=== PATIENT | female | born 1935 | race Caucasian/White ===

== ENCOUNTER → 2016-11-22 | Outpatient (CLI) | payer MEDICARE, BC ==
--- NOTE | 2016-11-22 12:52 | XR ---
EXAMINATION TYPE: XR KUB DATE OF EXAM: 11/22/2016 12:48 PM COMPARISON: Ultrasound 10/04/2016 HISTORY: Left flank pain FINDINGS: The osseous structures are intact. The bowel gas pattern is nonspecific. Severe degenerative disc di sease and hypertrophic changes noted. Surgical clips in the right upper quadrant seen. Severe arthrit ic changes involving the hip joints with complete loss of joint space and possible post arthritic ost eonecrosis. Calcifications overlying the pelvis are noted. IMPRESSION: 1. Nonspecific abdomen. Renal stone noted by ultrasound is not well seen by standard x-ray. No defin ite suspicious calcifications. 2. 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
== END | disposition home or self-care (01) ==
LOC: RADXRMAIN 12:31
PROVIDERS: ATTEND Physician Assistant
DX: N20.0 Calculus of kidney (principal)
CPT/HCPCS: 74000

== ENCOUNTER 2018-02-10 02:34 | Inpatient (IN) | payer MEDICARE, BC ==
--- NOTE | 2018-02-10 02:49 | ED ---
General Adult HPI - General Stated complaint: Low Hemoglobin Time Seen by Provider: 02/10/18 02:35 Source: RN notes reviewed - History of Present Illness Initial comments: This is an 82-year-old female presents emergency department stating she has been having maroon stool since Monday. Patient states she got call from her doctor that her hemoglobin was 6.6 and needed to come to the hospital. Patient states she's noticed lately she's been considerable short of breath especially with any Walking. Patient states she's had no chest pain patient denies any abdominal pain patient denies ever having been anemic in the past. Patient states she's never had a colonoscopy. Patient denies lightheadedness dizziness when she is walking. Patient denies any headache patient denies numbness weakness. Patient denies any recent fever chills. - Related Data Home Medications Medication Instructions Recorded Confirmed Aspirin 81 mg PO DAILY 04/10/15 02/10/18 Cyanocobalamin [Vitamin B-12] 1,000 mcg PO QAM 04/10/15 02/10/18 Docusate Sodium [Dulcolax Stool 200 mg PO HS 04/10/15 02/10/18 Softener] Furosemide [Lasix] 20 mg PO DAILY 04/10/15 02/10/18 Levothyroxine Sodium [Synthroid] 150 mcg PO QAM 04/10/15 02/10/18 Metoprolol Succinate [Toprol XL] 50 mg PO QAM 04/10/15 02/10/18 Multivit with Calcium,Iron,Min 1 each PO DAILY 04/10/15 02/10/18 [Women's Daily Multivitamin] Nateglinide [Starlix] 120 mg PO QAM 04/10/15 02/10/18 Oxybutynin Chloride 5 mg PO TID 04/10/15 06/04/15 Phentermine HCl [Adipex-P] 1.5 tab PO QAM 04/10/15 06/04/15 Potassium Chloride [K-Tab ER] 10 meq PO 1200 04/10/15 02/10/18 Sennosides [Senokot] 2 tab PO HS 04/10/15 02/10/18 Simvastatin [Zocor] 20 mg PO HS 04/10/15 06/04/15 Vits A,C,E/Lutein/Minerals 1 each PO Q6H 04/10/15 02/10/18 [Ocuvite with Lutein Tablet] metFORMIN HCL 1,000 mg PO QAM 04/10/15 02/10/18 sitaGLIPtin PHOS/metFORMIN HCL 1 each PO QAM 04/10/15 02/10/18 [Janumet Xr 100-1,000 mg Tablet] Ciprofloxacin HCl [Cipro] 500 mg PO Q12HR 02/10/18 02/10/18 Allergies Allergy/AdvReac Type Severity Reaction Status Date / Time Sulfa (Sulfonamide Allergy Anaphylaxis Verified 06/02/15 10:21 Antibiotics) Review of Systems ROS Statement: Those systems with pertinent positive or pertinent negative responses have been documented in the HPI. ROS Other: All systems not noted in ROS Statement are negative. General Exam - General Exam Comments Initial Comments: GENERAL: Patient is well-developed and well-nourished. Patient is nontoxic and well- hydrated and is in mild distress. ENT: Neck is soft and supple. No significant lymphadenopathy is noted. Oropharynx is clear. Moist mucous membranes. Neck has full range of motion without eliciting any pain. EYES: The sclera were anicteric and conjunctiva were pink and moist. Extraocular movements were intact and pupils were equal round and reactive to light. Eyelids were unremarkable. PULMONARY: Diminished breath sounds on the right CARDIOVASCULAR: Patient has extrasystole occasionally with a 2/6 murmur ABDOMEN: Soft and nontender with normal bowel sounds. SKIN: Patient's skin is very pale. NEUROLOGIC: Patient is alert and oriented x3. Cranial nerves II through XII are grossly intact. Motor and sensory are also intact. Normal speech, volume and content. Symmetrical smile. MUSCULOSKELETAL: Normal extremities with adequate strength and full range of motion. LYMPHATICS: No significant lymphadenopathy is noted PSYCHIATRIC: Normal psychiatric evaluation. Normal interpersonal interactions appears functionally intact in deals appropriately with others. No signs of depression. No signs of anxiety. Course Vital Signs 02/10/18 02/10/18 02/10/18 02:42 03:46 04:27 Temperature 97.8 F 98.0 F 98.6 F Pulse Rate 90 81 89 Respiratory 16 16 16 Rate Blood Pressure 133/62 115/71 139/65 O2 Sat by Pulse 93 L 99 100 Oximetry 02/10/18 02/10/18 04:38 04:45 Temperature 98.6 F 98.4 F Pulse Rate 97 85 Respiratory 16 17 Rate Blood Pressure 139/65 120/58 O2 Sat by Pulse Oximetry Medical Decision Making - Medical Decision Making X-ray shows possible new right-sided infiltrate with a small pleural effusion CAT scan verifies pneumonia in the right also notices some infiltrate on the left. Patient continues to deny any significant cough. I spoke with Dr. Park I did the patient I wrote admitting orders. I started the patient on antibiotics. I gave the patient blood. - Lab Data Result diagrams: 02/10/18 02:53 02/10/18 02:53 Lab Results 02/10/18 02/10/18 02/10/18 Range/Units 02:53 02:53 02:53 WBC 5.4 (3.8-10.6) k/uL RBC 2.43 L (3.80-5.40) m/uL Hgb 6.3 L* (11.4-16.0) gm/dL Hct 20.6 L (34.0-46.0) % MCV 84.9 (80.0-100.0) fL MCH 25.9 (25.0-35.0) pg MCHC 30.5 L (31.0-37.0) g/dL RDW 15.5 (11.5-15.5) % Plt Count 198 (150-450) k/uL Neutrophils % 65 % Lymphocytes % 17 % Monocytes % 11 % Eosinophils % 2 % Basophils % 0 % Neutrophils # 3.5 (1.3-7.7) k/uL Lymphocytes # 0.9 L (1.0-4.8) k/uL Monocytes # 0.6 (0-1.0) k/uL Eosinophils # 0.1 (0-0.7) k/uL Basophils # 0.0 (0-0.2) k/uL Hypochromasia Marked Poikilocytosis Moderate PT (9.0-12.0) sec INR (<1.2) APTT (22.0-30.0) sec Sodium (137-145) mmol/L Potassium (3.5-5.1) mmol/L Chloride (98-107) mmol/L Carbon Dioxide (22-30) mmol/L Anion Gap mmol/L BUN (7-17) mg/dL Creatinine (0.52-1.04) mg/dL Est GFR (CKD-EPI)AfAm (>60 ml/min/1.73 sqM) Est GFR (CKD-EPI)NonAf (>60 ml/min/1.73 sqM) Glucose (74-99) mg/dL Calcium (8.4-10.2) mg/dL Total Bilirubin (0.2-1.3) mg/dL AST (14-36) U/L ALT (9-52) U/L Alkaline Phosphatase (38-126) U/L Total Creatine Kinase 68 (30-135) U/L CK-MB (CK-2) 0.9 (0.0-2.4) ng/mL CK-MB (CK-2) Rel Index 1.3 Troponin I 0.040 H* (0.000-0.034) ng/mL Total Protein (6.3-8.2) g/dL Albumin (3.5-5.0) g/dL Blood Type O Positive Blood Type Recheck No Antibody Screen NEGATIVE Crossmatch See Detail Spec Expiration Date 02/13/2018235202/10/18 02/10/18 Range/Units 02:53 02:53 WBC (3.8-10.6) k/uL RBC (3.80-5.40) m/uL Hgb (11.4-16.0) gm/dL Hct (34.0-46.0) % MCV (80.0-100.0) fL MCH (25.0-35.0) pg MCHC (31.0-37.0) g/dL RDW (11.5-15.5) % Plt Count (150-450) k/uL Neutrophils % % Lymphocytes % % Monocytes % % Eosinophils % % Basophils % % Neutrophils # (1.3-7.7) k/uL Lymphocytes # (1.0-4.8) k/uL Monocytes # (0-1.0) k/uL Eosinophils # (0-0.7) k/uL Basophils # (0-0.2) k/uL Hypochromasia Poikilocytosis PT 10.6 (9.0-12.0) sec INR 1.1 (<1.2) APTT 21.5 L (22.0-30.0) sec Sodium 142 (137-145) mmol/L Potassium 3.4 L (3.5-5.1) mmol/L Chloride 102 (98-107) mmol/L Carbon Dioxide 23 (22-30) mmol/L Anion Gap 17 mmol/L BUN 18 H (7-17) mg/dL Creatinine 0.80 (0.52-1.04) mg/dL Est GFR (CKD-EPI)AfAm 79 (>60 ml/min/1.73 sqM) Est GFR (CKD-EPI)NonAf 69 (>60 ml/min/1.73 sqM) Glucose 149 H (74-99) mg/dL Calcium 9.3 (8.4-10.2) mg/dL Total Bilirubin 0.5 (0.2-1.3) mg/dL AST 20 (14-36) U/L ALT 16 (9-52) U/L Alkaline Phosphatase 57 (38-126) U/L Total Creatine Kinase (30-135) U/L CK-MB (CK-2) (0.0-2.4) ng/mL CK-MB (CK-2) Rel Index Troponin I (0.000-0.034) ng/mL Total Protein 7.0 (6.3-8.2) g/dL Albumin 3.9 (3.5-5.0) g/dL Blood Type Blood Type Recheck Antibody Screen Crossmatch Spec Expiration Date Disposition Clinical Impression: Bilateral pneumonia, Anemia, GI bleed Disposition: ADMITTED IP TO THIS HOSP Referrals: Handy Mccoy MD [Primary Care Provider] - 1-2 days Time of Disposition: 04:48
[2018-02-10 03:20] LABS: Basophils % (A) 0 %; Eosinophils # (A) 0.1 k/uL (0-0.7); Eosinophils % (A) 2 %; HCT 20.6 % (34.0-46.0); Hypochromasia Marked; Lymphocytes # (A) 0.9 k/uL (1.0-4.8); Lymphocytes % (A) 17 %; MCH 25.9 pg (25.0-35.0); MCHC 30.5 g/dL (31.0-37.0); MCV 84.9 fL (80.0-100.0); Mean Platelet Volume 8.5; Monocytes # (A) 0.6 k/uL (0-1.0); Monocytes % (A) 11 %; Neutrophils # (A) 3.5 k/uL (1.3-7.7); Neutrophils % (A) 65 %; Platelet Count 198 k/uL (150-450); Poikilocytosis Moderate; RBC 2.43 m/uL (3.80-5.40); RDW 15.5 % (11.5-15.5); WBC 5.4 k/uL (3.8-10.6)
--- NOTE | 2018-02-10 03:27 | XR ---
EXAMINATION TYPE: XR chest 2V DATE OF EXAM: 02/10/2018 COMPARISON: 11/27/2012 HISTORY: Chest pain TECHNIQUE: Frontal and lateral views of the chest are obtained. FINDINGS: There is increased interstitial density in the right lung compared to the left. There is s light blunting of right costophrenic angle. Mediastinum is normal. There are chest leads. IMPRESSION: New mild infiltrate in the right lung with pleural effusion compared to old exam. No manisha ss heart failure. This is consistent with pneumonia.
[2018-02-10 03:30] LABS: HGB 6.3 gm/dL (11.4-16.0)
[2018-02-10 03:33] LABS: Albumin 3.9 g/dL (3.5-5.0); Calcium 9.3 mg/dL (8.4-10.2); Potassium 3.4 mmol/L (3.5-5.1); Total Bilirubin 0.5 mg/dL (0.2-1.3)
[2018-02-10 03:34] LABS: INR 1.1 (<1.2); Prothrombin Time 10.6 sec (9.0-12.0)
[2018-02-10 03:37] LABS: Partial Thromboplastin Time 21.5 sec (22.0-30.0)
[2018-02-10] MEDS ORDERED: RX INFO: IV CONTRAST WAS GIVEN 1 EACH MISC MISCELLANE PRN (03:47)
[2018-02-10 04:17] LABS: Creatine Kinase MB 0.9 ng/mL (0.0-2.4)
[2018-02-10 04:18] LABS: Troponin I 0.04 ng/mL (0.000-0.034)
--- NOTE | 2018-02-10 04:36 | CT ---
EXAM: CT Chest With Intravenous Contrast CLINICAL HISTORY: ITS.REASON CT Reason: Pain TECHNIQUE: Axial computed tomography images of the chest with intravenous contrast. CTDI is 19.70 mGy and DLP is 738.00 mGy-cm. This CT exam was performed using one or more of the following dose reduction techniques: automated exposure control, adjustment of the mA and/or kV according to patient size, and/or use of iterative reconstruction technique. COMPARISON: No relevant prior studies available. FINDINGS: Lungs: Multifocal patchy perihilar infiltrates seen bilaterally. Pleural space: Unremarkable. No pneumothorax. No significant effusion. Heart: Unremarkable. No cardiomegaly. No significant pericardial effusion. Bones/joints: Unremarkable. No acute fracture. No dislocation. Soft tissues: Unremarkable. Vasculature: Extensive atherosclerotic calcifications of the left coronary artery and its major branches. No thoracic aortic aneurysm. Lymph nodes: Unremarkable. No enlarged lymph nodes. Kidneys and ureters: Multiloculated cyst in the upper pole of the left kidney with rim calcifications. IMPRESSION: 1. No evidence of PE. 2. Multifocal patchy pneumonia seen bilaterally. 3. Complex cyst in the upper pole of the left kidney which can be further evaluated by nonemergent ultrasound.
[2018-02-10] MEDS ORDERED: PNEUMONIA PROTOCOL UTILIZED 1 EACH MISC PO PRN (04:48)
[2018-02-10 04:53] LABS: Band Neutrophils % 1 %; Eosinophils # (M) 0.22 k/uL (0-0.7); Lymphocytes # (M) 1.13 k/uL (1.0-4.8); Monocytes # (M) 0.59 k/uL (0-1.0); Neutrophils % (M) 63 %; Nucleated Red Blood Cells 0 /100 WBC (0-0); Total Cells Counted 100
[2018-02-10 04:54] LABS: Large Platelets Present
[2018-02-10] MEDS ORDERED: cefTRIAXone IN SWFI 1,000 MG/10 ML SYRINGE IVP STA (04:56)
[2018-02-10] MEDS ORDERED: AZITHROMYCIN 500 MG in SODIUM CHLORIDE 0.9% 250 ML IVPB STA (04:56)
[2018-02-10 05:46] VITALS: BMI 42.7
[2018-02-10 07:12] LABS: Glucose,Whole Blood 129 mg/dL (75-99)
[2018-02-10 08:25] LABS: HCT 22.5 % (34.0-46.0); Hypochromasia Marked; MCH 26.5 pg (25.0-35.0); MCHC 30.4 g/dL (31.0-37.0); MCV 87.1 fL (80.0-100.0); Mean Platelet Volume 9.5; Platelet Count 154 k/uL (150-450); Poikilocytosis Moderate; RBC 2.59 m/uL (3.80-5.40); RDW 15.7 % (11.5-15.5)
[2018-02-10 08:27] LABS: HGB 6.8 gm/dL (11.4-16.0)
[2018-02-10 08:52] LABS: Band Neutrophils % 1 %; Basophils # (M) 0.06 k/uL (0-0.2); Eosinophils # (M) 0.06 k/uL (0-0.7); Lymphocytes # (M) 1.49 k/uL (1.0-4.8); Metamyelocytes # (M) 0.06 k/uL (0); Metamyelocytes % 1 %; Monocytes # (M) 0.55 k/uL (0-1.0); Myelocytes # (M) 0.06 k/uL (0); Myelocytes % 1 %; Neutrophils % (M) 61 %; Nucleated Red Blood Cells 1 /100 WBC (0-0); Total Cells Counted 200; WBC 5.5 k/uL (3.8-10.6)
[2018-02-10 11:25] LABS: Glucose,Whole Blood 116 mg/dL (75-99)
--- NOTE | 2018-02-10 14:32 | P.HPIM ---
History of Present Illness 79-year-old pleasant female was sent in because of low hemoglobin by the primary care physician patient was having maroon stools as well as bright blood per rectum from Monday to about 2-3 stools a day patient is found to have hemoglobin of 6.6 received 1 L of transfusion after after which it went up to 6.9 we'll transfuse him one more year her U1 more unit patient denied any abdominal pain denied nausea vomiting so far there is no GI bleed here in the hospital. Patient is coming of lightheadedness dizziness and generalized fatigue Review of Systems REVIEW OF SYSTEMS: CONSTITUTIONAL: No fever, no malaise, no fatigue. HEENT: No recent visual problems or hearing problems. Denied any sore throat. CARDIOVASCULAR: No chest pain, orthopnea, PND, no palpitations, no syncope. PULMONARY: No shortness of breath, no cough, no hemoptysis. GASTROINTESTINAL: As mentioned in HPI NEUROLOGICAL: No headaches, no weakness, no numbness. HEMATOLOGICAL: Denies any bleeding or petechiae. GENITOURINARY: Denies any burning micturition, frequency, or urgency. MUSCULOSKELETAL/RHEUMATOLOGICAL: Denies any joint pain, swelling, or any muscle pain. ENDOCRINE: Denies any polyuria or polydipsia. The rest of the 14-point review of systems is negative. Past Medical History Past Medical History: Blood Disorder, Diabetes Mellitus, Hypertension, Osteoarthritis (OA), Pneumonia, Thyroid Disorder Additional Past Medical History / Comment(s): anemia History of Any Multi-Drug Resistant Organisms: None Reported Past Surgical History: Cholecystectomy, Hysterectomy, Orthopedic Surgery, Tonsillectomy Additional Past Surgical History / Comment(s): knee replacement Past Anesthesia/Blood Transfusion Reactions: No Reported Reaction Past Psychological History: No Psychological Hx Reported Smoking Status: Never smoker Past Alcohol Use History: None Reported Past Drug Use History: None Reported Medications and Allergies Home Medications Medication Instructions Recorded Confirmed Type Aspirin 81 mg PO QAM 04/10/15 02/10/18 History Cyanocobalamin [Vitamin B-12] 1,000 mcg PO QAM 04/10/15 02/10/18 History Docusate Sodium [Dulcolax Stool 200 mg PO HS 04/10/15 02/10/18 History Softener] Furosemide [Lasix] 20 mg PO BID 04/10/15 02/10/18 History Metoprolol Succinate [Toprol XL] 50 mg PO QAM 04/10/15 02/10/18 History Multivit with Calcium,Iron,Min 1 tab PO DAILY@1200 04/10/15 02/10/18 History [Women's Daily Multivitamin] Nateglinide [Starlix] 120 mg PO QAM 04/10/15 02/10/18 History Potassium Chloride [K-Tab ER] 10 meq PO DAILY@1200 04/10/15 02/10/18 History Sennosides [Senokot] 17.2 tab PO HS 04/10/15 02/10/18 History Vits A,C,E/Lutein/Minerals 1 tab PO DAILY@1800 04/10/15 02/10/18 History [Ocuvite with Lutein Tablet] sitaGLIPtin PHOS/metFORMIN HCL 1 tab PO QAM 04/10/15 02/10/18 History [Janumet Xr 100-1,000 mg Tablet] Atorvastatin [Lipitor] 20 mg PO HS 02/10/18 02/10/18 History Levothyroxine Sodium [Synthroid] 150 mcg PO QAM 02/10/18 02/10/18 History Allergies Allergy/AdvReac Type Severity Reaction Status Date / Time Sulfa (Sulfonamide Allergy Anaphylaxis Verified 02/10/18 10:44 Antibiotics) Physical Exam Vitals: Vital Signs Temp Pulse Pulse Resp BP BP Pulse Ox 02/10/18 11:21 98 F 86 20 120/61 99 02/10/18 08:00 96.7 F L 84 20 109/60 100 02/10/18 05:56 97.5 F L 81 16 91/41 100 02/10/18 05:25 97.5 F L 81 16 91/41 100 02/10/18 05:07 99.3 F 84 16 02/10/18 04:55 98.6 F 82 17 118/64 02/10/18 04:45 98.4 F 85 17 120/58 02/10/18 04:38 98.6 F 97 16 139/65 02/10/18 04:27 98.6 F 89 16 139/65 100 02/10/18 03:46 98.0 F 81 16 115/71 99 02/10/18 02:42 97.8 F 90 16 133/62 93 L Intake and Output 02/09/18 02/10/18 02/10/18 22:59 06:59 14:59 Intake Total 620 240 Balance 620 240 Intake: Oral 240 Blood Product 620 Rc As-1 Unit 310 [id number] Other: Voiding Method Diaper Diaper Incontinent Incontinent # Voids 1 Weight 112.94 kg PHYSICAL EXAMINATION: GENERAL: The patient is alert and oriented x3, not in any acute distress. Well developed, well nourished. HEENT: Pupils are round and equally reacting to light. EOMI. no scleral icterus. Patient does have conjunctival pallor. Normocephalic, atraumatic. No pharyngeal erythema. No thyromegaly. CARDIOVASCULAR: S1 and S2 present. No murmurs, rubs, or gallops. PULMONARY: Chest is clear to auscultation, no wheezing or crackles. ABDOMEN: Soft, nontender, nondistended, normoactive bowel sounds. No palpable organomegaly. MUSCULOSKELETAL: No joint swelling or deformity. EXTREMITIES: No cyanosis, clubbing, or pedal edema. NEUROLOGICAL: Gross neurological examination did not reveal any focal deficits. SKIN: No rashes. Results CBC & Chem 7: 02/10/18 08:01 02/10/18 02:53 Labs: Abnormal Lab Results - Last 24 Hours (Table) 02/10/18 02/10/18 02/10/18 Range/Units 02:53 02:53 02:53 RBC 2.43 L (3.80-5.40) m/uL Hgb 6.3 L* (11.4-16.0) gm/dL Hct 20.6 L (34.0-46.0) % MCHC 30.5 L (31.0-37.0) g/dL RDW (11.5-15.5) % Lymphocytes # 0.9 L (1.0-4.8) k/uL Metamyelocytes # (Man) (0) k/uL Myelocytes # (Manual) (0) k/uL Nucleated RBCs (0-0) /100 WBC APTT (22.0-30.0) sec Potassium (3.5-5.1) mmol/L BUN (7-17) mg/dL Glucose (74-99) mg/dL POC Glucose (mg/dL) (75-99) mg/dL Troponin I 0.040 H* (0.000-0.034) ng/mL Crossmatch See Detail 02/10/18 02/10/18 02/10/18 Range/Units 02:53 02:53 07:09 RBC (3.80-5.40) m/uL Hgb (11.4-16.0) gm/dL Hct (34.0-46.0) % MCHC (31.0-37.0) g/dL RDW (11.5-15.5) % Lymphocytes # (1.0-4.8) k/uL Metamyelocytes # (Man) (0) k/uL Myelocytes # (Manual) (0) k/uL Nucleated RBCs (0-0) /100 WBC APTT 21.5 L (22.0-30.0) sec Potassium 3.4 L (3.5-5.1) mmol/L BUN 18 H (7-17) mg/dL Glucose 149 H (74-99) mg/dL POC Glucose (mg/dL) 129 H (75-99) mg/dL Troponin I (0.000-0.034) ng/mL Crossmatch 02/10/18 02/10/18 02/10/18 Range/Units 08:01 11:23 13:00 RBC 2.59 L (3.80-5.40) m/uL Hgb 6.8 L* (11.4-16.0) gm/dL Hct 22.5 L (34.0-46.0) % MCHC 30.4 L (31.0-37.0) g/dL RDW 15.7 H (11.5-15.5) % Lymphocytes # (1.0-4.8) k/uL Metamyelocytes # (Man) 0.06 H (0) k/uL Myelocytes # (Manual) 0.06 H (0) k/uL Nucleated RBCs 1 H (0-0) /100 WBC APTT (22.0-30.0) sec Potassium (3.5-5.1) mmol/L BUN (7-17) mg/dL Glucose (74-99) mg/dL POC Glucose (mg/dL) 116 H (75-99) mg/dL Troponin I 0.041 H* (0.000-0.034) ng/mL Crossmatch Thrombosis Risk Factor Assmnt - Choose All That Apply Any of the Below Risk Factors Present?: Yes Each Factor Represents 1 point: Obesity (BMI >25), Swollen legs (current) Other Risk Factors: Yes Each Risk Factor Represents 3 Points: Age 75 years or older Thrombosis Risk Factor Assessment Total Risk Factor Score: 5 Thrombosis Risk Factor Assessment Level: High Risk Assessment and Plan Plan: -Acute blood loss anemia unsure of this upper GI bleed or lower GI bleed patient should get both upper and lower GI endoscopy will discuss with Dr. Jackson. Will transfuse 1 more unit monitored overnight. -Hyperlipidemia -Type 2 diabetes mellitus: Hold off on oral hyperglycemic agents patient will be on sliding scale insulin and sent-hypertension patient is hypotensive probably because of the GI bleed metoprolol will be continued Lasix will be held -Hypothyroidism
--- NOTE | 2018-02-10 14:45 | P.PN ---
Subjective Progress Note Date: 02/10/18 Principal diagnosis: This is a very pleasant 82-year-old female patient who follows with Dr. Mccoy as her primary care physician. She has a history of diabetes mellitus , obesity, hypertension, hypothyroidism. She presented here to the emergency room early this morning with complaints of maroon stools since Monday. She did follow up with her PCP and her hemoglobin was found to be 6.6 and was directed here for the same. She has been noticing increasing shortness of breath with minimal exertion. No cough or congestion. No fever chills or night sweats. She denied any significant abdominal discomfort. No previous history of GI bleed. She's never had a colonoscopy in the past. The chest x-ray revealed some new infiltrate in the right lung with a small pleural effusion. A computed tomography scan of the chest revealed no evidence of pulmonary embolism. There was some multifocal patchy pneumonia seen bilaterally. There is some concern regarding pneumonia and we are consulted for the same. She is seen today in consultation on the selective care unit. She is awake and alert in no acute distress. She denies any worsening shortness of breath, cough or congestion. She is maintaining good O2 saturations up to 100% on 3 L/m per nasal cannula. She's been afebrile. Hemodynamically stable. She denies any significant abdominal discomfort. She did receive 1 unit of packed red blood cells thus far. Her current hemoglobin is 6.8. No leukocytosis. She has been initiated on ceftriaxone and azithromycin. Objective - Vital Signs Vital signs: Vital Signs Temp 98 F 02/10/18 11:21 Pulse 86 02/10/18 11:21 Resp 20 02/10/18 11:21 BP 120/61 02/10/18 11:21 Pulse Ox 99 02/10/18 11:21 Intake & Output 02/09/18 02/10/18 02/10/18 18:59 06:59 18:59 Intake Total 620 240 Balance 620 240 Weight 112.94 kg Intake: Oral 240 Blood Product 620 Rc As-1 Unit 310 [id number] Other: Voiding Method Diaper Diaper Incontinent Incontinent # Voids 1 - Exam GENERAL EXAM: Morbidly obese. Alert, active, comfortable in no apparent distress. HEAD: Normocephalic. EYES: Normal reaction of pupils, equal size. NOSE: Clear with pink turbinates. THROAT: No erythema or exudates. NECK: No masses, no JVD. CHEST: No chest wall deformity. LUNGS: Equal air entry with few scattered crackles in the right posterior base. CVS: S1 and S2 normal with no audible murmur, regular rhythm. ABDOMEN: No hepatosplenomegaly, normal bowel sounds, no guarding or rigidity. SPINE: No scoliosis or deformity SKIN: No rashes CENTRAL NERVOUS SYSTEM: No focal deficits, tone is normal in all 4 extremities. EXTREMITIES: There is no peripheral edema. No clubbing, no cyanosis. Peripheral pulses are intact. - Labs CBC & Chem 7: 02/10/18 08:01 02/10/18 02:53 Labs: Abnormal Lab Results - Last 24 Hours (Table) 02/10/18 02/10/18 02/10/18 Range/Units 02:53 02:53 02:53 RBC 2.43 L (3.80-5.40) m/uL Hgb 6.3 L* (11.4-16.0) gm/dL Hct 20.6 L (34.0-46.0) % MCHC 30.5 L (31.0-37.0) g/dL RDW (11.5-15.5) % Lymphocytes # 0.9 L (1.0-4.8) k/uL Metamyelocytes # (Man) (0) k/uL Myelocytes # (Manual) (0) k/uL Nucleated RBCs (0-0) /100 WBC APTT (22.0-30.0) sec Potassium (3.5-5.1) mmol/L BUN (7-17) mg/dL Glucose (74-99) mg/dL POC Glucose (mg/dL) (75-99) mg/dL Troponin I 0.040 H* (0.000-0.034) ng/mL Crossmatch See Detail 02/10/18 02/10/18 02/10/18 Range/Units 02:53 02:53 07:09 RBC (3.80-5.40) m/uL Hgb (11.4-16.0) gm/dL Hct (34.0-46.0) % MCHC (31.0-37.0) g/dL RDW (11.5-15.5) % Lymphocytes # (1.0-4.8) k/uL Metamyelocytes # (Man) (0) k/uL Myelocytes # (Manual) (0) k/uL Nucleated RBCs (0-0) /100 WBC APTT 21.5 L (22.0-30.0) sec Potassium 3.4 L (3.5-5.1) mmol/L BUN 18 H (7-17) mg/dL Glucose 149 H (74-99) mg/dL POC Glucose (mg/dL) 129 H (75-99) mg/dL Troponin I (0.000-0.034) ng/mL Crossmatch 02/10/18 02/10/18 02/10/18 Range/Units 08:01 11:23 13:00 RBC 2.59 L (3.80-5.40) m/uL Hgb 6.8 L* (11.4-16.0) gm/dL Hct 22.5 L (34.0-46.0) % MCHC 30.4 L (31.0-37.0) g/dL RDW 15.7 H (11.5-15.5) % Lymphocytes # (1.0-4.8) k/uL Metamyelocytes # (Man) 0.06 H (0) k/uL Myelocytes # (Manual) 0.06 H (0) k/uL Nucleated RBCs 1 H (0-0) /100 WBC APTT (22.0-30.0) sec Potassium (3.5-5.1) mmol/L BUN (7-17) mg/dL Glucose (74-99) mg/dL POC Glucose (mg/dL) 116 H (75-99) mg/dL Troponin I 0.041 H* (0.000-0.034) ng/mL Crossmatch Assessment and Plan Assessment: Impression: #1 Acute gastrointestinal bleeding of unclear etiology. Initial hemoglobin 6.3. Status post 1 unit packed red blood cells thus far. Current hemoglobin 6.8, second unit pending. #2 Acute hypoxic respiratory failure secondary to bilateral multifocal pneumonia , community-acquired. #3 Morbid obesity. #4 Hypothyroidism. #5 Diabetes mellitus. #6 Urinary incontinence. Plan: The patient was seen and evaluated by Dr. Lazo. Her chest x-ray and CAT scan were reviewed. We'll go ahead and continue with her current antibiotics in the form of ceftriaxone and azithromycin. We'll add bronchodilators. Patient on the FiO2 maintaining O2 saturations greater than 92%. Continue to monitor her hemoglobin and for evidence of acute GI bleeding. We will continue to follow and make further recommendations based on her clinical status. I, the cosigning physician, performed a history & physical examination of the patient. Lungs sounds with few scattered rhonchi. Maintaining good O2 saturations in the 90s on 3 L/m per nasal cannula. I discussed the assessment and plan of care with my nurse practitioner, Dia Rocha. I attest to the above note as dictated by her. Time with Patient: Greater than 30
[2018-02-10] MEDS: IPRATROPIUM-ALBUTEROL 3 ML NEB INHALATION SCH ×2 (15:40→19:27)
[2018-02-10 16:50] LABS: Glucose,Whole Blood 157 mg/dL (75-99)
[2018-02-10] MEDS: INSULIN ASPART 100 UNIT/ML 1 ML 10 ML VIAL SQ SCH ×2 (17:17→21:08)
[2018-02-10] MEDS: ATORVASTATIN 20 MG TAB PO SCH (19:59)
[2018-02-10 21:07] LABS: Glucose,Whole Blood 118 mg/dL (75-99)
[2018-02-11 06:02] LABS: Glucose,Whole Blood 136 mg/dL (75-99)
[2018-02-11] MEDS: NATEGLINIDE 120 MG PO SCH (06:25)
[2018-02-11] MEDS: INSULIN ASPART 100 UNIT/ML 1 ML 10 ML VIAL SQ SCH ×4 (06:27→21:20)
[2018-02-11] MEDS: LEVOTHYROXINE 75 MCG TAB PO SCH (06:27)
[2018-02-11 06:42] LABS: HCT 24.3 % (34.0-46.0); HGB 7.6 gm/dL (11.4-16.0); Hypochromasia Marked; MCH 26.7 pg (25.0-35.0); MCHC 31.2 g/dL (31.0-37.0); MCV 85.6 fL (80.0-100.0); Mean Platelet Volume 9.6; Platelet Count 160 k/uL (150-450); Poikilocytosis Marked; RBC 2.84 m/uL (3.80-5.40); RDW 15.8 % (11.5-15.5); WBC 5.1 k/uL (3.8-10.6)
[2018-02-11 06:46] LABS: Anion Gap 11 mmol/L; Blood Urea Nitrogen 7 mg/dL (7-17); Calcium 8.5 mg/dL (8.4-10.2); Carbon Dioxide 25 mmol/L (22-30); Chloride 107 mmol/L (98-107); Glucose 126 mg/dL (74-99); Potassium 3.2 mmol/L (3.5-5.1); Sodium 143 mmol/L (137-145)
[2018-02-11] MEDS: AZITHROMYCIN 500 MG TAB PO SCH (08:07)
[2018-02-11] MEDS: METOPROLOL SUCCINATE (ER) 50 MG TAB.ER.24H PO SCH (08:07)
[2018-02-11] MEDS: IPRATROPIUM-ALBUTEROL 3 ML NEB INHALATION SCH ×4 (08:12→19:22)
--- NOTE | 2018-02-11 11:45 | P.CONS ---
History of Present Illness - Reason for Consult Consult date: 02/10/18 GI bleeding - History of Present Illness The patient is an 82-year-old female who was experiencing rectal bleeding that started at the beginning of the week and continued for several days. She was evaluated as outpatient and her PCP office. Her hemoglobin was found low below 7 and was called and was advised to come to the hospital for transfusions. The patient denied any abdominal pains, nausea, vomiting or hematemesis. She has been having shortness of breath and some degree of weakness. She had no prior upper endoscopy or colonoscopy. Review of Systems Constitutional: Denies fever, chills, sweats, weight gain, or loss. HEENT: Negative for migraines, blurred vision or loss, earaches, drainage, tinnitus, oral mucosal lesions, dysphagia, or odynophagia. CARDIAC: Negative for chest pain, arrhythmias, or palpitation. RESPIRATORY: Negative for shortness of breath, hemoptysis, cough, or sputum production. GI: See HPI for pertinent findings. : Negative for hematuria, urgency, frequency, polyuria, or dysuria. GYNc: Denies possibility of . MUSCULOSKELETAL: Negative for muscle aches, swelling, arthritis, and arthralgias. NEUROLOGIC: Negative for stroke or TIA. ENDOCRINE: Negative for thyroid problems. SKIN: Negative for rash or itching. PSYCHIATRIC: Negative history for depression and anxiety Past Medical History Past Medical History: Blood Disorder, Diabetes Mellitus, Hypertension, Osteoarthritis (OA), Pneumonia, Thyroid Disorder Additional Past Medical History / Comment(s): anemia History of Any Multi-Drug Resistant Organisms: None Reported Past Surgical History: Cholecystectomy, Hysterectomy, Orthopedic Surgery, Tonsillectomy Additional Past Surgical History / Comment(s): knee replacement Past Anesthesia/Blood Transfusion Reactions: No Reported Reaction Past Psychological History: No Psychological Hx Reported Smoking Status: Never smoker Past Alcohol Use History: None Reported Past Drug Use History: None Reported Medications and Allergies Home Medications Medication Instructions Recorded Confirmed Type Aspirin 81 mg PO QAM 04/10/15 02/10/18 History Cyanocobalamin [Vitamin B-12] 1,000 mcg PO QAM 04/10/15 02/10/18 History Docusate Sodium [Dulcolax Stool 200 mg PO HS 04/10/15 02/10/18 History Softener] Furosemide [Lasix] 20 mg PO BID 04/10/15 02/10/18 History Metoprolol Succinate [Toprol XL] 50 mg PO QAM 04/10/15 02/10/18 History Multivit with Calcium,Iron,Min 1 tab PO DAILY@1200 04/10/15 02/10/18 History [Women's Daily Multivitamin] Nateglinide [Starlix] 120 mg PO QAM 04/10/15 02/10/18 History Potassium Chloride [K-Tab ER] 10 meq PO DAILY@1200 04/10/15 02/10/18 History Sennosides [Senokot] 17.2 tab PO 04/10/15 02/10/18 History Vits A,C,E/Lutein/Minerals 1 tab PO DAILY@1800 04/10/15 02/10/18 History [Ocuvite with Lutein Tablet] sitaGLIPtin PHOS/metFORMIN HCL 1 tab PO QA 04/10/15 02/10/18 History [Janumet Xr 100-1,000 mg Tablet] Atorvastatin [Lipitor] 20 mg PO 02/10/18 02/10/18 History Levothyroxine Sodium [Synthroid] 150 mcg PO QA 02/10/18 02/10/18 History Allergies Allergy/AdvReac Type Severity Reaction Status Date / Time Sulfa (Sulfonamide Allergy Anaphylaxis Verified 02/10/18 10:44 Antibiotics) Physical Exam Vitals: Vital Signs Temp Pulse Pulse Resp BP BP Pulse Ox 02/10/18 08:00 96.7 F L 84 20 109/60 100 02/10/18 05:56 97.5 F L 81 16 91/41 100 02/10/18 05:25 97.5 F L 81 16 91/41 100 02/10/18 05:07 99.3 F 84 16 02/10/18 04:55 98.6 F 82 17 118/64 02/10/18 04:45 98.4 F 85 17 120/58 02/10/18 04:38 98.6 F 97 16 139/65 02/10/18 04:27 98.6 F 89 16 139/65 100 02/10/18 03:46 98.0 F 81 16 115/71 99 02/10/18 02:42 97.8 F 90 16 133/62 93 L Intake and Output 02/09/18 02/10/18 02/10/18 22:59 06:59 14:59 Intake Total 620 Balance 620 Intake: Blood Product 620 Rc As-1 Unit 310 [id number] Other: Voiding Method Diaper Diaper Incontinent Incontinent # Voids 1 Weight 112.94 kg General appearance: The patient is alert, oriented, in no acute distress. HET: Head is normocephalic and atraumatic. Conjunctivae pink, sclerae not icteric. Pupils are equal and reactive. Oropharynx is clear without lesions. Neck: Supple without lymphadenopathy. Trachea midline. Heart: S1 S2. Regular rate and rhythm. Lungs: No crackles or wheezes are heard. Abdomen: Soft, nondistended bowel sounds present. No peritoneal signs. No palpable organomegaly or masses. Extremities: Normal skin color and turgor. No cyanosis, rash, ulceration, clubbing, or edema. Radial and pedal pulses are 2/4 bilaterally. Neurological: No focal deficits. Strength and sensation are grossly intact. Results CBC & Chem 7: 02/11/18 06:05 02/11/18 06:05 Labs: Abnormal Lab Results - Last 24 Hours (Table) 02/10/18 02/10/18 02/10/18 Range/Units 02:53 02:53 02:53 RBC 2.43 L (3.80-5.40) m/uL Hgb 6.3 L* (11.4-16.0) gm/dL Hct 20.6 L (34.0-46.0) % MCHC 30.5 L (31.0-37.0) g/dL RDW (11.5-15.5) % Lymphocytes # 0.9 L (1.0-4.8) k/uL Metamyelocytes # (Man) (0) k/uL Myelocytes # (Manual) (0) k/uL Nucleated RBCs (0-0) /100 WBC APTT (22.0-30.0) sec Potassium (3.5-5.1) mmol/L BUN (7-17) mg/dL Glucose (74-99) mg/dL POC Glucose (mg/dL) (75-99) mg/dL Troponin I 0.040 H* (0.000-0.034) ng/mL Crossmatch See Detail 02/10/18 02/10/18 02/10/18 Range/Units 02:53 02:53 07:09 RBC (3.80-5.40) m/uL Hgb (11.4-16.0) gm/dL Hct (34.0-46.0) % MCHC (31.0-37.0) g/dL RDW (11.5-15.5) % Lymphocytes # (1.0-4.8) k/uL Metamyelocytes # (Man) (0) k/uL Myelocytes # (Manual) (0) k/uL Nucleated RBCs (0-0) /100 WBC APTT 21.5 L (22.0-30.0) sec Potassium 3.4 L (3.5-5.1) mmol/L BUN 18 H (7-17) mg/dL Glucose 149 H (74-99) mg/dL POC Glucose (mg/dL) 129 H (75-99) mg/dL Troponin I (0.000-0.034) ng/mL Crossmatch 02/10/18 Range/Units 08:01 RBC 2.59 L (3.80-5.40) m/uL Hgb 6.8 L* (11.4-16.0) gm/dL Hct 22.5 L (34.0-46.0) % MCHC 30.4 L (31.0-37.0) g/dL RDW 15.7 H (11.5-15.5) % Lymphocytes # (1.0-4.8) k/uL Metamyelocytes # (Man) 0.06 H (0) k/uL Myelocytes # (Manual) 0.06 H (0) k/uL Nucleated RBCs 1 H (0-0) /100 WBC APTT (22.0-30.0) sec Potassium (3.5-5.1) mmol/L BUN (7-17) mg/dL Glucose (74-99) mg/dL POC Glucose (mg/dL) (75-99) mg/dL Troponin I (0.000-0.034) ng/mL Crossmatch Assessment and Plan Assessment: GI bleeding and anemia. Possible etiology includes colonic diverticulosis. Ischemic, infectious or self limited colitis as a possible etiology as well. Less likely: Neoplasia presenting as rectal bleeding or an upper GI source. The patient is being treated for pneumonia as well. Plan: Agree with current management. The patient is not interested in any endoscopic GI workup at this time. This can be reevaluated depending on her course. Will continue to follow with you with interest.
[2018-02-11 11:47] LABS: Glucose,Whole Blood 135 mg/dL (75-99)
--- NOTE | 2018-02-11 11:47 | XR ---
EXAMINATION TYPE: XR chest 2V DATE OF EXAM: 02/11/2018 HISTORY: pneumonia. REFERENCE: Previous study dated 02/10/2018. FINDINGS: Lung volumes are prominent. There continues to be increased opacity of the right hemithorax . There is increased opacity also present in the left midlung. The heart is mildly prominent. I canno t exclude small, bilateral effusions. IMPRESSION: WORSENING BILATERAL PNEUMONIA.
[2018-02-11] MEDS: cefTRIAXone IN SWFI 1,000 MG/10 ML SYRINGE IVP SCH (11:54)
--- NOTE | 2018-02-11 12:28 | P.PN ---
Subjective Progress Note Date: 02/11/18 Principal diagnosis: GI bleed Progress note dated 02/11/2018 This is an 82-year-old female who was seen yesterday in consultation for a GI bleed. Her hemoglobin initially was 6.3. She did receive 1 unit of PRBCs. In addition, she had acute hypoxemic respiratory failure secondary to bilateral multifocal community-acquired pneumonia. Actually today's chest x-rays a bit worse. Clinically, the patient's about the same or slightly better. In addition, she has a history of morbid obesity hypothyroidism diabetes and urinary incontinence. The patient was seen by myself and our nurse practitioner. Again she is feeling a bit better. Less shortness of breath. No additional GI bleeding. Chest x-ray from today is reviewed. Objective - Vital Signs Vital signs: Vital Signs Temp 98.1 F 02/11/18 11:35 Pulse 80 02/11/18 11:52 Resp 20 02/11/18 11:35 BP 112/61 02/11/18 11:35 Pulse Ox 100 02/11/18 11:35 Intake & Output 02/10/18 02/11/18 02/11/18 18:59 06:59 18:59 Intake Total 1270 250 480 Balance 1270 250 480 Weight 118 kg Intake: Intake, IV Titration 250 Amount Azithromycin 500 mg In 250 Sodium Chloride 0.9% 250 ml @ 125 mls/hr IVPB ONCE STA Rx#:[id number] Oral 960 480 Blood Product 310 Rc As-1 Unit 310 [id number] Other: Voiding Method Diaper Diaper Diaper Incontinent Incontinent Incontinent # Voids 1 1 - Exam No acute distress, oriented 3. HEENT examination is grossly unremarkable. Mucous membranes are moist. No oral lesions. Neck supple. Full range of motion. No adenopathy thyromegaly or neck vein distention. Cardiovascular examination reveals regular rhythm rate. S1-S2 normal. No S3 or S4. No discernible murmur noted. Lungs reveal a few scattered rhonchi. Breath sounds are equal bilaterally. This a few scattered bibasilar crackles. No wheezes. Breath sounds are about the same as they were yesterday. Abdomen soft bowel sounds are heard. No masses or tenderness. Extremities are intact. No cyanosis clubbing or edema. Skin is without rash or lesion. Neurologic examination is brief but nonfocal. - Labs CBC & Chem 7: 02/11/18 06:05 02/11/18 06:05 Labs: Abnormal Lab Results - Last 24 Hours (Table) 02/10/18 02/10/18 02/10/18 Range/Units 02:53 13:00 16:49 RBC (3.80-5.40) m/uL Hgb (11.4-16.0) gm/dL Hct (34.0-46.0) % RDW (11.5-15.5) % Potassium (3.5-5.1) mmol/L Glucose (74-99) mg/dL POC Glucose (mg/dL) 157 H (75-99) mg/dL Troponin I 0.041 H* (0.000-0.034) ng/mL Crossmatch See Detail 02/10/18 02/11/18 02/11/18 Range/Units 21:06 06:01 06:05 RBC 2.84 L (3.80-5.40) m/uL Hgb 7.6 L (11.4-16.0) gm/dL Hct 24.3 L (34.0-46.0) % RDW 15.8 H (11.5-15.5) % Potassium (3.5-5.1) mmol/L Glucose (74-99) mg/dL POC Glucose (mg/dL) 118 H 136 H (75-99) mg/dL Troponin I (0.000-0.034) ng/mL Crossmatch 02/11/18 02/11/18 Range/Units 06:05 11:45 RBC (3.80-5.40) m/uL Hgb (11.4-16.0) gm/dL Hct (34.0-46.0) % RDW (11.5-15.5) % Potassium 3.2 L (3.5-5.1) mmol/L Glucose 126 H (74-99) mg/dL POC Glucose (mg/dL) 135 H (75-99) mg/dL Troponin I (0.000-0.034) ng/mL Crossmatch Microbiology - Last 24 Hours (Table) 02/10/18 05:10 Blood Culture - Preliminary Blood No Growth after 24 hours Assessment and Plan Assessment: Assessment Acute GI bleed, currently under evaluation, status post 1 unit of PRBCs Acute hypoxemic respiratory failure, secondary to bilateral multifocal community -acquired pneumonia Morbid obesity Hypothyroidism Diabetes mellitus Urine incontinence Plan: Plan dated 02/11/2018 The patient's chest x-ray labs and medications are all reviewed. We'll continue on antibiotics the form of ceftriaxone and azithromycin. We'll add some bronchodilators. Saturations are reasonable. We'll continue to follow closely. We'll continue to monitor hemoglobin. We'll do another transfusion should her hemoglobin drop to less than 7 and/or should she have active leading. Additional recommendations suggestions are forthcoming. Time with Patient: Less than 30
--- NOTE | 2018-02-11 14:21 | P.PN ---
Subjective 79-year-old admitted for GI bleed unsure whether it's lower upper as of the history is not really clear although there are no dark stools today, no blood in the stools today. Patient is feeling well. Hemoglobin 7.9 today stable. We will discuss with gastroenterology regarding further interventions Constitutional: Denied any fatigue denied any fever. Cardio vascular: denied any chest pain, palpitations Gastrointestinal denied any nausea vomiting Pulmonary: Denied any shortness of breath cough Neurologic denied any new focal deficits Objective - Vital Signs Vital signs: Vital Signs Temp 98.1 F 02/11/18 11:35 Pulse 80 02/11/18 11:52 Resp 20 02/11/18 11:35 BP 112/61 02/11/18 11:35 Pulse Ox 100 02/11/18 11:35 Intake & Output 02/10/18 02/11/18 02/11/18 18:59 06:59 18:59 Intake Total 1270 250 730 Balance 1270 250 730 Weight 118 kg Intake: Intake, IV Titration 250 Amount Azithromycin 500 mg In 250 Sodium Chloride 0.9% 250 ml @ 125 mls/hr IVPB ONCE STA Rx#:[id number] Oral 960 730 Blood Product 310 Rc As-1 Unit 310 [id number] Other: Voiding Method Diaper Diaper Diaper Incontinent Incontinent Incontinent # Voids 1 1 - Exam PHYSICAL EXAMINATION: GENERAL: The patient is alert and oriented x3, not in any acute distress. Well developed, well nourished. HEENT: Pupils are round and equally reacting to light. EOMI. no scleral icterus. Patient does have conjunctival pallor. Normocephalic, atraumatic. No pharyngeal erythema. No thyromegaly. CARDIOVASCULAR: S1 and S2 present. No murmurs, rubs, or gallops. PULMONARY: Chest is clear to auscultation, no wheezing or crackles. ABDOMEN: Soft, nontender, nondistended, normoactive bowel sounds. No palpable organomegaly. MUSCULOSKELETAL: No joint swelling or deformity. EXTREMITIES: No cyanosis, clubbing, or pedal edema. NEUROLOGICAL: Gross neurological examination did not reveal any focal deficits. SKIN: No rashes. - Labs CBC & Chem 7: 02/11/18 06:05 02/11/18 06:05 Labs: Abnormal Lab Results - Last 24 Hours (Table) 02/10/18 02/10/18 02/10/18 Range/Units 02:53 16:49 21:06 RBC (3.80-5.40) m/uL Hgb (11.4-16.0) gm/dL Hct (34.0-46.0) % RDW (11.5-15.5) % Potassium (3.5-5.1) mmol/L Glucose (74-99) mg/dL POC Glucose (mg/dL) 157 H 118 H (75-99) mg/dL Crossmatch See Detail 02/11/18 02/11/18 02/11/18 Range/Units 06:01 06:05 06:05 RBC 2.84 L (3.80-5.40) m/uL Hgb 7.6 L (11.4-16.0) gm/dL Hct 24.3 L (34.0-46.0) % RDW 15.8 H (11.5-15.5) % Potassium 3.2 L (3.5-5.1) mmol/L Glucose 126 H (74-99) mg/dL POC Glucose (mg/dL) 136 H (75-99) mg/dL Crossmatch 02/11/18 Range/Units 11:45 RBC (3.80-5.40) m/uL Hgb (11.4-16.0) gm/dL Hct (34.0-46.0) % RDW (11.5-15.5) % Potassium (3.5-5.1) mmol/L Glucose (74-99) mg/dL POC Glucose (mg/dL) 135 H (75-99) mg/dL Crossmatch Microbiology - Last 24 Hours (Table) 02/10/18 05:10 Blood Culture - Preliminary Blood No Growth after 24 hours Assessment and Plan Plan: -Acute blood loss anemia unsure of this upper GI bleed or lower GI bleed patient should get both upper and lower GI endoscopy will discuss with Dr. Jackson. Hemoglobin stable no more GI bleed -Hyperlipidemia -Type 2 diabetes mellitus: Hold off on oral hyperglycemic agents patient will be on sliding scale insulin and sent-hypertension patient is hypotensive probably because of the GI bleed metoprolol will be continued Lasix will be held -Hypothyroidism
[2018-02-11 17:31] LABS: Glucose,Whole Blood 118 mg/dL (75-99)
[2018-02-11] MEDS: ATORVASTATIN 20 MG TAB PO SCH (21:20)
[2018-02-11 21:40] LABS: Glucose,Whole Blood 138 mg/dL (75-99)
[2018-02-12] MEDS ORDERED: FUROSEMIDE 10 MG/ML 2 ML VIAL IV ONE (02:17)
[2018-02-12] MEDS ORDERED: MELATONIN 5 MG TABLET PO PRN (02:18)
[2018-02-12] MEDS ORDERED: IPRATROPIUM-ALBUTEROL 3 ML NEB INHALATION PRN (02:18)
[2018-02-12] MEDS: LEVOTHYROXINE 75 MCG TAB PO SCH (06:34)
--- NOTE | 2018-02-12 07:29 | XR ---
EXAMINATION TYPE: XR chest 2V DATE OF EXAM: 02/12/2018 COMPARISON: 02/11/2018 HISTORY: 82 year-old female possible fluid overload. TECHNIQUE: Frontal and lateral views FINDINGS: Heart borderline enlarged. Diffuse interstitial and perihilar densities with peribronchial cuffing an d small pleural effusions. Interstitial densities slightly worsened from prior. Degenerative changes of both shoulders. IMPRESSION: Borderline cardiomegaly with interstitial infiltrates and small pleural effusions. Correlate for CHF with pulmonary vascular congestion/mild interstitial edema. Overall appearance is stable to minimally worsened.
[2018-02-12] MEDS: IPRATROPIUM-ALBUTEROL 3 ML NEB INHALATION SCH ×4 (07:35→19:19)
[2018-02-12 07:37] LABS: Glucose,Whole Blood 151 mg/dL (75-99)
[2018-02-12] MEDS: AZITHROMYCIN 500 MG TAB PO SCH (07:59)
[2018-02-12] MEDS: METOPROLOL SUCCINATE (ER) 50 MG TAB.ER.24H PO SCH (07:59)
[2018-02-12] MEDS: INSULIN ASPART 100 UNIT/ML 1 ML 10 ML VIAL SQ SCH ×4 (07:59→20:44)
[2018-02-12] MEDS: cefTRIAXone IN SWFI 1,000 MG/10 ML SYRINGE IVP SCH (07:59)
[2018-02-12] MEDS: NATEGLINIDE 120 MG PO SCH (07:59)
[2018-02-12 09:17] LABS: HCT 25.5 % (34.0-46.0); HGB 8.2 gm/dL (11.4-16.0); Hypochromasia Marked; MCH 27.1 pg (25.0-35.0); MCHC 32.3 g/dL (31.0-37.0); MCV 83.9 fL (80.0-100.0); Mean Platelet Volume 8.9; Platelet Count 183 k/uL (150-450); Poikilocytosis Marked; RBC 3.04 m/uL (3.80-5.40); RDW 15.6 % (11.5-15.5); WBC 7.2 k/uL (3.8-10.6)
[2018-02-12 10:08] LABS: Anion Gap 13 mmol/L; Blood Urea Nitrogen 6 mg/dL (7-17); Calcium 8.5 mg/dL (8.4-10.2); Carbon Dioxide 23 mmol/L (22-30); Chloride 106 mmol/L (98-107); Glucose 132 mg/dL (74-99); Potassium 3.6 mmol/L (3.5-5.1); Sodium 142 mmol/L (137-145)
--- NOTE | 2018-02-12 10:49 | P.PN ---
Subjective Progress Note Date: 02/12/18 Principal diagnosis: Rectal bleeding anemia 82-year-old female admitted with 1 week history of rectal bleeding anemia. Presently denies hematochezia or hematemesis or melena. Hemoglobin 8.2. Received 2 units of blood since admission. Declines inpatient EGD colonoscopy. Objective - Vital Signs Vital signs: Vital Signs Temp 99.1 F 02/12/18 07:00 Pulse 80 02/12/18 07:48 Resp 20 02/12/18 08:00 BP 139/63 02/12/18 07:00 Pulse Ox 98 02/12/18 07:38 Intake & Output 02/11/18 02/12/18 02/12/18 18:59 06:59 18:59 Intake Total 730 600 Balance 730 600 Intake: Oral 730 600 Other: Voiding Method Diaper Diaper Diaper Incontinent Incontinent Incontinent # Voids 2 2 - Exam General appearance: The patient is alert, oriented, in no acute distress. HET: Head is normocephalic and atraumatic. Pupils are equal and reactive. Oropharynx is clear without lesions. Neck: Supple without lymphadenopathy. Trachea midline. Heart: S1 S2. Regular rate and rhythm. Lungs: No crackles or wheezes are heard. Abdomen: Soft, nontender, nondistended with bowel sounds. No peritoneal signs. No palpable organomegaly or masses. Extremities: Normal skin color and turgor. No cyanosis, rash, ulceration, clubbing, or edema. Radial and pedal pulses are 2/4 bilaterally. Neurological: No focal deficits. Strength and sensation are grossly intact. - Labs CBC & Chem 7: 02/12/18 07:53 02/12/18 07:53 Labs: Abnormal Lab Results - Last 24 Hours (Table) 02/11/18 02/11/18 02/11/18 Range/Units 11:45 17:28 20:56 RBC (3.80-5.40) m/uL Hgb (11.4-16.0) gm/dL Hct (34.0-46.0) % RDW (11.5-15.5) % BUN (7-17) mg/dL Glucose (74-99) mg/dL POC Glucose (mg/dL) 135 H 118 H 138 H (75-99) mg/dL 02/12/18 02/12/18 02/12/18 Range/Units 07:27 07:53 07:53 RBC 3.04 L (3.80-5.40) m/uL Hgb 8.2 L (11.4-16.0) gm/dL Hct 25.5 L (34.0-46.0) % RDW 15.6 H (11.5-15.5) % BUN 6 L (7-17) mg/dL Glucose 132 H (74-99) mg/dL POC Glucose (mg/dL) 151 H (75-99) mg/dL Microbiology - Last 24 Hours (Table) 02/11/18 16:05 Gram Stain - Preliminary Sputum 02/10/18 05:10 Blood Culture - Preliminary Blood No Growth after 48 hours Assessment and Plan (1) Rectal bleeding Narrative/Plan: 82-year-old female presents with rectal bleeding acute blood loss anemia etiology unclear with no history of EGD colonoscopy. Possible diverticular bleed possible hemorrhoidal possible neoplasm. Current Visit: Yes Status: Acute Code(s): K62.5 - HEMORRHAGE OF ANUS AND RECTUM SNOMED Code(s): 88864212 (2) Acute blood loss anemia Current Visit: Yes Status: Acute Code(s): D62 - ACUTE POSTHEMORRHAGIC ANEMIA SNOMED Code(s): 877164624 (3) Morbid obesity with BMI of 40.0-44.9, adult Current Visit: Yes Status: Acute Code(s): E66.01 - MORBID (SEVERE) OBESITY DUE TO EXCESS CALORIES; Z68.41 - BODY MASS INDEX (BMI) 40.0-44.9, ADULT SNOMED Code(s): 406907924 Plan: 1. EGD colonoscopy was recommended however patient declines. Recommend follow up in GI office in 7-10 days appointment scheduled for 2017 to discuss outpatient endoscopy. Continue supportive measures. Will advance diet. CBC in 3-5 days. Discharge per medicine. Assessment and plan a care discussed with Dr. Gunter
[2018-02-12 12:14] LABS: T4, Free (Free Thyroxine) 1.31 ng/dL (0.78-2.19)
[2018-02-12 12:36] LABS: Glucose,Whole Blood 141 mg/dL (75-99)
[2018-02-12] MEDS ORDERED: FUROSEMIDE 10 MG/ML 2 ML VIAL IV SCH (14:00)
--- NOTE | 2018-02-12 15:30 | P.PN ---
Subjective Progress Note Date: 02/12/18 Principal diagnosis: Acute GI bleeding, Hypoxic respiratory failure secondary to bilateral multifocal community-acquired pneumonia Progress note dated 02/11/2018 This is an 82-year-old female who was seen yesterday in consultation for a GI bleed. Her hemoglobin initially was 6.3. She did receive 1 unit of PRBCs. In addition, she had acute hypoxemic respiratory failure secondary to bilateral multifocal community-acquired pneumonia. Actually today's chest x-rays a bit worse. Clinically, the patient's about the same or slightly better. In addition, she has a history of morbid obesity hypothyroidism diabetes and urinary incontinence. The patient was seen by myself and our nurse practitioner. Again she is feeling a bit better. Less shortness of breath. No additional GI bleeding. Chest x-ray from today is reviewed. On 02/12/2018 patient seen in follow-up on medical surgical floor. She is resting in bed, denies any acute complaints. She didn't sleep last night she had an episode of acute shortness of breath where she felt like she was dying. She was given on IV Lasix 1, she diuresed, subsequent improvement in her dyspnea. Remains on 2 L per nasal cannula, 2 sat 98%. Did have a low-grade fever this morning at 99.1, otherwise has been afebrile. Sputum cultures are pending. Patient has been treated with a combination of Zithromax and Rocephin. Today's chest x-ray shows partial and cardiomegaly with interstitial infiltrates and small pleural effusions. Lung sounds are positive for crackles diminished lung sounds at the bases. Patient denies hematochezia, hematemesis or melena. Today's hemoglobin is 8.2, patient did receive 2 units of packed red blood cells since admission. Consultation by GI service, and she declined inpatient EGD and colonoscopy. Continue with current plan of treatment, empiric antibiotics, and diuretics, in addition to bronchodilators. Objective - Vital Signs Vital signs: Vital Signs Temp 99.1 F 02/12/18 07:00 Pulse 76 02/12/18 11:26 Resp 18 02/12/18 15:02 BP 139/63 02/12/18 07:00 Pulse Ox 98 02/12/18 07:38 Intake & Output 02/11/18 02/12/18 02/12/18 18:59 06:59 18:59 Intake Total 730 600 480 Balance 730 600 480 Intake: Oral 730 600 480 Other: Voiding Method Diaper Diaper Diaper Incontinent Incontinent Incontinent # Voids 2 2 - Exam No acute distress, oriented 3. HEENT examination is grossly unremarkable. Mucous membranes are moist. No oral lesions. Neck supple. Full range of motion. No adenopathy thyromegaly or neck vein distention. Cardiovascular examination reveals regular rhythm rate. S1-S2 normal. No S3 or S4. No discernible murmur noted. Lungs reveal a few scattered rhonchi. Breath sounds are equal bilaterally. This a few scattered bibasilar crackles. No wheezes. Breath sounds are about the same as they were yesterday. Abdomen soft bowel sounds are heard. No masses or tenderness. Extremities are intact. No cyanosis clubbing or edema. Skin is without rash or lesion. Neurologic examination is brief but nonfocal. - Labs CBC & Chem 7: 02/12/18 07:53 02/12/18 07:53 Labs: Abnormal Lab Results - Last 24 Hours (Table) 02/11/18 02/11/18 02/12/18 Range/Units 17:28 20:56 07:27 RBC (3.80-5.40) m/uL Hgb (11.4-16.0) gm/dL Hct (34.0-46.0) % RDW (11.5-15.5) % BUN (7-17) mg/dL Glucose (74-99) mg/dL POC Glucose (mg/dL) 118 H 138 H 151 H (75-99) mg/dL TSH (0.465-4.680) mIU/L 02/12/18 02/12/18 02/12/18 Range/Units 07:53 07:53 07:53 RBC 3.04 L (3.80-5.40) m/uL Hgb 8.2 L (11.4-16.0) gm/dL Hct 25.5 L (34.0-46.0) % RDW 15.6 H (11.5-15.5) % BUN 6 L (7-17) mg/dL Glucose 132 H (74-99) mg/dL POC Glucose (mg/dL) (75-99) mg/dL TSH 0.091 L (0.465-4.680) mIU/L 02/12/18 Range/Units 12:29 RBC (3.80-5.40) m/uL Hgb (11.4-16.0) gm/dL Hct (34.0-46.0) % RDW (11.5-15.5) % BUN (7-17) mg/dL Glucose (74-99) mg/dL POC Glucose (mg/dL) 141 H (75-99) mg/dL TSH (0.465-4.680) mIU/L Microbiology - Last 24 Hours (Table) 02/11/18 16:05 Gram Stain - Preliminary Sputum 02/10/18 05:10 Blood Culture - Preliminary Blood No Growth after 48 hours Assessment and Plan Plan: Assessment: Acute GI bleed, currently under evaluation, status post 2 unit of PRBCs Acute hypoxemic respiratory failure, secondary to bilateral multifocal community -acquired pneumonia and fluid overload Morbid obesity Hypothyroidism Diabetes mellitus Urine incontinence Plan: We'll continue with current plan of treatment, empiric antibiotics with Zithromax and Rocephin, await the final results of the blood and sputum cultures. We'll continue the IV diuresis, with Lasix 20 mg IV every 12 hours for another 24 hours, continue bronchodilators. Continue monitoring for recurrence of GI bleeding, continue monitoring hemoglobin. It was discussed with the patient that she may need the EGD and colonoscopy down the road once more stable from pulmonary standpoint. I performed a history & physical examination of the patient and discussed their management with my nurse practitioner, Daily Dee. I reviewed the nurse practitioner's note and agree with the documented findings and plan of care. Lung sounds are positive for crackles, diminished lung sounds at the bases. The findings and the impression was discussed with the patient. I attest to the documentation by the nurse practitioner. Time with Patient: Less than 30
[2018-02-12 17:34] LABS: Glucose,Whole Blood 151 mg/dL (75-99)
--- NOTE | 2018-02-12 18:40 | PN ---
PROGRESS NOTE DATE OF SERVICE: 02/12/18. PRESENTING COMPLAINT: GI bleed. INTERVAL HISTORY: This patient presented with lower GI bleed. Seen by GI. Patient did not want any endoscopy. The patient had no further bowel movement. Just started to eat today. Does feel a bit tired. at the bedside. No abdominal pain. No nausea, vomiting. REVIEW OF SYSTEMS: Done for constitutional, cardiovascular, GI, pulmonary; relevant findings as above. CURRENT MEDICATIONS: Reviewed. PHYSICAL EXAMINATION: On examination; temperature 99.1, pulse 83, respiratory 20, blood pressure 139/63, pulse ox 96% on room air. GENERAL APPEARANCE: Sitting on bed, tired appearing. EYES: Pupils equal. Conjunctivae normal. HEENT: External nose and ears normal. Oral cavity normal. NECK: JVD unable to assess. Mass not palpable. RESPIRATORY: Effort normal. Lungs, mild left basilar crackles. CARDIOVASCULAR: 1st and 2nd sounds, no edema. ABDOMEN: Soft, nontender. Liver and spleen not palpable. PSYCHIATRY: Alert and oriented x3. Mood and affect normal. INVESTIGATIONS: White count 7.2, hemoglobin 8.2, BUN 6, creatinine 0.57. Chest x-ray shows pulmonary edema with fluid in the fissure, small pleural effusion. ASSESSMENT: 1. Acute GI bleed leading to blood-loss anemia. The patient declined EGD/colonoscopy. 2. Acute blood loss anemia from above. Patient did get 2 units of blood. 3. Diabetes mellitus type 2 on oral hypoglycemic. 4. Hypothyroid. 5. Essential hypertension. 6. Primary osteoarthritis multiple joints bilaterally. 7. Morbid obesity, BMI 44.7. 8. Bilateral pneumonia suspect gram-negative organism, on antibiotics. 9. Acute congestive heart failure, ejection fraction not known, slow to respond. Patient did get an IV dose of Lasix earlier. PLAN: Will increase the dose of IV Lasix to 40 q.8. We will add a BNP to labs from earlier today and order a 2-D echocardiogram. The patient had no further bowel movement. Did talk to the patient and at the bedside. Follow. MMODL / IJN: [id number] /
[2018-02-12] MEDS: FUROSEMIDE 10 MG/ML 4 ML VIAL IV SCH (20:09)
[2018-02-12] MEDS: ATORVASTATIN 20 MG TAB PO SCH (20:09)
[2018-02-12 20:39] LABS: Glucose,Whole Blood 194 mg/dL (75-99)
[2018-02-13] MEDS: FUROSEMIDE 10 MG/ML 4 ML VIAL IV SCH ×4 (00:05→23:14)
[2018-02-13] MEDS: LEVOTHYROXINE 75 MCG TAB PO SCH (06:42)
[2018-02-13 07:28] LABS: Glucose,Whole Blood 151 mg/dL (75-99)
[2018-02-13] MEDS: IPRATROPIUM-ALBUTEROL 3 ML NEB INHALATION SCH ×4 (08:12→20:21)
[2018-02-13] MEDS ORDERED: NAPROXEN 250 MG TAB PO STA (08:15)
[2018-02-13] MEDS: INSULIN ASPART 100 UNIT/ML 1 ML 10 ML VIAL SQ SCH ×4 (08:17→21:27)
[2018-02-13] MEDS: AZITHROMYCIN 500 MG TAB PO SCH (08:18)
[2018-02-13] MEDS: METOPROLOL SUCCINATE (ER) 50 MG TAB.ER.24H PO SCH (08:18)
[2018-02-13] MEDS: cefTRIAXone IN SWFI 1,000 MG/10 ML SYRINGE IVP SCH (08:18)
[2018-02-13] MEDS: NATEGLINIDE 120 MG PO SCH (08:18)
[2018-02-13 08:28] LABS: Anion Gap 10 mmol/L; Blood Urea Nitrogen 12 mg/dL (7-17); Calcium 7.8 mg/dL (8.4-10.2); Carbon Dioxide 28 mmol/L (22-30); Chloride 100 mmol/L (98-107); Glucose 142 mg/dL (74-99); Potassium 3.1 mmol/L (3.5-5.1); Sodium 138 mmol/L (137-145)
--- NOTE | 2018-02-13 10:54 | ECHOF ---
Referral Reason:chf MEASUREMENTS -------- HEIGHT: 162.6 cm WEIGHT: 108.9 kg BP: 125/63 IVSd: 1.2 cm (0.6 - 1.1) LVIDd: 4.7 cm (3.9 - 5.3) LVPWd: 1.4 cm (0.6 - 1.1) IVSs: 2.1 cm LVIDs: 1.5 cm LVPWs: 2.3 cm Ao Diam: 2.8 cm (2.0 - 3.7) AV Cusp: 1.1 cm (1.5 - 2.6) LA Diam: 3.7 cm (2.7 - 3.8) MV EXCURSION: 12.148 mm (> 18.000) MV EF SLOPE: 55 mm/s (70 - 150) EPSS: 0.5 cm MV E Nolberto: 1.40 m/s MV DecT: 391 ms MV A Nolberto: 1.06 m/s MV E/A Ratio: 1.32 AV maxP.14 mmHg AV meanP.80 mmHg RAP: 5.00 mmHg RVSP: 18.38 mmHg FINDINGS -------- Sinus rhythm. This was a technically adequate study. The left ventricular size is normal. There is mild concentric left ventricular hypertrophy. Overa ll left ventricular systolic function is normal with, an EF between 55 - 60 %. The right ventricle is normal in size and function. The left atrial size is normal. The right atrium is normal in size. Aortic valve is trileaflet and is severely thickened. There is severe aortic stenosis present. Pe ak/mean gradient across the Aortic Valve is 79.14mmHg / 65.80mmHg. The mitral valve leaflets are severely thickened. Mild mitral annular calcification present. Mild mitral regurgitation is present. The peak and mean MV gradients are 11.00mmHg 4.98mmHg as measure d by doppler. Moderate mitral stenosis. Mild tricuspid regurgitation present. The right ventricular systolic pressure, as measured by Doppl er, is 18.38mmHg. Pulmonic valve appears structurally normal. The aortic root size is normal. Normal inferior vena cava with normal inspiratory collapse consistent with estimated right atrial pre ssure of 5 mmHg. The pericardium is normal. CONCLUSIONS -------- 1. Sinus rhythm. 2. This was a technically adequate study. 3. The left ventricular size is normal. 4. There is mild concentric left ventricular hypertrophy. 5. Overall left ventricular systolic function is normal with, an EF between 55 - 60 %. 6. The right ventricle is normal in size and function. 7. The left atrial size is normal. 8. The right atrium is normal in size. 9. Aortic valve is trileaflet and is severely thickened. 10. There is severe aortic stenosis present. 11. Peak/mean gradient across the Aortic Valve is 79.14mmHg / 65.80mmHg. 12. The mitral valve leaflets are severely thickened. 13. Mild mitral annular calcification present. 14. Mild mitral regurgitation is present. 15. The peak and mean MV gradients are 11.00mmHg 4.98mmHg as measured by doppler. 16. Moderate mitral stenosis. 17. Mild tricuspid regurgitation present. 18. The right ventricular systolic pressure, as measured by Doppler, is 18.38mmHg. 19. Pulmonic valve appears structurally normal. 20. The aortic root size is normal. 21. Normal inferior vena cava with normal inspiratory collapse consistent with estimated right atrial pressure of 5 mmHg. 22. The pericardium is normal. JOB TRAINING SPECIALIST: Sunitha Villarreal RDCS
[2018-02-13] MEDS ORDERED: Potassium Replacement Protocol 1 EACH MISC MISCELLANE PRN (11:49)
[2018-02-13 12:21] LABS: Glucose,Whole Blood 146 mg/dL (75-99)
[2018-02-13] MEDS: POTASSIUM CHLORIDE ER 20 MEQ TAB.ER PO SCH ×3 (12:54→16:30)
--- NOTE | 2018-02-13 14:02 | P.PN ---
Subjective Progress Note Date: 02/13/18 Principal diagnosis: Acute GI bleeding, Hypoxic respiratory failure secondary to bilateral multifocal community-acquired pneumonia Progress note dated 02/11/2018 This is an 82-year-old female who was seen yesterday in consultation for a GI bleed. Her hemoglobin initially was 6.3. She did receive 1 unit of PRBCs. In addition, she had acute hypoxemic respiratory failure secondary to bilateral multifocal community-acquired pneumonia. Actually today's chest x-rays a bit worse. Clinically, the patient's about the same or slightly better. In addition, she has a history of morbid obesity hypothyroidism diabetes and urinary incontinence. The patient was seen by myself and our nurse practitioner. Again she is feeling a bit better. Less shortness of breath. No additional GI bleeding. Chest x-ray from today is reviewed. On 02/12/2018 patient seen in follow-up on medical surgical floor. She is resting in bed, denies any acute complaints. She didn't sleep last night she had an episode of acute shortness of breath where she felt like she was dying. She was given on IV Lasix 1, she diuresed, subsequent improvement in her dyspnea. Remains on 2 L per nasal cannula, 2 sat 98%. Did have a low-grade fever this morning at 99.1, otherwise has been afebrile. Sputum cultures are pending. Patient has been treated with a combination of Zithromax and Rocephin. Today's chest x-ray shows partial and cardiomegaly with interstitial infiltrates and small pleural effusions. Lung sounds are positive for crackles diminished lung sounds at the bases. Patient denies hematochezia, hematemesis or melena. Today's hemoglobin is 8.2, patient did receive 2 units of packed red blood cells since admission. Consultation by GI service, and she declined inpatient EGD and colonoscopy. Continue with current plan of treatment, empiric antibiotics, and diuretics, in addition to bronchodilators. On 02/13/2018 patient seen in follow-up on medical surgical floor. Resting in bed, denies any acute complaints. She states her breathing is easier, still has a occasional productive cough with production of brownish sputum. FiO2 is currently at 3 L per nasal cannula with O2 sat at 94%. Afebrile, hemodynamically stable. She continues on IV Lasix, which is currently at 40 mg every 8 hours, intake and output are difficult to estimate, patient is incontinent of urine. Weight is down to 109 kg from 118 kg on 02/11/2018. 2-D echocardiogram showed preserved left ventricular systolic function with an EF between 55-60%. There is severe aortic stenosis, with peak/mean gradient across the aortic valve of 79.14 mmHg/65.8 mmHg. Patient has pansystolic murmur at the precordium. There was mild mitral and mild tricuspid regurgitation present. Cultures positive for Bhargavi albicans, he species, and presumptive staph aureus, patient has been treated with azithromycin and Rocephin. She is afebrile, denies any chills, denies and chest wall discomfort. Will await the results of the final sputum culture, continue with current antibiotic coverage for now. Patient has not had any recurrence of GI bleeding, she did decline endoscopic studies, yesterday's hemoglobin is 8.2, patient has not had any hematemesis, or melena. Objective - Vital Signs Vital signs: Vital Signs Temp 98.4 F 02/13/18 06:47 Pulse 74 02/13/18 06:47 Resp 22 02/13/18 06:47 BP 125/63 02/13/18 06:47 Pulse Ox 94 L 02/13/18 06:47 Intake & Output 02/12/18 02/13/18 02/13/18 18:59 06:59 18:59 Intake Total 1200 100 Balance 1200 100 Weight 109 kg Intake: Oral 1200 100 Other: Voiding Method Diaper Diaper Incontinent Incontinent Incontinent # Voids 2 2 # Bowel Movements 0 - Exam No acute distress, oriented 3. HEENT examination is grossly unremarkable. Mucous membranes are moist. No oral lesions. Neck supple. Full range of motion. No adenopathy thyromegaly or neck vein distention. Cardiovascular examination reveals regular rhythm rate. S1-S2 normal. No S3 or S4. There is a pansystolic murmur noted throughout the precordium Lungs reveal bibasilar rales, no wheezes, no rhonchi noted Abdomen soft bowel sounds are heard. No masses or tenderness. Extremities are intact. No cyanosis clubbing or edema. Skin is without rash or lesion. Neurologic examination is brief but nonfocal. - Labs CBC & Chem 7: 02/12/18 07:53 02/13/18 07:53 Labs: Abnormal Lab Results - Last 24 Hours (Table) 02/12/18 02/12/18 02/13/18 Range/Units 17:30 20:31 07:17 Potassium (3.5-5.1) mmol/L Glucose (74-99) mg/dL POC Glucose (mg/dL) 151 H 194 H 151 H (75-99) mg/dL Calcium (8.4-10.2) mg/dL 02/13/18 02/13/18 Range/Units 07:53 12:00 Potassium 3.1 L (3.5-5.1) mmol/L Glucose 142 H (74-99) mg/dL POC Glucose (mg/dL) 146 H (75-99) mg/dL Calcium 7.8 L (8.4-10.2) mg/dL Microbiology - Last 24 Hours (Table) 02/11/18 16:05 Gram Stain - Preliminary Sputum Sputum Culture - Preliminary Bhargavi albicans Yeast species Presumptive Staph aureus 02/10/18 05:10 Blood Culture - Preliminary Blood No Growth after 72 hours Assessment and Plan Plan: Assessment: Acute GI bleed, currently under evaluation, status post 2 unit of PRBCs. Patient did not have any recurrence of GI bleeding, declined endoscopic studies at this time Acute hypoxemic respiratory failure, secondary to bilateral multifocal community -acquired pneumonia and fluid overload, 2-D echo showed preserved LV function of 55-60%, there is severe aortic stenosis present Morbid obesity Hypothyroidism Diabetes mellitus Urine incontinence Plan: Patient continues on IV diuretics, her dyspnea is improving, weight is down to 109 kg from 118 kg 48 hours ago. No evidence of recurrence of GI bleeding, patient declined any endoscopic studies at this time. 2-D echo was done which showed severe aortic stenosis, but preserved LV function with EF of 55-60%. Patient's sputum analysis showed presumptive staph aureus, patient is currently on Zithromax and Rocephin, will continue with current antibiotic coverage until the final culture result is available. patient is afebrile, denies any chills, we'll continue to monitor. Continue with bronchodilators I performed a history & physical examination of the patient and discussed their management with my nurse practitioner, Daily Dee. I reviewed the nurse practitioner's note and agree with the documented findings and plan of care. Lung sounds are positive for crackles, diminished lung sounds at the bases. The findings and the impression was discussed with the patient. I attest to the documentation by the nurse practitioner. Time with Patient: Less than 30
--- NOTE | 2018-02-13 15:11 | PN ---
PROGRESS NOTE DATE OF SERVICE: 02/13/2018 PRESENTING COMPLAINT: Short of breath. INTERVAL HISTORY: Patient admitted with lower GI bleed. No further episodes. Patient did not want an endoscopy. Patient also found of congestive heart failure and pneumonia for which she is on antibiotics and IV Lasix and diuresing. Breathing is getting slightly better. Still cough with some sputum. Tired, did tolerate some meals. REVIEW OF SYSTEMS: Done for constitutional, cardiovascular, GI, pulmonary; relevant findings as above. CURRENT MEDICATIONS: Reviewed that include ceftriaxone, Zithromax, DuoNeb, and IV Lasix 40 mg q.8. PHYSICAL EXAMINATION: Temperature 98.4, pulse 74, respiration 22, blood pressure 125/63, pulse ox 94% on 3 L. GENERAL APPEARANCE: Lying in bed, tired-appearing. EYES: Pupils equal, conjunctivae normal. HEENT: External nausea of nose and ears normal, oral cavity normal. NECK: JVD possibly raised. Mass not palpable. Respiratory effort increased. LUNGS: Bilateral basal crackles. CARDIOVASCULAR: First and second sounds normal. No edema. ABDOMEN: Soft, nontender. Liver and spleen not palpable. PSYCHIATRY: Alert and oriented x3. Mood and affect normal. INVESTIGATIONS: Potassium 3.1, BUN 12, creatinine 0.63. Accu-Cheks are noted. ProBNP yesterday was 2400. A 2D echocardiogram shows an EF of 55%-60%, severe aortic stenosis, moderate mitral stenosis. ASSESSMENT: 1. Acute gastrointestinal bleed leading to blood-loss anemia. Patient declined EGD, colonoscopy with no further evidence of bleed. 2. Acute blood loss anemia from above. Patient did get 2 units of blood. 3. Acute congestive heart failure exacerbation secondary to diastolic dysfunction, ejection fraction 55% to 60% and severe aortic stenosis. 4. Severe aortic stenosis, nonrheumatic. 5. Moderate mitral stenosis, nonrheumatic. 6. Diabetes mellitus type 2, on oral hypoglycemic. 7. Hypothyroid. 8. Essential hypertension. 9. Primary osteoarthritis in multiple joints. 10.Morbid obesity, body mass index of 44.7. 11.Bilateral pneumonia, suspect gram-negative organism on antibiotics. 12.Acute congestive heart failure, uncontrolled clinically. PLAN: Will continue the patient on IV Lasix. Will repeat a chest x-ray in the morning. Replace potassium. Patient is having flare up for pain in the hands and feet from osteoarthritis. Will use diclofenac gel. Keep a close eye on the electrolytes. MMALEAL / IJN: [id number] /
[2018-02-13] MEDS: DICLOFENAC SODIUM GEL 100 GM TUBE TOPICAL SCH ×4 (17:12→21:26)
[2018-02-13 17:43] LABS: Glucose,Whole Blood 150 mg/dL (75-99)
[2018-02-13 20:43] LABS: Glucose,Whole Blood 191 mg/dL (75-99)
[2018-02-13] MEDS: ATORVASTATIN 20 MG TAB PO SCH (21:25)
[2018-02-14] MEDS ORDERED: ACETAMINOPHEN TAB 325 MG TAB ONE (00:37)
[2018-02-14] MEDS: LEVOTHYROXINE 75 MCG TAB PO SCH (06:50)
[2018-02-14 07:07] LABS: Glucose,Whole Blood 150 mg/dL (75-99)
[2018-02-14] MEDS: cefTRIAXone IN SWFI 1,000 MG/10 ML SYRINGE IVP SCH (08:28)
[2018-02-14] MEDS: FUROSEMIDE 10 MG/ML 4 ML VIAL IV SCH ×3 (08:28→23:07)
[2018-02-14] MEDS: AZITHROMYCIN 500 MG TAB PO SCH (08:28)
[2018-02-14] MEDS: INSULIN ASPART 100 UNIT/ML 1 ML 10 ML VIAL SQ SCH ×4 (08:28→20:36)
[2018-02-14] MEDS: NATEGLINIDE 120 MG PO SCH (08:28)
[2018-02-14] MEDS: DICLOFENAC SODIUM GEL 100 GM TUBE TOPICAL SCH ×8 (08:29→20:38)
[2018-02-14] MEDS: METOPROLOL SUCCINATE (ER) 50 MG TAB.ER.24H PO SCH (08:30)
[2018-02-14] MEDS: IPRATROPIUM-ALBUTEROL 3 ML NEB INHALATION SCH ×4 (08:43→20:47)
[2018-02-14 09:08] LABS: HCT 25.9 % (34.0-46.0); HGB 8.1 gm/dL (11.4-16.0); Hypochromasia Marked; MCH 26.8 pg (25.0-35.0); MCHC 31.5 g/dL (31.0-37.0); MCV 85.3 fL (80.0-100.0); Mean Platelet Volume 8.7; Platelet Count 185 k/uL (150-450); Poikilocytosis Marked; RBC 3.04 m/uL (3.80-5.40); RDW 15.4 % (11.5-15.5); WBC 6.3 k/uL (3.8-10.6)
[2018-02-14 09:19] LABS: Anion Gap 14 mmol/L; Blood Urea Nitrogen 16 mg/dL (7-17); Calcium 8.5 mg/dL (8.4-10.2); Carbon Dioxide 26 mmol/L (22-30); Chloride 99 mmol/L (98-107); Glucose 130 mg/dL (74-99); Potassium 3.6 mmol/L (3.5-5.1); Sodium 139 mmol/L (137-145)
[2018-02-14 11:39] LABS: Glucose,Whole Blood 196 mg/dL (75-99)
--- NOTE | 2018-02-14 12:19 | P.PN ---
Subjective Progress Note Date: 02/14/18 Principal diagnosis: Acute GI bleeding, Hypoxic respiratory failure secondary to bilateral multifocal community-acquired pneumonia Progress note dated 02/11/2018 This is an 82-year-old female who was seen yesterday in consultation for a GI bleed. Her hemoglobin initially was 6.3. She did receive 1 unit of PRBCs. In addition, she had acute hypoxemic respiratory failure secondary to bilateral multifocal community-acquired pneumonia. Actually today's chest x-rays a bit worse. Clinically, the patient's about the same or slightly better. In addition, she has a history of morbid obesity hypothyroidism diabetes and urinary incontinence. The patient was seen by myself and our nurse practitioner. Again she is feeling a bit better. Less shortness of breath. No additional GI bleeding. Chest x-ray from today is reviewed. On 02/12/2018 patient seen in follow-up on medical surgical floor. She is resting in bed, denies any acute complaints. She didn't sleep last night she had an episode of acute shortness of breath where she felt like she was dying. She was given on IV Lasix 1, she diuresed, subsequent improvement in her dyspnea. Remains on 2 L per nasal cannula, 2 sat 98%. Did have a low-grade fever this morning at 99.1, otherwise has been afebrile. Sputum cultures are pending. Patient has been treated with a combination of Zithromax and Rocephin. Today's chest x-ray shows partial and cardiomegaly with interstitial infiltrates and small pleural effusions. Lung sounds are positive for crackles diminished lung sounds at the bases. Patient denies hematochezia, hematemesis or melena. Today's hemoglobin is 8.2, patient did receive 2 units of packed red blood cells since admission. Consultation by GI service, and she declined inpatient EGD and colonoscopy. Continue with current plan of treatment, empiric antibiotics, and diuretics, in addition to bronchodilators. On 02/13/2018 patient seen in follow-up on medical surgical floor. Resting in bed, denies any acute complaints. She states her breathing is easier, still has a occasional productive cough with production of brownish sputum. FiO2 is currently at 3 L per nasal cannula with O2 sat at 94%. Afebrile, hemodynamically stable. She continues on IV Lasix, which is currently at 40 mg every 8 hours, intake and output are difficult to estimate, patient is incontinent of urine. Weight is down to 109 kg from 118 kg on 02/11/2018. 2-D echocardiogram showed preserved left ventricular systolic function with an EF between 55-60%. There is severe aortic stenosis, with peak/mean gradient across the aortic valve of 79.14 mmHg/65.8 mmHg. Patient has pansystolic murmur at the precordium. There was mild mitral and mild tricuspid regurgitation present. Cultures positive for Bhargavi albicans, he species, and presumptive staph aureus, patient has been treated with azithromycin and Rocephin. She is afebrile, denies any chills, denies and chest wall discomfort. Will await the results of the final sputum culture, continue with current antibiotic coverage for now. Patient has not had any recurrence of GI bleeding, she did decline endoscopic studies, yesterday's hemoglobin is 8.2, patient has not had any hematemesis, or melena. On 02/14/2018 patient seen in follow-up. She continues on IV diuretics at 40 mg every 8 hours of Lasix, her total net fluid balance is difficult to estimate as the patient is incontinent of urine. But her weight is down 0.5 kg in the last 24 hours. She is breathing easier. One isolated low-grade fever was recorded last night at 2210 with a temp of 100.2F. Otherwise afebrile. Denies any fever or chills, denies any cough or chest congestion. Lung sounds are positive for bibasilar crackles, improved from yesterday's exam. Patient is currently down to 2 L per nasal cannula O2 sat at 99%. We will further wean this today, and anticipate patient, and anticipate the patient coming off the supplemental oxygen completely. Denies any chest pain. Sputum culture from showed Bhargavi albicans, Bhargavi glabrata, and presumptive staph aureus. Continue with current antibiotic coverage, we will await the final culture of the sputum to final decision on the antibiotics. Otherwise no acute events overnight. 2-D echocardiogram was reviewed, and the patient is found to have severe aortic and moderate mitral stenosis. Patient has not had any recurrence of GI bleeding. His hemoglobin is 8.1, WBC of 6.3, electrolytes and renal profile are all within normal limits. Objective - Vital Signs Vital signs: Vital Signs Temp 98.8 F 04/18/18 05:45 Pulse 72 02/14/18 08:52 Resp 22 02/14/18 05:45 BP 119/64 02/14/18 05:45 Pulse Ox 99 02/14/18 05:45 Intake & Output 02/13/18 02/14/18 02/14/18 18:59 06:59 18:59 Intake Total 610 Balance 610 Weight 108.5 kg Intake: Oral 610 Other: Voiding Method Incontinent # Voids 4 4 # Bowel Movements 0 - Exam No acute distress, oriented 3. HEENT examination is grossly unremarkable. Mucous membranes are moist. No oral lesions. Neck supple. Full range of motion. No adenopathy thyromegaly or neck vein distention. Cardiovascular examination reveals regular rhythm rate. S1-S2 normal. No S3 or S4. There is a pansystolic murmur noted throughout the precordium Lungs reveal bibasilar rales, no wheezes, no rhonchi noted Abdomen soft bowel sounds are heard. No masses or tenderness. Extremities are intact. No cyanosis clubbing or edema. Skin is without rash or lesion. Neurologic examination is brief but nonfocal. - Labs CBC & Chem 7: 02/14/18 07:44 02/14/18 07:44 Labs: Abnormal Lab Results - Last 24 Hours (Table) 02/13/18 02/13/18 02/13/18 Range/Units 12:00 16:59 20:42 RBC (3.80-5.40) m/uL Hgb (11.4-16.0) gm/dL Hct (34.0-46.0) % Glucose (74-99) mg/dL POC Glucose (mg/dL) 146 H 150 H 191 H (75-99) mg/dL 02/14/18 02/14/18 02/14/18 Range/Units 07:04 07:44 07:44 RBC 3.04 L (3.80-5.40) m/uL Hgb 8.1 L (11.4-16.0) gm/dL Hct 25.9 L (34.0-46.0) % Glucose 130 H (74-99) mg/dL POC Glucose (mg/dL) 150 H (75-99) mg/dL 02/14/18 Range/Units 11:37 RBC (3.80-5.40) m/uL Hgb (11.4-16.0) gm/dL Hct (34.0-46.0) % Glucose (74-99) mg/dL POC Glucose (mg/dL) 196 H (75-99) mg/dL Microbiology - Last 24 Hours (Table) 02/11/18 16:05 Gram Stain - Preliminary Sputum Sputum Culture - Preliminary Bhargavi albicans Bhargavi glabrata Presumptive Staph aureus 02/10/18 05:10 Blood Culture - Preliminary Blood No Growth after 96 hours Assessment and Plan Plan: Assessment: Acute GI bleed, currently under evaluation, status post 2 unit of PRBCs. Patient did not have any recurrence of GI bleeding, declined endoscopic studies at this time. Hemoglobin is 8.1 on today's lab work on 02/14/2018 Acute hypoxemic respiratory failure, secondary to bilateral multifocal community -acquired pneumonia and fluid overload, 2-D echo showed preserved LV function of 55-60%, there is severe aortic stenosis and moderate mitral stenosis present. Patient has been diuresing, oxygenation is improving, and the patient is currently on room air. Morbid obesity Hypothyroidism Diabetes mellitus Urine incontinence Plan: Patient continues on IV diuretics, her weight is down by 0.5 kg in the last 24 hours, her breathing is easier. Anticipate patient weaning off the oxygen completely, currently on 2 L per nasal cannula with O2 sat at 99%. Echo results were noted, and the patient has severe aortic and moderate mitral stenosis. Patient's sputum analysis showed presumptive staph aureus, patient is currently on Zithromax and Rocephin, will continue with current antibiotic coverage until the final culture result is available. Continue with bronchodilators I performed a history & physical examination of the patient and discussed their management with my nurse practitioner, Daily Dee. I reviewed the nurse practitioner's note and agree with the documented findings and plan of care. Lung sounds are positive for crackles, diminished lung sounds at the bases. The findings and the impression was discussed with the patient. I attest to the documentation by the nurse practitioner. Time with Patient: Less than 30
[2018-02-14] MEDS: LACTULOSE 20 GM/30 ML CUP PO SCH ×3 (12:59→20:29)
--- NOTE | 2018-02-14 14:23 | P.CRDCN ---
History of Present Illness Consult date: 02/14/18 History of present illness: Mrs. Bonilla is a pleasant 82-year-old female past medical history significant for diabetes mellitus, hypertension, hypothyroid and obesity. She denies history coronary artery disease or valvular heart disease and has never followed with a firmware architect for any reason. We have been asked to see her in consultation for aortic stenosis on echo with symptoms suggestive of heart failure. She presented to the hospital over the weekend on advice of her PCP Dr. Mccoy after having blood work done in his office that revealed she was significantly anemic. Hgb on admission 6.3. She has been transfused. GI was consulted and the patient has declined EGD/colonoscopy. Incidentally she has been complaining of exertional shortness of breath for the last few weeks as well. Chest xray on admission revealed right lung infiltrate with small pleural effusion. Repeat chest x-ray on the reveals worsening bilateral pneumonia. CT of the chest performed on the is negative for pulmonary embolism with multifocal patchy pneumonia seen bilaterally. She is currently being treated for pneumonia and pulmonology is following. Echocardiogram was ordered and revealed severe aortic stenosis with peak/mean gradient across valve 79.14/65.80 mmHg, mild mitral regurgitation with moderate mitral stenosis as well with a peak/mean gradient 11/4.98 mmHg and preserved left ventricular systolic function with ejection fraction 55-60%. She has been receiving IV Lasix and has diuresed well with initial weight on admission 112 kg down to 108.5 kg this morning. She has been febrile throughout this admission with most recent temperature reading 100.2F last night. Blood pressure 119/64 with a heart rate of 69. She continues to complain of productive cough with exertional shortness of breath. She denies symptoms of chest pain, palpitations , dizziness, nausea, vomiting or diaphoresis. EKG on arrival reveals sinus mechanism with first-degree AV block. Laboratory data reviewed, hemoglobin 8.1, platelets 185, potassium 3.6, creatinine 0.66, proBNP drawn the 2400, TSH 0.091, free T4 1.31, troponin admission 0.040, 0.041, 0.028. Current home cardiac medications include aspirin 81 mg daily, Lasix 20 mg twice a day, Toprol 50 mg daily, potassium supplementation daily 10 and atorvastatin 20 mg daily. Aspirin is on hold since admission secondary to acute GI bleeding. Review of Systems At the time of my exam: CONSTITUTIONAL: Complains of fever. Denies chills. EYES: Denies blurred vision. Denies vision changes. Denies eye pain. EARS, NOSE, MOUTH & THROAT: Denies headache. Denies sore throat. Denies ear pain. CARDIOVASCULAR: Denies chest pain. Complains of shortness of breath. Denies orthopnea. Denies PND. Denies palpitations. RESPIRATORY: Complains of cough. GASTROINTESTINAL: Denies abdominal pain. Denies diarrhea. Denies constipation. Denies nausea. Denies vomiting. MUSCULOSKELETAL: Denies myalgias. INTEGUMENTARY: Denies pruitis. Denies rash. NEUROLOGIC: Denies numbness. Denies tingling. Denies weakness. PSYCHIATRIC: Denies anxiety. Denies depression. ENDOCRINE: Denies fatigue. Denies weight change. Denies polydipsia. Denies polyurina. GENITOURINARY: Denies burning, hematuria or urgency with micturation. HEMATOLOGIC: Denies history of anemia. Recent GI bleeding. Past Medical History Past Medical History: Blood Disorder, Diabetes Mellitus, Hypertension, Osteoarthritis (OA), Pneumonia, Thyroid Disorder Additional Past Medical History / Comment(s): anemia History of Any Multi-Drug Resistant Organisms: None Reported Past Surgical History: Cholecystectomy, Hysterectomy, Orthopedic Surgery, Tonsillectomy Additional Past Surgical History / Comment(s): knee replacement Past Anesthesia/Blood Transfusion Reactions: No Reported Reaction Past Psychological History: No Psychological Hx Reported Smoking Status: Never smoker Past Alcohol Use History: None Reported Past Drug Use History: None Reported Medications and Allergies Home Medications Medication Instructions Recorded Confirmed Type Aspirin 81 mg PO QA 04/10/15 02/10/18 History Cyanocobalamin [Vitamin B-12] 1,000 mcg PO QAM 04/10/15 02/10/18 History Docusate Sodium [Dulcolax Stool 200 mg PO HS 04/10/15 02/10/18 History Softener] Furosemide [Lasix] 20 mg PO BID 04/10/15 02/10/18 History Metoprolol Succinate [Toprol XL] 50 mg PO QAM 04/10/15 02/10/18 History Multivit with Calcium,Iron,Min 1 tab PO DAILY@1200 04/10/15 02/10/18 History [Women's Daily Multivitamin] Nateglinide [Starlix] 120 mg PO QAM 04/10/15 02/10/18 History Potassium Chloride [K-Tab ER] 10 meq PO DAILY@1200 04/10/15 02/10/18 History Sennosides [Senokot] 17.2 tab PO HS 04/10/15 02/10/18 History Vits A,C,E/Lutein/Minerals 1 tab PO DAILY@1800 04/10/15 02/10/18 History [Ocuvite with Lutein Tablet] sitaGLIPtin PHOS/metFORMIN HCL 1 tab PO QAM 04/10/15 02/10/18 History [Janumet Xr 100-1,000 mg Tablet] Atorvastatin [Lipitor] 20 mg PO HS 02/10/18 02/10/18 History Levothyroxine Sodium [Synthroid] 150 mcg PO QAM 02/10/18 02/10/18 History Allergies Allergy/AdvReac Type Severity Reaction Status Date / Time Sulfa (Sulfonamide Allergy Anaphylaxis Verified 02/10/18 10:44 Antibiotics) Physical Exam Vitals: Vital Signs Temp Pulse Pulse Resp BP Pulse Ox 02/14/18 08:52 72 02/14/18 08:43 72 02/14/18 05:45 98.8 F 69 22 119/64 99 02/13/18 22:10 100.2 F H 79 26 H 120/65 97 02/13/18 16:19 24 02/13/18 14:37 98.2 F 76 20 122/72 97 Intake and Output 02/13/18 02/14/18 02/14/18 22:59 06:59 14:59 Intake Total 250 Balance 250 Intake: Oral 250 Other: Voiding Method Incontinent # Voids 1 4 Weight 108.5 kg Blood pressure 119/64 heart rate 69 afebrile maintaining oxygen saturation on 3 L nasal cannula GENERAL: This is a 82-year-old female in no apparent distress at the time of my examination. Obese. HEENT: Head is atraumatic, normocephalic. Pupils are equal, round. Sclerae anicteric. Conjunctivae are clear. Mucous membranes of the mouth are moist. Neck is supple. There is no jugular venous distention. No carotid bruit is heard. LUNGS: Bibasilar rales, no wheeze or rhonchi No chest wall tenderness is noted on palpation or with deep breathing. HEART: Regular rate and rhythm with systolic ejection murmur at the base and apex, no rubs or gallops. S1 and S2 heard. ABDOMEN: Soft, nontender. Bowel sounds are heard. No organomegaly noted. EXTREMITIES: No evidence of peripheral edema and no calf tenderness noted. VASCULAR: Radial and dorsalis pedis pulses palpated, no evidence of clubbing. NEUROLOGIC: Patient is awake, alert and oriented x3. Results 02/14/18 07:44 02/14/18 07:44 CBC 02/14/18 Range/Units 07:44 WBC 6.3 (3.8-10.6) k/uL RBC 3.04 L (3.80-5.40) m/uL Hgb 8.1 L (11.4-16.0) gm/dL Hct 25.9 L (34.0-46.0) % Plt Count 185 (150-450) k/uL Comprehensive Metabolic Panel 02/14/18 Range/Units 07:44 Sodium 139 (137-145) mmol/L Potassium 3.6 (3.5-5.1) mmol/L Chloride 99 (98-107) mmol/L Carbon Dioxide 26 (22-30) mmol/L BUN 16 (7-17) mg/dL Creatinine 0.66 (0.52-1.04) mg/dL Glucose 130 H (74-99) mg/dL Calcium 8.5 (8.4-10.2) mg/dL Current Medications Generic Name Dose Route Start Last Admin Trade Name Freq PRN Reason Stop Dose Admin Acetaminophen 650 mg 02/14/18 05:39 Tylenol Tab PO Q6HR PRN ELEVATED TEMP Albuterol/Ipratropium 3 ml 02/10/18 16:00 02/14/18 12:40 Duoneb 0.5 Mg-3 Mg/3 Ml Soln INHALATION Not Given RT-QID BERNARDA Albuterol/Ipratropium 3 ml 02/12/18 02:18 Duoneb 0.5 Mg-3 Mg/3 Ml Soln INHALATION RT-Q2H PRN Shortness Of Breath Or Wheezing Atorvastatin Calcium 20 mg 02/10/18 21:00 02/13/18 21:25 Lipitor PO 20 mg HS BERNARDA Administration Azithromycin 500 mg 02/11/18 09:00 02/14/18 08:28 Zithromax PO 500 mg DAILY BERNARDA Administration Ceftriaxone Sodium 1,000 mg 02/15/18 09:00 Rocephin IVP Q24HR [facility] Diclofenac Sodium 2 gm 02/13/18 18:00 02/14/18 12:59 Voltaren Gel TOPICAL 2 gm QID BERNARDA Administration Diclofenac Sodium 4 gm 02/13/18 18:00 02/14/18 12:58 Voltaren Gel TOPICAL 4 gm QID BERNARDA Administration Furosemide 40 mg 02/12/18 18:15 02/14/18 08:28 Lasix IV 40 mg Q8HR BERNARDA Administration Insulin Aspart 0 unit 02/10/18 17:30 02/14/18 12:58 Novolog SQ 2 unit ACHS BERNARDA Administration Protocol Lactulose 30 gm 02/14/18 13:00 02/14/18 12:59 Cephulac PO 30 gm QID BERNARDA Administration Levothyroxine Sodium 150 mcg 02/11/18 06:30 02/14/18 06:50 Synthroid PO 150 mcg QAM@0630 BERNARDA Administration Melatonin 5 mg 02/12/18 02:18 Melatonin PO HS PRN Insomnia Metoprolol Succinate 50 mg 02/11/18 09:00 02/14/18 08:30 Toprol Xl PO 50 mg QAM BERNARDA Administration Miscellaneous Information 1 each 02/10/18 04:48 Pneumonia Protocol Utilized PO ONCE PRN Per Protocol Miscellaneous Information 1 each 02/13/18 11:49 Potassium Per Protocol MISCELLANE DAILY PRN Per Protocol Protocol Nateglinide 120 Mg 120 mg 02/11/18 07:30 02/14/18 08:28 PO Not Given AC-BRKFST [facility] Intake and Output 02/13/18 02/14/18 02/14/18 22:59 06:59 14:59 Intake Total 250 Balance 250 Intake: Oral 250 Other: Voiding Method Incontinent # Voids 1 4 Weight 108.5 kg 02/14/18 07:44 02/14/18 07:44 Assessment and Plan Assessment: ASSESSMENT 1. Acute diastolic heart failure secondary to diastolic dysfunction with severe aortic stenosis and mitral stenosis 2. Acute blood loss anemia, declined EGD colonoscopy 3. Bilateral pneumonia 4. Febrile illness 5. Severe aortic stenosis, nonrheumatic 6. Moderate mitral stenosis, nonrheumatic 7. Diabetes mellitus 8. Hypothyroidism with suppressed TSH 9. Hypertension 8. Morbid obesity, BMI 41.1 PLAN Agree with gentle diuresis with IV Lasix. Repeat chest x-ray in the morning. Follow kidney function and electrolytes daily. Daily weights. Strict intake and output. Thank you kindly for this consultation. The above impression and plan of care have been discussed and directed by the signing physician. Carmelita Myers, nurse practitioner, acting as scribe for signing physician.
[2018-02-14 17:11] LABS: Glucose,Whole Blood 164 mg/dL (75-99)
--- NOTE | 2018-02-14 18:57 | XR ---
EXAMINATION TYPE: XR chest 2V DATE OF EXAM: 02/14/2018 COMPARISON: Chest x-ray from 2 days ago and older studies. CT chest from 4 days ago. HISTORY: Cough. TECHNIQUE: Frontal and lateral views of the chest are obtained. FINDINGS: There upper persistent small bilateral pleural effusions with blunting of posterior costop hrenic angles. Patchy areas of groundglass opacity with faint consolidation throughout both lungs on CT are less well seen on plain films. No new consolidation or pneumothorax is present bilaterally. T he cardiac remains enlarged . The osseous structures are intact. IMPRESSION: Persisting cardiomegaly with small bilateral pleural effusions. No new consolidation evid ent. No significant change from most recent chest x-ray.
[2018-02-14 20:16] LABS: Glucose,Whole Blood 166 mg/dL (75-99)
[2018-02-14] MEDS: ATORVASTATIN 20 MG TAB PO SCH (20:36)
--- NOTE | 2018-02-14 20:36 | PN ---
PROGRESS NOTE DATE OF SERVICE: 02/14/18. PRESENTING COMPLAINT: Short of breath. INTERVAL HISTORY: Patient admitted with lower GI bleed. Patient did not want any intervention. Also found to be in congestive heart failure and pneumonia. The patient spiked a fever last night. Breathing is somewhat better. At her baseline patient only takes 2-3 steps according to the . The patient is on IV Lasix. REVIEW OF SYSTEMS: Done for constitutional, cardiovascular, GI, pulmonary; relevant findings as above. Sputum production has come down. CURRENT MEDICATIONS: Reviewed that include Zithromax, IV ceftriaxone, IV Lasix 40 mg q.8. EXAMINATION: On examination: Temperature 98.8, pulse 69, respiratory 22, blood pressure 119/64, pulse ox 99% on 3 L. GENERAL APPEARANCE: Lying in bed, less tired appearing. EYES: Pupils equal. Conjunctivae normal. HEENT: External appearance of nose and ears normal. Oral cavity normal. NECK: JVD possibly raised. Mass not palpable. RESPIRATORY: Effort increased, lungs decreased basal crackles. CARDIOVASCULAR: First and second sounds, no edema. ABDOMEN: Soft, nontender. Liver and spleen not palpable. PSYCHIATRY: Alert and oriented x3. Mood and affect normal. INVESTIGATIONS: White count 6.3, hemoglobin 8.1, potassium 3.6. ASSESSMENT: 1. Acute GI bleed leading to blood-loss anemia. The patient declined endoscopy. 2. Acute blood loss anemia from above, patient did get 2 units of blood. 3. Acute congestive heart failure exacerbation secondary to severe aortic stenosis/diastolic dysfunction. Ejection fraction 55-60%. 4. Severe aortic stenosis, nonrheumatic. 5. Moderate mitral stenosis, nonrheumatic. 6. Diabetes mellitus type 2 on oral hypoglycemic. 7. Hypothyroid. 8. Essential hypertension. 9. Primary osteoarthritis of multiple joints. 10.Morbid obesity, BMI 44.7. 11.Bilateral pneumonia suspect gram-negative organism on antibiotics. 12.Congestive heart failure, still uncontrolled. PLAN: Continue with IV Lasix. Repeat electrolytes in the morning. Check a chest x-ray in the morning. X-ray from today was reviewed. Care was discussed with the patient and . Patient will possibly need inpatient rehab when she goes home. MMODL / IJN: [id number] /
[2018-02-14] MEDS: ACETAMINOPHEN TAB 325 MG TAB PO PRN (22:20)
[2018-02-15] MEDS: LEVOTHYROXINE 75 MCG TAB PO SCH (05:44)
[2018-02-15 07:33] LABS: Glucose,Whole Blood 164 mg/dL (75-99)
[2018-02-15] MEDS: IPRATROPIUM-ALBUTEROL 3 ML NEB INHALATION SCH ×4 (08:15→20:46)
[2018-02-15] MEDS: INSULIN ASPART 100 UNIT/ML 1 ML 10 ML VIAL SQ SCH ×4 (08:33→21:43)
[2018-02-15] MEDS: FUROSEMIDE 10 MG/ML 4 ML VIAL IV SCH ×2 (08:33→15:05)
[2018-02-15] MEDS: NATEGLINIDE 120 MG PO SCH (08:33)
[2018-02-15] MEDS: DICLOFENAC SODIUM GEL 100 GM TUBE TOPICAL SCH ×8 (08:34→21:44)
[2018-02-15] MEDS: AZITHROMYCIN 500 MG TAB PO SCH (08:34)
[2018-02-15] MEDS: LACTULOSE 20 GM/30 ML CUP PO SCH ×4 (08:35→21:48)
[2018-02-15] MEDS: METOPROLOL SUCCINATE (ER) 50 MG TAB.ER.24H PO SCH (08:35)
[2018-02-15 08:44] LABS: Anion Gap 13 mmol/L; Blood Urea Nitrogen 18 mg/dL (7-17); Calcium 8.6 mg/dL (8.4-10.2); Carbon Dioxide 29 mmol/L (22-30); Chloride 96 mmol/L (98-107); Glucose 154 mg/dL (74-99); Potassium 3.6 mmol/L (3.5-5.1); Sodium 138 mmol/L (137-145)
[2018-02-15 08:49] LABS: HCT 25.8 % (34.0-46.0); Hypochromasia Marked; MCH 26.4 pg (25.0-35.0); MCHC 31.1 g/dL (31.0-37.0); MCV 84.7 fL (80.0-100.0); Mean Platelet Volume 8.8; Platelet Count 190 k/uL (150-450); Poikilocytosis Marked; RBC 3.05 m/uL (3.80-5.40); RDW 15.2 % (11.5-15.5)
[2018-02-15] MEDS ORDERED: cefTRIAXone IN SWFI 1,000 MG/10 ML SYRINGE IVP SCH (09:00)
[2018-02-15 11:28] LABS: Metamyelocytes % 1 %; Neutrophils % (M) 62 %; Nucleated Red Blood Cells 1 /100 WBC (0-0); Total Cells Counted 200
[2018-02-15 11:29] LABS: Eosinophils # (M) 0.16 k/uL (0-0.7); Lymphocytes # (M) 1.57 k/uL (1.0-4.8); Metamyelocytes # (M) 0.05 k/uL (0); Monocytes # (M) 0.32 k/uL (0-1.0); Neutrophils # (M) 3.35 k/uL (1.3-7.7); WBC 5.4 k/uL (3.8-10.6)
[2018-02-15 11:31] LABS: Target Cells Present
--- NOTE | 2018-02-15 12:13 | P.PN ---
Subjective Progress Note Date: 02/15/18 Mrs. Bonilla is a pleasant 82-year-old female past medical history significant for diabetes mellitus, hypertension, hypothyroid and obesity. 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 We have been asked to see her in consultation for aortic stenosis on echo with symptoms suggestive of heart failure. She presented to the hospital over the weekend on advice of her PCP Dr. Mccoy after having blood work done in his office that revealed she was significantly anemic. Hgb on admission 6.3. She has been transfused. GI was consulted and the patient has declined EGD/colonoscopy. Incidentally she has been complaining of exertional shortness of breath for the last few weeks as well. Chest xray on admission revealed right lung infiltrate with small pleural effusion. Repeat chest x-ray on the reveals worsening bilateral pneumonia. CT of the chest performed on the is negative for pulmonary embolism with multifocal patchy pneumonia seen bilaterally. She is currently being treated for pneumonia and pulmonology is following. Echocardiogram was ordered and revealed severe aortic stenosis with peak/mean gradient across valve 79.14/65.80 mmHg, mild mitral regurgitation with moderate mitral stenosis as well with a peak/mean gradient 11/4.98 mmHg and preserved left ventricular systolic function with ejection fraction 55-60%. She has been receiving IV Lasix and has diuresed well with initial weight on admission 112 kg down to 108.5 kg this morning. She has been febrile throughout this admission with most recent temperature reading 100.2F last night. Blood pressure 119/64 with a heart rate of 69. She continues to complain of productive cough with exertional shortness of breath. She denies symptoms of chest pain, palpitations , dizziness, nausea, vomiting or diaphoresis. EKG on arrival reveals sinus mechanism with first-degree AV block. Laboratory data reviewed, hemoglobin 8.1, platelets 185, potassium 3.6, creatinine 0.66, proBNP drawn the 2400, TSH 0.091, free T4 1.31, troponin admission 0.040, 0.041, 0.028. Current home cardiac medications include aspirin 81 mg daily, Lasix 20 mg twice a day, Toprol 50 mg daily, potassium supplementation daily 10 and atorvastatin 20 mg daily. Aspirin is on hold since admission secondary to acute GI bleeding. 02/15/2018 Mrs. Bonilla is seen and examined this morning resting comfortably in bed. She states she is feeling better but still coughing. Weight is down 3.5kg since yesterday. No accurate output secondary to incontinence. Hbg is remaining stable at 8 with no further active bleeding, creatinine 0.61, potassium 3.6, proBNP 1100. Blood pressure 115/53 heart rate 68 again running fevers last night 100.5 maintaining oxygen saturations on room air. Sputum cultures have come back positive for MRSA, bhargavi albicans and glabrata. Objective - Vital Signs Vital signs: Vital Signs Temp 98.3 F 02/15/18 05:30 Pulse 68 02/15/18 08:30 Resp 20 02/15/18 05:30 BP 115/53 02/15/18 08:30 Pulse Ox 95 02/15/18 08:30 Intake & Output 02/14/18 02/15/18 02/15/18 18:59 06:59 18:59 Weight 105 kg Other: Voiding Method Incontinent Diaper Incontinent Incontinent # Voids 1 3 # Bowel Movements 3 - Exam GENERAL: Well-appearing, well-nourished and in no acute distress. NECK: Supple without JVD or thyromegaly. LUNGS: Bibasilar rales. No wheezes or rhonchi. Respiration equal and unlabored. HEART: Regular rate and rhythm with systolic murmur at the base and the apex, no rubs or gallops. S1 and S2 heard. EXTREMITIES: Normal range of motion, no edema. No clubbing or cyanosis. Peripheral pulses intact. - Labs CBC & Chem 7: 02/15/18 07:42 02/15/18 07:42 Labs: Abnormal Lab Results - Last 24 Hours (Table) 02/14/18 02/14/18 02/15/18 Range/Units 17:06 20:14 07:20 RBC (3.80-5.40) m/uL Hgb (11.4-16.0) gm/dL Hct (34.0-46.0) % Metamyelocytes # (Man) (0) k/uL Nucleated RBCs (0-0) /100 WBC Chloride (98-107) mmol/L BUN (7-17) mg/dL Glucose (74-99) mg/dL POC Glucose (mg/dL) 164 H 166 H 164 H (75-99) mg/dL 02/15/18 02/15/18 Range/Units 07:42 07:42 RBC 3.05 L (3.80-5.40) m/uL Hgb 8.0 L (11.4-16.0) gm/dL Hct 25.8 L (34.0-46.0) % Metamyelocytes # (Man) 0.05 H (0) k/uL Nucleated RBCs 1 H (0-0) /100 WBC Chloride 96 L (98-107) mmol/L BUN 18 H (7-17) mg/dL Glucose 154 H (74-99) mg/dL POC Glucose (mg/dL) (75-99) mg/dL Microbiology - Last 24 Hours (Table) 02/11/18 16:05 Gram Stain - Final Sputum Sputum Culture - Final Bhargavi albicans Bhargavi glabrata Methicillin resist S. aureus 02/10/18 05:10 Blood Culture - Preliminary Blood No Growth after 120 hours 02/14/18 00:43 Blood Culture - Preliminary Blood No Growth after 24 hours 02/14/18 00:30 Blood Culture - Preliminary Blood No Growth after 24 hours Assessment and Plan Assessment: ASSESSMENT 1. Acute diastolic heart failure secondary to diastolic dysfunction with severe aortic stenosis and mitral stenosis 2. Acute blood loss anemia, declined EGD colonoscopy 3. Bilateral pneumonia 4. Febrile illness 5. Severe aortic stenosis, nonrheumatic 6. Moderate mitral stenosis, nonrheumatic 7. Diabetes mellitus 8. Hypothyroidism with suppressed TSH 9. Hypertension 8. Morbid obesity, BMI 41.1 PLAN Continue with gentle diuresis, possibly transition to oral in the next 24 hours. Follow-up with Dr. Frazier in 3-4 weeks for possible SANTOSH to further evaluate the aortic valve. The above impression and plan of care have been discussed and directed by the signing physician. Carmelita Myers, nurse practitioner, acting as scribe for signing physician.
[2018-02-15 12:17] LABS: Glucose,Whole Blood 164 mg/dL (75-99)
--- NOTE | 2018-02-15 14:26 | P.PN ---
Subjective Progress Note Date: 02/15/18 Principal diagnosis: Acute GI bleeding, Hypoxic respiratory failure secondary to bilateral multifocal community-acquired pneumonia Progress note dated 02/11/2018 This is an 82-year-old female who was seen yesterday in consultation for a GI bleed. Her hemoglobin initially was 6.3. She did receive 1 unit of PRBCs. In addition, she had acute hypoxemic respiratory failure secondary to bilateral multifocal community-acquired pneumonia. Actually today's chest x-rays a bit worse. Clinically, the patient's about the same or slightly better. In addition, she has a history of morbid obesity hypothyroidism diabetes and urinary incontinence. The patient was seen by myself and our nurse practitioner. Again she is feeling a bit better. Less shortness of breath. No additional GI bleeding. Chest x-ray from today is reviewed. On 02/12/2018 patient seen in follow-up on medical surgical floor. She is resting in bed, denies any acute complaints. She didn't sleep last night she had an episode of acute shortness of breath where she felt like she was dying. She was given on IV Lasix 1, she diuresed, subsequent improvement in her dyspnea. Remains on 2 L per nasal cannula, 2 sat 98%. Did have a low-grade fever this morning at 99.1, otherwise has been afebrile. Sputum cultures are pending. Patient has been treated with a combination of Zithromax and Rocephin. Today's chest x-ray shows partial and cardiomegaly with interstitial infiltrates and small pleural effusions. Lung sounds are positive for crackles diminished lung sounds at the bases. Patient denies hematochezia, hematemesis or melena. Today's hemoglobin is 8.2, patient did receive 2 units of packed red blood cells since admission. Consultation by GI service, and she declined inpatient EGD and colonoscopy. Continue with current plan of treatment, empiric antibiotics, and diuretics, in addition to bronchodilators. On 02/13/2018 patient seen in follow-up on medical surgical floor. Resting in bed, denies any acute complaints. She states her breathing is easier, still has a occasional productive cough with production of brownish sputum. FiO2 is currently at 3 L per nasal cannula with O2 sat at 94%. Afebrile, hemodynamically stable. She continues on IV Lasix, which is currently at 40 mg every 8 hours, intake and output are difficult to estimate, patient is incontinent of urine. Weight is down to 109 kg from 118 kg on 02/11/2018. 2-D echocardiogram showed preserved left ventricular systolic function with an EF between 55-60%. There is severe aortic stenosis, with peak/mean gradient across the aortic valve of 79.14 mmHg/65.8 mmHg. Patient has pansystolic murmur at the precordium. There was mild mitral and mild tricuspid regurgitation present. Cultures positive for Bhargavi albicans, he species, and presumptive staph aureus, patient has been treated with azithromycin and Rocephin. She is afebrile, denies any chills, denies and chest wall discomfort. Will await the results of the final sputum culture, continue with current antibiotic coverage for now. Patient has not had any recurrence of GI bleeding, she did decline endoscopic studies, yesterday's hemoglobin is 8.2, patient has not had any hematemesis, or melena. On 02/14/2018 patient seen in follow-up. She continues on IV diuretics at 40 mg every 8 hours of Lasix, her total net fluid balance is difficult to estimate as the patient is incontinent of urine. But her weight is down 0.5 kg in the last 24 hours. She is breathing easier. One isolated low-grade fever was recorded last night at 2210 with a temp of 100.2F. Otherwise afebrile. Denies any fever or chills, denies any cough or chest congestion. Lung sounds are positive for bibasilar crackles, improved from yesterday's exam. Patient is currently down to 2 L per nasal cannula O2 sat at 99%. We will further wean this today, and anticipate patient, and anticipate the patient coming off the supplemental oxygen completely. Denies any chest pain. Sputum culture from showed Bhargavi albicans, Bhargavi glabrata, and presumptive staph aureus. Continue with current antibiotic coverage, we will await the final culture of the sputum to final decision on the antibiotics. Otherwise no acute events overnight. 2-D echocardiogram was reviewed, and the patient is found to have severe aortic and moderate mitral stenosis. Patient has not had any recurrence of GI bleeding. His hemoglobin is 8.1, WBC of 6.3, electrolytes and renal profile are all within normal limits. On 02/15/2018 patient seen in follow-up. She remains on IV diuretics, and her weight is down to 105 kg from 108.5 kg in the last 24 hours. Her breathing is improving, she is currently on room air. Respirations are even and nonlabored, in her lung sounds are positive for a few bibasilar crackles. Denies any fever or chills, denies any cough, denies any chest congestion or sputum production. Denies any hemoptysis. Sputum culture showed MRSA, which is likely a colonizer. Patient has been treated with a combination of azithromycin and Rocephin, and has clinically improved. Objective - Vital Signs Vital signs: Vital Signs Temp 98.3 F 02/15/18 05:30 Pulse 72 02/15/18 12:23 Resp 20 02/15/18 05:30 BP 115/53 02/15/18 08:30 Pulse Ox 95 02/15/18 08:30 Intake & Output 02/14/18 02/15/18 02/15/18 18:59 06:59 18:59 Weight 105 kg Other: Voiding Method Incontinent Diaper Incontinent Incontinent # Voids 1 3 # Bowel Movements 3 - Exam No acute distress, oriented 3. HEENT examination is grossly unremarkable. Mucous membranes are moist. No oral lesions. Neck supple. Full range of motion. No adenopathy thyromegaly or neck vein distention. Cardiovascular examination reveals regular rhythm rate. S1-S2 normal. No S3 or S4. There is a pansystolic murmur noted throughout the precordium Lungs reveal bibasilar rales, no wheezes, no rhonchi noted Abdomen soft bowel sounds are heard. No masses or tenderness. Extremities are intact. No cyanosis clubbing or edema. Skin is without rash or lesion. Neurologic examination is brief but nonfocal. - Labs CBC & Chem 7: 02/15/18 07:42 02/15/18 07:42 Labs: Abnormal Lab Results - Last 24 Hours (Table) 02/14/18 02/14/18 02/15/18 Range/Units 17:06 20:14 07:20 RBC (3.80-5.40) m/uL Hgb (11.4-16.0) gm/dL Hct (34.0-46.0) % Metamyelocytes # (Man) (0) k/uL Nucleated RBCs (0-0) /100 WBC Chloride (98-107) mmol/L BUN (7-17) mg/dL Glucose (74-99) mg/dL POC Glucose (mg/dL) 164 H 166 H 164 H (75-99) mg/dL 02/15/18 02/15/18 02/15/18 Range/Units 07:42 07:42 12:12 RBC 3.05 L (3.80-5.40) m/uL Hgb 8.0 L (11.4-16.0) gm/dL Hct 25.8 L (34.0-46.0) % Metamyelocytes # (Man) 0.05 H (0) k/uL Nucleated RBCs 1 H (0-0) /100 WBC Chloride 96 L (98-107) mmol/L BUN 18 H (7-17) mg/dL Glucose 154 H (74-99) mg/dL POC Glucose (mg/dL) 164 H (75-99) mg/dL Microbiology - Last 24 Hours (Table) 02/11/18 16:05 Gram Stain - Final Sputum Sputum Culture - Final Bhargavi albicans Bhargavi glabrata Methicillin resist S. aureus 02/10/18 05:10 Blood Culture - Preliminary Blood No Growth after 120 hours 02/14/18 00:43 Blood Culture - Preliminary Blood No Growth after 24 hours 02/14/18 00:30 Blood Culture - Preliminary Blood No Growth after 24 hours Assessment and Plan Plan: Assessment: Acute GI bleed, currently under evaluation, status post 2 unit of PRBCs. Patient did not have any recurrence of GI bleeding, declined endoscopic studies at this time. Hemoglobin is 8.0 on today's lab work on 02/15/2018 Acute hypoxemic respiratory failure, secondary to bilateral multifocal community -acquired pneumonia and fluid overload, 2-D echo showed preserved LV function of 55-60%, there is severe aortic stenosis and moderate mitral stenosis present. Patient has been diuresing, oxygenation is improving, and the patient is currently on room air. Sputum culture was positive for MRSA, which is likely a colonizer, the patient had significant improvement in her dyspnea, and hypoxemia with Zithromax and Rocephin Morbid obesity Hypothyroidism Diabetes mellitus Urine incontinence Plan: Patient is maintaining negative fluid balance, her weight is trending down. Sputum culture positive for MRSA, and thought to be colonized specimen, and clinically patient continues to improve. Denies any fever or chills. Patient' s Rocephin can be switched to oral Ceftin, continue with azithromycin. He nebulized treatments, increase activity as tolerated. I performed a history & physical examination of the patient and discussed their management with my nurse practitioner, Daily Dee. I reviewed the nurse practitioner's note and agree with the documented findings and plan of care. Lung sounds are positive for crackles, diminished lung sounds at the bases. The findings and the impression was discussed with the patient. I attest to the documentation by the nurse practitioner. Time with Patient: Less than 30
[2018-02-15] MEDS ORDERED: POTASSIUM CHLORIDE ER 20 MEQ TAB.ER PO STA (14:32)
[2018-02-15 17:36] LABS: Glucose,Whole Blood 161 mg/dL (75-99)
[2018-02-15] MEDS ORDERED: POTASSIUM CHLORIDE ER 20 MEQ TAB.ER PO ONE (18:00)
[2018-02-15] MEDS: ATORVASTATIN 20 MG TAB PO SCH (20:57)
[2018-02-15 20:58] LABS: Glucose,Whole Blood 221 mg/dL (75-99)
[2018-02-15] MEDS ORDERED: CEFUROXIME 250 MG TAB PO SCH (21:00)
[2018-02-15] MEDS: ACETAMINOPHEN TAB 325 MG TAB PO PRN (22:03)
--- NOTE | 2018-02-15 23:46 | PN ---
PROGRESS NOTE DATE OF SERVICE: 02/15/2018 PRESENTING COMPLAINT: Short of breath. INTERVAL HISTORY: The patient admitted with GI bleed, did not want any intervention and then found to be in congestive heart failure from aortic stenosis. Responding well to IV Lasix. Also had pneumonia. Sputum culture did grow some MRSA. Did discuss with Dr. Peace today. We feel this was possibly a colonization as patient has clinically done really well otherwise and diuresing much better, tolerating a diet. REVIEW OF SYSTEMS: Done for constitutional, cardiovascular, GI, pulmonary; relevant findings as above. CURRENT MEDICATIONS: Include IV Lasix and antibiotics. EXAMINATION: Temperature 98.7, pulse 67, respiratory 18, blood pressure 124/58, pulse ox 97% on room air. GENERAL APPEARANCE: Lying in bed, more comfortable. EYES: Pupils equal. Conjunctivae normal. HEENT: External appearance of nose and ears normal. Oral cavity normal. NECK: JVD not raised. Mass not palpable. RESPIRATORY: Effort increased, lungs decreased decreased breath sounds. Improved air entry. CARDIOVASCULAR: First and second sounds normal, no edema. ABDOMEN: Soft, nontender. Liver and spleen not palpable. PSYCHIATRY: Alert and oriented x3. Mood and affect normal. INVESTIGATIONS: White count 5.4, hemoglobin 8. ASSESSMENT: 1. Acute gastrointestinal bleed leading to blood-loss anemia. The patient declined endoscopy. 2. Acute blood loss anemia from above, patient did get 2 units of blood. 3. Acute congestive heart failure exacerbation secondary to severe aortic stenosis/diastolic dysfunction. Ejection fraction 55% to 60% improved. 4. Severe aortic stenosis, nonrheumatic. 5. Moderate mitral stenosis, nonrheumatic. 6. Diabetes mellitus type 2 on oral hypoglycemic. 7. Hypothyroid. 8. Essential hypertension. 9. Primary osteoarthritis of multiple joints. 10.Morbid obesity, BMI 44.7. 11.Pneumonia, clinically much improved, methicillin resistant staphylococcus aureus felt to be colonization. PLAN: We will switch over the patient's Lasix to p.o. Lasix in the morning. We will switch the p.o. antibiotic to doxycycline. Talked to the . Looking at probably discharge tomorrow. MMODL / IJN: [id number] /
[2018-02-16 06:21] VITALS: BP 113/54; RESP 16; TEMP 98.1
[2018-02-16] MEDS: LEVOTHYROXINE 75 MCG TAB PO SCH (06:28)
[2018-02-16] MEDS: LACTULOSE 20 GM/30 ML CUP PO SCH ×2 (07:32→13:58)
[2018-02-16 07:36] LABS: Glucose,Whole Blood 172 mg/dL (75-99)
[2018-02-16] MEDS: METOPROLOL SUCCINATE (ER) 50 MG TAB.ER.24H PO SCH (07:45)
[2018-02-16] MEDS: DICLOFENAC SODIUM GEL 100 GM TUBE TOPICAL SCH ×4 (07:46→13:58)
[2018-02-16] MEDS: NATEGLINIDE 120 MG PO SCH (07:47)
[2018-02-16] MEDS: INSULIN ASPART 100 UNIT/ML 1 ML 10 ML VIAL SQ SCH ×2 (07:47→13:57)
[2018-02-16] MEDS: IPRATROPIUM-ALBUTEROL 3 ML NEB INHALATION SCH ×3 (08:36→15:46)
[2018-02-16 08:39] LABS: Anion Gap 10 mmol/L; Blood Urea Nitrogen 18 mg/dL (7-17); Calcium 9.1 mg/dL (8.4-10.2); Carbon Dioxide 31 mmol/L (22-30); Chloride 97 mmol/L (98-107); Glucose 162 mg/dL (74-99); Potassium 4.4 mmol/L (3.5-5.1); Sodium 138 mmol/L (137-145)
[2018-02-16] MEDS ORDERED: DOXYCYCLINE 50 MG CAP PO SCH (09:00)
[2018-02-16] MEDS ORDERED: FUROSEMIDE 40 MG TAB PO SCH (09:00)
[2018-02-16 11:41] LABS: Glucose,Whole Blood 201 mg/dL (75-99)
[2018-02-16 12:06] VITALS: PULSE 77
--- NOTE | 2018-02-16 12:54 | P.PN ---
Subjective Progress Note Date: 02/16/18 Principal diagnosis: Acute GI bleeding, Hypoxic respiratory failure secondary to bilateral multifocal community-acquired pneumonia Progress note dated 02/11/2018 This is an 82-year-old female who was seen yesterday in consultation for a GI bleed. Her hemoglobin initially was 6.3. She did receive 1 unit of PRBCs. In addition, she had acute hypoxemic respiratory failure secondary to bilateral multifocal community-acquired pneumonia. Actually today's chest x-rays a bit worse. Clinically, the patient's about the same or slightly better. In addition, she has a history of morbid obesity hypothyroidism diabetes and urinary incontinence. The patient was seen by myself and our nurse practitioner. Again she is feeling a bit better. Less shortness of breath. No additional GI bleeding. Chest x-ray from today is reviewed. On 02/12/2018 patient seen in follow-up on medical surgical floor. She is resting in bed, denies any acute complaints. She didn't sleep last night she had an episode of acute shortness of breath where she felt like she was dying. She was given on IV Lasix 1, she diuresed, subsequent improvement in her dyspnea. Remains on 2 L per nasal cannula, 2 sat 98%. Did have a low-grade fever this morning at 99.1, otherwise has been afebrile. Sputum cultures are pending. Patient has been treated with a combination of Zithromax and Rocephin. Today's chest x-ray shows partial and cardiomegaly with interstitial infiltrates and small pleural effusions. Lung sounds are positive for crackles diminished lung sounds at the bases. Patient denies hematochezia, hematemesis or melena. Today's hemoglobin is 8.2, patient did receive 2 units of packed red blood cells since admission. Consultation by GI service, and she declined inpatient EGD and colonoscopy. Continue with current plan of treatment, empiric antibiotics, and diuretics, in addition to bronchodilators. On 02/13/2018 patient seen in follow-up on medical surgical floor. Resting in bed, denies any acute complaints. She states her breathing is easier, still has a occasional productive cough with production of brownish sputum. FiO2 is currently at 3 L per nasal cannula with O2 sat at 94%. Afebrile, hemodynamically stable. She continues on IV Lasix, which is currently at 40 mg every 8 hours, intake and output are difficult to estimate, patient is incontinent of urine. Weight is down to 109 kg from 118 kg on 02/11/2018. 2-D echocardiogram showed preserved left ventricular systolic function with an EF between 55-60%. There is severe aortic stenosis, with peak/mean gradient across the aortic valve of 79.14 mmHg/65.8 mmHg. Patient has pansystolic murmur at the precordium. There was mild mitral and mild tricuspid regurgitation present. Cultures positive for Bhargavi albicans, he species, and presumptive staph aureus, patient has been treated with azithromycin and Rocephin. She is afebrile, denies any chills, denies and chest wall discomfort. Will await the results of the final sputum culture, continue with current antibiotic coverage for now. Patient has not had any recurrence of GI bleeding, she did decline endoscopic studies, yesterday's hemoglobin is 8.2, patient has not had any hematemesis, or melena. On 02/14/2018 patient seen in follow-up. She continues on IV diuretics at 40 mg every 8 hours of Lasix, her total net fluid balance is difficult to estimate as the patient is incontinent of urine. But her weight is down 0.5 kg in the last 24 hours. She is breathing easier. One isolated low-grade fever was recorded last night at 2210 with a temp of 100.2F. Otherwise afebrile. Denies any fever or chills, denies any cough or chest congestion. Lung sounds are positive for bibasilar crackles, improved from yesterday's exam. Patient is currently down to 2 L per nasal cannula O2 sat at 99%. We will further wean this today, and anticipate patient, and anticipate the patient coming off the supplemental oxygen completely. Denies any chest pain. Sputum culture from showed Bhargavi albicans, Bhargavi glabrata, and presumptive staph aureus. Continue with current antibiotic coverage, we will await the final culture of the sputum to final decision on the antibiotics. Otherwise no acute events overnight. 2-D echocardiogram was reviewed, and the patient is found to have severe aortic and moderate mitral stenosis. Patient has not had any recurrence of GI bleeding. His hemoglobin is 8.1, WBC of 6.3, electrolytes and renal profile are all within normal limits. On 02/15/2018 patient seen in follow-up. She remains on IV diuretics, and her weight is down to 105 kg from 108.5 kg in the last 24 hours. Her breathing is improving, she is currently on room air. Respirations are even and nonlabored, in her lung sounds are positive for a few bibasilar crackles. Denies any fever or chills, denies any cough, denies any chest congestion or sputum production. Denies any hemoptysis. Sputum culture showed MRSA, which is likely a colonizer. Patient has been treated with a combination of azithromycin and Rocephin, and has clinically improved. On 02/17/2000 patient seen in follow-up on medical surgical floor. Continue on room air, denies any distress, denies any worsening dyspnea. She looks comfortable at rest, lung sounds positive for a few bibasilar crackles, IV diuretics were transitioned to oral. One episode of low-grade fever last night and 20/200 with a temp of 100.1F, afebrile this morning. She continues on Zithromax, and oral Ceftin. Discharge planning is in progress for possible discharge to subacute rehab today. Upon her standpoint patient is stable for discharge today. Objective - Vital Signs Vital signs: Vital Signs Temp 98.1 F 02/16/18 06:20 Pulse 77 02/16/18 12:05 Resp 16 02/16/18 12:05 BP 113/54 02/16/18 06:20 Pulse Ox 97 02/16/18 08:36 Intake & Output 02/15/18 02/16/18 02/16/18 18:59 06:59 18:59 Weight 108 kg Other: Voiding Method Incontinent Incontinent Incontinent # Voids 1 1 - Exam No acute distress, oriented 3. HEENT examination is grossly unremarkable. Mucous membranes are moist. No oral lesions. Neck supple. Full range of motion. No adenopathy thyromegaly or neck vein distention. Cardiovascular examination reveals regular rhythm rate. S1-S2 normal. No S3 or S4. There is a pansystolic murmur noted throughout the precordium Lungs reveal bibasilar rales, no wheezes, no rhonchi noted Abdomen soft bowel sounds are heard. No masses or tenderness. Extremities are intact. No cyanosis clubbing or edema. Skin is without rash or lesion. Neurologic examination is brief but nonfocal. - Labs CBC & Chem 7: 02/15/18 07:42 02/16/18 08:02 Labs: Abnormal Lab Results - Last 24 Hours (Table) 02/15/18 02/15/18 02/16/18 Range/Units 17:16 20:56 07:30 Chloride (98-107) mmol/L Carbon Dioxide (22-30) mmol/L BUN (7-17) mg/dL Glucose (74-99) mg/dL POC Glucose (mg/dL) 161 H 221 H 172 H (75-99) mg/dL 02/16/18 02/16/18 Range/Units 08:02 11:28 Chloride 97 L (98-107) mmol/L Carbon Dioxide 31 H (22-30) mmol/L BUN 18 H (7-17) mg/dL Glucose 162 H (74-99) mg/dL POC Glucose (mg/dL) 201 H (75-99) mg/dL Microbiology - Last 24 Hours (Table) 02/10/18 05:10 Blood Culture - Final Blood No Growth after 144 hours 02/14/18 00:43 Blood Culture - Preliminary Blood No Growth after 48 hours 02/14/18 00:30 Blood Culture - Preliminary Blood No Growth after 48 hours 02/11/18 16:05 Gram Stain - Final Sputum Sputum Culture - Final Bhargavi albicans Bhargavi glabrata Methicillin resist S. aureus Assessment and Plan Plan: Assessment: Acute GI bleed, currently under evaluation, status post 2 unit of PRBCs. Patient did not have any recurrence of GI bleeding, declined endoscopic studies at this time. Hemoglobin is 8.0 on today's lab work on 02/15/2018 Acute hypoxemic respiratory failure, secondary to bilateral multifocal community -acquired pneumonia and fluid overload, 2-D echo showed preserved LV function of 55-60%, there is severe aortic stenosis and moderate mitral stenosis present. Patient has been diuresing, oxygenation is improving, and the patient is currently on room air. Sputum culture was positive for MRSA, which is likely a colonizer, the patient had significant improvement in her dyspnea, and hypoxemia with Zithromax and Rocephin. Patient was diuresed, and treated with antibiotics, and is currently on room air not requiring supplemental oxygen. Morbid obesity Hypothyroidism Diabetes mellitus Urine incontinence Plan: Patient remains stable from pulmonary standpoint, denies any worsening dyspnea. He brought today, did have one episode of low-grade fever last night, but denies any chest discomfort denies any hemoptysis, denies any significant sputum production. Zithromax and Ceftin, the MRSA in sputum was thought to be colonized. Continues to improve. And is stable for discharge to subacute rehab today. We will sign off at this time, thank you for this consultation. I performed a history & physical examination of the patient and discussed their management with my nurse practitioner, Daily Dee. I reviewed the nurse practitioner's note and agree with the documented findings and plan of care. Lung sounds are positive for crackles, diminished lung sounds at the bases. The findings and the impression was discussed with the patient. I attest to the documentation by the nurse practitioner. Time with Patient: Less than 30
--- NOTE | 2018-02-16 15:24 | DS ---
DISCHARGE SUMMARY DATE OF ADMISSION: 02/10/2018. DATE OF DISCHARGE: 02/16/2018 FINAL DIAGNOSES: 1. Acute gastrointestinal bleed leading to blood loss anemia. Patient has declined endoscopy. 2. Acute blood loss anemia from above. Patient did get 2 units of blood. 3. Acute congestive heart failure exacerbation secondary to severe aortic stenosis/diastolic dysfunction, ejection fraction 55% to 60%. 4. Severe aortic stenosis, non-rheumatic. 5. Moderate mitral stenosis, non-rheumatic. 6. Diabetes mellitus, type 2, on oral hypoglycemic. 7. Hypothyroid. 8. Essential hypertension. 9. Primary osteoarthritis in multiple joints. 10.Morbid obesity with body mass index of 44.7. 11.Pneumonia. Suspect Gram-negative organism. MRSA is felt to be colonization. HOSPITAL COURSE: This patient presented with maroon stools. Did drop her hemoglobin. She was given 2 units of blood. Current hemoglobin is 8, hemodynamically stable. Patient was found also with congestive heart failure. Two-D echo showed severe aortic stenosis. She was given IV Lasix, to which she responded well. By the time of discharge, doing much better. Also treated for pneumonia. Sputum did show MRSA, felt to be colonization as per Dr. Peace. Doing well. On examination, systolic murmur in the aortic area. Lungs are clear. PSYCH: Alert and oriented x3. CONSULTATIONS: 1. Dr. Peace from Pulmonary. 2. Dr. Negro Frazier from Cardiology. DISCHARGE MEDICATIONS: 1. Aspirin 81 mg a day. 2. Vitamin B12 1000 mcg p.o. daily. 3. Toprol XL 50 mg p.o. daily. 4. Women's Daily Multivitamin 1 tablet p.o. daily. 5. Starlix 120 mg p.o. daily. 6. Senokot 17.2 at bedtime. 7. Ocuvite with lutein 1 tablet p.o. daily. 8. Janumet 100/1000 one tablet p.o. daily. 9. Lipitor 20 mg p.o. at bedtime. 10.Synthroid 150 mcg p.o. daily. 11.Voltaren gel 2 grams topical q.i.d. in the hands and 4 grams in the knees. 12.Doxycycline 100 mg p.o. b.i.d.; 10 tablets. 13.Lasix 40 mg b.i.d. 14.DuoNeb q.i.d. 15.Klor-Con 20 mEq a day. DISPOSITION: [facility]. Follow up with Dr. Lee at the [facility]. Follow up with Dr. Mccoy after discharge from there. Follow up with Dr. Neptali Frazier in 4 weeks. Follow up with Dr. Gunter on February 26, 2018. CBC and BMP in 3 days. Discussion and discharge planning more than 35 minutes. MMODL / IJN: [id number] /
--- NOTE | 2018-02-19 15:39 | CDI ---
Last Revision, September 2017 Documentation Clarification Form Date: 02/19/18 From: Hanna Topete Phone: Admit Date: 02/10/2018 4:51:00 AM Patient Name: Emili Bonilla Visit Number: [id number] Discharge Date: 02/16/18 ATTENTION: The Clinical Documentation Specialists (CDI) and [facility] Coding Staff appreciate your assistance in clarifying documentation. Please respond to the clarification below the line at the bottom and electronically sign. The CDI & [facility] Coding staff will review the response and follow-up if needed. Please note: Queries are made part of the Legal Health Record. If you have any questions, please contact the author of this message via ITS. Dr. Satish Peace asked that send the query to you. Potassium started on 02/10 decreasing 3.4, 3.2, 3.1. Potassium was given on . Potassium chloride ER 20 meq po Q2 HR. HX: GI bleed, Ac on Chr diastolic CHF, pneumonia, DM Clinical significance of diagnostic testing and treatment CANNOT be assumed or coded without physician documentation of significance if any. Please clarify what abnormal laboratory signifies: Disease process, please specify Abnormal Lab Value Unable to determine Other, please specify Please continue to document in your progress notes and discharge summary in order to capture severity of illness and risk of mortality. Include clinical findings that support your diagnosis. ____hypokalemia, NOS MTDD
== END 2018-02-16 16:07 | DRG 811 ==
LOC: EC 02:34 → 6SEL 04:51 → 4MS4W 02-11 14:54
PROVIDERS: ADMIT Hospitalist; ATTEND Hospitalist
PROC: 30233N1 Transfusion of Nonautologous Red Blood Cells into Peripheral Vein, Percutaneous Approach (ICD-10-PCS; principal; 2018-02-10)
DX: D62 Acute posthemorrhagic anemia (principal); I50.33 Acute on chronic diastolic (congestive) heart failure; J96.01 Acute respiratory failure with hypoxia; J18.9 Pneumonia, unspecified organism; I95.9 Hypotension, unspecified; E66.01 Morbid (severe) obesity due to excess calories; K92.2 Gastrointestinal hemorrhage, unspecified; E11.9 Type 2 diabetes mellitus without complications; Z68.41 Body mass index [BMI] 40.0-44.9, adult; I11.0 Hypertensive heart disease with heart failure; I07.1 Rheumatic tricuspid insufficiency; I34.2 Nonrheumatic mitral (valve) stenosis; I35.0 Nonrheumatic aortic (valve) stenosis; E87.6 Hypokalemia; I44.0 Atrioventricular block, first degree; R32 Unspecified urinary incontinence; G47.00 Insomnia, unspecified; E03.9 Hypothyroidism, unspecified; E78.5 Hyperlipidemia, unspecified; M19.91 Primary osteoarthritis, unspecified site; Z79.82 Long term (current) use of aspirin; Z79.84 Long term (current) use of oral hypoglycemic drugs; Z79.890 Hormone replacement therapy; Z22.322 Carrier or suspected carrier of Methicillin resistant Staphylococcus aureus; Z79.899 Other long term (current) drug therapy; Z90.49 Acquired absence of other specified parts of digestive tract; Z90.710 Acquired absence of both cervix and uterus; Z96.659 Presence of unspecified artificial knee joint; Z88.2 Allergy status to sulfonamides
CPT/HCPCS: 36415; 71046; 71260; 80048; 80053; 82550; 82553; 83036; 83880; 84439; 84443; 84484; 85025; 85027; 85610; 85730; 86850; 86900; 86901; 86920; 87040; 87070; 87077; 87186; 87205; 93005; 93306; 94640; 94760; 99285

== ENCOUNTER 2018-02-27 14:57 | Inpatient (IN) | payer MEDICARE, BC ==
--- NOTE | 2018-02-27 15:19 | ED ---
Recheck HPI - General Chief Complaint: Recheck/Abnormal Lab/Rx Stated Complaint: Low hemoglobin Time Seen by Provider: 02/27/18 15:00 Source: patient, EMS, RN notes reviewed Mode of arrival: EMS Limitations: no limitations - History of Present Illness Initial Comments: This 82-year-old female presents emergency department for low hemoglobin. Patient states that she was recently in the hospital for pneumonia, GI bleed. Patient received 2 units of blood. She states that she was improving has been a [place] states the last day or so she's felt fatigued for a recheck laboratory which showed hemoglobin 6.5. Patient has not noticed any melena or rash she is a. Patient denies any abdominal pain including nausea, vomiting diarrhea constipation. Denies chest pain, shortness breath or any dizziness. Patient states she does take a low-dose aspirin - Related Data Home Medications Medication Instructions Recorded Confirmed Aspirin 81 mg PO QAM 04/10/15 02/27/18 Cyanocobalamin [Vitamin B-12] 1,000 mcg PO QAM 04/10/15 02/27/18 Metoprolol Succinate [Toprol XL] 50 mg PO QAM 04/10/15 02/27/18 Multivit with Calcium,Iron,Min 1 tab PO DAILY@1200 04/10/15 02/27/18 [Women's Daily Multivitamin] Nateglinide [Starlix] 120 mg PO QAM 04/10/15 02/27/18 Sennosides [Senokot] 17.2 tab PO HS 04/10/15 02/27/18 Vits A,C,E/Lutein/Minerals 1 tab PO HS@1800 04/10/15 02/27/18 [Ocuvite with Lutein Tablet] sitaGLIPtin PHOS/metFORMIN HCL 1 tab PO QAM 04/10/15 02/27/18 [Janumet Xr 100-1,000 mg Tablet] Atorvastatin [Lipitor] 20 mg PO HS 02/10/18 02/27/18 Levothyroxine Sodium [Synthroid] 150 mcg PO QAM 02/10/18 02/27/18 Ferrous Sulfate [Feosol] 325 mg PO DAILY 02/27/18 02/27/18 Previous Rx's Medication Instructions Recorded Acetaminophen Tab [Tylenol] 650 mg PO Q6HR PRN tab 02/16/18 Diclofenac Sodium Gel [Voltaren 2 gm TOPICAL QID tube 02/16/18 Gel] Diclofenac Sodium Gel [Voltaren 4 gm TOPICAL QID tube 02/16/18 Gel] Furosemide [Lasix] 40 mg PO BID@0900,1600 tab 02/16/18 Ipratropium-Albuterol Nebulize 3 ml INHALATION RT-QID ampul.neb 02/16/18 [Duoneb 0.5 mg-3 mg/3 ml Soln] Potassium Chloride [Klor-Con 20 meq PO DAILY #1 packet 02/16/18 Packets] Allergies Allergy/AdvReac Type Severity Reaction Status Date / Time Sulfa (Sulfonamide Allergy Anaphylaxis Verified 02/27/18 15:17 Antibiotics) Review of Systems ROS Statement: Those systems with pertinent positive or pertinent negative responses have been documented in the HPI. ROS Other: All systems not noted in ROS Statement are negative. Past Medical History Past Medical History: Blood Disorder, Diabetes Mellitus, Hypertension, Osteoarthritis (OA), Pneumonia, Thyroid Disorder Additional Past Medical History / Comment(s): anemia History of Any Multi-Drug Resistant Organisms: MRSA Date of last positivie culture/infection: 02-11-18 MDRO Source:: SPUTUM Past Surgical History: Cholecystectomy, Hysterectomy, Orthopedic Surgery, Tonsillectomy Additional Past Surgical History / Comment(s): knee replacement Past Anesthesia/Blood Transfusion Reactions: No Reported Reaction Past Psychological History: No Psychological Hx Reported Smoking Status: Never smoker Past Alcohol Use History: None Reported Past Drug Use History: None Reported General Exam Limitations: no limitations General appearance: alert, in no apparent distress Head exam: Present: atraumatic, normocephalic, normal inspection Neck exam: Present: normal inspection, full ROM. Absent: tenderness, meningismus, lymphadenopathy Respiratory exam: Present: normal lung sounds bilaterally. Absent: respiratory distress, wheezes, rales, rhonchi, stridor Cardiovascular Exam: Present: regular rate, normal rhythm, normal heart sounds. Absent: systolic murmur, diastolic murmur, rubs, gallop, clicks GI/Abdominal exam: Present: soft, normal bowel sounds. Absent: distended, tenderness, guarding, rebound, rigid Rectal exam: Present: heme (+) stool, bloody stool, other (Exam performed with Cherie MAN) Neurological exam: Present: alert, oriented X3, CN II-XII intact Skin exam: Present: warm, dry, intact, normal color. Absent: rash Course Vital Signs 02/27/18 02/27/18 15:06 15:57 Temperature 98.8 F Pulse Rate 73 69 Respiratory 18 19 Rate Blood Pressure 123/51 118/59 O2 Sat by Pulse 89 L 99 Oximetry Medical Decision Making - Lab Data Result diagrams: 02/27/18 15:50 02/27/18 15:50 Lab Results 02/27/18 02/27/18 Range/Units 15:50 15:50 WBC 6.5 (3.8-10.6) k/uL RBC 2.46 L (3.80-5.40) m/uL Hgb 6.2 L* (11.4-16.0) gm/dL Hct 20.0 L* (34.0-46.0) % MCV 81.5 (80.0-100.0) fL MCH 25.2 (25.0-35.0) pg MCHC 30.9 L (31.0-37.0) g/dL RDW 16.4 H (11.5-15.5) % Plt Count 208 (150-450) k/uL Sodium 137 (137-145) mmol/L Potassium 3.6 (3.5-5.1) mmol/L Chloride 95 L (98-107) mmol/L Carbon Dioxide 27 (22-30) mmol/L Anion Gap 15 mmol/L BUN 16 (7-17) mg/dL Creatinine 0.70 (0.52-1.04) mg/dL Est GFR (CKD-EPI)AfAm >90 (>60 ml/min/1.73 sqM) Est GFR (CKD-EPI)NonAf 80 (>60 ml/min/1.73 sqM) Glucose 97 (74-99) mg/dL Calcium 9.2 (8.4-10.2) mg/dL Total Bilirubin 0.3 (0.2-1.3) mg/dL AST 20 (14-36) U/L ALT 20 (9-52) U/L Alkaline Phosphatase 78 (38-126) U/L Total Protein 6.5 (6.3-8.2) g/dL Albumin 3.7 (3.5-5.0) g/dL Disposition Clinical Impression: Anemia, GI bleed, Rectal bleeding Disposition: ADMITTED IP TO THIS HOSP Condition: Fair Referrals: Burton Saab DO [STAFF PHYSICIAN] - 1-2 days
[2018-02-27 16:13] LABS: Anisocytosis Slight; Hypochromasia Marked; MCH 25.2 pg (25.0-35.0); MCHC 30.9 g/dL (31.0-37.0); MCV 81.5 fL (80.0-100.0); Mean Platelet Volume 9.4; Platelet Count 208 k/uL (150-450); Poikilocytosis Marked; RBC 2.46 m/uL (3.80-5.40); RDW 16.4 % (11.5-15.5); WBC 6.5 k/uL (3.8-10.6)
[2018-02-27 16:15] LABS: HGB 6.2 gm/dL (11.4-16.0)
[2018-02-27 16:17] LABS: ALT 20 U/L (9-52); AST 20 U/L (14-36); Albumin 3.7 g/dL (3.5-5.0); Alkaline Phosphatase 78 U/L (38-126); Anion Gap 15 mmol/L; Blood Urea Nitrogen 16 mg/dL (7-17); Calcium 9.2 mg/dL (8.4-10.2); Carbon Dioxide 27 mmol/L (22-30); Chloride 95 mmol/L (98-107); Glucose 97 mg/dL (74-99); Potassium 3.6 mmol/L (3.5-5.1); Sodium 137 mmol/L (137-145); Total Bilirubin 0.3 mg/dL (0.2-1.3); Total Protein 6.5 g/dL (6.3-8.2)
--- NOTE | 2018-02-27 16:29 | XR ---
EXAMINATION TYPE: XR chest 2V DATE OF EXAM: 02/27/2018 COMPARISON: 02/14/2018 HISTORY: 82-year-old female with pain TECHNIQUE: AP and lateral views FINDINGS: Heart upper limits of normal in size. Atherosclerotic arch calcifications. Mild diffuse interstitial prominence. Some stranding or atelectasis in the lower lungs. Interval clearance of the patient's pre vious small effusions. IMPRESSION: Mild interstitial prominence. Correlate for possible mild pulmonary vascular congestion. However, we note interval clearance of the patient's previous small effusions.
[2018-02-27] MEDS ORDERED: ONDANSETRON 4 MG/2 ML VIAL IVP PRN (16:43)
[2018-02-27] MEDS ORDERED: ACETAMINOPHEN TAB 325 MG TAB PO PRN (16:43)
[2018-02-27] MEDS ORDERED: NALOXONE 0.4 MG/ML 1 ML VIAL IV PRN (16:43)
[2018-02-27 17:06] LABS: Eosinophils # (M) 0.07 k/uL (0-0.7); Lymphocytes # (M) 1.95 k/uL (1.0-4.8); Monocytes # (M) 0.91 k/uL (0-1.0); Neutrophils # (M) 3.58 k/uL (1.3-7.7); Neutrophils % (M) 55 %; Nucleated Red Blood Cells 0 /100 WBC (0-0); Total Cells Counted 100
[2018-02-27 17:07] LABS: Anisocytosis (M) Present; Hypochromasia (M) Present; Polychromasia Present
[2018-02-27] MEDS: SODIUM CHLORIDE 0.9% 1,000 ML IV SCH (20:06)
[2018-02-27] MEDS ORDERED: FUROSEMIDE 40 MG TAB PO ONE (20:15)
[2018-02-27 20:26] LABS: Glucose,Whole Blood 138 mg/dL (75-99)
[2018-02-27] MEDS: INSULIN ASPART 100 UNIT/ML 1 ML 10 ML VIAL SQ SCH (22:04)
[2018-02-28 00:22] LABS: Anisocytosis Slight; Basophils % (A) 0 %; Eosinophils # (A) 0.2 k/uL (0-0.7); Eosinophils % (A) 3 %; HGB 7.6 gm/dL (11.4-16.0); Hypochromasia Marked; Lymphocytes # (A) 1.9 k/uL (1.0-4.8); Lymphocytes % (A) 34 %; MCH 25.8 pg (25.0-35.0); MCHC 31.5 g/dL (31.0-37.0); MCV 81.9 fL (80.0-100.0); Mean Platelet Volume 9.5; Monocytes # (A) 0.6 k/uL (0-1.0); Monocytes % (A) 10 %; Neutrophils # (A) 2.8 k/uL (1.3-7.7); Neutrophils % (A) 50 %; Platelet Count 185 k/uL (150-450); Poikilocytosis Marked; RBC 2.94 m/uL (3.80-5.40); RDW 16.3 % (11.5-15.5); WBC 5.7 k/uL (3.8-10.6)
[2018-02-28 07:21] LABS: Glucose,Whole Blood 112 mg/dL (75-99)
[2018-02-28] MEDS: PANTOPRAZOLE 40 MG/10 ML VIAL IV SCH (08:05)
[2018-02-28] MEDS: FUROSEMIDE 40 MG TAB PO SCH ×2 (08:05→17:41)
[2018-02-28] MEDS: SODIUM CHLORIDE 0.9% 1,000 ML IV SCH ×3 (08:18→21:15)
[2018-02-28] MEDS: INSULIN ASPART 100 UNIT/ML 1 ML 10 ML VIAL SQ SCH ×4 (08:18→21:14)
[2018-02-28 09:04] LABS: Anisocytosis Slight; HCT 25.8 % (34.0-46.0); HGB 8.1 gm/dL (11.4-16.0); Hypochromasia Marked; MCH 26.1 pg (25.0-35.0); MCHC 31.4 g/dL (31.0-37.0); Mean Platelet Volume 7.1; Platelet Count 181 k/uL (150-450); Poikilocytosis Marked; RBC 3.11 m/uL (3.80-5.40); WBC 5.2 k/uL (3.8-10.6)
--- NOTE | 2018-02-28 09:19 | P.CONS ---
History of Present Illness - Reason for Consult Consult date: 02/28/18 Anemia Requesting physician: Rhonda Stevens - History of Present Illness 82-year-old female with a history of diabetes, hypertension, obesity recently hospitalized 3 weeks ago with bright red blood maroon-colored bowel movements and hemoglobin of 6.6 and received 2 units of blood. She had no further episodes of bleeding during the hospitalization and was discharge. EGD colonoscopy was recommended but she declined. She has no history of EGD colonoscopy. Discharge hemoglobin was 8.0. She presented to the emergency room yesterday with reports of a low hemoglobin 6.5 as low as 6.2. MCV 81 platelet 208. BUN 16. Creatinine 0.7. Stool occult positive. She denies chest pain, shortness of breath, overt bleeding such as hematemesis hematochezia or melena. Denies abdominal pain. She is received 2 more units of blood for a total of 4 units of blood over the last month. Repeat hemoglobin from this morning is pending. Review of Systems Constitutional: Denies fever, chills, sweats, weight gain, or loss. HEENT: Negative for migraines, blurred vision or loss, earaches, drainage, tinnitus, oral mucosal lesions, dysphagia, or odynophagia. CARDIAC: Negative for chest pain, arrhythmias, or palpitation. RESPIRATORY: Negative for shortness of breath, hemoptysis, cough, or sputum production. GI: See HPI for pertinent findings. : Negative for hematuria, urgency, frequency, polyuria, or dysuria. GYNc: Negative vaginal discharge. MUSCULOSKELETAL: Negative for muscle aches, swelling, arthritis, and arthralgias. NEUROLOGIC: Negative for stroke or TIA. ENDOCRINE: Negative for thyroid problems. SKIN: Negative for rash or itching. PSYCHIATRIC: Negative history for depression and anxiety Past Medical History Past Medical History: Diabetes Mellitus, GI Bleed, Hyperlipidemia, Hypertension , Osteoarthritis (OA), Pneumonia, Thyroid Disorder Additional Past Medical History / Comment(s): anemia, murmur, past kidney stone , 8 years ago fell hit head/laceration, past cataracts(sx) History of Any Multi-Drug Resistant Organisms: MRSA Year Discovered:: 02-11-18 MDRO Source:: SPUTUM Past Surgical History: Cholecystectomy, Hysterectomy, Orthopedic Surgery, Tonsillectomy Additional Past Surgical History / Comment(s): knee replacement, cataracts. Past Anesthesia/Blood Transfusion Reactions: No Reported Reaction Additional Past Anesthesia/Blood Transfusion Reaction / Comm: blood transfusion - no reaction Smoking Status: Never smoker - Past Family History Mother Family Medical History: Cancer Additional Family Medical History / Comment(s): breast cancer Father Additional Family Medical History / Comment(s): djd, hip replacment, heart problems Medications and Allergies Home Medications Medication Instructions Recorded Confirmed Type Aspirin 81 mg PO QAM 04/10/15 02/27/18 History Cyanocobalamin [Vitamin B-12] 1,000 mcg PO QAM 04/10/15 02/27/18 History Metoprolol Succinate [Toprol XL] 50 mg PO QAM 04/10/15 02/27/18 History Multivit with Calcium,Iron,Min 1 tab PO DAILY@1200 04/10/15 02/27/18 History [Women's Daily Multivitamin] Nateglinide [Starlix] 120 mg PO QAM 04/10/15 02/27/18 History Sennosides [Senokot] 17.2 tab PO HS 04/10/15 02/27/18 History Vits A,C,E/Lutein/Minerals 1 tab PO HS@1800 04/10/15 02/27/18 History [Ocuvite with Lutein Tablet] sitaGLIPtin PHOS/metFORMIN HCL 1 tab PO QAM 04/10/15 02/27/18 History [Janumet Xr 100-1,000 mg Tablet] Atorvastatin [Lipitor] 20 mg PO HS 02/10/18 02/27/18 History Levothyroxine Sodium [Synthroid] 150 mcg PO QAM 02/10/18 02/27/18 History Acetaminophen Tab [Tylenol] 650 mg PO Q6HR PRN tab 02/16/18 02/27/18 Rx Diclofenac Sodium Gel [Voltaren 2 gm TOPICAL QID tube 02/16/18 02/27/18 Rx Gel] Diclofenac Sodium Gel [Voltaren 4 gm TOPICAL QID tube 02/16/18 02/27/18 Rx Gel] Furosemide [Lasix] 40 mg PO BID@0900,1600 tab 02/16/18 02/27/18 Rx Ipratropium-Albuterol Nebulize 3 ml INHALATION RT-QID ampul.neb 02/16/18 Rx [Duoneb 0.5 mg-3 mg/3 ml Soln] Potassium Chloride [Klor-Con 20 meq PO DAILY #1 packet 02/16/18 02/27/18 Rx Packets] Ferrous Sulfate [Feosol] 325 mg PO DAILY 02/27/18 02/27/18 History Allergies Allergy/AdvReac Type Severity Reaction Status Date / Time Sulfa (Sulfonamide Allergy Anaphylaxis Verified 02/27/18 15:17 Antibiotics) Physical Exam Vitals: Vital Signs Temp Pulse Pulse Resp BP BP Pulse Ox 02/28/18 07:18 98.0 F 70 18 117/56 99 02/27/18 23:29 98.1 F 70 17 112/55 99 02/27/18 23:19 98.4 F 70 15 117/49 02/27/18 20:40 98.5 F 59 L 15 117/54 100 02/27/18 20:30 17 02/27/18 20:11 98.4 F 82 15 132/59 97 02/27/18 20:01 98.3 F 81 15 125/55 98 02/27/18 19:49 98.7 F 79 15 127/52 02/27/18 19:48 98.7 F 77 15 129/58 02/27/18 18:51 97.9 F 75 18 127/75 02/27/18 18:11 98.9 F 65 18 120/56 02/27/18 17:41 99.4 F 65 18 116/56 02/27/18 17:29 99.3 F 65 18 120/58 02/27/18 17:00 67 18 121/58 100 02/27/18 15:57 69 19 118/59 99 02/27/18 15:06 98.8 F 73 18 123/51 89 L Intake and Output 02/27/18 02/28/18 02/28/18 22:59 06:59 14:59 Intake Total 310 985 Balance 310 985 Intake: Intake, IV Titration 425 Amount Sodium Chloride 0.9% 1, 425 000 ml @ 75 mls/hr IV . [id number] [facility] Rx#:[id number] Oral 250 Blood Product 310 310 Rc As-1 Unit 310 [id number] Rc Pheresis As-3 Unit 0 310 [id number] Other: Voiding Method Diaper Diaper Incontinent Incontinent # Voids 3 Weight 99.79 kg General appearance: The patient is alert, oriented, in no acute distress. HET: Head is normocephalic and atraumatic. Pupils are equal and reactive. Oropharynx is clear without lesions. Neck: Supple without lymphadenopathy. Trachea midline. Heart: S1 S2. Regular rate and rhythm. Lungs: No crackles or wheezes are heard. Abdomen: Soft, nontender, nondistended with bowel sounds. No peritoneal signs. No palpable organomegaly or masses. Extremities: Normal skin color and turgor. No cyanosis, rash, ulceration, clubbing, or edema. Radial and pedal pulses are 2/4 bilaterally. Neurological: No focal deficits. Strength and sensation are grossly intact. Results CBC & Chem 7: 02/28/18 07:47 02/27/18 15:50 Labs: Abnormal Lab Results - Last 24 Hours (Table) 02/27/18 02/27/18 02/27/18 Range/Units 15:50 15:50 15:50 RBC 2.46 L (3.80-5.40) m/uL Hgb 6.2 L* (11.4-16.0) gm/dL Hct 20.0 L* (34.0-46.0) % MCHC 30.9 L (31.0-37.0) g/dL RDW 16.4 H (11.5-15.5) % Chloride 95 L (98-107) mmol/L POC Glucose (mg/dL) (75-99) mg/dL Stool Occult Blood (Negative) Crossmatch See Detail 02/27/18 02/27/18 02/27/18 Range/Units 16:37 20:24 23:56 RBC 2.94 L (3.80-5.40) m/uL Hgb 7.6 L (11.4-16.0) gm/dL Hct 24.0 L (34.0-46.0) % MCHC (31.0-37.0) g/dL RDW 16.3 H (11.5-15.5) % Chloride (98-107) mmol/L POC Glucose (mg/dL) 138 H (75-99) mg/dL Stool Occult Blood Positive H (Negative) Crossmatch 02/28/18 02/28/18 Range/Units 07:19 07:47 RBC 3.11 L (3.80-5.40) m/uL Hgb 8.1 L (11.4-16.0) gm/dL Hct 25.8 L (34.0-46.0) % MCHC (31.0-37.0) g/dL RDW 16.0 H (11.5-15.5) % Chloride (98-107) mmol/L POC Glucose (mg/dL) 112 H (75-99) mg/dL Stool Occult Blood (Negative) Crossmatch Assessment and Plan (1) Anemia Narrative/Plan: Suspect acute GI bleed etiology unclear possible diverticular possible peptic ulcer disease other colonic sources cannot be entirely excluded with recent hospitalization for symptomatic anemia with reported maroon-colored bowel movements no history of endoscopic exams. Current Visit: Yes Status: Acute Code(s): D64.9 - ANEMIA, UNSPECIFIED SNOMED Code(s): 268568683 (2) GI bleed Current Visit: Yes Status: Acute Code(s): K92.2 - GASTROINTESTINAL HEMORRHAGE, UNSPECIFIED SNOMED Code(s): 99984244 (3) Acute blood loss anemia Current Visit: No Status: Acute Code(s): D62 - ACUTE POSTHEMORRHAGIC ANEMIA SNOMED Code(s): 860308259 (4) Morbid obesity with BMI of 40.0-44.9, adult Current Visit: No Status: Acute Code(s): E66.01 - MORBID (SEVERE) OBESITY DUE TO EXCESS CALORIES; Z68.41 - BODY MASS INDEX (BMI) 40.0-44.9, ADULT SNOMED Code(s): 851418119 Plan: 1. Protonix 40 mg IV daily. CBC monitoring. Patient is agreeable for EGD colonoscopy this time we'll schedule for tomorrow. The speeder tender has discussed the risks, benefits and alternative therapies for the above-mentioned procedure and for both sedation/analgesia as well as necessary blood product administration, if indicated, as they pertain to this patient. The patient has indicated understanding and acceptance of the risks and procedures discussed. Thank you for this kind referral and the opportunity to participate in the care of your patient. This consultation was discussed with Dr. Gunter. The impression and plan of care have been directed as dictated.
[2018-02-28] MEDS ORDERED: BISACODYL 5 MG TABLET.DR PO STA (09:24)
[2018-02-28 09:45] LABS: Band Neutrophils % 2 %; Eosinophils # (M) 0.21 k/uL (0-0.7); Lymphocytes # (M) 1.61 k/uL (1.0-4.8); Monocytes # (M) 0.88 k/uL (0-1.0); Myelocytes % 2 %; Neutrophils % (M) 46 %; Nucleated Red Blood Cells 0 /100 WBC (0-0); Total Cells Counted 200
[2018-02-28 11:04] LABS: Glucose,Whole Blood 198 mg/dL (75-99)
[2018-02-28 12:15] LABS: Appearance,Urine Clear (Clear); Bilirubin,Urine Negative (Negative); Blood,Urine Negative (Negative); Color,Urine Yellow; Glucose,Urine (UA) Negative (Negative); Ketones,Urine Negative (Negative); Leukocyte Esterase,Urine Negative (Negative); Nitrite,Urine Negative (Negative); Protein,Urine Negative (Negative); Urobilinogen,Urine <2.0 mg/dL (<2.0)
--- NOTE | 2018-02-28 14:00 | P.HPIM ---
History of Present Illness H&P Date: 02/27/18 Chief Complaint: Low hemoglobin Patient is a 82-year-old female with a history of diabetes, hypertension, osteoarthritis, severe aortic stenosis morbid obesity and multiple other medical problems recently hospitalized 3 weeks ago with pneumonia and bright red blood maroon-colored bowel movements and hemoglobin of 6.6 and received 2 units of blood. EGD colonoscopy was recommended but she declined. She has no history of EGD colonoscopy. Discharge hemoglobin was 8.0. She presented to the emergency room yesterday with reports of a low hemoglobin 6.4 . Patient was sent from [facility] where she had CBC done 2 days ago showed low hemoglobin of 6.5. He denied any hematemesis or melena. Patient just finished antibiotic course for pneumonia. Patient received 2 unit of PRBC. She denies chest pain, shortness of breath, overt bleeding such as hematemesis hematochezia or melena. Denies abdominal pain. Patient a total of 4 units of blood over the last month. Patient does take low-dose aspirin and used to take a leave in the past. Echocardiogram during last admission revealed severe aortic stenosis with peak/ mean gradient across valve 79.14/65.80 mmHg, mild mitral regurgitation with moderate mitral stenosis as well with a peak/mean gradient 11/4.98 mmHg and preserved left ventricular systolic function with ejection fraction 55-60%. Review of Systems Constitutional: Patient denies any fever or chills . No generalized weakness or weight loss. Abdomen: Patient denied nausea vomiting and diarrhea and abdominal pain. Cardiovascular: Patient denies any chest pain or short of breath no palpitations. Respiratory: patient denied any cough is from production. No shortness of breath Neurologic: Patient denied any numbness or tingling headache. Musculoskeletal: Patient denies any complaints of joint swelling or deformity. Skin: Negative Psychiatric: Negative Endocrine: No heat or cold intolerance. No recent weight gain. Genitourinary: No dysuria or hematuria. All other 14 point ROS negative except the above Past Medical History Past Medical History: Blood Disorder, Diabetes Mellitus, Hypertension, Osteoarthritis (OA), Pneumonia, Thyroid Disorder Additional Past Medical History / Comment(s): anemia History of Any Multi-Drug Resistant Organisms: MRSA Date of last positivie culture/infection: 02-11-18 MDRO Source:: SPUTUM Past Surgical History: Cholecystectomy, Hysterectomy, Orthopedic Surgery, Tonsillectomy Additional Past Surgical History / Comment(s): knee replacement Past Anesthesia/Blood Transfusion Reactions: No Reported Reaction Past Psychological History: No Psychological Hx Reported Smoking Status: Never smoker Past Alcohol Use History: None Reported Past Drug Use History: None Reported - Past Family History Mother Family Medical History: Cancer Additional Family Medical History / Comment(s): breast cancer Father Additional Family Medical History / Comment(s): djd, hip replacment, heart problems Medications and Allergies Home Medications Medication Instructions Recorded Confirmed Type Aspirin 81 mg PO QAM 04/10/15 02/27/18 History Cyanocobalamin [Vitamin B-12] 1,000 mcg PO QAM 04/10/15 02/27/18 History Metoprolol Succinate [Toprol XL] 50 mg PO QAM 04/10/15 02/27/18 History Multivit with Calcium,Iron,Min 1 tab PO DAILY@1200 04/10/15 02/27/18 History [Women's Daily Multivitamin] Nateglinide [Starlix] 120 mg PO QAM 04/10/15 02/27/18 History Sennosides [Senokot] 17.2 tab PO HS 04/10/15 02/27/18 History Vits A,C,E/Lutein/Minerals 1 tab PO HS@1800 04/10/15 02/27/18 History [Ocuvite with Lutein Tablet] sitaGLIPtin PHOS/metFORMIN HCL 1 tab PO QAM 04/10/15 02/27/18 History [Janumet Xr 100-1,000 mg Tablet] Atorvastatin [Lipitor] 20 mg PO HS 02/10/18 02/27/18 History Levothyroxine Sodium [Synthroid] 150 mcg PO QAM 02/10/18 02/27/18 History Acetaminophen Tab [Tylenol] 650 mg PO Q6HR PRN tab 02/16/18 02/27/18 Rx Diclofenac Sodium Gel [Voltaren 2 gm TOPICAL QID tube 02/16/18 02/27/18 Rx Gel] Diclofenac Sodium Gel [Voltaren 4 gm TOPICAL QID tube 02/16/18 02/27/18 Rx Gel] Furosemide [Lasix] 40 mg PO BID@0900,1600 tab 02/16/18 02/27/18 Rx Ipratropium-Albuterol Nebulize 3 ml INHALATION RT-QID ampul.neb 02/16/18 Rx [Duoneb 0.5 mg-3 mg/3 ml Soln] Potassium Chloride [Klor-Con 20 meq PO DAILY #1 packet 02/16/18 02/27/18 Rx Packets] Ferrous Sulfate [Feosol] 325 mg PO DAILY 02/27/18 02/27/18 History Allergies Allergy/AdvReac Type Severity Reaction Status Date / Time Sulfa (Sulfonamide Allergy Anaphylaxis Verified 02/27/18 15:17 Antibiotics) Physical Exam Vitals: Vital Signs Temp Pulse Pulse Resp BP BP Pulse Ox 02/27/18 18:51 97.9 F 75 18 127/75 02/27/18 18:11 98.9 F 65 18 120/56 02/27/18 17:41 99.4 F 65 18 116/56 02/27/18 17:29 99.3 F 65 18 120/58 02/27/18 17:00 67 18 121/58 100 02/27/18 15:57 69 19 118/59 99 02/27/18 15:06 98.8 F 73 18 123/51 89 L Intake and Output 02/27/18 02/27/18 02/27/18 06:59 14:59 22:59 Intake Total 0 Balance 0 Intake: Blood Product 0 Rc As-1 Unit 0 [id number] Other: Weight 99.79 kg PHYSICAL EXAMINATION: Patient is lying in the bed comfortably, no acute distress, awake alert and oriented.. HEENT: Normocephalic. Neck is supple. Pupils reactive. Nostrils clear. Oral cavity is moist. Ears reveal no drainage. Neck reveals no JVD, carotid bruits, or thyromegaly. CHEST EXAMINATION: Trachea is central. Symmetrical expansion. Bilateral basilar diminished air entry. No wheezing no rhonchi CARDIAC: Normal S1, S2 with no gallops. No murmurs ABDOMEN: Soft. Bowel sounds normal. No organomegaly. No abdominal bruits. Extremities: reveal no edema. No clubbing or cyanosis Neurologically awake, alert, oriented x3 with well-coordinated movements. No focal deficits noted Skin: No rash or skin lesions. Psychiatric: Cooperative. Nonsuicidal Musculoskeletal: No joint swelling or deformity. Normal range of motion. Results CBC & Chem 7: 02/28/18 07:47 02/27/18 15:50 Labs: Abnormal Lab Results - Last 24 Hours (Table) 02/27/18 02/27/18 02/27/18 Range/Units 15:50 15:50 15:50 RBC 2.46 L (3.80-5.40) m/uL Hgb 6.2 L* (11.4-16.0) gm/dL Hct 20.0 L* (34.0-46.0) % MCHC 30.9 L (31.0-37.0) g/dL RDW 16.4 H (11.5-15.5) % Chloride 95 L (98-107) mmol/L Stool Occult Blood (Negative) Crossmatch See Detail 02/27/18 Range/Units 16:37 RBC (3.80-5.40) m/uL Hgb (11.4-16.0) gm/dL Hct (34.0-46.0) % MCHC (31.0-37.0) g/dL RDW (11.5-15.5) % Chloride (98-107) mmol/L Stool Occult Blood Positive H (Negative) Crossmatch Thrombosis Risk Factor Assmnt - DVT/VTE Prophylaxis DVT/VTE Prophylaxis: Mechanical Prophylaxis ordered Assessment and Plan Assessment: Acute blood loss anemia secondary to GI bleed hemoglobin 6.4 on admission status post 2 units PRBC transfusion Chronic CHF with diastolic dysfunction with severe aortic stenosis and mitral stenosis Recent pneumonia with sputum cultures showed MRSA thought to be colonization Diabetes type 2 Hypothyroidism Hypertension Osteoarthritis morbid obesity BMI 41 DVT prophylaxis with SCDs Plan: IV Protonix and clear liquids. GI consult. Gentle hydration due to CHF. Patient will need EGD and colonoscopy. Patient refused during previous admission. Continue the home medications and further recommendations based on the clinical course. Prognosis is guarded. Time with Patient: Greater than 30
[2018-02-28] MEDS ORDERED: PEG 3350-NA SULF,BICARB,CL/KCL 4,000 ML BOTTLE PO ONE (15:00)
[2018-02-28 16:53] LABS: Glucose,Whole Blood 103 mg/dL (75-99)
[2018-02-28 19:51] LABS: Hemoglobin A1C 5.2 % (4.0-6.0)
[2018-02-28 20:19] LABS: Glucose,Whole Blood 156 mg/dL (75-99)
[2018-02-28 22:18] VITALS: RESP 18
[2018-03-01] MEDS ORDERED: BISACODYL 5 MG TABLET.DR PO STA (07:28)
[2018-03-01 07:39] LABS: Glucose,Whole Blood 121 mg/dL (75-99)
[2018-03-01] MEDS: INSULIN ASPART 100 UNIT/ML 1 ML 10 ML VIAL SQ SCH ×4 (07:44→22:36)
[2018-03-01] MEDS ORDERED: MAGNESIUM CITRATE 296 ML BOTTLE PO STA ×2 (07:57→08:00)
[2018-03-01] MEDS: FUROSEMIDE 40 MG TAB PO SCH ×2 (07:58→16:57)
[2018-03-01] MEDS: PANTOPRAZOLE 40 MG/10 ML VIAL IV SCH (07:58)
[2018-03-01 09:06] LABS: Anisocytosis Slight; Basophils % (A) 1 %; Eosinophils # (A) 0.1 k/uL (0-0.7); Eosinophils % (A) 2 %; HCT 24.8 % (34.0-46.0); HGB 7.9 gm/dL (11.4-16.0); Hypochromasia Marked; Lymphocytes # (A) 1.3 k/uL (1.0-4.8); Lymphocytes % (A) 29 %; MCH 26.3 pg (25.0-35.0); MCHC 31.8 g/dL (31.0-37.0); MCV 82.7 fL (80.0-100.0); Mean Platelet Volume 8.7; Monocytes # (A) 0.5 k/uL (0-1.0); Monocytes % (A) 12 %; Neutrophils # (A) 2.3 k/uL (1.3-7.7); Neutrophils % (A) 52 %; Platelet Count 204 k/uL (150-450); Poikilocytosis Marked; RBC 2.99 m/uL (3.80-5.40); RDW 16.5 % (11.5-15.5); WBC 4.5 k/uL (3.8-10.6)
[2018-03-01] MEDS ORDERED: POLYETHYLENE GLYCOL 3350 17 GM POWD.PACK PO STA (11:30)
[2018-03-01 11:32] LABS: Glucose,Whole Blood 121 mg/dL (75-99)
--- NOTE | 2018-03-01 11:51 | P.PN ---
Subjective Progress Note Date: 02/28/18 Principal diagnosis: Acute Blood loos anemia Patient is a 82-year-old female with a history of diabetes, hypertension, osteoarthritis, severe aortic stenosis morbid obesity and multiple other medical problems recently hospitalized 3 weeks ago with pneumonia and bright red blood maroon-colored bowel movements and hemoglobin of 6.6 and received 2 units of blood. EGD colonoscopy was recommended but she declined. She has no history of EGD colonoscopy. Discharge hemoglobin was 8.0. She presented to the emergency room yesterday with reports of a low hemoglobin 6.4 . Patient was sent from [facility] where she had CBC done 2 days ago showed low hemoglobin of 6.5. He denied any hematemesis or melena. Patient just finished antibiotic course for pneumonia. Patient received 2 unit of PRBC. She denies chest pain, shortness of breath, overt bleeding such as hematemesis hematochezia or melena. Denies abdominal pain. Patient a total of 4 units of blood over the last month. Patient does take low-dose aspirin and used to take a leave in the past. Echocardiogram during last admission revealed severe aortic stenosis with peak/ mean gradient across valve 79.14/65.80 mmHg, mild mitral regurgitation with moderate mitral stenosis as well with a peak/mean gradient 11/4.98 mmHg and preserved left ventricular systolic function with ejection fraction 55-60%. On 02/28/18 - patient denied any dark stools again. Hemoglobin improved to 8.0. Patient is scheduled for endoscopy tomorrow. Gastroenterology is following this patient.. No other acute overnight issues. Review of Systems Constitutional: Patient denies any fever or chills . No generalized weakness or weight loss. Abdomen: Patient denied nausea vomiting and diarrhea and abdominal pain. Cardiovascular: Patient denies any chest pain or short of breath no palpitations. Respiratory: patient denied any cough is from production. No shortness of breath Neurologic: Patient denied any numbness or tingling headache. Objective - Vital Signs Vital signs: Vital Signs Temp 98.0 F 02/28/18 07:18 Pulse 70 02/28/18 09:15 Resp 18 02/28/18 09:15 BP 117/56 02/28/18 07:18 Pulse Ox 99 02/28/18 07:18 Intake & Output 02/27/18 02/28/18 02/28/18 18:59 06:59 18:59 Intake Total 0 1295 Balance 0 1295 Weight 99.79 kg Intake: Intake, IV Titration 425 Amount Sodium Chloride 0.9% 1, 425 000 ml @ 75 mls/hr IV . [id number] [facility] Rx#:[id number] Oral 250 Blood Product 0 620 Rc As-1 Unit 0 310 [id number] Rc Pheresis As-3 Unit 310 [id number] Other: Voiding Method Diaper Diaper Incontinent # Voids 3 - Exam PHYSICAL EXAMINATION: Patient is lying in the bed comfortably, no acute distress, awake alert and oriented.. HEENT: Normocephalic. Neck is supple. Pupils reactive. Nostrils clear. Oral cavity is moist. Ears reveal no drainage. Neck reveals no JVD, carotid bruits, or thyromegaly. CHEST EXAMINATION: Trachea is central. Symmetrical expansion. Bilateral basilar diminished air entry. No wheezing no rhonchi CARDIAC: Normal S1, S2 with no gallops. No murmurs ABDOMEN: Soft. Bowel sounds normal. No organomegaly. No abdominal bruits. Extremities: reveal no edema. No clubbing or cyanosis Neurologically awake, alert, oriented x3 with well-coordinated movements. No focal deficits noted Skin: No rash or skin lesions. Psychiatric: Cooperative. Nonsuicidal Musculoskeletal: No joint swelling or deformity. Normal range of motion. - Labs CBC & Chem 7: 03/01/18 08:06 02/27/18 15:50 Labs: Abnormal Lab Results - Last 24 Hours (Table) 02/27/18 02/27/18 02/27/18 Range/Units 15:50 15:50 15:50 RBC 2.46 L (3.80-5.40) m/uL Hgb 6.2 L* (11.4-16.0) gm/dL Hct 20.0 L* (34.0-46.0) % MCHC 30.9 L (31.0-37.0) g/dL RDW 16.4 H (11.5-15.5) % Myelocytes # (Manual) (0) k/uL Chloride 95 L (98-107) mmol/L POC Glucose (mg/dL) (75-99) mg/dL Stool Occult Blood (Negative) Crossmatch See Detail 02/27/18 02/27/18 02/27/18 Range/Units 16:37 20:24 23:56 RBC 2.94 L (3.80-5.40) m/uL Hgb 7.6 L (11.4-16.0) gm/dL Hct 24.0 L (34.0-46.0) % MCHC (31.0-37.0) g/dL RDW 16.3 H (11.5-15.5) % Myelocytes # (Manual) (0) k/uL Chloride (98-107) mmol/L POC Glucose (mg/dL) 138 H (75-99) mg/dL Stool Occult Blood Positive H (Negative) Crossmatch 02/28/18 02/28/18 02/28/18 Range/Units 07:19 07:47 11:02 RBC 3.11 L (3.80-5.40) m/uL Hgb 8.1 L (11.4-16.0) gm/dL Hct 25.8 L (34.0-46.0) % MCHC (31.0-37.0) g/dL RDW 16.0 H (11.5-15.5) % Myelocytes # (Manual) 0.10 H (0) k/uL Chloride (98-107) mmol/L POC Glucose (mg/dL) 112 H 198 H (75-99) mg/dL Stool Occult Blood (Negative) Crossmatch Assessment and Plan Assessment: Acute blood loss anemia secondary to GI bleed hemoglobin 6.4 on admission status post 2 units PRBC transfusion hemoglobin 8.0 Chronic CHF with diastolic dysfunction with severe aortic stenosis and mitral stenosis Recent pneumonia with sputum cultures showed MRSA thought to be colonization Diabetes type 2 Hypothyroidism Hypertension Osteoarthritis morbid obesity BMI 41 DVT prophylaxis with SCDs Plan: IV Protonix and clear liquids. GI consult. Gentle hydration due to CHF. Patient is scheduled for EGD and colonoscopy tomorrow. Patient refused during previous admission. moniotr H&H Continue the home medications and further recommendations based on the clinical course. Prognosis is guarded. Time with Patient: Greater than 30
[2018-03-01] MEDS ORDERED: KETAMINE 10 MG/ML 20 ML VIAL ONE (16:28)
[2018-03-01] MEDS ORDERED: LIDOCAINE 1% INJ 10MG/ML (20 ML MDV) ONE (16:28)
[2018-03-01] MEDS ORDERED: PROPOFOL 10 MG/ML 20 ML VIAL IV ONE (16:28)
[2018-03-01] MEDS ORDERED: IV FLUID CONTINUATION 200 ML IV ONE (16:31)
--- NOTE | 2018-03-01 17:22 | P.PCN ---
Date of Procedure: 03/01/18 Procedure(s) Performed: Procedures: 1. Esophagogastroduodenoscopy and biopsy. 2. Colonoscopy and biopsy and injection of Spot to localize a hepatic flexure lesion. Preoperative diagnosis: GI bleeding and anemia. Postoperative diagnosis: 1. Hiatal hernia with no obvious esophagitis or complaints reflux disease. 2. Mild gastritis and duodenitis. 3. Hepatic flexure lesion consistent with cancer, biopsies obtained and Spot was injected to localize it. Preparation: GoLYTELY prep. Sedation: Was provided by anesthesia. Brief clinical history: The patient is an 82-year-old female with history of diabetes, hypertension, obesity hospitalized 3 weeks ago with bright red blood maroon-colored bowel movements and hemoglobin of 6.6 and received 2 units of blood. She had no further episodes of bleeding during that hospitalization and was discharge. EGD and colonoscopy was recommended but she declined. She has no prior EGD or colonoscopy. Discharge hemoglobin was 8.0. She presented to the emergency room yesterday with reports of a low hemoglobin 6.5 as low as 6.2. MCV 81 platelet 208. BUN 16. Creatinine 0.7. Stool occult positive. She denies chest pain, shortness of breath, overt bleeding such as hematemesis, hematochezia or melena. Denies abdominal pain. She is received 2 more units of blood for a total of 4 units of blood over the last month. Other details as summarized in the history and physical and dictated consultations and progress notes. This evaluation is to assess for a source of bleeding and anemia. Procedure: With the patient on her left lateral decubitus position and after informed consent and adequate sedation, I passed the Olympus-GIF 160 video upper endoscope through the cricopharyngeus down the esophagus. GE junction was around 41 cm from the incisors and there was a sliding hiatal hernia. The esophagus did not show any obvious esophagitis or complicated reflux disease. The endoscope was then passed into the stomach which was insufflated with air and inspected in detail including the retroflex view in the cardia. There was some mottling and erythema in the antrum but no ulcers or erosions. Pyloric channel did not show any ulcers. Duodenal bulb showed mottling and erythema consistent with duodenitis but there were no ulcers, erosions or bleeding. Post bulbar area and descending duodenum appeared normal. I obtained biopsies from the antrum then the endoscope was withdrawn and I proceeded with the colonoscopy. Perianal area did not show any fissures or fistulas. There were no masses felt on digital rectal examination. The Olympus CFQ 160L video colonoscope was then inserted in the rectum in the usual fashion and advanced. The preparation was less than ideal. Around the hepatic flexure there was a partially obstructing lesion that did not allow the advancement of the endoscope to more proximal areas of the colon. It had the appearance of cancer. I obtained a picture and multiple biopsies then I injected 2 mL of spot to localize it. There was no other significant pathology noted or bleeding. Then the endoscope was withdrawn. The patient tolerated the procedure well. Plan: We will await pathology results and make further plans. Because of the location and extent of this lesion and the associated ongoing blood loss and anemia, surgical options might be considered. I will discuss with you and follow with you with interest.
[2018-03-01 17:36] LABS: Glucose,Whole Blood 116 mg/dL (75-99)
[2018-03-01] MEDS: LACTATED RINGERS 1,000 ML IV SCH (17:46)
[2018-03-01 20:25] LABS: Glucose,Whole Blood 116 mg/dL (75-99)
[2018-03-01] MEDS: SODIUM CHLORIDE 0.9% 1,000 ML IV SCH (22:48)
[2018-03-02 08:01] LABS: Glucose,Whole Blood 151 mg/dL (75-99)
[2018-03-02 08:23] VITALS: BP 120/89; PULSE 80; TEMP 99.4
[2018-03-02] MEDS: PANTOPRAZOLE 40 MG/10 ML VIAL IV SCH (08:38)
[2018-03-02] MEDS: FUROSEMIDE 40 MG TAB PO SCH ×2 (08:38→17:14)
[2018-03-02] MEDS: INSULIN ASPART 100 UNIT/ML 1 ML 10 ML VIAL SQ SCH ×3 (08:38→17:20)
[2018-03-02] MEDS: LACTATED RINGERS 1,000 ML IV SCH (08:39)
--- NOTE | 2018-03-02 10:00 | P.PN ---
Subjective Progress Note Date: 03/02/18 Principal diagnosis: Anemia GI bleed/rectal bleeding Status post EGD colonoscopy yesterday for evaluation of anemia and recent admission for burgundy-colored bowel movements. No evidence of peptic ulcer disease. Hepatic flexure lesion consistent with cancer status post biopsies. CEA requested. Feels well. Denies abdominal pain. No further bleeding. Tolerating diet. Hemoglobin 7.9 yesterday. Objective - Vital Signs Vital signs: Vital Signs Temp 99.4 F 03/02/18 07:44 Pulse 80 03/02/18 07:44 Resp 18 03/02/18 07:44 BP 120/89 03/02/18 07:44 Pulse Ox 94 L 03/02/18 07:44 Intake & Output 03/01/18 03/02/18 03/02/18 18:59 06:59 18:59 Intake Total 340 Balance 340 Intake: IV 100 Intake, IV Titration 240 Amount Sodium Chloride 0.9% 1, 240 000 ml @ 40 mls/hr IV . Q24H [facility] Rx#:[id number] Other: Voiding Method Bedpan Bedpan Diaper Diaper Incontinent Incontinent # Voids 1 # Bowel Movements 6 1 - Exam General appearance: The patient is alert, oriented, in no acute distress. HET: Head is normocephalic and atraumatic. Pupils are equal and reactive. Oropharynx is clear without lesions. Neck: Supple without lymphadenopathy. Trachea midline. Heart: S1 S2. Regular rate and rhythm. Lungs: No crackles or wheezes are heard. Abdomen: Soft, nontender, nondistended with bowel sounds. No peritoneal signs. No palpable organomegaly or masses. Extremities: Normal skin color and turgor. No cyanosis, rash, ulceration, clubbing, or edema. Radial and pedal pulses are 2/4 bilaterally. Neurological: No focal deficits. Strength and sensation are grossly intact. - Labs CBC & Chem 7: 03/01/18 08:06 02/27/18 15:50 Labs: Abnormal Lab Results - Last 24 Hours (Table) 03/01/18 03/01/18 03/01/18 Range/Units 11:13 17:31 20:23 POC Glucose (mg/dL) 121 H 116 H 116 H (75-99) mg/dL 03/02/18 Range/Units 07:40 POC Glucose (mg/dL) 151 H (75-99) mg/dL Assessment and Plan (1) Anemia Narrative/Plan: Status post EGD colonoscopy no evidence of peptic ulcer disease. Anemia most likely secondary to hepatic flexure lesion suspicious for carcinoma. Current Visit: Yes Status: Acute Code(s): D64.9 - ANEMIA, UNSPECIFIED SNOMED Code(s): 362248450 (2) GI bleed Current Visit: Yes Status: Acute Code(s): K92.2 - GASTROINTESTINAL HEMORRHAGE, UNSPECIFIED SNOMED Code(s): 43492789 (3) Acute blood loss anemia Current Visit: No Status: Acute Code(s): D62 - ACUTE POSTHEMORRHAGIC ANEMIA SNOMED Code(s): 810241329 (4) Morbid obesity with BMI of 40.0-44.9, adult Current Visit: No Status: Acute Code(s): E66.01 - MORBID (SEVERE) OBESITY DUE TO EXCESS CALORIES; Z68.41 - BODY MASS INDEX (BMI) 40.0-44.9, ADULT SNOMED Code(s): 848418555 Plan: 1. Soft diet. Recommend surgical consultation. Return to office in 2-3 weeks for reevaluation. CBC monitoring. Discharge per medicine. Assessment and plan of care discussed with Dr. Frazier
--- NOTE | 2018-03-02 11:42 | P.GSCN ---
History of Present Illness Consult date: 03/02/18 Reason for Consult: Anemia, questionable colon cancer at hepatic flexure History of present illness: This 82-year-old female who underwent workup for anemia. Patient's found have evidence of a colonic mass at the hepatic flexure suspicious for colon cancer. Patient underwent EGD and colonoscopy by Dr. Jackson yesterday. His report describes a hepatic flexure tumor. The tumor has been tattooed with ink spot. Patient is currently resting comfortably but tolerating liquids. Past Medical History Past Medical History: Blood Disorder, Diabetes Mellitus, Hypertension, Osteoarthritis (OA), Pneumonia, Thyroid Disorder Additional Past Medical History / Comment(s): anemia History of Any Multi-Drug Resistant Organisms: MRSA Year Discovered:: 02-11-18 MDRO Source:: SPUTUM Past Surgical History: Cholecystectomy, Hysterectomy, Orthopedic Surgery, Tonsillectomy Additional Past Surgical History / Comment(s): knee replacement Past Anesthesia/Blood Transfusion Reactions: No Reported Reaction Additional Past Anesthesia/Blood Transfusion Reaction / Comm: blood transfusion - no reaction Past Psychological History: No Psychological Hx Reported Smoking Status: Never smoker Past Alcohol Use History: None Reported Past Drug Use History: None Reported - Past Family History Mother Family Medical History: Cancer Additional Family Medical History / Comment(s): breast cancer Father Additional Family Medical History / Comment(s): djd, hip replacment, heart problems Medications and Allergies Home Medications Medication Instructions Recorded Confirmed Type Aspirin 81 mg PO QAM 04/10/15 02/27/18 History Cyanocobalamin [Vitamin B-12] 1,000 mcg PO QAM 04/10/15 02/27/18 History Metoprolol Succinate [Toprol XL] 50 mg PO QAM 04/10/15 02/27/18 History Multivit with Calcium,Iron,Min 1 tab PO DAILY@1200 04/10/15 02/27/18 History [Women's Daily Multivitamin] Nateglinide [Starlix] 120 mg PO QAM 04/10/15 02/27/18 History Sennosides [Senokot] 17.2 tab PO HS 04/10/15 02/27/18 History Vits A,C,E/Lutein/Minerals 1 tab PO HS@1800 04/10/15 02/27/18 History [Ocuvite with Lutein Tablet] sitaGLIPtin PHOS/metFORMIN HCL 1 tab PO QAM 04/10/15 02/27/18 History [Janumet Xr 100-1,000 mg Tablet] Atorvastatin [Lipitor] 20 mg PO HS 02/10/18 02/27/18 History Levothyroxine Sodium [Synthroid] 150 mcg PO QAM 02/10/18 02/27/18 History Acetaminophen Tab [Tylenol] 650 mg PO Q6HR PRN tab 02/16/18 02/27/18 Rx Diclofenac Sodium Gel [Voltaren 2 gm TOPICAL QID tube 02/16/18 02/27/18 Rx Gel] Diclofenac Sodium Gel [Voltaren 4 gm TOPICAL QID tube 02/16/18 02/27/18 Rx Gel] Furosemide [Lasix] 40 mg PO BID@0900,1600 tab 02/16/18 02/27/18 Rx Ipratropium-Albuterol Nebulize 3 ml INHALATION RT-QID ampul.neb 02/16/18 Rx [Duoneb 0.5 mg-3 mg/3 ml Soln] Potassium Chloride [Klor-Con 20 meq PO DAILY #1 packet 02/16/18 02/27/18 Rx Packets] Ferrous Sulfate [Feosol] 325 mg PO DAILY 02/27/18 02/27/18 History Allergies Allergy/AdvReac Type Severity Reaction Status Date / Time Sulfa (Sulfonamide Allergy Anaphylaxis Verified 02/27/18 15:17 Antibiotics) Surgical - Exam Vital Signs Temp Pulse Resp BP Pulse Ox 98.8 F 73 18 123/51 89 L 02/27/18 15:06 02/27/18 15:06 02/27/18 15:06 02/27/18 15:06 02/27/18 15:06 - General well developed, no distress - Eyes PERRL - ENT normal pinna - Neck no masses - Respiratory normal expansion - Cardiovascular Rhythm: regular - Abdomen Abdomen: soft, non tender Results - Labs 03/01/18 08:06 02/27/18 15:50 Abnormal Lab Results - Last 24 Hours (Table) 03/01/18 03/01/18 03/02/18 Range/Units 17:31 20:23 07:40 POC Glucose (mg/dL) 116 H 116 H 151 H (75-99) mg/dL Assessment and Plan Assessment: Hepatic flexure tumor colon cancer. Patient will be scheduled for right colectomy.
[2018-03-02 11:57] LABS: Glucose,Whole Blood 142 mg/dL (75-99)
--- NOTE | 2018-03-02 14:39 | P.CRDCN ---
History of Present Illness Consult date: 03/02/18 History of present illness: Mrs. Bonilla is a pleasant 82-year-old female past medical history significant for severe aortic stenosis, moderate mitral stenosis, diabetes mellitus, hypertension, hypothyroid and obesity. We have been asked to see her in consultation for cardiac evaluation prior to surgery. We first met this patient in January when she was in the hospital for GI bleeding and found to have a heart murmur. An echocardiogram was performed that revealed severe aortic stenosis with mean gradient of 65.8 mmHg and moderated mitral stenosis with mean gradient of 4.98 mmHg with preserved LV systolic function. At that time shew as being treated for pneumonia, diastolic heart failure and GI bleeding. She declined EGD/colonoscopy at that time and was treated medically with blood transfusion. Initial hgb on that admission was 6.3 and went up to 7.7 by discharge. She was discharged home to rehab facility for physical therapy and is scheduled to see Dr. Frazier in the office for further work-up and evaluation of valvular heart disease. However, on 02/27 she presented to ED from [facility] with complaints of ongoing rectal bleeding. Hgb on admission was 6.5 and she has again received 2 units of PRBC. She agreed for EGD and colonoscopy this admission and this was performed and revealed hiatal hernia, mild gastritis and duodenitis, hepatic flezure lesion consistent with cancer, biopsies pending. Surgical consultation was obtained and they have recommended bozena-colectomy next week Monday. Review of Systems At the time of my exam: CONSTITUTIONAL: Denies fever. Denies chills. EYES: Denies blurred vision. Denies vision changes. Denies eye pain. EARS, NOSE, MOUTH & THROAT: Denies headache. Denies sore throat. Denies ear pain. CARDIOVASCULAR: Denies chest pain. Denies shortness of breath. Denies orthopnea. Denies PND. Denies palpitations. RESPIRATORY: Denies cough. GASTROINTESTINAL: Denies abdominal pain. Denies diarrhea. Denies constipation. Denies nausea. Denies vomiting. MUSCULOSKELETAL: Denies myalgias. INTEGUMENTARY: Denies pruitis. Denies rash. NEUROLOGIC: Denies numbness. Denies tingling. Denies weakness. PSYCHIATRIC: Denies anxiety. Denies depression. ENDOCRINE: Denies fatigue. Denies weight change. Denies polydipsia. Denies polyurina. GENITOURINARY: Denies burning, hematuria or urgency with micturation. HEMATOLOGIC: Denies history of anemia. Denies bleeding. Past Medical History Past Medical History: Blood Disorder, Diabetes Mellitus, Hypertension, Osteoarthritis (OA), Pneumonia, Thyroid Disorder Additional Past Medical History / Comment(s): anemia History of Any Multi-Drug Resistant Organisms: MRSA Date of last positivie culture/infection: 02-11-18 MDRO Source:: SPUTUM Past Surgical History: Cholecystectomy, Hysterectomy, Orthopedic Surgery, Tonsillectomy Additional Past Surgical History / Comment(s): knee replacement Past Anesthesia/Blood Transfusion Reactions: No Reported Reaction Additional Past Anesthesia/Blood Transfusion Reaction / Comment(s): blood transfusion- no reaction Past Psychological History: No Psychological Hx Reported Smoking Status: Never smoker Past Alcohol Use History: None Reported Past Drug Use History: None Reported - Past Family History Mother Family Medical History: Cancer Additional Family Medical History / Comment(s): breast cancer Father Additional Family Medical History / Comment(s): djd, hip replacment, heart problems Medications and Allergies Home Medications Medication Instructions Recorded Confirmed Type Aspirin 81 mg PO QAM 04/10/15 02/27/18 History Cyanocobalamin [Vitamin B-12] 1,000 mcg PO QAM 04/10/15 02/27/18 History Metoprolol Succinate [Toprol XL] 50 mg PO QAM 04/10/15 02/27/18 History Multivit with Calcium,Iron,Min 1 tab PO DAILY@1200 04/10/15 02/27/18 History [Women's Daily Multivitamin] Nateglinide [Starlix] 120 mg PO QAM 04/10/15 02/27/18 History Sennosides [Senokot] 17.2 tab PO HS 04/10/15 02/27/18 History Vits A,C,E/Lutein/Minerals 1 tab PO HS@1800 04/10/15 02/27/18 History [Ocuvite with Lutein Tablet] sitaGLIPtin PHOS/metFORMIN HCL 1 tab PO QAM 04/10/15 02/27/18 History [Janumet Xr 100-1,000 mg Tablet] Atorvastatin [Lipitor] 20 mg PO HS 02/10/18 02/27/18 History Levothyroxine Sodium [Synthroid] 150 mcg PO QAM 02/10/18 02/27/18 History Acetaminophen Tab [Tylenol] 650 mg PO Q6HR PRN tab 02/16/18 02/27/18 Rx Diclofenac Sodium Gel [Voltaren 2 gm TOPICAL QID tube 02/16/18 02/27/18 Rx Gel] Diclofenac Sodium Gel [Voltaren 4 gm TOPICAL QID tube 02/16/18 02/27/18 Rx Gel] Furosemide [Lasix] 40 mg PO BID@0900,1600 tab 02/16/18 02/27/18 Rx Ipratropium-Albuterol Nebulize 3 ml INHALATION RT-QID ampul.neb 02/16/18 Rx [Duoneb 0.5 mg-3 mg/3 ml Soln] Potassium Chloride [Klor-Con 20 meq PO DAILY #1 packet 02/16/18 02/27/18 Rx Packets] Ferrous Sulfate [Feosol] 325 mg PO DAILY 02/27/18 02/27/18 History Peg 3350-Na Sulf,Bicarb,Cl/KCl 4,000 ml PO DIRECTED #1 bottle 03/02/18 Rx [Golytely Lavage] Allergies Allergy/AdvReac Type Severity Reaction Status Date / Time Sulfa (Sulfonamide Allergy Anaphylaxis Verified 02/27/18 15:17 Antibiotics) Physical Exam Vitals: Vital Signs Temp Pulse Pulse Resp BP Pulse Ox 03/02/18 07:44 99.4 F 80 18 120/89 94 L 03/01/18 22:44 97.9 F 72 18 120/58 95 03/01/18 16:19 99.5 F 77 18 123/66 96 Intake and Output 03/01/18 03/02/18 03/02/18 22:59 06:59 14:59 Intake Total 100 Balance 100 Intake: IV 100 Other: Voiding Method Bedpan Bedpan Bedpan Diaper Diaper Diaper Incontinent Incontinent Incontinent # Voids 1 1 # Bowel Movements 1 Blood pressure 120/89 heart rate 88 afebrile maintaining oxygen saturation GENERAL: This is a 82-year-old female in no apparent distress at the time of my examination. HEENT: Head is atraumatic, normocephalic. Pupils are equal, round. Sclerae anicteric. Conjunctivae are clear. Mucous membranes of the mouth are moist. Neck is supple. There is no jugular venous distention. No carotid bruit is heard. LUNGS: Clear to auscultation no wheezes, rales or rhonchi. No chest wall tenderness is noted on palpation or with deep breathing. HEART: Regular rate and rhythm with systolic ejection murmur at the base and apex, no rubs or gallops. S1 and S2 not heard due to loud murmur. ABDOMEN: Soft, nontender. Bowel sounds are heard. No organomegaly noted. EXTREMITIES: Trace b/l lower extremity non-pitting edema. No calf tenderness noted. VASCULAR: Radial and dorsalis pedis pulses palpated, no evidence of clubbing. NEUROLOGIC: Patient is awake, alert and oriented x3. Results 03/01/18 08:06 02/27/18 15:50 Current Medications Generic Name Dose Route Start Last Admin Trade Name Freq PRN Reason Stop Dose Admin Acetaminophen 650 mg 02/27/18 16:43 Tylenol Tab PO Q6HR PRN Mild Pain or Fever > 100.5 Furosemide 40 mg 02/28/18 09:00 03/02/18 08:38 Lasix PO 40 mg BID@0900,1600 BERNARDA Administration Sodium Chloride 1,000 mls @ 40 mls/hr 02/27/18 16:45 03/01/18 22:48 Saline 0.9% IV 40 mls/hr .Q24H BERNARDA Administration Lactated Ringer's 1,000 mls @ 20 mls/hr 03/01/18 08:00 03/02/18 08:39 Lactated Ringers IV Not Given .Q24H BERNARDA Insulin Aspart 0 unit 02/27/18 21:00 03/02/18 08:38 Novolog SQ 2 unit ACHS BERNARDA Administration Protocol Naloxone HCl 0.2 mg 02/27/18 16:43 Narcan IV Q2M PRN Opioid Reversal Ondansetron HCl 4 mg 02/27/18 16:43 Zofran IVP Q8HR PRN Nausea And Vomiting Pantoprazole Sodium 40 mg 02/28/18 09:00 03/02/18 08:38 Protonix IV 40 mg DAILY BERNARDA Administration Intake and Output 03/01/18 03/02/18 03/02/18 22:59 06:59 14:59 Intake Total 100 Balance 100 Intake: IV 100 Other: Voiding Method Bedpan Bedpan Bedpan Diaper Diaper Diaper Incontinent Incontinent Incontinent # Voids 1 1 # Bowel Movements 1 03/01/18 08:06 02/27/18 15:50 Assessment and Plan Assessment: ASSESSMENT 1. Severe aortic stenosis 2. Mitral stenosis 3. Hypertension 4. Diabetes mellitus 5. GI bleeding 6. Colonic mass a hepatic flexure 7. Anemai secondary to GI bleedings PLAN We have been asked to give a cardiac evaluation and recommendation prior to surgery to remove a colonic mass. From cardiology perspective Mrs. Bonilla is an extremely high risk candidate for surgical intervention at this time. She has symptomatic severe aortic stenosis which is newly diagnosed 2 weeks ago. She has yet to undergo further evaluation for this. This has been communicated to Meka Verma, Nurse Practitioner with Dr. Aguirre as well as to the patient. Thank you kindly for this consultation. Nurse Practitioner note has been reviewed, I agree with a documented findings and plan of care. Patient was seen and examined.
[2018-03-02 14:51] LABS: Anisocytosis Slight; Basophils % (A) 0 %; Eosinophils # (A) 0.1 k/uL (0-0.7); Eosinophils % (A) 2 %; HGB 8.6 gm/dL (11.4-16.0); Hypochromasia Marked; Lymphocytes # (A) 1.5 k/uL (1.0-4.8); Lymphocytes % (A) 25 %; MCH 25.8 pg (25.0-35.0); MCHC 30.6 g/dL (31.0-37.0); MCV 84.4 fL (80.0-100.0); Mean Platelet Volume 9.1; Monocytes # (A) 0.8 k/uL (0-1.0); Monocytes % (A) 12 %; Neutrophils # (A) 3.5 k/uL (1.3-7.7); Neutrophils % (A) 58 %; Platelet Count 199 k/uL (150-450); Poikilocytosis Moderate; RBC 3.32 m/uL (3.80-5.40); RDW 17.3 % (11.5-15.5)
--- NOTE | 2018-03-07 07:58 | CDI ---
Documentation Clarification Form Date: 03/07/2018 12:00:00 AM From: BENJAMÍN Mo; Sabina Stoll Baby Counselor Phone: If you have a question about this query, please contact Sabina Stoll Baby Counselor at [phone] between 8am and 5pm. Admit Date: 02/27/2018 4:50:00 PM Patient Name: Emili Bonilla Visit Number: [id number] Discharge Date: 03/02/2018 ATTENTION: The Clinical Documentation Specialists (CDI) and [facility] Coding Staff appreciate your assistance in clarifying documentation. Please respond to the clarification below the line at the bottom and electronically sign. The CDI & [facility] Coding staff will review the response and follow-up if needed. Please note: Queries are made part of the Legal Health Record. If you have any questions, please contact the author of this message via ITS. Dr. Rhonda Stevens GI bleed is documented in the H&P and progress notes. She presented to the ED with hemoglobin of 6.4 and received 2 units PRBC. EGD and colonoscopy were performed w/biopsy of stomach and colon. Biopsies revealed gastritis and adenocarcinoma of the hepatic flexure. Per consultation on 03/02, patient will be scheduled for right colectomy. In your professional opinion, can you please clarify the underlying cause of GI bleed if known? Adenocarcinoma of hepatic flexure Gastritis Other, please specify Unable to determine Adenocarcinoma of hepatic flexure MTDD
== END 2018-03-02 17:30 | DRG 375 ==
LOC: EC 14:57 → 5MS5E 16:50
PROVIDERS: ADMIT Internal Medicine; ATTEND Internal Medicine
PROC: 30233N1 Transfusion of Nonautologous Red Blood Cells into Peripheral Vein, Percutaneous Approach (ICD-10-PCS; 2018-02-27)
PROC: 0DBL8ZX Excision of Transverse Colon, Via Natural or Artificial Opening Endoscopic, Diagnostic (ICD-10-PCS; principal; 2018-03-01 14:45)
PROC: 0DB78ZX Excision of Stomach, Pylorus, Via Natural or Artificial Opening Endoscopic, Diagnostic (ICD-10-PCS; principal; 2018-03-01 14:45)
DX: C18.3 Malignant neoplasm of hepatic flexure (principal); D62 Acute posthemorrhagic anemia; I50.32 Chronic diastolic (congestive) heart failure; Z68.41 Body mass index [BMI] 40.0-44.9, adult; E03.9 Hypothyroidism, unspecified; E11.9 Type 2 diabetes mellitus without complications; E66.01 Morbid (severe) obesity due to excess calories; E78.5 Hyperlipidemia, unspecified; I08.0 Rheumatic disorders of both mitral and aortic valves; I11.0 Hypertensive heart disease with heart failure; Z87.01 Personal history of pneumonia (recurrent); K29.70 Gastritis, unspecified, without bleeding; K29.80 Duodenitis without bleeding; K44.9 Diaphragmatic hernia without obstruction or gangrene; M19.90 Unspecified osteoarthritis, unspecified site; Z79.82 Long term (current) use of aspirin; Z79.899 Other long term (current) drug therapy; Z80.3 Family history of malignant neoplasm of breast; Z87.442 Personal history of urinary calculi; Z90.710 Acquired absence of both cervix and uterus; Z96.659 Presence of unspecified artificial knee joint; Z86.14 Personal history of Methicillin resistant Staphylococcus aureus infection; Z98.42 Cataract extraction status, left eye; Z98.41 Cataract extraction status, right eye; Z79.890 Hormone replacement therapy; Z88.2 Allergy status to sulfonamides
CPT/HCPCS: 36415; 43239; 44404; 45380; 71046; 80053; 81003; 82272; 82378; 83036; 85025; 86850; 86900; 86901; 86920; 88305; 99285

== ENCOUNTER 2018-03-07 09:05 | Inpatient (IN) | payer MEDICARE, BC ==
[~2018-03-07 09:05] MED LIST: DEXAMETHASONE SOD PHOSPHATE 10 MG/ML 1 ML VIAL IV ONE; HEPARIN SODIUM,PORCINE 5,000 UNIT/ML 1 ML VIAL SQ ONE; LIDOCAINE 1% 20 ML VIAL (10MG/ML) FOR IV START INTRADERMA PRN; MIDAZOLAM 2 MG/2 ML VIAL IV PRN; ONDANSETRON ODT 4 MG TAB PO ONE; SCOPOLAMINE 1.5MG/72HR PATCH TRANSDERM ONE; ceFAZolin IN SWFI 2 GM/20 ML SYRINGE IVP ONE; metroNIDAZOLE-NS PMX 500 MG in SALINE 1 100ML.BAG IVPB ONE
[2018-03-07] MEDS: LACTATED RINGERS 1,000 ML IV SCH ×2 (11:45→20:06)
[2018-03-07] MEDS ORDERED: ONDANSETRON 4 MG/2 ML VIAL IVP ONE (11:46)
[2018-03-07 11:49] LABS: Glucose,Whole Blood 137 mg/dL (75-99)
[2018-03-07 11:53] LABS: Anisocytosis Slight; Basophils % (A) 0 %; Eosinophils # (A) 0.1 k/uL (0-0.7); Eosinophils % (A) 2 %; HGB 8.8 gm/dL (11.4-16.0); Hypochromasia Marked; Lymphocytes % (A) 17 %; MCH 25.2 pg (25.0-35.0); MCHC 30.3 g/dL (31.0-37.0); MCV 83.3 fL (80.0-100.0); Mean Platelet Volume 8.9; Monocytes # (A) 0.6 k/uL (0-1.0); Monocytes % (A) 10 %; Neutrophils # (A) 4.1 k/uL (1.3-7.7); Neutrophils % (A) 68 %; Platelet Count 177 k/uL (150-450); Poikilocytosis Moderate; RBC 3.48 m/uL (3.80-5.40); RDW 17.4 % (11.5-15.5)
[2018-03-07 12:02] LABS: Potassium 3.7 mmol/L (3.5-5.1)
--- NOTE | 2018-03-07 12:57 | P.GSHP ---
History of Present Illness H&P Date: 03/07/18 Chief Complaint: Bleeding, hepatic flexure tumor This 82-year-old female who underwent workup for anemia last week. Patient underwent colonoscopy Dr. Jackson. She is found have a large friable bleeding tumor at the hepatic flexure. Pathology shows evidence of an ulcerated friable adenocarcinoma. Patient is extremely high risk. She has aortic stenosis. Patient is aware of risks of surgery including possible . Past Medical History Past Medical History: Blood Disorder, Diabetes Mellitus, GI Bleed, Hyperlipidemia, Hypertension, Osteoarthritis (OA), Pneumonia, Thyroid Disorder Additional Past Medical History / Comment(s): Anemia, GI BLEED, RECEIVED 2 UNITS PRBC DURING 02/27/18 HOSPITALIZATION, ALSO TRANSFUSED IN 01/2018 HOSPITAL ADMIT FOR PNEUMONIA, GI BLEED, HEART FAILURE. HEPATIC FLEXURE LESION FOUND ON COLONOSCOPY. SEVERE AORTIC STENOSIS; MITRAL STENOSIS. History of Any Multi-Drug Resistant Organisms: MRSA Date of last positivie culture/infection: 02-11-18 MDRO Source:: SPUTUM Past Surgical History: Cholecystectomy, Hysterectomy, Orthopedic Surgery, Tonsillectomy Additional Past Surgical History / Comment(s): knee replacement Past Anesthesia/Blood Transfusion Reactions: No Reported Reaction Additional Past Anesthesia/Blood Transfusion Reaction / Comment(s): blood transfusion- no reaction Smoking Status: Never smoker - Past Family History Mother Family Medical History: Cancer Additional Family Medical History / Comment(s): breast cancer Father Additional Family Medical History / Comment(s): djd, hip replacment, heart problems Medications and Allergies Home Medications Medication Instructions Recorded Confirmed Type Cyanocobalamin [Vitamin B-12] 1,000 mcg PO QAM 04/10/15 03/07/18 History Metoprolol Succinate [Toprol XL] 50 mg PO QAM 04/10/15 03/07/18 History Multivit with Calcium,Iron,Min 1 tab PO DAILY@1600 04/10/15 03/05/18 History [Women's Daily Multivitamin] Nateglinide [Starlix] 120 mg PO QAM 04/10/15 03/07/18 History Sennosides [Senokot] 17.2 tab PO HS 04/10/15 03/07/18 History Vits A,C,E/Lutein/Minerals 1 tab PO HS@1800 04/10/15 03/07/18 History [Ocuvite with Lutein Tablet] sitaGLIPtin PHOS/metFORMIN HCL 1 tab PO QAM 04/10/15 03/05/18 History [Janumet Xr 100-1,000 mg Tablet] Atorvastatin [Lipitor] 20 mg PO HS 02/10/18 03/07/18 History Levothyroxine Sodium [Synthroid] 150 mcg PO QAM 02/10/18 03/07/18 History Acetaminophen Tab [Tylenol] 650 mg PO Q6HR PRN tab 02/16/18 03/05/18 Rx Diclofenac Sodium Gel [Voltaren 2 gm TOPICAL QID tube 02/16/18 03/07/18 Rx Gel] Diclofenac Sodium Gel [Voltaren 4 gm TOPICAL QID tube 02/16/18 03/07/18 Rx Gel] Furosemide [Lasix] 40 mg PO BID@0900,1600 tab 02/16/18 03/05/18 Rx Potassium Chloride [Klor-Con 20 meq PO DAILY #1 packet 02/16/18 03/05/18 Rx Packets] Ipratropium-Albuterol Nebulize 3 ml INHALATION RT-Q6H 03/05/18 03/05/18 History [Duoneb 0.5 mg-3 mg/3 ml Soln] Aspirin [Adult Low Dose Aspirin EC] 81 mg PO 03/07/18 History Allergies Allergy/AdvReac Type Severity Reaction Status Date / Time Sulfa (Sulfonamide Allergy Anaphylaxis Verified 03/07/18 11:10 Antibiotics) Surgical - Exam Vital Signs Temp Pulse Resp BP Pulse Ox 97.6 F 69 16 118/56 99 03/07/18 11:43 03/07/18 11:43 03/07/18 11:43 03/07/18 11:43 03/07/18 11:43 - General well developed - Eyes PERRL - ENT normal pinna - Neck no masses - Respiratory normal expansion - Cardiovascular Rhythm: regular - Abdomen Obese Abdomen: soft, non tender Results - Labs 03/07/18 11:30 03/07/18 11:30 Abnormal Lab Results - Last 24 Hours (Table) 03/07/18 03/07/18 Range/Units 11:30 11:38 RBC 3.48 L (3.80-5.40) m/uL Hgb 8.8 L (11.4-16.0) gm/dL Hct 29.0 L (34.0-46.0) % MCHC 30.3 L (31.0-37.0) g/dL RDW 17.4 H (11.5-15.5) % POC Glucose (mg/dL) 137 H (75-99) mg/dL Diabetes panel 03/07/18 Range/Units 11:30 Sodium 140 (137-145) mmol/L Potassium 3.7 (3.5-5.1) mmol/L Chloride 98 (98-107) mmol/L Carbon Dioxide 26 (22-30) mmol/L Pituitary panel 03/07/18 Range/Units 11:30 Sodium 140 (137-145) mmol/L Potassium 3.7 (3.5-5.1) mmol/L Chloride 98 (98-107) mmol/L Carbon Dioxide 26 (22-30) mmol/L Adrenal panel 03/07/18 Range/Units 11:30 Sodium 140 (137-145) mmol/L Potassium 3.7 (3.5-5.1) mmol/L Chloride 98 (98-107) mmol/L Carbon Dioxide 26 (22-30) mmol/L Assessment and Plan Assessment: Bleeding hepatic flexure colon cancer. Patient will undergo right colectomy. Patient has been extensive detailed on her cardiac risk. Patient has aortic stenosis. I discussed through the the risk of surgery and also discussed the risk of having a cardiac event due to her critical aortic stenosis. Patient is aware the possible risk of cardiac arrest and . The patient and her wish to proceed with surgery.
[2018-03-07] MEDS ORDERED: fentaNYL (PF) 50 MCG/ML 2 ML AMP ONE (13:27)
[2018-03-07] MEDS ORDERED: NEOSTIGMINE 1 MG/ML 10 ML VIAL ONE (13:27)
[2018-03-07] MEDS ORDERED: ETOMIDATE 2 MG/ML 10 ML VIAL ONE (13:27)
[2018-03-07] MEDS ORDERED: VECURONIUM 10 MG VIAL IV ONE (13:27)
[2018-03-07] MEDS ORDERED: GLYCOPYRROLATE 0.2 MG/ML 2 ML VIAL ONE (13:27)
[2018-03-07] MEDS ORDERED: KETOROLAC 30 MG/ML 1 ML VIAL ONE (13:27)
[2018-03-07] MEDS ORDERED: BENZOCAINE/MENTHOL LOZENG 1 EACH LOZENGE MUCOUS MEM PRN (14:56)
--- NOTE | 2018-03-07 14:56 | P.OP ---
Date of Procedure: 03/07/18 Preoperative Diagnosis: Hepatic flexure colon cancer Postoperative Diagnosis: Hepatic flexure colon cancer Incisional hernia Procedure(s) Performed: Right colectomy Repair of incisional hernia Anesthesia: KRISTI Surgeon: Phil Aguirre Estimated Blood Loss (ml): 50 Pathology: other (Right colon) Condition: stable Disposition: ICU Description of Procedure: The patient's placed the operative table in the supine position. She received a general and secured her abdomen was prepped and draped usual sterile fashion. The abdomen was entered through an upper midline incision. The Bookwalter tract with wound. The abdomen explored. Patient had a large mass located at the proximal hepatic flexure. The mass been tattooed by the endoscopist. The white line of Toldt was divided and the right colon was mobilized. The terminal ileum was transected with a GI stapler. The proximal transverse colon was transected GI stapler. Using LigaSure device the mesentery the bowel was divided. Several larger vessels ligated between hemostats and secured with 0 silk ties. Specimen was removed. The bowel was a stenosis in a [id number] functional end -to-end staple anastomosis using the FRANK and TA stapler. A 3-0 GI silk suture was used as a crotch stitch. The abdomen was irrigated there is no bleeding seen. Using clean instruments the fascia was closed 0 PDS suture. The patient was noted to have a small incisional hernia at her umbilicus related to previous trocar site insertion. This was closed with 0 Ethibond suture. Once the abdomen was closed with PDS. The skin was closed brady. The prevena wound system was placed on top the staple line. Patient was sent to recovery room in condition.
[2018-03-07] MEDS ORDERED: MORPHINE SULFATE 4 MG/ML SYRINGE IVP PRN (14:59)
[2018-03-07] MEDS: fentaNYL (PF) 50 MCG/ML 2 ML AMP IV PRN ×6 (15:26→17:19)
[2018-03-07 15:40] LABS: Glucose,Whole Blood 191 mg/dL (75-99)
[2018-03-07] MEDS ORDERED: MORPHINE SULFATE 4 MG/ML SYRINGE IVP ONE (15:59)
[2018-03-07] MEDS ORDERED: SODIUM CHLORIDE 0.9% 1,000 ML IV ONE ×4 (16:00→23:24)
[2018-03-07 17:36] LABS: Glucose,Whole Blood 212 mg/dL (75-99)
[2018-03-07] MEDS: D5-0.45% NACL WITH KCL 20MEQ/L 1,000 ML IV SCH (17:50)
[2018-03-07 18:25] LABS: Anisocytosis Slight; Basophils % (A) 0 %; Eosinophils % (A) 0 %; HCT 24.9 % (34.0-46.0); HGB 7.7 gm/dL (11.4-16.0); Hypochromasia Marked; Lymphocytes # (A) 0.5 k/uL (1.0-4.8); Lymphocytes % (A) 6 %; MCHC 31.1 g/dL (31.0-37.0); MCV 83.5 fL (80.0-100.0); Mean Platelet Volume 7.6; Monocytes # (A) 0.3 k/uL (0-1.0); Monocytes % (A) 4 %; Neutrophils # (A) 7.3 k/uL (1.3-7.7); Neutrophils % (A) 89 %; Platelet Count 146 k/uL (150-450); Poikilocytosis Marked; RBC 2.98 m/uL (3.80-5.40); RDW 16.8 % (11.5-15.5); WBC 8.3 k/uL (3.8-10.6)
[2018-03-07 18:37] LABS: Anion Gap 14 mmol/L; Blood Urea Nitrogen 9 mg/dL (7-17); Calcium 8.1 mg/dL (8.4-10.2); Carbon Dioxide 25 mmol/L (22-30); Chloride 100 mmol/L (98-107); Glucose 199 mg/dL (74-99); Magnesium 1.7 mg/dL (1.6-2.3); Potassium 3.4 mmol/L (3.5-5.1); Sodium 139 mmol/L (137-145)
[2018-03-07] MEDS ORDERED: NALOXONE 0.4 MG/ML 1 ML VIAL IV PRN (18:41)
[2018-03-07 19:43] LABS: Glucose,Whole Blood 253 mg/dL (75-99)
[2018-03-07] MEDS ORDERED: INSULIN ASPART 100 UNIT/ML 1 ML 10 ML VIAL SQ SCH (20:00)
[2018-03-07] MEDS: MORPHINE SULFATE 4 MG/ML SYRINGE IV PRN (20:51)
[2018-03-07] MEDS: INSULIN ASPART 100 UNIT/ML 1 ML 10 ML VIAL SQ SCH (20:53)
[2018-03-07] MEDS: POTASSIUM CHLORIDE 10 MEQ in WATER FOR INJECTION 1 100ML.BAG IVPB SCH ×2 (21:16→22:27)
[2018-03-07] MEDS: ALVIMOPAN 12 MG CAPSULE PO SCH (21:29)
[2018-03-07] MEDS ORDERED: INSULIN DETEMIR 100 UNIT/ML 10 ML VIAL SQ SCH (22:15)
[2018-03-07] MEDS: PANTOPRAZOLE 40 MG/10 ML VIAL IV SCH (22:39)
--- NOTE | 2018-03-07 23:04 | HP ---
HISTORY AND PHYSICAL ADDENDUM: DATE OF SERVICE: 03/07/2018 Smoking cessation counseling was done today with the patient and the patient was told to stop this because of advanced COPD and a concern for underlying malignancy. The patient will be given a nicotine patch. More than 3 minutes was spent on this aspect of the case. JOSE MIGUEL / MAKENZIE: [phone] /
[2018-03-07 23:42] LABS: Glucose,Whole Blood 223 mg/dL (75-99)
[2018-03-08] MEDS: HEPARIN SODIUM,PORCINE 5,000 UNIT/ML 1 ML VIAL SQ SCH ×4 (00:05→23:51)
[2018-03-08] MEDS: INSULIN ASPART 100 UNIT/ML 1 ML 10 ML VIAL SQ SCH ×7 (00:10→23:51)
[2018-03-08] MEDS: MAGNESIUM SULFATE-D5W PMX 1 GM in DEXTROSE/WATER 1 100ML.BAG IVPB SCH ×2 (00:26→01:55)
[2018-03-08] MEDS ORDERED: SODIUM CHLORIDE 0.9% 1,000 ML IV ONE (00:56)
[2018-03-08 01:08] LABS: Anisocytosis Slight; Hypochromasia Marked; MCH 25.8 pg (25.0-35.0); MCHC 30.6 g/dL (31.0-37.0); MCV 84.4 fL (80.0-100.0); Mean Platelet Volume 9.6; Platelet Count 115 k/uL (150-450); Poikilocytosis Moderate; RBC 2.25 m/uL (3.80-5.40); RDW 17.3 % (11.5-15.5); WBC 8.2 k/uL (3.8-10.6)
[2018-03-08] MEDS: IPRATROPIUM-ALBUTEROL 3 ML NEB INHALATION SCH ×4 (01:17→19:46)
[2018-03-08 01:18] LABS: HGB 5.8 gm/dL (11.4-16.0)
[2018-03-08] MEDS: D5-0.45% NACL WITH KCL 20MEQ/L 1,000 ML IV SCH ×2 (03:13→11:59)
[2018-03-08 03:52] LABS: Glucose,Whole Blood 261 mg/dL (75-99)
[2018-03-08] MEDS ORDERED: FUROSEMIDE 10 MG/ML 2 ML VIAL IV STA (04:28)
[2018-03-08 04:34] LABS: Anion Gap 9 mmol/L; Blood Urea Nitrogen 9 mg/dL (7-17); Calcium 7.3 mg/dL (8.4-10.2); Carbon Dioxide 24 mmol/L (22-30); Chloride 104 mmol/L (98-107); Glucose 220 mg/dL (74-99); Magnesium 2.5 mg/dL (1.6-2.3); Phosphorus 2.9 mg/dL (2.5-4.5); Potassium 3.8 mmol/L (3.5-5.1); Sodium 137 mmol/L (137-145)
[2018-03-08] MEDS ORDERED: Potassium Replacement Protocol 1 EACH MISC MISCELLANE PRN (04:44)
[2018-03-08] MEDS: MORPHINE SULFATE 4 MG/ML SYRINGE IV PRN ×6 (06:42→19:44)
[2018-03-08] MEDS: LEVOTHYROXINE 75 MCG TAB PO SCH (06:47)
[2018-03-08] MEDS: POTASSIUM CHLORIDE 10 MEQ in WATER FOR INJECTION 1 100ML.BAG IVPB SCH ×2 (06:48→08:54)
--- NOTE | 2018-03-08 07:17 | CONS ---
CONSULTATION DATE OF CONSULTATION: 03/07/2018 REASON FOR CONSULTATION: Medical management requested by Dr. Aguirre. CONSULTATION: This is an 82-year-old patient of Dr. Mccoy. Chronic stable medical conditions include moderate mitral stenosis, moderate aortic stenosis, congestive heart failure from diastolic dysfunction, diabetes, hypothyroid, hypertension, osteoarthritis. Patient was discovered to have a right hepatic colon cancer following colonoscopy by Dr. Gunter. 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 Patient underwent a right hemicolectomy by Dr. Aguirre, estimated blood loss 50 mL. Post procedure patient was taken to the ICU and patient was successfully extubated. Patient is awake. Patient has got a wound VAC in place. REVIEW OF SYSTEMS: CONSTITUTIONAL: None. HEENT: Decreased hearing. RESPIRATORY: None. CARDIOVASCULAR: None. GASTROINTESTINAL: As above. GENITOURINARY: None. MUSCULOSKELETAL: Arthritic pain in joints. DERMATOLOGICAL: As above. LYMPHATICS: None. PSYCHIATRY: None. NEUROLOGICAL: None. PAST MEDICAL HISTORY: Moderate aortic stenosis, moderate mitral stenosis, congestive heart failure from diastolic dysfunction, diabetes, hypothyroid, hypertension, osteoarthritis. PAST SURGICAL HISTORY: Cholecystectomy, hysterectomy, orthopedic surgery, tonsillectomy, knee replacement. SOCIAL HISTORY: No smoking, no alcohol, currently a resident of [facility]. Uses a walker. FAMILY HISTORY: Breast cancer. HOME MEDICATIONS: Janumet 100/1000 one tablet q.a.m., Ocuvite 1 tablet q.h.s., Senokot 17.2 p.o. q.h.s., potassium 20 mEq p.o. daily, Starlix 120 mg p.o. daily, multivitamin 1 tablet daily, Toprol XL 50 mg a day, Synthroid 150 mcg p.o. daily, DuoNeb q.6, Lasix 40 mg b.i.d., Voltaren Gel 2 and 4 g topical q.i.d., vitamin B12 one thousand mcg a day, Lipitor 20 mg q.h.s., aspirin 81 mg p.o. daily. ALLERGIES: SULFA. PHYSICAL EXAMINATION: Temperature 99.1, pulse 77, respiration 20, blood pressure 162/72, pulse ox 99% on 8 L. GENERAL APPEARANCE: Well built, BMI 39.5, lying in bed, tired appearing. Awake. EYES: Pupils equal, conjunctivae normal. HEENT: External appearance of nose and ears normal, oral cavity normal. NECK: JVD not raised. Mass not palpable. RESPIRATORY: Effort are slightly decreased breath sounds. CARDIOVASCULAR: Systolic murmur. Other heart sounds normal. No edema. ABDOMEN: Soft. Mild tenderness. Bowel sounds are sluggish. Wound VAC in place. Liver and spleen not palpable. LYMPHATIC: No lymph nodes palpable. PSYCHIATRY: Alert and oriented x3. Mood and affect normal. NEUROLOGICAL: Pupils equal. Cranial nerves grossly intact. Power and sensation grossly intact. MUSCULOSKELETAL: Evidence of osteoarthritis, especially in the hands. INVESTIGATION: White count 16, hemoglobin 8.8, potassium 3.7. ASSESSMENT: 1. Right hemicolectomy for moderately differentiated carcinoma with some mucinous component for colon cancer, now with a wound VAC in place. 2. Moderate aortic stenosis, nonrheumatic. 3. Moderate mitral stenosis, nonrheumatic. 4. Chronic congestive heart failure from diastolic dysfunction, ejection fraction 55%- 60%. 5. Diabetes mellitus type 2, on oral hypoglycemic. 6. Hypothyroid. 7. Essential hypertension. 8. Primary osteoarthritis. 9. Obesity; body mass index 39.9. PLAN: Patient is on IV fluids for right now. Accu-Cheks will be closely followed. Patient was started on clear liquids. Patient is will be given Lantus tonight until the diet is more respectable than oral hypoglycemics can be resumed. Patient's other cardiac medications, Synthroid, etc. will be resumed. Care was discussed with the patient. Thank you, Dr. Aguirre. MMALEAL / ELBAN: [phone] /
--- NOTE | 2018-03-08 07:20 | XR ---
EXAMINATION TYPE: XR chest 1V DATE OF EXAM: 03/08/2018 CLINICAL HISTORY: Shortness of breath progress study. Recent pneumonia and GI bleed. TECHNIQUE: Single AP portable supine view of the chest is obtained. COMPARISON: Chest x-ray from [address] chest February 10, 2018. FINDINGS: Overlying EKG wires are present. Osseous structures are demineralized. There is multilevel spurring in the spine. There is degenerative change in both shoulders. There is persistent mild cardiomegaly with atherosclerotic thoracic aorta. There is diminished inspir ation with tiny bilateral pleural effusions and mild central vascular congestion felt present. There is no suspicious focal airspace opacity or pneumothorax seen bilaterally. IMPRESSION: Diminished inspiration, redemonstration of cardiomegaly with suspected new mild central v ascular congestion and tiny bilateral pleural effusions, correlate for CHF exacerbation.
[2018-03-08 08:11] LABS: Glucose,Whole Blood 217 mg/dL (75-99)
[2018-03-08] MEDS: PANTOPRAZOLE 40 MG/10 ML VIAL IV SCH ×2 (08:47→20:02)
[2018-03-08] MEDS: DICLOFENAC SODIUM GEL 100 GM TUBE TOPICAL SCH ×4 (08:48→22:57)
[2018-03-08] MEDS: ALVIMOPAN 12 MG CAPSULE PO SCH ×2 (08:48→20:02)
[2018-03-08] MEDS: POTASSIUM BICARBONATE/CIT AC 20 MEQ TABLET.EFF PO SCH (08:54)
[2018-03-08] MEDS: FUROSEMIDE 40 MG TAB PO SCH ×2 (08:55→17:49)
[2018-03-08] MEDS ORDERED: DICLOFENAC SODIUM GEL 100 GM TUBE TOPICAL SCH (09:00)
[2018-03-08] MEDS: METOPROLOL SUCCINATE (ER) 50 MG TAB.ER.24H PO SCH (10:05)
[2018-03-08] MEDS ORDERED: FUROSEMIDE 10 MG/ML 2 ML VIAL IV ONE (11:13)
[2018-03-08 11:42] LABS: Glucose,Whole Blood 246 mg/dL (75-99)
[2018-03-08 11:50] LABS: Basophils % (A) 0 %; Eosinophils % (A) 0 %; Hypochromasia Marked; Lymphocytes # (A) 0.6 k/uL (1.0-4.8); Lymphocytes % (A) 5 %; MCH 26.9 pg (25.0-35.0); MCHC 32.2 g/dL (31.0-37.0); MCV 83.6 fL (80.0-100.0); Monocytes # (A) 0.8 k/uL (0-1.0); Monocytes % (A) 7 %; Neutrophils # (A) 10.1 k/uL (1.3-7.7); Neutrophils % (A) 86 %; Platelet Count 133 k/uL (150-450); Poikilocytosis Marked; RBC 2.87 m/uL (3.80-5.40); WBC 11.8 k/uL (3.8-10.6)
[2018-03-08 11:57] LABS: HGB 7.7 gm/dL (11.4-16.0)
[2018-03-08] MEDS: LACTATED RINGERS 1,000 ML IV SCH ×2 (12:42→20:02)
--- NOTE | 2018-03-08 12:43 | P.PN ---
Subjective Progress Note Date: 03/08/18 Principal diagnosis: Flexure colon cancer An 82-year-old female who underwent extended right colectomy on 03/07/2018. Patient was observed in the ICU due to her critical aortic stenosis. Patient was anemic prior to surgery. Her hemoglobin is 5.8 this morning. He is been transfused 2 units. Her current hemoglobin is 7.7. She is resting comfortably in bed. She has minimal incisional pain. She's had some flatus. Objective - Vital Signs Vital signs: Vital Signs Temp 98.0 F 03/08/18 12:00 Pulse 68 03/08/18 12:00 Resp 29 H 03/08/18 12:00 BP 93/47 03/08/18 12:00 Pulse Ox 97 03/08/18 12:00 Intake & Output 03/07/18 03/08/18 03/08/18 18:59 06:59 18:59 Intake Total 1325 3935 935 Output Total 340 605 160 Balance 985 3330 775 Weight 112.3 kg 112.3 kg Intake: IV 1200 3500 625 D5-0.45% NaCl with KCl 1500 625 20Meq/l 1,000 ml @ 125 mls/hr IV .Q8H [facility] Rx#: [id number] Sodium Chloride 0.9% 1, 2000 000 ml @ 999 mls/hr IV . Q1H1M [facility] Rx#:[id number] Intake, IV Titration 125 125 Amount D5-0.45% NaCl with KCl 125 125 20Meq/l 1,000 ml @ 125 mls/hr IV .Q8H [facility] Rx#: [id number] Blood Product 310 310 Rc As-1 Unit 0 310 [id number] Rc Pheresis As-3 Unit 310 [id number] Output: Urine 290 605 160 Estimated Blood Loss 50 Other: Voiding Method Indwelling Catheter Indwelling Catheter ABP, PAP, CO, CI - Last Documented Arterial Blood Pressure 92/72 - Constitutional General appearance: Present: cooperative - Gastrointestinal Gastrointestinal Comment(s): Abdomen soft. Her incision site is clean dry tach. Prevena wound devices in place. - Labs CBC & Chem 7: 03/08/18 11:18 03/08/18 11:18 Labs: Abnormal Lab Results - Last 24 Hours (Table) 03/07/18 03/07/18 03/07/18 Range/Units 12:00 15:38 17:33 WBC (3.8-10.6) k/uL RBC (3.80-5.40) m/uL Hgb (11.4-16.0) gm/dL Hct (34.0-46.0) % MCHC (31.0-37.0) g/dL RDW (11.5-15.5) % Plt Count (150-450) k/uL Neutrophils # (1.3-7.7) k/uL Lymphocytes # (1.0-4.8) k/uL Potassium (3.5-5.1) mmol/L Glucose (74-99) mg/dL POC Glucose (mg/dL) 191 H 212 H (75-99) mg/dL Calcium (8.4-10.2) mg/dL Magnesium (1.6-2.3) mg/dL Crossmatch See Detail 03/07/18 03/07/18 03/07/18 Range/Units 17:58 17:58 19:41 WBC (3.8-10.6) k/uL RBC 2.98 L (3.80-5.40) m/uL Hgb 7.7 L (11.4-16.0) gm/dL Hct 24.9 L (34.0-46.0) % MCHC (31.0-37.0) g/dL RDW 16.8 H (11.5-15.5) % Plt Count 146 L (150-450) k/uL Neutrophils # (1.3-7.7) k/uL Lymphocytes # 0.5 L (1.0-4.8) k/uL Potassium 3.4 L (3.5-5.1) mmol/L Glucose 199 H (74-99) mg/dL POC Glucose (mg/dL) 253 H (75-99) mg/dL Calcium 8.1 L (8.4-10.2) mg/dL Magnesium (1.6-2.3) mg/dL Crossmatch 03/07/18 03/08/18 03/08/18 Range/Units 23:40 01:00 03:51 WBC (3.8-10.6) k/uL RBC 2.25 L (3.80-5.40) m/uL Hgb 5.8 L* D (11.4-16.0) gm/dL Hct 19.0 L* (34.0-46.0) % MCHC 30.6 L (31.0-37.0) g/dL RDW 17.3 H (11.5-15.5) % Plt Count 115 L (150-450) k/uL Neutrophils # (1.3-7.7) k/uL Lymphocytes # (1.0-4.8) k/uL Potassium (3.5-5.1) mmol/L Glucose (74-99) mg/dL POC Glucose (mg/dL) 223 H 261 H (75-99) mg/dL Calcium (8.4-10.2) mg/dL Magnesium (1.6-2.3) mg/dL Crossmatch 03/08/18 03/08/18 03/08/18 Range/Units 04:12 08:10 11:18 WBC 11.8 H (3.8-10.6) k/uL RBC 2.87 L (3.80-5.40) m/uL Hgb 7.7 L D (11.4-16.0) gm/dL Hct 24.0 L (34.0-46.0) % MCHC (31.0-37.0) g/dL RDW 16.0 H (11.5-15.5) % Plt Count 133 L (150-450) k/uL Neutrophils # 10.1 H (1.3-7.7) k/uL Lymphocytes # 0.6 L (1.0-4.8) k/uL Potassium (3.5-5.1) mmol/L Glucose 220 H (74-99) mg/dL POC Glucose (mg/dL) 217 H (75-99) mg/dL Calcium 7.3 L (8.4-10.2) mg/dL Magnesium 2.5 H (1.6-2.3) mg/dL Crossmatch 03/08/18 Range/Units 11:40 WBC (3.8-10.6) k/uL RBC (3.80-5.40) m/uL Hgb (11.4-16.0) gm/dL Hct (34.0-46.0) % MCHC (31.0-37.0) g/dL RDW (11.5-15.5) % Plt Count (150-450) k/uL Neutrophils # (1.3-7.7) k/uL Lymphocytes # (1.0-4.8) k/uL Potassium (3.5-5.1) mmol/L Glucose (74-99) mg/dL POC Glucose (mg/dL) 246 H (75-99) mg/dL Calcium (8.4-10.2) mg/dL Magnesium (1.6-2.3) mg/dL Crossmatch Assessment and Plan Assessment: Status post extended right colectomy for hepatic flexure colon cancer. Patient has acute blood loss anemia related to her surgery. She has been transfused 2 units today. She will have repeat labs performed tomorrow. She'll remain in the ICU today.
--- NOTE | 2018-03-08 13:31 | P.CRDCN ---
History of Present Illness Consult date: 03/08/18 History of present illness: Mrs. Bonilla is a [id number] female who is seen for cardiac evaluation. Patient's medical records reviewed. History of pain from the nurse. This patient is status post right hemicolectomy yesterday. In was extubated yesterday. Denies any respiratory difficulties or distress eyes any chest pain. This patient has a history of for severe aortic stenosis and mild-to- moderate mitral stenosis well as a history of for hypertension Past Medical History Past Medical History: Blood Disorder, Diabetes Mellitus, GI Bleed, Hyperlipidemia, Hypertension, Osteoarthritis (OA), Pneumonia, Thyroid Disorder Additional Past Medical History / Comment(s): Anemia, GI BLEED, RECEIVED 2 UNITS PRBC DURING 02/27/18 HOSPITALIZATION, ALSO TRANSFUSED IN 01/2018 HOSPITAL ADMIT FOR PNEUMONIA, GI BLEED, HEART FAILURE. HEPATIC FLEXURE LESION FOUND ON COLONOSCOPY. SEVERE AORTIC STENOSIS; MITRAL STENOSIS. History of Any Multi-Drug Resistant Organisms: MRSA Date of last positivie culture/infection: 02-11-18 MDRO Source:: SPUTUM Past Surgical History: Cholecystectomy, Hysterectomy, Orthopedic Surgery, Tonsillectomy Additional Past Surgical History / Comment(s): knee replacement; 03/07 - colectomey Past Anesthesia/Blood Transfusion Reactions: No Reported Reaction Additional Past Anesthesia/Blood Transfusion Reaction / Comment(s): blood transfusion- no reaction Past Psychological History: No Psychological Hx Reported Additional Psychological History / Comment(s): currently at [facility], up with assist [facility] Smoking Status: Never smoker Past Alcohol Use History: None Reported Past Drug Use History: None Reported - Past Family History Mother Family Medical History: Cancer Additional Family Medical History / Comment(s): breast cancer Father Additional Family Medical History / Comment(s): djd, hip replacment, heart problems Medications and Allergies Home Medications Medication Instructions Recorded Confirmed Type Cyanocobalamin [Vitamin B-12] 1,000 mcg PO QAM 04/10/15 03/07/18 History Metoprolol Succinate [Toprol XL] 50 mg PO QAM 04/10/15 03/07/18 History Multivit with Calcium,Iron,Min 1 tab PO DAILY@1600 04/10/15 03/05/18 History [Women's Daily Multivitamin] Nateglinide [Starlix] 120 mg PO QAM 04/10/15 03/07/18 History Sennosides [Senokot] 17.2 tab PO HS 04/10/15 03/07/18 History Vits A,C,E/Lutein/Minerals 1 tab PO HS@1800 04/10/15 03/07/18 History [Ocuvite with Lutein Tablet] sitaGLIPtin PHOS/metFORMIN HCL 1 tab PO QAM 04/10/15 03/05/18 History [Janumet Xr 100-1,000 mg Tablet] Atorvastatin [Lipitor] 20 mg PO HS 02/10/18 03/07/18 History Levothyroxine Sodium [Synthroid] 150 mcg PO QAM 02/10/18 03/07/18 History Acetaminophen Tab [Tylenol] 650 mg PO Q6HR PRN tab 02/16/18 03/05/18 Rx Diclofenac Sodium Gel [Voltaren 2 gm TOPICAL QID tube 02/16/18 03/07/18 Rx Gel] Diclofenac Sodium Gel [Voltaren 4 gm TOPICAL QID tube 02/16/18 03/07/18 Rx Gel] Furosemide [Lasix] 40 mg PO BID@0900,1600 tab 02/16/18 03/05/18 Rx Potassium Chloride [Klor-Con 20 meq PO DAILY #1 packet 02/16/18 03/05/18 Rx Packets] Ipratropium-Albuterol Nebulize 3 ml INHALATION RT-Q6H 03/05/18 03/05/18 History [Duoneb 0.5 mg-3 mg/3 ml Soln] Aspirin [Adult Low Dose Aspirin EC] 81 mg PO HS 03/07/18 03/07/18 History Allergies Allergy/AdvReac Type Severity Reaction Status Date / Time Sulfa (Sulfonamide Allergy Anaphylaxis Verified 03/07/18 19:21 Antibiotics) Physical Exam Vitals: Vital Signs Temp Pulse Pulse Resp BP BP Pulse Ox 03/08/18 13:19 74 03/08/18 13:07 75 03/08/18 13:00 68 13 95/38 98 03/08/18 12:00 98.0 F 68 63 29 H 93/47 97 03/08/18 11:00 67 16 99/48 98 03/08/18 10:00 72 18 105/67 95 03/08/18 09:00 97.9 F 67 14 82/37 97 05/10/18 08:43 97.9 F 66 18 130/70 05/1018 08:38 64 05/1018 08:27 63 05/1018 08:00 68 63 29 H 94/56 98 05/08/16 07:00 63 18 102/54 98 05 06:00 65 20 97/43 96 05/08/16 05:58 98.2 F 62 13 05 05:30 75 28 H 100/51 95 05 05:28 98.2 F 64 18 118/45 05/18 05:18 98 F 68 21 121/44 05/08/16 05:10 97.9 F 60 16 100/51 97 05/08/16 05:00 60 15 100/51 97 05 04:50 67 33 H 100/51 97 /08/16 04:40 97.9 F 63 25 H 88/42 98 05/08/16 04:30 65 34 H 88/42 97 05 04:20 62 13 88/42 97 05 04:10 63 20 88/42 99 03/08/18 04:00 62 15 99 05/08/16 03:30 98.3 F 62 22 82/35 97 05/1018 03:14 63 13 05 03:00 65 13 82/35 97 05/08/16 02:44 98.2 F 68 13 110/39 97 05/1018 02:30 66 16 87/38 95 0518 02:14 78 F L 69 20 113/38 05 02:04 97.9 F 67 18 120/41 05/08/16 02:00 97.9 F 68 18 87/38 95 05/1018 01:50 65 33 H 87/38 96 05/08/16 01:40 68 15 84/46 95 0518 01:31 62 05 01:30 62 17 84/46 100 0518 01:20 64 18 84/46 97 05/18 01:18 64 051018 01:10 63 14 84/46 97 05/10 01:00 65 19 84/46 98 05 00:30 98 F 59 L 14 96/47 99 03/08/18 00:00 62 63 7 L 96/47 100 03/07/18 23:30 63 14 99 03/07/18 23:02 64 14 99 03/07/18 23:00 64 15 99 03/07/18 22:30 67 16 99 03/07/18 22:00 97.9 F 63 16 98 03/07/18 21:30 64 16 84/40 97 03/07/18 21:00 67 15 84/40 98 03/07/18 20:30 70 17 84/40 98 03/07/18 20:00 98 F 63 63 15 98 03/07/18 19:30 64 25 H 91/49 99 03/07/18 19:00 64 16 98 03/07/18 18:30 65 14 99 03/07/18 18:00 68 27 H 91/49 98 03/07/18 17:50 68 25 H 91/49 99 03/07/18 17:40 84 25 H 91/49 97 03/07/18 17:10 66 16 105/54 97 03/07/18 16:55 66 16 105/53 98 03/07/18 16:40 67 16 104/54 97 03/07/18 16:25 67 16 110/66 97 03/07/18 16:10 69 16 117/59 96 03/07/18 15:55 70 18 131/60 100 03/07/18 15:30 75 16 134/63 99 03/07/18 15:13 99.1 F 77 24 163/72 99 Intake and Output 03/07/18 03/08/18 03/08/18 22:59 06:59 14:59 Intake Total 875 3435 1060 Output Total 430 515 235 Balance 445 2920 825 Intake: IV 625 3125 625 D5-0.45% NaCl with KCl 375 1125 625 20Meq/l 1,000 ml @ 125 mls/hr IV .Q8H [facility] Rx#: [id number] Sodium Chloride 0.9% 1, 2000 000 ml @ 999 mls/hr IV . Q1H1M [facility] Rx#:[id number] Intake, IV Titration 250 125 Amount D5-0.45% NaCl with KCl 250 20Meq/l 1,000 ml @ 125 mls/hr IV .Q8H [facility] Rx#: [id number] Lactated Ringers 1,000 ml 125 @ 125 mls/hr IV .Q8H [facility] Rx#:[id number] Blood Product 310 310 Rc As-1 Unit 0 310 [id number] Rc Pheresis As-3 Unit 310 [id number] Output: Urine 380 515 235 Estimated Blood Loss 50 Other: Voiding Method Indwelling Catheter Indwelling Catheter Indwelling Catheter Weight 112.3 kg 112.3 kg ABP, PAP, CO, CI - Last 8 Hours Arterial Blood Pressure 92/72 Arterial Blood Pressure 114/97 Arterial Blood Pressure 137/57 Arterial Blood Pressure 121/46 Arterial Blood Pressure 121/49 Patient's vital signs are reviewed. The patient is alert awake and in no acute distress. HEENT negative. Neck-supple no increase in JVP noted no carotid bruits noted. Chest-symmetrical. Heart-first and second heart sounds are normal. No S3 or S4 is noted. Patient has a grade 3/6 ejection systolic murmur heard in the aortic area. Lungs bilateral good at entry is noted. No rales or rhonchi are noted Abdomen-soft. Liver and spleen are not enlarged. The bowel sounds are normal. No tenderness noted Extremities-peripheral pulses since are 2+. No significant leg edema noted. Neuro-no significant gross abnormality noted. Results 03/08/18 11:18 03/08/18 11:18 CBC 03/07/18 03/08/18 03/08/18 Range/Units 17:58 01:00 11:18 WBC 8.3 8.2 11.8 H (3.8-10.6) k/uL RBC 2.98 L 2.25 L 2.87 L (3.80-5.40) m/uL Hgb 7.7 L 5.8 L* D 7.7 L D (11.4-16.0) gm/dL Hct 24.9 L 19.0 L* 24.0 L (34.0-46.0) % Plt Count 146 L 115 L 133 L (150-450) k/uL Comprehensive Metabolic Panel 03/07/18 03/08/18 03/08/18 Range/Units 17:58 04:12 11:18 Sodium 139 137 (137-145) mmol/L Potassium 3.4 L 3.8 4.0 (3.5-5.1) mmol/L Chloride 100 104 (98-107) mmol/L Carbon Dioxide 25 24 (22-30) mmol/L BUN 9 9 (7-17) mg/dL Creatinine 0.60 0.54 (0.52-1.04) mg/dL Glucose 199 H 220 H (74-99) mg/dL Calcium 8.1 L 7.3 L (8.4-10.2) mg/dL Current Medications Generic Name Dose Route Start Last Admin Trade Name Freq PRN Reason Stop Dose Admin Albuterol/Ipratropium 3 ml 03/08/18 02:00 03/08/18 13:07 Duoneb 0.5 Mg-3 Mg/3 Ml Soln INHALATION 3 ml RT-Q6H [facility] Administration Alvimopan 12 mg 03/07/18 21:00 03/08/18 08:48 Entereg PO 03/14/18 09:01 12 mg BID [facility] Administration Aspirin 81 mg 03/08/18 21:00 Aspirin PO HS [facility] Atorvastatin Calcium 20 mg 03/08/18 21:00 Lipitor PO HS [facility] Benzocaine/Menthol 1 each 03/07/18 14:56 Cepacol Lozenge MUCOUS MEM Q1HR PRN Sore Throat Diclofenac Sodium 2 gm 03/08/18 09:00 03/08/18 08:48 Voltaren Gel TOPICAL 2 gm QID [facility] Administration Furosemide 40 mg 03/08/18 09:00 03/08/18 08:55 Lasix PO 40 mg BID@0900,1600 [facility] Administration Heparin Sodium (Porcine) 5,000 unit 03/08/18 00:00 03/08/18 08:48 Heparin SQ 5,000 unit Q8HR [facility] Administration Lactated Ringer's 1,000 mls @ 20 mls/hr 03/06/18 19:00 03/07/18 20:06 Lactated Ringers IV Not Given .Q24H [facility] Lactated Ringer's 1,000 mls @ 125 mls/hr 03/08/18 12:45 03/08/18 12:42 Lactated Ringers IV 125 mls/hr .Q8H [facility] Administration Insulin Aspart 0 unit 03/07/18 20:00 03/08/18 12:14 Novolog SQ 5 unit Q4H [facility] Administration Protocol Levothyroxine Sodium 150 mcg 03/08/18 06:00 03/08/18 06:47 Synthroid PO 150 mcg QAM@0600 [facility] Administration Lidocaine HCl 0.1 ml 03/06/18 18:51 03/07/18 11:46 .Xylocaine 1% Inj (10mg/Ml) For Iv Start INTRADERMA 0.1 ml PER PROTOCOL PRN Administration IV Start Metoclopramide HCl 10 mg 03/07/18 14:56 Reglan IVP Q6HR PRN Nausea and Vomiting Metoprolol Succinate 50 mg 03/08/18 09:00 03/08/18 10:05 Toprol Xl PO Not Given QAM [facility] Miscellaneous Information 1 each 03/08/18 04:44 Potassium Per Protocol MISCELLANE DAILY PRN Per Protocol Protocol Morphine Sulfate 7 mg 03/07/18 14:59 Morphine Sulfate (Inj) IVP Q4HR PRN Pain Morphine Sulfate 2 mg 03/07/18 18:41 03/08/18 11:56 Morphine Sulfate (Inj) IV 2 mg Q2HR PRN Administration Pain Scale 4 to 5 Naloxone HCl 0.2 mg 03/07/18 18:41 Narcan IV Q2M PRN Opioid Reversal Ondansetron HCl 4 mg 03/07/18 14:56 Zofran IVP Q8HR PRN Nausea And Vomiting Pantoprazole Sodium 40 mg 03/07/18 21:00 03/08/18 08:47 Protonix IV 40 mg BID [facility] Administration Potassium Bicarbonate 20 meq 03/08/18 09:00 03/08/18 08:54 K-Lyte PO 20 meq DAILY [facility] Administration Intake and Output 03/07/18 03/08/18 03/08/18 22:59 06:59 14:59 Intake Total 875 3435 1060 Output Total 430 515 235 Balance 445 2920 825 Intake: IV 625 3125 625 D5-0.45% NaCl with KCl 375 1125 625 20Meq/l 1,000 ml @ 125 mls/hr IV .Q8H [facility] Rx#: [id number] Sodium Chloride 0.9% 1, 2000 000 ml @ 999 mls/hr IV . Q1H1M [facility] Rx#:[id number] Intake, IV Titration 250 125 Amount D5-0.45% NaCl with KCl 250 20Meq/l 1,000 ml @ 125 mls/hr IV .Q8H [facility] Rx#: [id number] Lactated Ringers 1,000 ml 125 @ 125 mls/hr IV .Q8H [facility] Rx#:[id number] Blood Product 310 310 Rc As-1 Unit 0 310 [id number] Rc Pheresis As-3 Unit 310 [id number] Output: Urine 380 515 235 Estimated Blood Loss 50 Other: Voiding Method Indwelling Catheter Indwelling Catheter Indwelling Catheter Weight 112.3 kg 112.3 kg Patient Weight 03/09/18 06:59 Weight 112.3 kg 03/08/18 11:18 03/08/18 11:18 EKG Interpretations (text) Electrocardiogram does not show any acute changes. Assessment and Plan Assessment: Patient is status post colectomy. His and has evidence of for severe aortic stenosis patient is clinically stable at present is no evidence of overt congestive cardiac failure at present a V/Q one dose of IV Lasix 20 mg daily. Continue the rest of the medications.
--- NOTE | 2018-03-08 14:44 | P.CNPUL ---
History of Present Illness Consult date: 03/08/18 Chief complaint: Colonic mass with a recent right colectomy History of present illness: This is a 82-year-old female patient was being seen in the intensive care unit following her colectomy. The patient was having issues with GI bleed and low hemoglobin. She has had [id number] hospitalization and initially she declined to have further workup. Subsequently, based on ongoing episodes of GI bleed and anemia, the patient a colonoscopy and she was found to have a colonic mass. She was evaluated by general surgery and the patient was taken to the operating room on 03/07/2018 and the patient had a right colectomy for a right hepatic flexure colon mass. The estimated blood loss was only 50 mL an hour. The patient was extubated and the patient was moved to the intensive care unit for further monitoring. 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 Overnight the patient was kept on IV fluids at 150 mL an hour. Nevertheless she continued to have a low urine output within urine output of 15-20 mL an hour. The patient was given a total of 3 L of IV fluids. This was in the form of normal saline. Subsequent hemoglobin count showed that there was a drop and the patient was given a unit of packed RBC and this combination improved urine output. She did not require any pressors. Surgical wound site is clean. The skin is closed with brady and there is a wound VAC applied to the skin surface on top of the staple line. The patient has no NG tube. No cough or sputum production. No nausea vomiting. No abdominal distention. The patient is receiving morphine for pain control. The patient is also on her routine oral medication. No chest pain. No cough or sputum production. No altered mentation. No bowel movements yet. She has not passed any flatus. Resting comfortably in bed. No altered mentation. Review of Systems Constitutional: Reports fatigue, Reports weakness Eyes: denies blurred vision, denies bulging eye, denies decreased vision Ears: deny: decreased hearing, ear discharge, earache, tinnitus Ears, nose, mouth and throat: Denies headache, Denies sore throat Cardiovascular: Reports as per HPI, Reports dyspnea on exertion Respiratory: Reports dyspnea Gastrointestinal: Reports as per HPI, Reports BRBPR Genitourinary: Denies dysuria, Denies hematuria Menstruation: Reports as per HPI Musculoskeletal: Reports muscle weakness Musculoskeletal: absent: ankle pain, ankle stiffness, ankle swelling Integumentary: Denies pruritus, Denies rash Neurological: Reports weakness Psychiatric: Denies anxiety, Denies depression Endocrine: Reports fatigue Hematologic/Lymphatic: Reports as per HPI Allergic/Immunologic: Reports as per HPI 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, previous packed RBC transfusion last one being on 02/27/2018 History of Any Multi-Drug Resistant Organisms: MRSA Date of last positivie culture/infection: 02-11-18 MDRO Source:: SPUTUM Past Surgical History: Cholecystectomy, Hysterectomy, Orthopedic Surgery, Tonsillectomy Additional Past Surgical History / Comment(s): knee replacement; 03/07 - right hemicolectomy Past Anesthesia/Blood Transfusion Reactions: No Reported Reaction Additional Past Anesthesia/Blood Transfusion Reaction / Comment(s): blood transfusion- no reaction Past Psychological History: No Psychological Hx Reported Additional Psychological History / Comment(s): currently at [facility], up with assist and walker Smoking Status: Never smoker Past Alcohol Use History: None Reported Past Drug Use History: None Reported - Past Family History Mother Family Medical History: Cancer Additional Family Medical History / Comment(s): breast cancer Father Additional Family Medical History / Comment(s): djd, hip replacment, heart problems Medications and Allergies Home Medications Medication Instructions Recorded Confirmed Type Cyanocobalamin [Vitamin B-12] 1,000 mcg PO QAM 04/10/15 03/07/18 History Metoprolol Succinate [Toprol XL] 50 mg PO QAM 04/10/15 03/07/18 History Multivit with Calcium,Iron,Min 1 tab PO DAILY@1600 04/10/15 03/05/18 History [Women's Daily Multivitamin] Nateglinide [Starlix] 120 mg PO QAM 04/10/15 03/07/18 History Sennosides [Senokot] 17.2 tab PO HS 04/10/15 03/07/18 History Vits A,C,E/Lutein/Minerals 1 tab PO HS@1800 04/10/15 03/07/18 History [Ocuvite with Lutein Tablet] sitaGLIPtin PHOS/metFORMIN HCL 1 tab PO QAM 04/10/15 03/05/18 History [Janumet Xr 100-1,000 mg Tablet] Atorvastatin [Lipitor] 20 mg PO HS 02/10/18 03/07/18 History Levothyroxine Sodium [Synthroid] 150 mcg PO QAM 02/10/18 03/07/18 History Acetaminophen Tab [Tylenol] 650 mg PO Q6HR PRN tab 02/16/18 03/05/18 Rx Diclofenac Sodium Gel [Voltaren 2 gm TOPICAL QID tube 02/16/18 03/07/18 Rx Gel] Diclofenac Sodium Gel [Voltaren 4 gm TOPICAL QID tube 02/16/18 03/07/18 Rx Gel] Furosemide [Lasix] 40 mg PO BID@0900,1600 tab 02/16/18 03/05/18 Rx Potassium Chloride [Klor-Con 20 meq PO DAILY #1 packet 02/16/18 03/05/18 Rx Packets] Ipratropium-Albuterol Nebulize 3 ml INHALATION RT-Q6H 03/05/18 03/05/18 History [Duoneb 0.5 mg-3 mg/3 ml Soln] Aspirin [Adult Low Dose Aspirin EC] 81 mg PO HS 03/07/18 03/07/18 History Allergies Allergy/AdvReac Type Severity Reaction Status Date / Time Sulfa (Sulfonamide Allergy Anaphylaxis Verified 03/07/18 19:21 Antibiotics) Physical Exam Vitals: Vital Signs Temp Pulse Pulse Resp BP BP Pulse Ox 03/08/18 13:19 74 03/08/18 13:07 75 03/08/18 13:00 68 13 95/38 98 03/08/18 12:00 98.0 F 68 63 29 H 93/47 97 03/08/18 11:00 67 16 99/48 98 03/08/18 10:00 72 18 105/67 95 03/08/18 09:00 97.9 F 67 14 82/37 97 03/08/18 08:43 97.9 F 66 18 130/70 03/08/18 08:38 64 03/08/18 08:27 63 03/08/18 08:00 68 63 29 H 94/56 98 05 07:00 63 18 102/54 98 03/08/18 06:00 65 20 97/43 96 03/08/18 05:58 98.2 F 62 13 03/08/18 05:30 75 28 H 100/51 95 03/08/18 05:28 98.2 F 64 18 118/45 03/08/18 05:18 98 F 68 21 121/44 05 05:10 97.9 F 60 16 100/51 97 03/08/18 05:00 60 15 100/51 97 03/08/18 04:50 67 33 H 100/51 97 03/08/18 04:40 97.9 F 63 25 H 88/42 98 03/08/18 04:30 65 34 H 88/42 97 03/08/18 04:20 62 13 88/42 97 03/08/18 04:10 63 20 88/42 99 03/08/18 04:00 62 15 99 03/08/18 03:30 98.3 F 62 22 82/35 97 03/08/18 03:14 63 13 03/08/18 03:00 65 13 82/35 97 03/08/18 02:44 98.2 F 68 13 110/39 97 03/08/18 02:30 66 16 87/38 95 03/08/18 02:14 78 F L 69 20 113/38 03/08/18 02:04 97.9 F 67 18 120/41 03/08/18 02:00 97.9 F 68 18 87/38 95 03/08/18 01:50 65 33 H 87/38 96 03/08/18 01:40 68 15 84/46 95 03/08/18 01:31 62 03/08/18 01:30 62 17 84/46 100 03/08/18 01:20 64 18 84/46 97 03/08/18 01:18 64 03/08/18 01:10 63 14 84/46 97 03/08/18 01:00 65 19 84/46 98 03/08/18 00:30 98 F 59 L 14 96/47 99 03/08/18 00:00 62 63 7 L 96/47 100 03/07/18 23:30 63 14 99 03/07/18 23:02 64 14 99 0518 23:00 64 15 99 03/07/18 22:30 67 16 99 03/07/18 22:00 97.9 F 63 16 98 03/07/18 21:30 64 16 84/40 97 03/07/18 21:00 67 15 84/40 98 03/07/18 20:30 70 17 84/40 98 03/07/18 20:00 98 F 63 63 15 98 03/07/18 19:30 64 25 H 91/49 99 03/07/18 19:00 64 16 98 03/07/18 18:30 65 14 99 03/07/18 18:00 68 27 H 91/49 98 03/07/18 17:50 68 25 H 91/49 99 03/07/18 17:40 84 25 H 91/49 97 03/07/18 17:10 66 16 105/54 97 03/07/18 16:55 66 16 105/53 98 03/07/18 16:40 67 16 104/54 97 03/07/18 16:25 67 16 110/66 97 03/07/18 16:10 69 16 117/59 96 03/07/18 15:55 70 18 131/60 100 03/07/18 15:30 75 16 134/63 99 03/07/18 15:13 99.1 F 77 24 163/72 99 Intake and Output 03/07/18 03/08/18 03/08/18 22:59 06:59 14:59 Intake Total 875 3435 1060 Output Total 430 515 235 Balance 445 2920 825 Intake: IV 625 3125 625 D5-0.45% NaCl with KCl 375 1125 625 20Meq/l 1,000 ml @ 125 mls/hr IV .Q8H [facility] Rx#: [id number] Sodium Chloride 0.9% 1, 2000 000 ml @ 999 mls/hr IV . Q1H1M [facility] Rx#:[id number] Intake, IV Titration 250 125 Amount D5-0.45% NaCl with KCl 250 20Meq/l 1,000 ml @ 125 mls/hr IV .Q8H [facility] Rx#: [id number] Lactated Ringers 1,000 ml 125 @ 125 mls/hr IV .Q8H [facility] Rx#:[id number] Blood Product 310 310 Rc As-1 Unit 0 310 [id number] Rc Pheresis As-3 Unit 310 [id number] Output: Urine 380 515 235 Estimated Blood Loss 50 Other: Voiding Method Indwelling Catheter Indwelling Catheter Indwelling Catheter Weight 112.3 kg 112.3 kg ABP, PAP, CO, CI - Last 8 Hours Arterial Blood Pressure 92/72 Arterial Blood Pressure 114/97 Arterial Blood Pressure 137/57 Head exam was generally normal. There was no scleral icterus or corneal arcus. Mucous membranes were moist. Neck was supple and without jugular venous distension, thyromegaly, or carotid bruits. Carotids were easily palpable bilaterally. There was no adenopathy. Lungs were clear to auscultation and percussion, and with normal diaphragmatic excursion. No wheezes or rales were noted. Cardiac exam revealed the PMI to be normally situated and sized. The rhythm was regular and no extrasystoles were noted during several minutes of auscultation. The first and second heart sounds were normal and physiologic splitting of the second heart sound was noted. There were murmurs, rubs, no clicks, or gallops. There is a systolic ejection murmur grade 3/6 heard throughout the precordium Abdomen is soft. The mid incision over the abdomen is dry clean and intact. Bowel sounds are hypoactive. No direct tenderness or rebound tensile guarding. No abdominal distention. Examination of the extremities revealed easily palpable radial, femoral and pedal pulses. There was no cyanosis, clubbing or edema. Examination of the skin revealed no evidence of significant rashes, suspicious appearing nevi or other concerning lesions. Neurologically awake and alert and is no focal neurological deficit Results - Laboratory Findings CBC and BMP: 03/08/18 11:18 03/08/18 11:18 Abnormal lab findings: Abnormal Labs 03/07/18 03/07/18 03/07/18 11:30 11:38 12:00 WBC RBC 3.48 L Hgb 8.8 L Hct 29.0 L MCHC 30.3 L RDW 17.4 H Plt Count Neutrophils # Lymphocytes # Potassium Glucose POC Glucose (mg/dL) 137 H Calcium Magnesium Crossmatch See Detail 03/07/18 03/07/18 03/07/18 15:38 17:33 17:58 WBC RBC Hgb Hct MCHC RDW Plt Count Neutrophils # Lymphocytes # Potassium 3.4 L Glucose 199 H POC Glucose (mg/dL) 191 H 212 H Calcium 8.1 L Magnesium Crossmatch 03/07/18 03/07/18 03/07/18 17:58 19:41 23:40 WBC RBC 2.98 L Hgb 7.7 L Hct 24.9 L MCHC RDW 16.8 H Plt Count 146 L Neutrophils # Lymphocytes # 0.5 L Potassium Glucose POC Glucose (mg/dL) 253 H 223 H Calcium Magnesium Crossmatch 03/08/18 03/08/18 03/08/18 01:00 03:51 04:12 WBC RBC 2.25 L Hgb 5.8 L* D Hct 19.0 L* MCHC 30.6 L RDW 17.3 H Plt Count 115 L Neutrophils # Lymphocytes # Potassium Glucose 220 H POC Glucose (mg/dL) 261 H Calcium 7.3 L Magnesium 2.5 H Crossmatch 03/08/18 03/08/18 03/08/18 08:10 11:18 11:40 WBC 11.8 H RBC 2.87 L Hgb 7.7 L D Hct 24.0 L MCHC RDW 16.0 H Plt Count 133 L Neutrophils # 10.1 H Lymphocytes # 0.6 L Potassium Glucose POC Glucose (mg/dL) 217 H 246 H Calcium Magnesium Crossmatch Assessment and Plan Plan: 1 right hemicolectomy for a right hepatic flexure colonic mass. The patient is postop day #1 2 postoperative low urine output, resuscitated with IV fluids 3 postoperative anemia, and expected outcome of bowel surgery specially the patient has baseline anemia related to GI bleeding. The patient had also further drop in hemoglobin and based on IV fluids and this could be potentially dilutional and the patient got transfused with a unit of packed RBC 4 valvular heart disease with severe aortic stenosis and moderate degree of mitral stenosis 5 MRSA sputum colonizer 6 obesity 7 diabetes mellitus 8 hypothyroidism 9 urinary incontinence Plan Continue IV fluids. Encouraged use of incentive spirometer. No signs of any fluid overload. Monitor hemoglobin. Monitor urine output. Outpatient medications abnormal resume. Pain is under good control with morphine. Keep the patient ICU for 24 hours we'll continue to follow.
--- NOTE | 2018-03-08 15:56 | PN ---
PROGRESS NOTE DATE OF SERVICE: 03/08/18. PRESENTING COMPLAINT: Right colectomy. 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 Lying in bed, awake. The patient has been on clear liquids. Abdominal pain is present. Otherwise, no nausea, vomiting, not passed any flatus. Family at the bedside including . REVIEW OF SYSTEMS: Done for constitutional, cardiovascular, GI, pulmonary; relevant findings as above. CURRENT MEDICATIONS: Reviewed that include IV fluids. PHYSICAL EXAMINATION: Temperature 98, pulse 68, respiration 29, blood pressure 93/47, pulse ox 97% on 2 L. GENERAL APPEARANCE: Lying in bed, awake. EYES: Pupils equal. Conjunctivae normal. HEENT: External appearance of nose and ears normal. Oral cavity normal. NECK: JVD unable to assess. Mass not palpable. RESPIRATORY: Effort normal, lungs decreased breath sounds. CARDIOVASCULAR: First and second sounds normal. No edema. ABDOMEN: Soft, some tenderness. Wound VAC in place. Liver and spleen not palpable. Bowel sounds sluggish. PSYCHIATRY: Alert and oriented x3. Mood and affect normal. INVESTIGATIONS: White count 11.8, hemoglobin 7.7. Accu-Cheks noted. ASSESSMENT: 1. Right hemicolectomy for moderately differentiated adenocarcinoma with some mucinous component for colon cancer, now with a wound VAC in place. 2. Moderate aortic stenosis, nonrheumatic. 3. Moderate mitral stenosis, nonrheumatic. 4. Chronic congestive heart failure from diastolic dysfunction. Ejection fraction 55- 60%. 5. Diabetes mellitus type 2 on oral hypoglycemic. 6. Hypothyroid. 7. Essential hypertension. 8. Primary osteoarthritis. 9. Obesity; BMI 39.9. PLAN: Continue current medication and treatment plan. Diet to be advanced per Surgery. Keep the patient on sliding scale. Care was discussed with the patient and family at the bedside. MMODL / IJN: [id number] /
[2018-03-08 16:32] LABS: Glucose,Whole Blood 179 mg/dL (75-99)
[2018-03-08 18:40] LABS: Anisocytosis Slight; Basophils % (A) 0 %; Eosinophils # (A) 0.2 k/uL (0-0.7); Eosinophils % (A) 1 %; HCT 23.3 % (34.0-46.0); HGB 7.5 gm/dL (11.4-16.0); Hypochromasia Marked; Lymphocytes % (A) 7 %; MCH 26.7 pg (25.0-35.0); MCV 83.5 fL (80.0-100.0); Mean Platelet Volume 9.6; Monocytes # (A) 0.8 k/uL (0-1.0); Monocytes % (A) 6 %; Neutrophils # (A) 11.4 k/uL (1.3-7.7); Neutrophils % (A) 84 %; Platelet Count 145 k/uL (150-450); Poikilocytosis Marked; RBC 2.79 m/uL (3.80-5.40); RDW 16.5 % (11.5-15.5); WBC 13.7 k/uL (3.8-10.6)
[2018-03-08 19:48] LABS: Glucose,Whole Blood 153 mg/dL (75-99)
[2018-03-08] MEDS: ASPIRIN 81 MG PO SCH (20:02)
[2018-03-08] MEDS: ATORVASTATIN 20 MG TAB PO SCH (20:02)
[2018-03-08 23:38] LABS: Glucose,Whole Blood 141 mg/dL (75-99)
[2018-03-09] MEDS: INSULIN ASPART 100 UNIT/ML 1 ML 10 ML VIAL SQ SCH ×5 (03:32→21:32)
[2018-03-09 03:33] LABS: Glucose,Whole Blood 112 mg/dL (75-99)
[2018-03-09] MEDS: IPRATROPIUM-ALBUTEROL 3 ML NEB INHALATION SCH ×4 (04:08→19:22)
[2018-03-09] MEDS: MORPHINE SULFATE 4 MG/ML SYRINGE IV PRN ×8 (04:14→23:51)
[2018-03-09 04:20] LABS: Anisocytosis Slight; Basophils % (A) 0 %; Eosinophils % (A) 0 %; HCT 21.3 % (34.0-46.0); Hypochromasia Marked; Lymphocytes # (A) 1.3 k/uL (1.0-4.8); Lymphocytes % (A) 12 %; MCH 26.5 pg (25.0-35.0); MCHC 31.8 g/dL (31.0-37.0); MCV 83.3 fL (80.0-100.0); Mean Platelet Volume 9.1; Monocytes # (A) 0.5 k/uL (0-1.0); Monocytes % (A) 5 %; Neutrophils # (A) 8.7 k/uL (1.3-7.7); Neutrophils % (A) 81 %; Platelet Count 133 k/uL (150-450); Poikilocytosis Marked; RBC 2.56 m/uL (3.80-5.40); RDW 16.3 % (11.5-15.5); WBC 10.8 k/uL (3.8-10.6)
[2018-03-09 04:21] LABS: Anion Gap 8 mmol/L; Blood Urea Nitrogen 5 mg/dL (7-17); Calcium 7.8 mg/dL (8.4-10.2); Carbon Dioxide 27 mmol/L (22-30); Chloride 102 mmol/L (98-107); Glucose 109 mg/dL (74-99); Magnesium 1.9 mg/dL (1.6-2.3); Phosphorus 2.4 mg/dL (2.5-4.5); Potassium 3.6 mmol/L (3.5-5.1); Sodium 137 mmol/L (137-145)
[2018-03-09 04:34] LABS: HGB 6.8 gm/dL (11.4-16.0)
[2018-03-09] MEDS ORDERED: POTASSIUM PHOSPHATE 10 MMOL in SODIUM CHLORIDE 0.9% 250 ML IV ONE (04:39)
[2018-03-09] MEDS ORDERED: Phosphorus Replacement Protoco 1 EACH MISC MISCELLANE PRN (04:39)
[2018-03-09] MEDS ORDERED: POTASSIUM CHLORIDE ER 20 MEQ TAB.ER PO SCH (05:00)
[2018-03-09] MEDS: LACTATED RINGERS 1,000 ML IV SCH ×3 (05:30→17:10)
[2018-03-09] MEDS: MAGNESIUM SULFATE-D5W PMX 1 GM in DEXTROSE/WATER 1 100ML.BAG IVPB SCH ×2 (05:31→06:24)
[2018-03-09] MEDS: LEVOTHYROXINE 75 MCG TAB PO SCH (06:07)
[2018-03-09 06:55] LABS: Glucose,Whole Blood 154 mg/dL (75-99)
--- NOTE | 2018-03-09 07:15 | XR ---
EXAMINATION TYPE: XR chest 1V DATE OF EXAM: 03/09/2018 HISTORY: Shortness of breath. COMPARISON: 03/08/2018 TECHNIQUE: Single view of the chest is submitted. FINDINGS: Demonstrated are scattered senescent parenchymal change. There is no evidence for focal infiltrate. The heart is stable. Cardiac valvular calcification. Hilar and mediastinal structures are within normal limits. Degenerative changes are seen of the dorsal spine. IMPRESSION: 1. Chronic changes without evidence for acute pulmonary disease.
[2018-03-09] MEDS: HEPARIN SODIUM,PORCINE 5,000 UNIT/ML 1 ML VIAL SQ SCH ×2 (08:06→17:10)
[2018-03-09] MEDS: ALVIMOPAN 12 MG CAPSULE PO SCH ×2 (08:06→21:18)
[2018-03-09] MEDS: DICLOFENAC SODIUM GEL 100 GM TUBE TOPICAL SCH ×4 (08:06→21:32)
[2018-03-09] MEDS: PANTOPRAZOLE 40 MG/10 ML VIAL IV SCH ×2 (08:08→21:18)
[2018-03-09] MEDS: POTASSIUM BICARBONATE/CIT AC 20 MEQ TABLET.EFF PO SCH (08:08)
[2018-03-09] MEDS: FUROSEMIDE 40 MG TAB PO SCH (08:08)
[2018-03-09 12:00] LABS: Glucose,Whole Blood 177 mg/dL (75-99)
[2018-03-09] MEDS: METOPROLOL SUCCINATE (ER) 50 MG TAB.ER.24H PO SCH (12:17)
[2018-03-09 12:25] LABS: Glucose,Whole Blood 164 mg/dL (75-99)
[2018-03-09 12:39] LABS: Anisocytosis Slight; Basophils % (A) 0 %; Eosinophils # (A) 0.2 k/uL (0-0.7); Eosinophils % (A) 2 %; HCT 24.9 % (34.0-46.0); HGB 7.8 gm/dL (11.4-16.0); Hypochromasia Marked; Lymphocytes # (A) 1.4 k/uL (1.0-4.8); Lymphocytes % (A) 15 %; MCH 26.4 pg (25.0-35.0); MCHC 31.2 g/dL (31.0-37.0); MCV 84.6 fL (80.0-100.0); Mean Platelet Volume 9.2; Monocytes # (A) 0.6 k/uL (0-1.0); Monocytes % (A) 6 %; Neutrophils # (A) 6.7 k/uL (1.3-7.7); Neutrophils % (A) 74 %; Platelet Count 148 k/uL (150-450); Poikilocytosis Moderate; RBC 2.95 m/uL (3.80-5.40); RDW 16.1 % (11.5-15.5); WBC 9.1 k/uL (3.8-10.6)
--- NOTE | 2018-03-09 14:16 | P.PN ---
Subjective Progress Note Date: 03/09/18 Principal diagnosis: Hepatic flexure colon cancer The patient is resting comfortably in the ICU. She received another unit of packed red cells today. She's had excellent urine output. She had a small amount of flatus. Objective - Vital Signs Vital signs: Vital Signs Temp 98.1 F 03/09/18 12:00 Pulse 79 03/09/18 14:00 Resp 14 03/09/18 14:00 BP 92/49 03/09/18 14:00 Pulse Ox 97 03/09/18 14:00 Intake & Output 03/08/18 03/09/18 03/09/18 18:59 06:59 18:59 Intake Total 2745 2075 1160 Output Total 785 1655 1385 Balance 1960 420 -225 Weight 112.3 kg 115.4 kg 115.4 kg Intake: IV 1250 2075 600 D5-0.45% NaCl with KCl 625 20Meq/l 1,000 ml @ 125 mls/hr IV .Q8H [facility] Rx#: [id number] Lactated Ringers 1,000 ml 625 1625 600 @ 125 mls/hr IV .Q8H [facility] Rx#:[id number] Magnesium Sulfate-D5w Pmx 200 1 gm In Dextrose/Water 1 100ml.bag @ 100 mls/hr IVPB Q1H [facility] Rx#: [id number] Potassium Phosphate 10 250 mmol In Sodium Chloride 0 .9% 250 ml @ 125 mls/hr IV ONCE ONE Rx#:[id number] Intake, IV Titration 125 250 Amount Lactated Ringers 1,000 ml 125 250 @ 125 mls/hr IV .Q8H [facility] Rx#:[id number] Oral 1060 Blood Product 310 310 Rc As-1 Unit 310 [id number] Rc As-1 Unit 310 [id number] Output: Urine 785 1655 1385 Other: Voiding Method Indwelling Catheter Indwelling Catheter Indwelling Catheter ABP, PAP, CO, CI - Last Documented Arterial Blood Pressure 126/44 - Constitutional General appearance: Present: average body habitus - Gastrointestinal Gastrointestinal Comment(s): Incision site is clean dry and intact. There is no evidence of bleeding or hematoma. - Labs CBC & Chem 7: 03/09/18 12:22 03/09/18 04:00 Labs: Abnormal Lab Results - Last 24 Hours (Table) 03/07/18 03/08/18 03/08/18 Range/Units 12:00 16:31 18:30 WBC 13.7 H (3.8-10.6) k/uL RBC 2.79 L (3.80-5.40) m/uL Hgb 7.5 L (11.4-16.0) gm/dL Hct 23.3 L (34.0-46.0) % RDW 16.5 H (11.5-15.5) % Plt Count 145 L (150-450) k/uL Neutrophils # 11.4 H (1.3-7.7) k/uL BUN (7-17) mg/dL Creatinine (0.52-1.04) mg/dL Glucose (74-99) mg/dL POC Glucose (mg/dL) 179 H (75-99) mg/dL Calcium (8.4-10.2) mg/dL Phosphorus (2.5-4.5) mg/dL Crossmatch See Detail 03/08/18 03/08/18 03/09/18 Range/Units 19:46 23:37 03:31 WBC (3.8-10.6) k/uL RBC (3.80-5.40) m/uL Hgb (11.4-16.0) gm/dL Hct (34.0-46.0) % RDW (11.5-15.5) % Plt Count (150-450) k/uL Neutrophils # (1.3-7.7) k/uL BUN (7-17) mg/dL Creatinine (0.52-1.04) mg/dL Glucose (74-99) mg/dL POC Glucose (mg/dL) 153 H 141 H 112 H (75-99) mg/dL Calcium (8.4-10.2) mg/dL Phosphorus (2.5-4.5) mg/dL Crossmatch 03/09/18 03/09/18 03/09/18 Range/Units 04:00 04:00 06:53 WBC 10.8 H (3.8-10.6) k/uL RBC 2.56 L (3.80-5.40) m/uL Hgb 6.8 L* (11.4-16.0) gm/dL Hct 21.3 L (34.0-46.0) % RDW 16.3 H (11.5-15.5) % Plt Count 133 L (150-450) k/uL Neutrophils # 8.7 H (1.3-7.7) k/uL BUN 5 L (7-17) mg/dL Creatinine 0.50 L (0.52-1.04) mg/dL Glucose 109 H (74-99) mg/dL POC Glucose (mg/dL) 154 H (75-99) mg/dL Calcium 7.8 L (8.4-10.2) mg/dL Phosphorus 2.4 L (2.5-4.5) mg/dL Crossmatch 03/09/18 03/09/18 03/09/18 Range/Units 11:58 12:22 12:22 WBC (3.8-10.6) k/uL RBC 2.95 L (3.80-5.40) m/uL Hgb 7.8 L (11.4-16.0) gm/dL Hct 24.9 L (34.0-46.0) % RDW 16.1 H (11.5-15.5) % Plt Count 148 L (150-450) k/uL Neutrophils # (1.3-7.7) k/uL BUN (7-17) mg/dL Creatinine (0.52-1.04) mg/dL Glucose (74-99) mg/dL POC Glucose (mg/dL) 177 H 164 H (75-99) mg/dL Calcium (8.4-10.2) mg/dL Phosphorus (2.5-4.5) mg/dL Crossmatch Assessment and Plan Assessment: S post extended right colectomy for hepatic flexure tumor. Patient has had some acute blood loss anemia related to surgery and fluid hydration. She'll remain in ICU. We'll keep her on clear liquids for now.
--- NOTE | 2018-03-09 15:19 | P.PN ---
Subjective Progress Note Date: 03/09/18 This is a 82-year-old female patient was being seen in the intensive care unit following her colectomy. The patient was having issues with GI bleed and low hemoglobin. She has had [id number] hospitalization and initially she declined to have further workup. Subsequently, based on ongoing episodes of GI bleed and anemia, the patient a colonoscopy and she was found to have a colonic mass. She was evaluated by general surgery and the patient was taken to the operating room on 03/07/2018 and the patient had a right colectomy for a right hepatic flexure colon mass. The estimated blood loss was only 50 mL an hour. The patient was extubated and the patient was moved to the intensive care unit for further monitoring. 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 Overnight the patient was kept on IV fluids at 150 mL an hour. Nevertheless she continued to have a low urine output within urine output of 15-20 mL an hour. The patient was given a total of 3 L of IV fluids. This was in the form of normal saline. Subsequent hemoglobin count showed that there was a drop and the patient was given a unit of packed RBC and this combination improved urine output. She did not require any pressors. Surgical wound site is clean. The skin is closed with brady and there is a wound VAC applied to the skin surface on top of the staple line. The patient has no NG tube. No cough or sputum production. No nausea vomiting. No abdominal distention. The patient is receiving morphine for pain control. The patient is also on her routine oral medication. No chest pain. No cough or sputum production. No altered mentation. No bowel movements yet. She has not passed any flatus. Resting comfortably in bed. No altered mentation. On 03/09/2018 the patient is being seen for a follow-up. The patient is resting comfortably in bed. Abdominal wound is dry clean and intact. Bowel sounds are hypoactive. The patient was given some clear liquid diets. No nausea. No vomiting. No emesis. The hemoglobin is stable at 7.8 after being given a transfusion with a unit of packed RBC earlier this morning for a hemoglobin of 6.8. The patient is afebrile. The neck fluid balance on this patient for the past 24 hours is +2.3 L for today and 4.3 L for yesterday. Urine output is adequate for now. No nausea. No vomiting. No headaches. No altered mentation. No other significant events overnight. Objective - Vital Signs Vital signs: Vital Signs Temp 98.1 F 03/09/18 12:00 Pulse 79 03/09/18 14:00 Resp 14 03/09/18 14:00 BP 92/49 03/09/18 14:00 Pulse Ox 97 03/09/18 14:00 Intake & Output 03/08/18 03/09/18 03/09/18 18:59 06:59 18:59 Intake Total 2745 2075 1160 Output Total 785 1655 1385 Balance 1960 420 -225 Weight 112.3 kg 115.4 kg 115.4 kg Intake: IV 1250 2075 600 D5-0.45% NaCl with KCl 625 20Meq/l 1,000 ml @ 125 mls/hr IV .Q8H BERNARDA Rx#: [id number] Lactated Ringers 1,000 ml 625 1625 600 @ 125 mls/hr IV .Q8H BERNARDA Rx#:[id number] Magnesium Sulfate-D5w Pmx 200 1 gm In Dextrose/Water 1 100ml.bag @ 100 mls/hr IVPB Q1H [facility] Rx#: [id number] Potassium Phosphate 10 250 mmol In Sodium Chloride 0 .9% 250 ml @ 125 mls/hr IV ONCE ONE Rx#:[id number] Intake, IV Titration 125 250 Amount Lactated Ringers 1,000 ml 125 250 @ 125 mls/hr IV .Q8H BERNARDA Rx#:[id number] Oral 1060 Blood Product 310 310 Rc As-1 Unit 310 [id number] Rc As-1 Unit 310 [id number] Output: Urine 785 1655 1385 Other: Voiding Method Indwelling Catheter Indwelling Catheter Indwelling Catheter ABP, PAP, CO, CI - Last Documented Arterial Blood Pressure 126/44 - Exam Head exam was generally normal. There was no scleral icterus or corneal arcus. Mucous membranes were moist. Neck was supple and without jugular venous distension, thyromegaly, or carotid bruits. Carotids were easily palpable bilaterally. There was no adenopathy. Lungs were clear to auscultation and percussion, and with normal diaphragmatic excursion. No wheezes or rales were noted. Cardiac exam revealed the PMI to be normally situated and sized. The rhythm was regular and no extrasystoles were noted during several minutes of auscultation. The first and second heart sounds were normal and physiologic splitting of the second heart sound was noted. There were murmurs, rubs, no clicks, or gallops. There is a systolic ejection murmur grade 3/6 heard throughout the precordium Abdomen is soft. The mid incision over the abdomen is dry clean and intact. Bowel sounds are hypoactive. No direct tenderness or rebound tensile guarding. No abdominal distention. Examination of the extremities revealed easily palpable radial, femoral and pedal pulses. There was no cyanosis, clubbing or edema. Examination of the skin revealed no evidence of significant rashes, suspicious appearing nevi or other concerning lesions. Neurologically awake and alert and is no focal neurological deficit - Labs CBC & Chem 7: 03/09/18 12:22 03/09/18 04:00 Labs: Abnormal Lab Results - Last 24 Hours (Table) 03/07/18 03/08/18 03/08/18 Range/Units 12:00 16:31 18:30 WBC 13.7 H (3.8-10.6) k/uL RBC 2.79 L (3.80-5.40) m/uL Hgb 7.5 L (11.4-16.0) gm/dL Hct 23.3 L (34.0-46.0) % RDW 16.5 H (11.5-15.5) % Plt Count 145 L (150-450) k/uL Neutrophils # 11.4 H (1.3-7.7) k/uL BUN (7-17) mg/dL Creatinine (0.52-1.04) mg/dL Glucose (74-99) mg/dL POC Glucose (mg/dL) 179 H (75-99) mg/dL Calcium (8.4-10.2) mg/dL Phosphorus (2.5-4.5) mg/dL Crossmatch See Detail 03/08/18 03/08/18 03/09/18 Range/Units 19:46 23:37 03:31 WBC (3.8-10.6) k/uL RBC (3.80-5.40) m/uL Hgb (11.4-16.0) gm/dL Hct (34.0-46.0) % RDW (11.5-15.5) % Plt Count (150-450) k/uL Neutrophils # (1.3-7.7) k/uL BUN (7-17) mg/dL Creatinine (0.52-1.04) mg/dL Glucose (74-99) mg/dL POC Glucose (mg/dL) 153 H 141 H 112 H (75-99) mg/dL Calcium (8.4-10.2) mg/dL Phosphorus (2.5-4.5) mg/dL Crossmatch 03/09/18 03/09/18 03/09/18 Range/Units 04:00 04:00 06:53 WBC 10.8 H (3.8-10.6) k/uL RBC 2.56 L (3.80-5.40) m/uL Hgb 6.8 L* (11.4-16.0) gm/dL Hct 21.3 L (34.0-46.0) % RDW 16.3 H (11.5-15.5) % Plt Count 133 L (150-450) k/uL Neutrophils # 8.7 H (1.3-7.7) k/uL BUN 5 L (7-17) mg/dL Creatinine 0.50 L (0.52-1.04) mg/dL Glucose 109 H (74-99) mg/dL POC Glucose (mg/dL) 154 H (75-99) mg/dL Calcium 7.8 L (8.4-10.2) mg/dL Phosphorus 2.4 L (2.5-4.5) mg/dL Crossmatch 03/09/18 03/09/18 03/09/18 Range/Units 11:58 12:22 12:22 WBC (3.8-10.6) k/uL RBC 2.95 L (3.80-5.40) m/uL Hgb 7.8 L (11.4-16.0) gm/dL Hct 24.9 L (34.0-46.0) % RDW 16.1 H (11.5-15.5) % Plt Count 148 L (150-450) k/uL Neutrophils # (1.3-7.7) k/uL BUN (7-17) mg/dL Creatinine (0.52-1.04) mg/dL Glucose (74-99) mg/dL POC Glucose (mg/dL) 177 H 164 H (75-99) mg/dL Calcium (8.4-10.2) mg/dL Phosphorus (2.5-4.5) mg/dL Crossmatch Assessment and Plan Plan: 1 right hemicolectomy for a right hepatic flexure colonic mass. The patient is postop day #2 2 postoperative low urine output, resuscitated with IV fluids, and the patient received significant amount of fluids and overall net fluid balance is +5 L at least over the past 24-48 hours in addition to being transfused with packed RBC for anemia. 3 postoperative anemia, and expected outcome of bowel surgery specially the patient has baseline anemia related to GI bleeding. The patient had also further drop in hemoglobin and based on IV fluids and this could be potentially dilutional and the patient got transfused with a unit of packed RBC. Earlier this morning the hemoglobin was at 6.8 and the patient was given additional unit of packed RBC to bring her hemoglobin up to 7.8. 4 valvular heart disease with severe aortic stenosis and moderate degree of mitral stenosis 5 MRSA sputum colonizer 6 obesity 7 diabetes mellitus 8 hypothyroidism 9 urinary incontinence Plan Continue IV fluids. Gradually advance diet as tolerated. Monitor hemoglobin. Hemodynamically stable. Surgical wound site is dry clean and intact. Consent hours pulmonary edema specially the patient has significant aortic stenosis. Nevertheless her overall poor status is stable and the patient is using the incentive spirometer. We'll continue to follow..
[2018-03-09 16:51] LABS: Glucose,Whole Blood 128 mg/dL (75-99)
--- NOTE | 2018-03-09 18:57 | PN ---
PROGRESS NOTE DATE OF SERVICE: March 09, 2018. PRESENTING COMPLAINT: Right colectomy. INTERVAL HISTORY: The patient is status post right colectomy with wound VAC in place. He is on clear liquids. Sitting up in a chair in the ICU. Did tolerate some liquids. Has some pain. No nausea, vomiting. Has not passed any flatus. REVIEW OF SYSTEMS: Done for constitutional, cardiovascular, GI, pulmonary and relevant findings as above. CURRENT MEDICATIONS: Reviewed that include DuoNeb, lactated Ringer's. PHYSICAL EXAMINATION: Temperature 98.1, pulse 83, respirations 18, blood pressure 92/42, pulse ox 98% on room air. General appearance: Propped up in bed, awake. Eyes pupils are equal. Conjunctivae normal. HEENT: External appearance of nose and ears normal. Oral cavity normal. Neck JVD unable to assess. Mass not palpable. Respiratory effort increased. Lungs decreased breath sounds. Cardiovascular 1st and 2nd sounds normal. No edema. ABDOMEN: Soft, tender. Wound VAC in place. Liver and spleen not palpable. Bowel sounds sluggish. Psychiatry: Alert and oriented x3. Mood and affect normal. INVESTIGATIONS: White count 9.1, hemoglobin 7.8. ASSESSMENT: 1. 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 2. Moderate aortic stenosis, nonrheumatic. 3. Moderate mitral stenosis, nonrheumatic. 4. Chronic congestive heart failure from diastolic dysfunction. Ejection fraction 55- 60%. 5. Diabetes mellitus type 2 on oral hypoglycemic. 6. Hypothyroid. 7. Essential hypertension. 8. Primary osteoarthritis. 9. Obesity; BMI 39.9. PLAN: Continue current medication and treatment plan. Care was discussed with the patient. Will follow. MMODL / IJN: [id number] /
[2018-03-09 19:52] LABS: Glucose,Whole Blood 146 mg/dL (75-99)
[2018-03-09] MEDS ORDERED: Potassium Replacement Protocol 1 EACH MISC MISCELLANE PRN (19:56)
[2018-03-09] MEDS ORDERED: IPRATROPIUM-ALBUTEROL 3 ML NEB INHALATION PRN (20:17)
[2018-03-09] MEDS ORDERED: POTASSIUM BICARBONATE/CIT AC 20 MEQ TABLET.EFF NG-TUBE SCH (21:00)
[2018-03-09] MEDS: ASPIRIN 81 MG PO SCH (21:17)
[2018-03-09] MEDS: ATORVASTATIN 20 MG TAB PO SCH (21:17)
[2018-03-09 23:59] LABS: Glucose,Whole Blood 116 mg/dL (75-99)
[2018-03-10] MEDS: INSULIN ASPART 100 UNIT/ML 1 ML 10 ML VIAL SQ SCH ×5 (01:43→20:32)
[2018-03-10] MEDS: MORPHINE SULFATE 4 MG/ML SYRINGE IV PRN ×4 (02:52→12:25)
[2018-03-10 04:17] LABS: Glucose,Whole Blood 124 mg/dL (75-99)
[2018-03-10 04:23] LABS: Anisocytosis Slight; Basophils % (A) 0 %; Eosinophils # (A) 0.1 k/uL (0-0.7); Eosinophils % (A) 2 %; HCT 24.6 % (34.0-46.0); HGB 7.8 gm/dL (11.4-16.0); Hypochromasia Marked; Lymphocytes # (A) 1.5 k/uL (1.0-4.8); Lymphocytes % (A) 21 %; MCH 26.7 pg (25.0-35.0); MCHC 31.9 g/dL (31.0-37.0); MCV 83.8 fL (80.0-100.0); Mean Platelet Volume 9.1; Monocytes # (A) 0.5 k/uL (0-1.0); Monocytes % (A) 7 %; Neutrophils # (A) 4.8 k/uL (1.3-7.7); Neutrophils % (A) 67 %; Platelet Count 149 k/uL (150-450); Poikilocytosis Moderate; RBC 2.93 m/uL (3.80-5.40); RDW 16.4 % (11.5-15.5); WBC 7.2 k/uL (3.8-10.6)
[2018-03-10 04:35] LABS: Anion Gap 6 mmol/L; Blood Urea Nitrogen 4 mg/dL (7-17); Calcium 7.9 mg/dL (8.4-10.2); Carbon Dioxide 32 mmol/L (22-30); Chloride 97 mmol/L (98-107); Glucose 110 mg/dL (74-99); Magnesium 1.8 mg/dL (1.6-2.3); Phosphorus 2.4 mg/dL (2.5-4.5); Sodium 135 mmol/L (137-145)
[2018-03-10] MEDS: LACTATED RINGERS 1,000 ML IV SCH ×2 (05:21→17:56)
[2018-03-10] MEDS: LEVOTHYROXINE 75 MCG TAB PO SCH (06:50)
[2018-03-10] MEDS: IPRATROPIUM-ALBUTEROL 3 ML NEB INHALATION SCH ×3 (08:00→19:46)
[2018-03-10] MEDS: HEPARIN SODIUM,PORCINE 5,000 UNIT/ML 1 ML VIAL SQ SCH ×4 (08:59→23:54)
[2018-03-10] MEDS: MAGNESIUM SULFATE-D5W PMX 1 GM in DEXTROSE/WATER 1 100ML.BAG IVPB SCH ×2 (08:59→10:02)
--- NOTE | 2018-03-10 09:31 | P.PN ---
Subjective Progress Note Date: 03/10/18 Principal diagnosis: Post right colectomy Patient doing well today. She did have a bowel movement and some flatus. Her appetite is diminished. Hemoglobin is stable at 7.8. Hematologically stable. Some bloating. Currently on clear liquids. Objective - Vital Signs Vital signs: Vital Signs Temp 98.9 F 03/10/18 00:00 Pulse 87 03/10/18 08:20 Resp 23 03/10/18 07:00 BP 116/50 03/10/18 07:00 Pulse Ox 97 03/10/18 07:00 Intake & Output 03/09/18 03/10/18 03/10/18 18:59 06:59 18:59 Intake Total 1460 1215 Output Total 2035 1475 Balance -575 -260 Weight 115.4 kg 108.5 kg Intake: IV 900 975 Lactated Ringers 1,000 ml 900 975 @ 125 mls/hr IV .Q8H [facility] Rx#:[id number] Intake, IV Titration 250 Amount Lactated Ringers 1,000 ml 250 @ 125 mls/hr IV .Q8H [facility] Rx#:[id number] Oral 240 Blood Product 310 Rc As-1 Unit 310 [id number] Output: Urine 5 1475 Other: Voiding Method Indwelling Catheter Indwelling Catheter # Bowel Movements 1 ABP, PAP, CO, CI - Last Documented Arterial Blood Pressure 128/64 - Exam Abdomen: Soft, mild distention, dressing intact, mild tenderness - Labs CBC & Chem 7: 03/10/18 04:15 03/10/18 04:15 Labs: Abnormal Lab Results - Last 24 Hours (Table) 03/07/18 03/09/18 03/09/18 Range/Units 12:00 11:58 12:22 RBC (3.80-5.40) m/uL Hgb (11.4-16.0) gm/dL Hct (34.0-46.0) % RDW (11.5-15.5) % Plt Count (150-450) k/uL Sodium (137-145) mmol/L Chloride (98-107) mmol/L Carbon Dioxide (22-30) mmol/L BUN (7-17) mg/dL Glucose (74-99) mg/dL POC Glucose (mg/dL) 177 H 164 H (75-99) mg/dL Calcium (8.4-10.2) mg/dL Phosphorus (2.5-4.5) mg/dL Crossmatch See Detail 03/09/18 03/09/18 03/09/18 Range/Units 12:22 16:50 19:51 RBC 2.95 L (3.80-5.40) m/uL Hgb 7.8 L (11.4-16.0) gm/dL Hct 24.9 L (34.0-46.0) % RDW 16.1 H (11.5-15.5) % Plt Count 148 L (150-450) k/uL Sodium (137-145) mmol/L Chloride (98-107) mmol/L Carbon Dioxide (22-30) mmol/L BUN (7-17) mg/dL Glucose (74-99) mg/dL POC Glucose (mg/dL) 128 H 146 H (75-99) mg/dL Calcium (8.4-10.2) mg/dL Phosphorus (2.5-4.5) mg/dL Crossmatch 03/09/18 03/10/18 03/10/18 Range/Units 23:54 04:14 04:15 RBC 2.93 L (3.80-5.40) m/uL Hgb 7.8 L (11.4-16.0) gm/dL Hct 24.6 L (34.0-46.0) % RDW 16.4 H (11.5-15.5) % Plt Count 149 L (150-450) k/uL Sodium (137-145) mmol/L Chloride (98-107) mmol/L Carbon Dioxide (22-30) mmol/L BUN (7-17) mg/dL Glucose (74-99) mg/dL POC Glucose (mg/dL) 116 H 124 H (75-99) mg/dL Calcium (8.4-10.2) mg/dL Phosphorus (2.5-4.5) mg/dL Crossmatch 03/10/18 Range/Units 04:15 RBC (3.80-5.40) m/uL Hgb (11.4-16.0) gm/dL Hct (34.0-46.0) % RDW (11.5-15.5) % Plt Count (150-450) k/uL Sodium 135 L (137-145) mmol/L Chloride 97 L (98-107) mmol/L Carbon Dioxide 32 H (22-30) mmol/L BUN 4 L (7-17) mg/dL Glucose 110 H (74-99) mg/dL POC Glucose (mg/dL) (75-99) mg/dL Calcium 7.9 L (8.4-10.2) mg/dL Phosphorus 2.4 L (2.5-4.5) mg/dL Crossmatch Assessment and Plan (1) Rectal bleeding Narrative/Plan: Continue clear liquids for now given abdominal distention. Stable for transfer to the surgical floor at this point from my standpoint. Continue to monitor hemoglobin. Current Visit: No Status: Acute Code(s): K62.5 - HEMORRHAGE OF ANUS AND RECTUM SNOMED Code(s): 68298755
[2018-03-10] MEDS: DICLOFENAC SODIUM GEL 100 GM TUBE TOPICAL SCH ×4 (10:04→20:21)
[2018-03-10] MEDS: METOPROLOL SUCCINATE (ER) 50 MG TAB.ER.24H PO SCH (10:04)
[2018-03-10] MEDS: FUROSEMIDE 40 MG TAB PO SCH (10:04)
[2018-03-10] MEDS: PANTOPRAZOLE 40 MG/10 ML VIAL IV SCH ×2 (10:04→20:21)
[2018-03-10] MEDS: ALVIMOPAN 12 MG CAPSULE PO SCH ×2 (10:04→20:12)
[2018-03-10] MEDS: POTASSIUM BICARBONATE/CIT AC 20 MEQ TABLET.EFF PO SCH (10:05)
[2018-03-10 12:17] LABS: Glucose,Whole Blood 139 mg/dL (75-99)
--- NOTE | 2018-03-10 13:57 | P.PN ---
Subjective Progress Note Date: 03/10/18 This is a 79-year-old female with history of severe aortic stenosis and also mitral stenosis who is status post abdominal surgery. Patient seemed to be progressing slowly complaints of incisional pain. Patient is in sinus rhythm. No complaints of shortness of breath or chest pain. Waiting to be transferred to surgical unit Objective - Vital Signs Vital signs: Vital Signs Temp 99.1 F 03/10/18 12:00 Pulse 85 03/10/18 13:19 Resp 20 03/10/18 13:00 BP 106/48 03/10/18 13:00 Pulse Ox 97 03/10/18 13:00 Intake & Output 03/09/18 03/10/18 03/10/18 18:59 06:59 18:59 Intake Total 1460 1215 1490 Output Total 2035 1475 910 Balance -575 -260 580 Weight 115.4 kg 108.5 kg 108.5 kg Intake: IV 900 975 650 Lactated Ringers 1,000 ml 900 975 450 @ 125 mls/hr IV .Q8H [facility] Rx#:[id number] Magnesium Sulfate-D5w Pmx 200 1 gm In Dextrose/Water 1 100ml.bag @ 100 mls/hr IVPB Q1H [facility] Rx#: [id number] Intake, IV Titration 250 Amount Lactated Ringers 1,000 ml 250 @ 125 mls/hr IV .Q8H [facility] Rx#:[id number] Oral 240 840 Blood Product 310 Rc As-1 Unit 310 [id number] Output: Urine 2035 1475 910 Other: Voiding Method Indwelling Catheter Indwelling Catheter Indwelling Catheter # Bowel Movements 1 ABP, PAP, CO, CI - Last Documented Arterial Blood Pressure 128/64 - Exam GENERAL EXAM: Patient is alert and oriented and doesn't appear to be in any acute distress HEENT: Normocephalic. Normal reaction of pupils, equal size, normal range of extraocular motion. No erythema or exudates in the throat. NECK: No masses, no nuchal rigidity. CHEST: No chest wall deformity. LUNGS: Equal air entry with no crackles or wheeze. HEART: Systolic murmur heard in the aortic area ABDOMEN: Postsurgical SKIN: No rashes CENTRAL NERVOUS SYSTEM: No focal deficits. EXTREMITIES: No cyanosis, clubbing or edema. - Labs CBC & Chem 7: 03/10/18 04:15 05/12/18 04:15 Labs: Abnormal Lab Results - Last 24 Hours (Table) 03/09/18 03/09/18 03/09/18 Range/Units 16:50 19:51 23:54 RBC (3.80-5.40) m/uL Hgb (11.4-16.0) gm/dL Hct (34.0-46.0) % RDW (11.5-15.5) % Plt Count (150-450) k/uL Sodium (137-145) mmol/L Chloride (98-107) mmol/L Carbon Dioxide (22-30) mmol/L BUN (7-17) mg/dL Glucose (74-99) mg/dL POC Glucose (mg/dL) 128 H 146 H 116 H (75-99) mg/dL Calcium (8.4-10.2) mg/dL Phosphorus (2.5-4.5) mg/dL 03/10/18 03/10/18 03/10/18 Range/Units 04:14 04:15 04:15 RBC 2.93 L (3.80-5.40) m/uL Hgb 7.8 L (11.4-16.0) gm/dL Hct 24.6 L (34.0-46.0) % RDW 16.4 H (11.5-15.5) % Plt Count 149 L (150-450) k/uL Sodium 135 L (137-145) mmol/L Chloride 97 L (98-107) mmol/L Carbon Dioxide 32 H (22-30) mmol/L BUN 4 L (7-17) mg/dL Glucose 110 H (74-99) mg/dL POC Glucose (mg/dL) 124 H (75-99) mg/dL Calcium 7.9 L (8.4-10.2) mg/dL Phosphorus 2.4 L (2.5-4.5) mg/dL 03/10/18 Range/Units 12:14 RBC (3.80-5.40) m/uL Hgb (11.4-16.0) gm/dL Hct (34.0-46.0) % RDW (11.5-15.5) % Plt Count (150-450) k/uL Sodium (137-145) mmol/L Chloride (98-107) mmol/L Carbon Dioxide (22-30) mmol/L BUN (7-17) mg/dL Glucose (74-99) mg/dL POC Glucose (mg/dL) 139 H (75-99) mg/dL Calcium (8.4-10.2) mg/dL Phosphorus (2.5-4.5) mg/dL Assessment and Plan (1) Aortic stenosis Current Visit: Yes Status: Acute Code(s): I35.0 - NONRHEUMATIC AORTIC (VALVE ) STENOSIS SNOMED Code(s): 02696116 (2) Anemia Current Visit: No Status: Acute Code(s): D64.9 - ANEMIA, UNSPECIFIED SNOMED Code(s): 743561358 (3) Mitral stenosis Current Visit: Yes Status: Acute Code(s): I05.0 - RHEUMATIC MITRAL STENOSIS SNOMED Code(s): 21089941 Plan: Patient is clinically stable. No complaints of chest pain or shortness of breath. No arrhythmias. May be transferred to surgical unit
--- NOTE | 2018-03-10 14:07 | P.PN ---
Subjective Progress Note Date: 03/10/18 This is a 82-year-old female patient was being seen in the intensive care unit following her colectomy. The patient was having issues with GI bleed and low hemoglobin. She has had [id number] hospitalization and initially she declined to have further workup. Subsequently, based on ongoing episodes of GI bleed and anemia, the patient a colonoscopy and she was found to have a colonic mass. She was evaluated by general surgery and the patient was taken to the operating room on 03/07/2018 and the patient had a right colectomy for a right hepatic flexure colon mass. The estimated blood loss was only 50 mL an hour. The patient was extubated and the patient was moved to the intensive care unit for further monitoring. 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 Overnight the patient was kept on IV fluids at 150 mL an hour. Nevertheless she continued to have a low urine output within urine output of 15-20 mL an hour. The patient was given a total of 3 L of IV fluids. This was in the form of normal saline. Subsequent hemoglobin count showed that there was a drop and the patient was given a unit of packed RBC and this combination improved urine output. She did not require any pressors. Surgical wound site is clean. The skin is closed with brady and there is a wound VAC applied to the skin surface on top of the staple line. The patient has no NG tube. No cough or sputum production. No nausea vomiting. No abdominal distention. The patient is receiving morphine for pain control. The patient is also on her routine oral medication. No chest pain. No cough or sputum production. No altered mentation. No bowel movements yet. She has not passed any flatus. Resting comfortably in bed. No altered mentation. On 03/09/2018 the patient is being seen for a follow-up. The patient is resting comfortably in bed. Abdominal wound is dry clean and intact. Bowel sounds are hypoactive. The patient was given some clear liquid diets. No nausea. No vomiting. No emesis. The hemoglobin is stable at 7.8 after being given a transfusion with a unit of packed RBC earlier this morning for a hemoglobin of 6.8. The patient is afebrile. The neck fluid balance on this patient for the past 24 hours is +2.3 L for today and 4.3 L for yesterday. Urine output is adequate for now. No nausea. No vomiting. No headaches. No altered mentation. No other significant events overnight. On 03/10/2018 and seeing this patient for a follow-up. The patient is looking well. She has no specific complaints. She did have a loose bowel movement earlier. She has hypoactive bowel sounds. The incision is dry clean and intact. She is on room air oxygen. No cough. No sputum production. No chest tightness. No wheezing. No significant drop in hemoglobin and her hemoglobin is stable. No nausea. No vomiting. No emesis. No altered mentation. No other significant events overnight. The patient will be moved out to a surgical floor for now. Objective - Vital Signs Vital signs: Vital Signs Temp 99.1 F 03/10/18 12:00 Pulse 85 03/10/18 13:19 Resp 20 03/10/18 13:00 BP 106/48 03/10/18 13:00 Pulse Ox 97 03/10/18 13:00 Intake & Output 03/09/18 03/10/18 03/10/18 18:59 06:59 18:59 Intake Total 1460 1215 1490 Output Total 2035 1475 910 Balance -575 -260 580 Weight 115.4 kg 108.5 kg 108.5 kg Intake: IV 900 975 650 Lactated Ringers 1,000 ml 900 975 450 @ 125 mls/hr IV .Q8H [facility] Rx#:[id number] Magnesium Sulfate-D5w Pmx 200 1 gm In Dextrose/Water 1 100ml.bag @ 100 mls/hr IVPB Q1H [facility] Rx#: [id number] Intake, IV Titration 250 Amount Lactated Ringers 1,000 ml 250 @ 125 mls/hr IV .Q8H [facility] Rx#:[id number] Oral 240 840 Blood Product 310 Rc As-1 Unit 310 [id number] Output: Urine 2035 1475 910 Other: Voiding Method Indwelling Catheter Indwelling Catheter Indwelling Catheter # Bowel Movements 1 ABP, PAP, CO, CI - Last Documented Arterial Blood Pressure 128/64 - Exam Head exam was generally normal. There was no scleral icterus or corneal arcus. Mucous membranes were moist. Neck was supple and without jugular venous distension, thyromegaly, or carotid bruits. Carotids were easily palpable bilaterally. There was no adenopathy. Lungs were clear to auscultation and percussion, and with normal diaphragmatic excursion. No wheezes or rales were noted. Cardiac exam revealed the PMI to be normally situated and sized. The rhythm was regular and no extrasystoles were noted during several minutes of auscultation. The first and second heart sounds were normal and physiologic splitting of the second heart sound was noted. There were murmurs, rubs, no clicks, or gallops. There is a systolic ejection murmur grade 3/6 heard throughout the precordium Abdomen is soft. The mid incision over the abdomen is dry clean and intact. Bowel sounds are hypoactive. No direct tenderness or rebound tensile guarding. No abdominal distention. Examination of the extremities revealed easily palpable radial, femoral and pedal pulses. There was no cyanosis, clubbing or edema. Examination of the skin revealed no evidence of significant rashes, suspicious appearing nevi or other concerning lesions. Neurologically awake and alert and is no focal neurological deficit - Labs CBC & Chem 7: 03/10/18 04:15 03/10/18 04:15 Labs: Abnormal Lab Results - Last 24 Hours (Table) 03/09/18 03/09/18 03/09/18 Range/Units 16:50 19:51 23:54 RBC (3.80-5.40) m/uL Hgb (11.4-16.0) gm/dL Hct (34.0-46.0) % RDW (11.5-15.5) % Plt Count (150-450) k/uL Sodium (137-145) mmol/L Chloride (98-107) mmol/L Carbon Dioxide (22-30) mmol/L BUN (7-17) mg/dL Glucose (74-99) mg/dL POC Glucose (mg/dL) 128 H 146 H 116 H (75-99) mg/dL Calcium (8.4-10.2) mg/dL Phosphorus (2.5-4.5) mg/dL 03/10/18 03/10/18 03/10/18 Range/Units 04:14 04:15 04:15 RBC 2.93 L (3.80-5.40) m/uL Hgb 7.8 L (11.4-16.0) gm/dL Hct 24.6 L (34.0-46.0) % RDW 16.4 H (11.5-15.5) % Plt Count 149 L (150-450) k/uL Sodium 135 L (137-145) mmol/L Chloride 97 L (98-107) mmol/L Carbon Dioxide 32 H (22-30) mmol/L BUN 4 L (7-17) mg/dL Glucose 110 H (74-99) mg/dL POC Glucose (mg/dL) 124 H (75-99) mg/dL Calcium 7.9 L (8.4-10.2) mg/dL Phosphorus 2.4 L (2.5-4.5) mg/dL 03/10/18 Range/Units 12:14 RBC (3.80-5.40) m/uL Hgb (11.4-16.0) gm/dL Hct (34.0-46.0) % RDW (11.5-15.5) % Plt Count (150-450) k/uL Sodium (137-145) mmol/L Chloride (98-107) mmol/L Carbon Dioxide (22-30) mmol/L BUN (7-17) mg/dL Glucose (74-99) mg/dL POC Glucose (mg/dL) 139 H (75-99) mg/dL Calcium (8.4-10.2) mg/dL Phosphorus (2.5-4.5) mg/dL Assessment and Plan Plan: 1 right hemicolectomy for a right hepatic flexure colonic mass. The patient is postop day #3 2 postoperative low urine output, resuscitated with IV fluids, and the patient received significant amount of fluids and overall net fluid balance is +5 L at least over the past 24-48 hours in addition to being transfused with packed RBC for anemia. Overall urine output is improved and the patient remains hemodynamically stable for now. 3 postoperative anemia, and expected outcome of bowel surgery specially the patient has baseline anemia related to GI bleeding. The patient had also further drop in hemoglobin and based on IV fluids and this could be potentially dilutional and the patient got transfused with a unit of packed RBC. Earlier this morning the hemoglobin was at 6.8 and the patient was given additional unit of packed RBC to bring her hemoglobin up to 7.8. The patient's hemoglobin remains stable at 7.8 and the patient has no signs of any bleeding. 4 valvular heart disease with severe aortic stenosis and moderate degree of mitral stenosis 5 MRSA sputum colonizer 6 obesity 7 diabetes mellitus 8 hypothyroidism 9 urinary incontinence Plan Continue IV fluids. Gradually advance diet as tolerated. The patient is taking clear liquid diet for now. We'll advance as tolerated. IV fluids will be continued. DuoNeb nebulized treatments around the clock. Incentive spirometer. The patient can be transferred to surgical floor with telemetry monitoring.
[2018-03-10] MEDS: HYDROcodone/APAP 7.5-325MG 1 EACH TAB PO PRN ×2 (14:50→20:21)
[2018-03-10 16:31] LABS: Glucose,Whole Blood 133 mg/dL (75-99)
[2018-03-10 20:07] LABS: Glucose,Whole Blood 133 mg/dL (75-99)
[2018-03-10] MEDS: ATORVASTATIN 20 MG TAB PO SCH (20:12)
[2018-03-10] MEDS: ASPIRIN 81 MG PO SCH (20:12)
--- NOTE | 2018-03-10 21:37 | PN ---
PROGRESS NOTE DATE OF SERVICE: 03/10/2018 PRESENTING COMPLAINT: Right colectomy. INTERVAL HISTORY: The patient is status post right colectomy in the ICU with a wound VAC in place. The patient actually did have a bowel movement. The patient is advanced from clear to full liquids. Some pain is present. Breathing is stable. The patient's and son are present. REVIEW OF SYSTEMS: Done for constitutional, cardiovascular, GI, pulmonary; relevant findings as above. CURRENT MEDICATIONS: Reviewed that include LR at 75 mL an hour. EXAMINATION: Temperature 98.2, pulse 69, respirations 16, blood pressure 127/68, pulse ox 95% on room air. GENERAL APPEARANCE: Sitting up in a chair, awake. EYES: Pupils equal. Conjunctivae normal. HEENT: External appearance of nose and ears normal. Oral cavity normal. NECK: JVD unable to assess. Mass not palpable. RESPIRATORY: Effort increased. LUNGS: Decreased breath sounds. CARDIOVASCULAR: First and second sounds normal. No edema. ABDOMEN: Soft, tenderness. Wound VAC is present. Bowel sounds are present. Liver and spleen not palpable. PSYCHIATRY: Alert and oriented x3. Mood and affect were normal. INVESTIGATIONS: White count 7.2, hemoglobin 7.8. Potassium 4, BUN is 4, creatinine 0.57. Accu-Cheks are noted. Phosphorus is 2.4. ASSESSMENT: 1. 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 2. Moderate aortic stenosis, nonrheumatic. 3. Moderate mitral stenosis, nonrheumatic. 4. Chronic congestive heart failure from diastolic dysfunction, ejection fraction 55%- 60%. 5. Diabetes mellitus type 2 on oral hypoglycemics. 6. Hypothyroid. 7. Essential hypertension. 8. Primary osteoarthritis. 9. Obesity; BMI 39.9. 10.Hypophosphatemia. PLAN: Will give the patient a dose off Neutra-Phos. Otherwise, patient doing better. Care was discussed with the patient and the family at the bedside. MMODL / IJN: [id number] /
[2018-03-11] MEDS: MORPHINE SULFATE 4 MG/ML SYRINGE IV PRN (01:04)
[2018-03-11] MEDS: LACTATED RINGERS 1,000 ML IV SCH ×2 (04:25→17:21)
[2018-03-11] MEDS: ONDANSETRON 4 MG/2 ML VIAL IVP PRN ×3 (04:25→20:45)
[2018-03-11] MEDS: LEVOTHYROXINE 75 MCG TAB PO SCH (05:37)
[2018-03-11 06:59] LABS: Glucose,Whole Blood 143 mg/dL (75-99)
[2018-03-11 07:04] LABS: Anisocytosis Slight; Basophils % (A) 0 %; Eosinophils # (A) 0.1 k/uL (0-0.7); Eosinophils % (A) 1 %; HCT 28.2 % (34.0-46.0); HGB 8.9 gm/dL (11.4-16.0); Hypochromasia Marked; Lymphocytes # (A) 0.9 k/uL (1.0-4.8); Lymphocytes % (A) 10 %; MCH 26.5 pg (25.0-35.0); MCHC 31.4 g/dL (31.0-37.0); MCV 84.4 fL (80.0-100.0); Mean Platelet Volume 8.7; Monocytes # (A) 0.6 k/uL (0-1.0); Monocytes % (A) 6 %; Neutrophils # (A) 7.8 k/uL (1.3-7.7); Neutrophils % (A) 81 %; Platelet Count 171 k/uL (150-450); Poikilocytosis Slight; RBC 3.34 m/uL (3.80-5.40); RDW 16.6 % (11.5-15.5); WBC 9.6 k/uL (3.8-10.6)
[2018-03-11 07:21] LABS: Anion Gap 9 mmol/L; Blood Urea Nitrogen 5 mg/dL (7-17); Calcium 8.6 mg/dL (8.4-10.2); Carbon Dioxide 31 mmol/L (22-30); Chloride 94 mmol/L (98-107); Glucose 140 mg/dL (74-99); Magnesium 1.9 mg/dL (1.6-2.3); Phosphorus 3.4 mg/dL (2.5-4.5); Potassium 4.3 mmol/L (3.5-5.1); Sodium 134 mmol/L (137-145)
[2018-03-11] MEDS: PANTOPRAZOLE 40 MG/10 ML VIAL IV SCH ×2 (08:50→21:01)
--- NOTE | 2018-03-11 08:53 | P.PN ---
Subjective Progress Note Date: 03/11/18 This is a 82-year-old female who is status post abdominal surgery for colonic mass. She is known to have severe aortic stenosis and also moderate mitral stenosis. Patient complaining of a feeling of indigestion after eating. She is being treated with hypertonic. Denies any shortness of breath. Hemodynamically stable. Had a short run of nonsustained V. tach, asymptomatic. Her potassium and magnesium levels are normal. Her heart examination revealed systolic murmur in the aortic area as before. Lungs appeared to be clear. Abdomen is postsurgical. We'll continue current medical therapy including beta blockers. Further recommendations depend upon clinical course. Objective - Vital Signs Vital signs: Vital Signs Temp 98.8 F 03/11/18 01:13 Pulse 80 03/11/18 08:42 Resp 16 03/11/18 08:42 BP 144/76 03/11/18 08:42 Pulse Ox 98 03/11/18 08:42 Intake & Output 03/10/18 03/11/18 03/11/18 18:59 06:59 18:59 Intake Total 1490 1285 Output Total 910 Balance 580 1285 Weight 108.5 kg Intake: IV 650 Lactated Ringers 1,000 ml 450 @ 125 mls/hr IV .Q8H [facility] Rx#:[id number] Magnesium Sulfate-D5w Pmx 200 1 gm In Dextrose/Water 1 100ml.bag @ 100 mls/hr IVPB Q1H [facility] Rx#: [id number] Intake, IV Titration 745 Amount Lactated Ringers 1,000 ml 745 @ 75 mls/hr IV .[id number] [facility] Rx#:[id number] Oral 840 540 Output: Urine 910 Other: Voiding Method Indwelling Catheter Bedpan Diaper # Voids 1 4 # Bowel Movements 1 2 # Emeses 0 ABP, PAP, CO, CI - Last Documented Arterial Blood Pressure 128/64 - Exam GENERAL EXAM: Patient is alert and oriented and doesn't appear to be in any acute distress HEENT: Normocephalic. Normal reaction of pupils, equal size, normal range of extraocular motion. No erythema or exudates in the throat. NECK: No masses, no nuchal rigidity. CHEST: No chest wall deformity. LUNGS: Equal air entry with no crackles or wheeze. HEART: Systolic murmur heard in the aortic area ABDOMEN: Postsurgical SKIN: No rashes CENTRAL NERVOUS SYSTEM: No focal deficits. EXTREMITIES: No cyanosis, clubbing or edema. - Labs CBC & Chem 7: 03/11/18 06:29 03/11/18 06:29 Labs: Abnormal Lab Results - Last 24 Hours (Table) 03/10/18 03/10/18 03/10/18 Range/Units 12:14 16:26 20:04 RBC (3.80-5.40) m/uL Hgb (11.4-16.0) gm/dL Hct (34.0-46.0) % RDW (11.5-15.5) % Neutrophils # (1.3-7.7) k/uL Lymphocytes # (1.0-4.8) k/uL Sodium (137-145) mmol/L Chloride (98-107) mmol/L Carbon Dioxide (22-30) mmol/L BUN (7-17) mg/dL Glucose (74-99) mg/dL POC Glucose (mg/dL) 139 H 133 H 133 H (75-99) mg/dL 03/11/1818 03/11/18 Range/Units 06:29 06:29 06:54 RBC 3.34 L (3.80-5.40) m/uL Hgb 8.9 L (11.4-16.0) gm/dL Hct 28.2 L (34.0-46.0) % RDW 16.6 H (11.5-15.5) % Neutrophils # 7.8 H (1.3-7.7) k/uL Lymphocytes # 0.9 L (1.0-4.8) k/uL Sodium 134 L (137-145) mmol/L Chloride 94 L (98-107) mmol/L Carbon Dioxide 31 H (22-30) mmol/L BUN 5 L (7-17) mg/dL Glucose 140 H (74-99) mg/dL POC Glucose (mg/dL) 143 H (75-99) mg/dL Assessment and Plan (1) Aortic stenosis Current Visit: Yes Status: Acute Code(s): I35.0 - NONRHEUMATIC AORTIC (VALVE ) STENOSIS SNOMED Code(s): 20894418 (2) Anemia Current Visit: No Status: Acute Code(s): D64.9 - ANEMIA, UNSPECIFIED SNOMED Code(s): 261575226 (3) Mitral stenosis Current Visit: Yes Status: Acute Code(s): I05.0 - RHEUMATIC MITRAL STENOSIS SNOMED Code(s): 83042012 Plan: Patient had one episode of an nonsustained VT which is asymptomatic. Patient is a pleasant maintaining sinus rhythm. Complains of a feeling of indigestion after eating. The possibility of angina to be considered because of severe aortic stenosis. Currently patient is on Protonix. Going to add a small dose of nitrates. Further recommendations depend upon clinical course
[2018-03-11] MEDS: HYDROcodone/APAP 7.5-325MG 1 EACH TAB PO PRN ×3 (08:56→21:35)
[2018-03-11] MEDS: HEPARIN SODIUM,PORCINE 5,000 UNIT/ML 1 ML VIAL SQ SCH ×2 (08:56→17:21)
[2018-03-11] MEDS: INSULIN ASPART 100 UNIT/ML 1 ML 10 ML VIAL SQ SCH ×4 (08:56→20:46)
[2018-03-11] MEDS: METOPROLOL SUCCINATE (ER) 50 MG TAB.ER.24H PO SCH (08:57)
[2018-03-11] MEDS: FUROSEMIDE 40 MG TAB PO SCH (08:57)
[2018-03-11] MEDS: ALVIMOPAN 12 MG CAPSULE PO SCH ×2 (08:57→20:44)
[2018-03-11] MEDS: POTASSIUM BICARBONATE/CIT AC 20 MEQ TABLET.EFF PO SCH (08:57)
[2018-03-11] MEDS: DICLOFENAC SODIUM GEL 100 GM TUBE TOPICAL SCH ×5 (08:58→21:35)
[2018-03-11] MEDS: IPRATROPIUM-ALBUTEROL 3 ML NEB INHALATION SCH ×3 (08:59→21:01)
[2018-03-11] MEDS: ISOSORBIDE MONONITRATE ER 15 MG TAB PO SCH (09:56)
[2018-03-11] MEDS: METOCLOPRAMIDE 5 MG/ML 2 ML VIAL IVP PRN ×2 (09:58→17:55)
--- NOTE | 2018-03-11 10:05 | P.PN ---
Subjective Progress Note Date: 03/11/18 Principal diagnosis: Post right colectomy Patient's diet was advanced yesterday. She did develop episodes of nausea and vomiting however. She feels nauseated currently. T-max 100.6 white blood cell count normal at 9.6 hemoglobin stable at 8.9. Objective - Vital Signs Vital signs: Vital Signs Temp 97.9 F 03/11/18 08:53 Pulse 83 03/11/18 09:13 Resp 16 03/11/18 09:07 BP 144/76 03/11/18 08:42 Pulse Ox 98 03/11/18 08:42 Intake & Output 03/10/18 03/11/18 03/11/18 18:59 06:59 18:59 Intake Total 1490 1285 Output Total 910 Balance 580 1285 Weight 108.5 kg Intake: IV 650 Lactated Ringers 1,000 ml 450 @ 125 mls/hr IV .Q8H [facility] Rx#:[id number] Magnesium Sulfate-D5w Pmx 200 1 gm In Dextrose/Water 1 100ml.bag @ 100 mls/hr IVPB Q1H [facility] Rx#: [id number] Intake, IV Titration 745 Amount Lactated Ringers 1,000 ml 745 @ 75 mls/hr IV .[id number] [facility] Rx#:[id number] Oral 840 540 Output: Urine 910 Other: Voiding Method Indwelling Catheter Bedpan Bedpan Diaper Diaper # Voids 1 4 1 # Bowel Movements 1 2 1 # Emeses 0 ABP, PAP, CO, CI - Last Documented Arterial Blood Pressure 128/64 - Exam Abdomen: Soft, mild distention, mild diffuse tenderness, dressing intact - Labs CBC & Chem 7: 03/11/18 06:29 03/11/18 06:29 Labs: Abnormal Lab Results - Last 24 Hours (Table) 03/10/18 03/10/18 03/10/18 Range/Units 12:14 16:26 20:04 RBC (3.80-5.40) m/uL Hgb (11.4-16.0) gm/dL Hct (34.0-46.0) % RDW (11.5-15.5) % Neutrophils # (1.3-7.7) k/uL Lymphocytes # (1.0-4.8) k/uL Sodium (137-145) mmol/L Chloride (98-107) mmol/L Carbon Dioxide (22-30) mmol/L BUN (7-17) mg/dL Glucose (74-99) mg/dL POC Glucose (mg/dL) 139 H 133 H 133 H (75-99) mg/dL 03/11/18 03/11/18 03/11/18 Range/Units 06:29 06:29 06:54 RBC 3.34 L (3.80-5.40) m/uL Hgb 8.9 L (11.4-16.0) gm/dL Hct 28.2 L (34.0-46.0) % RDW 16.6 H (11.5-15.5) % Neutrophils # 7.8 H (1.3-7.7) k/uL Lymphocytes # 0.9 L (1.0-4.8) k/uL Sodium 134 L (137-145) mmol/L Chloride 94 L (98-107) mmol/L Carbon Dioxide 31 H (22-30) mmol/L BUN 5 L (7-17) mg/dL Glucose 140 H (74-99) mg/dL POC Glucose (mg/dL) 143 H (75-99) mg/dL Assessment and Plan (1) Rectal bleeding Narrative/Plan: Will switch to nothing by mouth for now. Increase activity. Monitor nausea and vomiting. Current Visit: No Status: Acute Code(s): K62.5 - HEMORRHAGE OF ANUS AND RECTUM SNOMED Code(s): 37335611
[2018-03-11 12:05] LABS: Glucose,Whole Blood 155 mg/dL (75-99)
--- NOTE | 2018-03-11 14:40 | P.PN ---
Subjective Progress Note Date: 03/11/18 This is a 82-year-old female patient was being seen in the intensive care unit following her colectomy. The patient was having issues with GI bleed and low hemoglobin. She has had [id number] hospitalization and initially she declined to have further workup. Subsequently, based on ongoing episodes of GI bleed and anemia, the patient a colonoscopy and she was found to have a colonic mass. She was evaluated by general surgery and the patient was taken to the operating room on 03/07/2018 and the patient had a right colectomy for a right hepatic flexure colon mass. The estimated blood loss was only 50 mL an hour. The patient was extubated and the patient was moved to the intensive care unit for further monitoring. 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 Overnight the patient was kept on IV fluids at 150 mL an hour. Nevertheless she continued to have a low urine output within urine output of 15-20 mL an hour. The patient was given a total of 3 L of IV fluids. This was in the form of normal saline. Subsequent hemoglobin count showed that there was a drop and the patient was given a unit of packed RBC and this combination improved urine output. She did not require any pressors. Surgical wound site is clean. The skin is closed with brady and there is a wound VAC applied to the skin surface on top of the staple line. The patient has no NG tube. No cough or sputum production. No nausea vomiting. No abdominal distention. The patient is receiving morphine for pain control. The patient is also on her routine oral medication. No chest pain. No cough or sputum production. No altered mentation. No bowel movements yet. She has not passed any flatus. Resting comfortably in bed. No altered mentation. On 03/09/2018 the patient is being seen for a follow-up. The patient is resting comfortably in bed. Abdominal wound is dry clean and intact. Bowel sounds are hypoactive. The patient was given some clear liquid diets. No nausea. No vomiting. No emesis. The hemoglobin is stable at 7.8 after being given a transfusion with a unit of packed RBC earlier this morning for a hemoglobin of 6.8. The patient is afebrile. The neck fluid balance on this patient for the past 24 hours is +2.3 L for today and 4.3 L for yesterday. Urine output is adequate for now. No nausea. No vomiting. No headaches. No altered mentation. No other significant events overnight. On 03/10/2018 and seeing this patient for a follow-up. The patient is looking well. She has no specific complaints. She did have a loose bowel movement earlier. She has hypoactive bowel sounds. The incision is dry clean and intact. She is on room air oxygen. No cough. No sputum production. No chest tightness. No wheezing. No significant drop in hemoglobin and her hemoglobin is stable. No nausea. No vomiting. No emesis. No altered mentation. No other significant events overnight. The patient will be moved out to a surgical floor for now. On 03/11/2018 the patient is out of the intensive care unit on a surgical floor. No respiratory difficulties. Hemodynamically stable. Nevertheless the patient has been placed nothing by mouth as the patient has been having several episodes of emesis since this morning. The patient has no abdominal distention. Bowel sounds are hypoactive. She was having a bowel movement earlier. Gen. surgery evaluated the patient The patient nothing by mouth for now. No fever or chills. She is taking Reglan and Zofran in that regard. Objective - Vital Signs Vital signs: Vital Signs Temp 97.9 F 03/11/18 08:53 Pulse 83 03/11/18 09:13 Resp 16 03/11/18 09:07 BP 144/76 03/11/18 08:42 Pulse Ox 98 03/11/18 08:42 Intake & Output 03/10/18 03/11/18 03/11/18 18:59 06:59 18:59 Intake Total 1490 1285 Output Total 910 Balance 580 1285 Weight 108.5 kg 115 kg Intake: IV 650 Lactated Ringers 1,000 ml 450 @ 125 mls/hr IV .Q8H [facility] Rx#:[id number] Magnesium Sulfate-D5w Pmx 200 1 gm In Dextrose/Water 1 100ml.bag @ 100 mls/hr IVPB Q1H [facility] Rx#: [id number] Intake, IV Titration 745 Amount Lactated Ringers 1,000 ml 745 @ 75 mls/hr IV .[id number] [facility] Rx#:[id number] Oral 840 540 Output: Urine 910 Other: Voiding Method Indwelling Catheter Bedpan Bedpan Diaper Diaper # Voids 1 4 2 # Bowel Movements 1 2 1 # Emeses 0 ABP, PAP, CO, CI - Last Documented Arterial Blood Pressure 128/64 - Exam Head exam was generally normal. There was no scleral icterus or corneal arcus. Mucous membranes were moist. Neck was supple and without jugular venous distension, thyromegaly, or carotid bruits. Carotids were easily palpable bilaterally. There was no adenopathy. Lungs were clear to auscultation and percussion, and with normal diaphragmatic excursion. No wheezes or rales were noted. Cardiac exam revealed the PMI to be normally situated and sized. The rhythm was regular and no extrasystoles were noted during several minutes of auscultation. The first and second heart sounds were normal and physiologic splitting of the second heart sound was noted. There were murmurs, rubs, no clicks, or gallops. There is a systolic ejection murmur grade 3/6 heard throughout the precordium Abdomen is soft. The mid incision over the abdomen is dry clean and intact. Bowel sounds are hypoactive. No direct tenderness or rebound tensile guarding. No abdominal distention. Examination of the extremities revealed easily palpable radial, femoral and pedal pulses. There was no cyanosis, clubbing or edema. Examination of the skin revealed no evidence of significant rashes, suspicious appearing nevi or other concerning lesions. Neurologically awake and alert and is no focal neurological deficit - Labs CBC & Chem 7: 03/11/18 06:29 03/11/18 06:29 Labs: Abnormal Lab Results - Last 24 Hours (Table) 03/10/18 03/10/18 03/11/18 Range/Units 16:26 20:04 06:29 RBC 3.34 L (3.80-5.40) m/uL Hgb 8.9 L (11.4-16.0) gm/dL Hct 28.2 L (34.0-46.0) % RDW 16.6 H (11.5-15.5) % Neutrophils # 7.8 H (1.3-7.7) k/uL Lymphocytes # 0.9 L (1.0-4.8) k/uL Sodium (137-145) mmol/L Chloride (98-107) mmol/L Carbon Dioxide (22-30) mmol/L BUN (7-17) mg/dL Glucose (74-99) mg/dL POC Glucose (mg/dL) 133 H 133 H (75-99) mg/dL 03/11/18 03/11/18 03/11/18 Range/Units 06:29 06:54 11:44 RBC (3.80-5.40) m/uL Hgb (11.4-16.0) gm/dL Hct (34.0-46.0) % RDW (11.5-15.5) % Neutrophils # (1.3-7.7) k/uL Lymphocytes # (1.0-4.8) k/uL Sodium 134 L (137-145) mmol/L Chloride 94 L (98-107) mmol/L Carbon Dioxide 31 H (22-30) mmol/L BUN 5 L (7-17) mg/dL Glucose 140 H (74-99) mg/dL POC Glucose (mg/dL) 143 H 155 H (75-99) mg/dL Assessment and Plan Plan: 1 right hemicolectomy for a right hepatic flexure colonic mass. The patient is postop day #4. Suspect a component of ileus or aggressive feeding following surgery. The patient is currently nothing by mouth. 2 postoperative low urine output, recovered 3 postoperative anemia, and expected outcome of bowel surgery stable with a hemoglobin of 8.9 4 valvular heart disease with severe aortic stenosis and moderate degree of mitral stenosis 5 MRSA sputum colonizer 6 obesity 7 diabetes mellitus 8 hypothyroidism 9 urinary incontinence Plan Continue IV fluids. Keep nothing by mouth for today. Zofran. Reglan. Increased level of activity as tolerated. Incentive spirometer. Wound is clean. We'll continue to follow
[2018-03-11 16:55] LABS: Glucose,Whole Blood 139 mg/dL (75-99)
--- NOTE | 2018-03-11 17:51 | XR ---
EXAMINATION TYPE: XR abdomen 2V DATE OF EXAM: 03/11/2018 5:42 PM CLINICAL HISTORY: Postsurgical evaluation. Ileus. TECHNIQUE: Single supine KUB image of the abdomen is obtained. COMPARISON: 11/22/2016. FINDINGS: There is marked gastrectasis. Ventral abdominal wall brady are seen to the left para midl ine. Surgical clips are noted within the right upper quadrant. Small bowel is dilated up to 3.6 cm an d air-filled. Large bowel is also dilated up to 7.2 cm and air-filled. Extensive degenerative changes of the osseous structures are noted. IMPRESSION: Marked dilation of the stomach, large bowel, and small bowel. Given the recent postoperat gee status this could relate to severe ileus although short-term follow-up is recommended and conside ration for enteric decompression tube placement.
[2018-03-11 19:51] LABS: Glucose,Whole Blood 141 mg/dL (75-99)
[2018-03-11] MEDS: ASPIRIN 81 MG PO SCH (20:44)
[2018-03-11] MEDS: ATORVASTATIN 20 MG TAB PO SCH (20:45)
--- NOTE | 2018-03-11 22:35 | PN ---
PROGRESS NOTE DATE OF SERVICE: 03/11/2018 PRESENTING COMPLAINT: Right colectomy. INTERVAL HISTORY: The patient is status post right colectomy with a wound VAC in place. The patient did throw up couple of times, having some abdominal discomfort, now moved to the surgical floor yesterday. The patient has had a bowel movement and passed flatus, feeling uncomfortable. REVIEW OF SYSTEMS: Done for constitutional, cardiovascular, GI, pulmonary; relevant findings as above. CURRENT MEDICATIONS: Reviewed and include LR at 75 mL/hour. PHYSICAL EXAMINATION: Temperature 97.9, pulse 80, respirations 16, blood pressure 144/76, pulse ox 98% on room air. GENERAL APPEARANCE: Lying in bed, tired appearing. EYES: Pupils are equal. Conjunctivae normal. HEENT: External appearance of nose and ears normal. Oral cavity dry. NECK: JVD unable to assess. Mass not palpable. Respiratory effort increased. LUNGS: Decreased breath sounds. CARDIOVASCULAR: First and second sounds normal. No edema. ABDOMEN: Soft. Tenderness present. Wound VAC is present. Bowel sounds are hyperactive. Liver and spleen not palpable. PSYCHIATRY: Alert and oriented x3. Mood and affect normal. INVESTIGATIONS: White count 9.6, hemoglobin 8.9, potassium 4.3, BUN 5, creatinine 0.62. Accu-Cheks are noted. ASSESSMENT: 1. 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 2. Possible postop ileus with hypertympanitic bowel sounds. Abdomen does appear somewhat distended, although soft. 3. Moderate aortic stenosis, nonrheumatic. 4. Moderate mitral stenosis, nonrheumatic. 5. Chronic congestive heart failure from diastolic dysfunction. Ejection fraction 55% to 60%. 6. Diabetes mellitus type 2 on oral hypoglycemics. 7. Hypothyroid. 8. Essential hypertension. 9. Primary osteoarthritis. 10.Obesity; BMI 39.9. 11.Hypophosphatemia. PLAN: Continue current medication and treatment plan. We will do abdominal x-ray. The patient is being followed by my colleagues. Will keep a close eye. MMODL / IJN: [id number] /
[2018-03-11] MEDS: METOCLOPRAMIDE 5 MG/ML 2 ML VIAL IVP SCH (23:29)
[2018-03-12] MEDS: HEPARIN SODIUM,PORCINE 5,000 UNIT/ML 1 ML VIAL SQ SCH ×3 (01:03→18:00)
[2018-03-12] MEDS: LEVOTHYROXINE 75 MCG TAB PO SCH (05:36)
[2018-03-12] MEDS: METOCLOPRAMIDE 5 MG/ML 2 ML VIAL IVP SCH ×3 (05:36→17:57)
[2018-03-12 07:14] LABS: Glucose,Whole Blood 140 mg/dL (75-99)
[2018-03-12] MEDS: IPRATROPIUM-ALBUTEROL 3 ML NEB INHALATION SCH ×3 (07:16→19:19)
[2018-03-12 08:41] LABS: Anisocytosis Slight; Basophils % (A) 0 %; Eosinophils % (A) 0 %; HCT 27.1 % (34.0-46.0); HGB 8.7 gm/dL (11.4-16.0); Hypochromasia Marked; Lymphocytes # (A) 0.9 k/uL (1.0-4.8); Lymphocytes % (A) 5 %; MCHC 32.1 g/dL (31.0-37.0); MCV 84.3 fL (80.0-100.0); Mean Platelet Volume 8.5; Monocytes # (A) 0.8 k/uL (0-1.0); Monocytes % (A) 5 %; Neutrophils # (A) 15.2 k/uL (1.3-7.7); Neutrophils % (A) 87 %; Platelet Count 182 k/uL (150-450); Poikilocytosis Moderate; RBC 3.22 m/uL (3.80-5.40); RDW 16.3 % (11.5-15.5); WBC 17.5 k/uL (3.8-10.6)
[2018-03-12 08:52] LABS: Anion Gap 9 mmol/L; Blood Urea Nitrogen 11 mg/dL (7-17); Calcium 8.6 mg/dL (8.4-10.2); Carbon Dioxide 28 mmol/L (22-30); Chloride 95 mmol/L (98-107); Glucose 125 mg/dL (74-99); Magnesium 1.8 mg/dL (1.6-2.3); Phosphorus 3.4 mg/dL (2.5-4.5); Potassium 3.9 mmol/L (3.5-5.1); Sodium 132 mmol/L (137-145)
[2018-03-12] MEDS: ALVIMOPAN 12 MG CAPSULE PO SCH ×2 (09:25→22:02)
[2018-03-12] MEDS: ISOSORBIDE MONONITRATE ER 15 MG TAB PO SCH (09:25)
[2018-03-12] MEDS: INSULIN ASPART 100 UNIT/ML 1 ML 10 ML VIAL SQ SCH ×4 (09:25→21:50)
[2018-03-12] MEDS: FUROSEMIDE 40 MG TAB PO SCH (09:25)
[2018-03-12] MEDS: DICLOFENAC SODIUM GEL 100 GM TUBE TOPICAL SCH ×4 (09:25→22:00)
[2018-03-12] MEDS: POTASSIUM BICARBONATE/CIT AC 20 MEQ TABLET.EFF PO SCH (09:26)
[2018-03-12] MEDS: METOPROLOL SUCCINATE (ER) 50 MG TAB.ER.24H PO SCH (09:26)
[2018-03-12] MEDS: PANTOPRAZOLE 40 MG/10 ML VIAL IV SCH ×2 (09:45→22:01)
[2018-03-12 11:42] LABS: Glucose,Whole Blood 131 mg/dL (75-99)
[2018-03-12 11:44] VITALS: BMI 43.4
--- NOTE | 2018-03-12 12:51 | P.PN ---
Subjective Progress Note Date: 03/12/18 Principal diagnosis: Status post right hemicolectomy for a right hepatic flexure colonic mass. Postoperative day #5 This is a 82-year-old female patient was being seen in the intensive care unit following her colectomy. The patient was having issues with GI bleed and low hemoglobin. She has had [id number] hospitalization and initially she declined to have further workup. Subsequently, based on ongoing episodes of GI bleed and anemia, the patient a colonoscopy and she was found to have a colonic mass. She was evaluated by general surgery and the patient was taken to the operating room on 03/07/2018 and the patient had a right colectomy for a right hepatic flexure colon mass. The estimated blood loss was only 50 mL an hour. The patient was extubated and the patient was moved to the intensive care unit for further monitoring. 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 Overnight the patient was kept on IV fluids at 150 mL an hour. Nevertheless she continued to have a low urine output within urine output of 15-20 mL an hour. The patient was given a total of 3 L of IV fluids. This was in the form of normal saline. Subsequent hemoglobin count showed that there was a drop and the patient was given a unit of packed RBC and this combination improved urine output. She did not require any pressors. Surgical wound site is clean. The skin is closed with brady and there is a wound VAC applied to the skin surface on top of the staple line. The patient has no NG tube. No cough or sputum production. No nausea vomiting. No abdominal distention. The patient is receiving morphine for pain control. The patient is also on her routine oral medication. No chest pain. No cough or sputum production. No altered mentation. No bowel movements yet. She has not passed any flatus. Resting comfortably in bed. No altered mentation. On 03/09/2018 the patient is being seen for a follow-up. The patient is resting comfortably in bed. Abdominal wound is dry clean and intact. Bowel sounds are hypoactive. The patient was given some clear liquid diets. No nausea. No vomiting. No emesis. The hemoglobin is stable at 7.8 after being given a transfusion with a unit of packed RBC earlier this morning for a hemoglobin of 6.8. The patient is afebrile. The neck fluid balance on this patient for the past 24 hours is +2.3 L for today and 4.3 L for yesterday. Urine output is adequate for now. No nausea. No vomiting. No headaches. No altered mentation. No other significant events overnight. On 03/10/2018 and seeing this patient for a follow-up. The patient is looking well. She has no specific complaints. She did have a loose bowel movement earlier. She has hypoactive bowel sounds. The incision is dry clean and intact. She is on room air oxygen. No cough. No sputum production. No chest tightness. No wheezing. No significant drop in hemoglobin and her hemoglobin is stable. No nausea. No vomiting. No emesis. No altered mentation. No other significant events overnight. The patient will be moved out to a surgical floor for now. On 03/11/2018 the patient is out of the intensive care unit on a surgical floor. No respiratory difficulties. Hemodynamically stable. Nevertheless the patient has been placed nothing by mouth as the patient has been having several episodes of emesis since this morning. The patient has no abdominal distention. Bowel sounds are hypoactive. She was having a bowel movement earlier. Gen. surgery evaluated the patient The patient nothing by mouth for now. No fever or chills. She is taking Reglan and Zofran in that regard. On 03/12/2018, patient is doing well, she has no active pulmonary symptoms, no cough no wheezing no shortness of breath, doing excellent with her incentive spirometry. On room air. Objective - Vital Signs Vital signs: Vital Signs Temp 98.2 F 03/12/18 09:20 Pulse 75 03/12/18 09:20 Resp 16 03/12/18 09:20 BP 130/73 03/12/18 09:20 Pulse Ox 98 03/12/18 09:20 Intake & Output 03/11/18 03/12/18 03/12/18 18:59 06:59 18:59 Intake Total 750 Balance 750 Weight 115 kg 115 kg Intake: Intake, IV Titration 750 Amount Lactated Ringers 1,000 ml 750 @ 75 mls/hr IV .[id number] [facility] Rx#:[id number] Other: Voiding Method Bedpan Diaper Diaper # Voids 1 1 # Bowel Movements 1 1 ABP, PAP, CO, CI - Last Documented Arterial Blood Pressure 128/64 - Exam Physical exam revealed an 82-year-old female, very pleasant, in no distress. Head exam was generally normal. There was no scleral icterus or corneal arcus. Mucous membranes were moist. Neck was supple and without jugular venous distension, thyromegaly, or carotid bruits. Carotids were easily palpable bilaterally. There was no adenopathy. Lungs were clear to auscultation and percussion, and with normal diaphragmatic excursion. No wheezes or rales were noted. Cardiac exam revealed the PMI to be normally situated and sized. The rhythm was regular and no extrasystoles were noted during several minutes of auscultation. The first and second heart sounds were normal and physiologic splitting of the second heart sound was noted. There were murmurs, rubs, no clicks, or gallops. There is a systolic ejection murmur grade 3/6 heard throughout the precordium Abdomen is soft. The mid incision over the abdomen is dry clean and intact. Wound VAC is noted. Bowel sounds are hypoactive. No direct tenderness or rebound tensile guarding. No abdominal distention. Examination of the extremities revealed easily palpable radial, femoral and pedal pulses. There was no cyanosis, clubbing or edema. Examination of the skin revealed no evidence of significant rashes, suspicious appearing nevi or other concerning lesions. Neurologically awake and alert and is no focal neurological deficit - Labs CBC & Chem 7: 03/12/18 08:02 03/12/18 08:02 Labs: Abnormal Lab Results - Last 24 Hours (Table) 03/11/18 03/11/18 03/12/18 Range/Units 16:50 19:43 07:00 WBC (3.8-10.6) k/uL RBC (3.80-5.40) m/uL Hgb (11.4-16.0) gm/dL Hct (34.0-46.0) % RDW (11.5-15.5) % Neutrophils # (1.3-7.7) k/uL Lymphocytes # (1.0-4.8) k/uL Sodium (137-145) mmol/L Chloride (98-107) mmol/L Glucose (74-99) mg/dL POC Glucose (mg/dL) 139 H 141 H 140 H (75-99) mg/dL 03/12/18 03/12/1803/12/18 Range/Units 08:02 08:02 11:39 WBC 17.5 H (3.8-10.6) k/uL RBC 3.22 L (3.80-5.40) m/uL Hgb 8.7 L (11.4-16.0) gm/dL Hct 27.1 L (34.0-46.0) % RDW 16.3 H (11.5-15.5) % Neutrophils # 15.2 H (1.3-7.7) k/uL Lymphocytes # 0.9 L (1.0-4.8) k/uL Sodium 132 L (137-145) mmol/L Chloride 95 L (98-107) mmol/L Glucose 125 H (74-99) mg/dL POC Glucose (mg/dL) 131 H (75-99) mg/dL Assessment and Plan Assessment: 1 right hemicolectomy for a right hepatic flexure colonic mass. The patient is postop day #5. Improving, she will start on liquid diet today. 2 postoperative low urine output, recovered 3 postoperative anemia, and expected outcome of bowel surgery stable with a hemoglobin of 8.9 4 valvular heart disease with severe aortic stenosis and moderate degree of mitral stenosis 5 MRSA sputum colonizer 6 obesity 7 diabetes mellitus 8 hypothyroidism 9 urinary incontinence Plan Continue present treatment plan, continue incentive spirometry, will follow. Time with Patient: Less than 30
--- NOTE | 2018-03-12 13:00 | PN ---
PROGRESS NOTE DATE OF SERVICE: 03/09/2018 This patient is status post colectomy, patient has evidence of severe aortic stenosis. Patient is resting comfortably and she is sitting in a chair. No respiratory distress is noted. Chest x-ray does not show any evidence of heart failure. The patient's blood pressure is 100/80 mmHg. First and second heart sounds are normal. There is ejection systolic murmur noted. Lungs are fairly clinically clear to auscultation and percussion. We will recommend to continue the patient on the current medications. MMODL / IJN: [id number] /
[2018-03-12] MEDS: LACTATED RINGERS 1,000 ML IV SCH (13:10)
--- NOTE | 2018-03-12 15:11 | P.PN ---
Subjective Progress Note Date: 03/12/18 Mrs. Bonilla is a pleasant 82-year-old female past medical history significant for severe aortic stenosis, moderate mitral stenosis, hypertension, dyslipidemia and diabetes mellitus. She was recently found to have an abdominal mass and underwent colectomy. Yesterday she was having symptoms of indigestion after eating and was started on nitrates in the form of imdur 15 mg daily. She denies any ongoing symptoms of chest discomfort. Blood pressure 130/73 heart rate 75 afebrile maintaining oxygen saturation on room air. At the time of my exam she is seen resting comfortably in bed. Telemetry tracings have been unremarkable with no further episodes of ventricular tachycardia. Laboratory data reviewed, WBC 17.5, hemoglobin 8.7, platelets 182, sodium 132, potassium 3.9, creatinine 0.57. She is currently receiving aspirin 81 mg daily, atorvastatin 20 mg daily, Lasix 40 mg daily by mouth, Imdur 15 mg daily and Toprol 50 mg daily. Objective - Vital Signs Vital signs: Vital Signs Temp 98.2 F 03/12/18 09:20 Pulse 75 03/12/18 09:20 Resp 16 03/12/18 09:20 BP 130/73 03/12/18 09:20 Pulse Ox 98 03/12/18 09:20 Intake & Output 03/11/18 03/12/18 03/12/18 18:59 06:59 18:59 Intake Total 750 Balance 750 Weight 115 kg 115 kg Intake: Intake, IV Titration 750 Amount Lactated Ringers 1,000 ml 750 @ 75 mls/hr IV .[id number] [facility] Rx#:[id number] Other: Voiding Method Bedpan Diaper Diaper # Voids 1 1 # Bowel Movements 1 1 ABP, PAP, CO, CI - Last Documented Arterial Blood Pressure 128/64 - Exam GENERAL: Well-appearing, well-nourished and in no acute distress. NECK: Supple without JVD or thyromegaly. LUNGS: Breath sounds clear to auscultation bilaterally. Respiration equal and unlabored. No wheezes, rales or rhonchi. HEART: Regular rate and rhythm with systolic ejection murmur at the base, no rubs or gallops. S1 and S2 heard. EXTREMITIES: Normal range of motion, no edema. No clubbing or cyanosis. Peripheral pulses intact and strong. - Labs CBC & Chem 7: 05/14/18 08:02 03/12/18 08:02 Labs: Abnormal Lab Results - Last 24 Hours (Table) 03/11/18 03/11/18 03/12/18 Range/Units 16:50 19:43 07:00 WBC (3.8-10.6) k/uL RBC (3.80-5.40) m/uL Hgb (11.4-16.0) gm/dL Hct (34.0-46.0) % RDW (11.5-15.5) % Neutrophils # (1.3-7.7) k/uL Lymphocytes # (1.0-4.8) k/uL Sodium (137-145) mmol/L Chloride (98-107) mmol/L Glucose (74-99) mg/dL POC Glucose (mg/dL) 139 H 141 H 140 H (75-99) mg/dL 03/12/18 03/12/18 03/12/18 Range/Units 08:02 08:02 11:39 WBC 17.5 H (3.8-10.6) k/uL RBC 3.22 L (3.80-5.40) m/uL Hgb 8.7 L (11.4-16.0) gm/dL Hct 27.1 L (34.0-46.0) % RDW 16.3 H (11.5-15.5) % Neutrophils # 15.2 H (1.3-7.7) k/uL Lymphocytes # 0.9 L (1.0-4.8) k/uL Sodium 132 L (137-145) mmol/L Chloride 95 L (98-107) mmol/L Glucose 125 H (74-99) mg/dL POC Glucose (mg/dL) 131 H (75-99) mg/dL Assessment and Plan Assessment: ASSESSMENT 1. Right hemicolectomy for a hepatic flexure mass. 2. Severe aortic stenosis 3. Moderate mitral stenosis 4. Diabetes mellitus 5. Anemia PLAN From cardiology's perspective we recommend continuing ongoing medical therapy. Ongoing telemetry monitoring for arrhythmia. Continue with imdur, toprol, aspirin, lasix and atorvastatin as previously ordered. Nurse Practitioner note has been reviewed, I agree with a documented findings and plan of care. Patient was seen and examined.
--- NOTE | 2018-03-12 16:36 | P.PN ---
Progress Note - Text Progress Note Date: 03/12/18 The patient was thought to have an ileus yesterday. Her feedings were held. The patient has had flatus and a bowel movement. She is currently on the bedpan. On exam her vital signs are stable. Her abdomen soft. Status post extended right colectomy. Patient's postoperative ileus is resolving. She was placed on clear liquid diet.
[2018-03-12 17:06] LABS: Glucose,Whole Blood 97 mg/dL (75-99)
[2018-03-12 21:07] LABS: Glucose,Whole Blood 86 mg/dL (75-99)
[2018-03-12] MEDS: ATORVASTATIN 20 MG TAB PO SCH (22:02)
[2018-03-12] MEDS: ASPIRIN 81 MG PO SCH (22:02)
[2018-03-13] MEDS: METOCLOPRAMIDE 5 MG/ML 2 ML VIAL IVP SCH ×4 (00:33→17:06)
[2018-03-13] MEDS: HEPARIN SODIUM,PORCINE 5,000 UNIT/ML 1 ML VIAL SQ SCH ×3 (00:34→17:06)
[2018-03-13] MEDS: LACTATED RINGERS 1,000 ML IV SCH ×2 (03:04→15:19)
--- NOTE | 2018-03-13 03:30 | PN ---
PROGRESS NOTE DATE OF SERVICE: March 12, 2018. PRESENTING COMPLAINT: Ileus. INTERVAL HISTORY: Patient is status post right colectomy with a wound VAC in place. The patient's ileus was confirmed via abdominal x-ray yesterday. Later in the evening, patient was having large amount of bowel movements and no further nausea or vomiting. Clinically, ileus seems to have resolved. REVIEW OF SYSTEMS: Done for constitutional, cardiovascular, GI, pulmonary; relevant findings above. Abdominal pain is greatly improved. CURRENT MEDICATIONS: Reviewed. EXAMINATION: Temperature 98.2, pulse 75, respiration 16, blood pressure 130/73, pulse ox 98% on room air. General appearance: Appears more comfortable today. EYES: Pupils are equal. Conjunctivae normal. HEENT: External appearance of nose and ears. Oral cavity normal. Neck: JVD not raised. Mass not palpable. Respiratory effort increased. Lungs decreased breath sounds. Cardiovascular 1st and 2nd sounds normal. No edema. Abdomen less distended. Decreased tenderness. Bowel sounds are present. Wound VAC in place. Liver and spleen not palpable. Psychiatry: Alert and oriented x3. Mood and affect normal. INVESTIGATIONS: White count 7.5, hemoglobin 8.7, potassium 3.9, BUN and creatinine is normal. X-ray from yesterday did confirm the ileus. ASSESSMENT: 1. Right hemicolectomy for moderately differentiated carcinoma with some mucinous component from the colon cancer with a wound VAC in place. 2. Postoperative ileus, clinically improved. 3. Moderate aortic stenosis, nonrheumatic. 4. Moderate mitral stenosis, nonrheumatic. 5. Chronic congestive heart failure from diastolic dysfunction. Ejection fraction 55- 60%. 6. Diabetes mellitus type 2 on oral hypoglycemics. 7. Hypothyroid. 8. Essential hypertension. 9. Primary osteoarthritis. 10.Obesity; BMI 39.9. PLAN: Patient is started on clear liquids by Dr. Aguirre. Spoke to the nurse to get the patient out of bed. Will keep with gentle hydration. Clinically patient is looking better, improving. MMODL / IJN: [id number] /
[2018-03-13 06:52] LABS: Glucose,Whole Blood 93 mg/dL (75-99)
[2018-03-13] MEDS: POTASSIUM BICARBONATE/CIT AC 20 MEQ TABLET.EFF PO SCH (08:42)
[2018-03-13] MEDS: FUROSEMIDE 40 MG TAB PO SCH (08:43)
[2018-03-13] MEDS: ISOSORBIDE MONONITRATE ER 15 MG TAB PO SCH (08:43)
[2018-03-13] MEDS: PANTOPRAZOLE 40 MG/10 ML VIAL IV SCH (08:43)
[2018-03-13] MEDS: LEVOTHYROXINE 75 MCG TAB PO SCH (08:44)
[2018-03-13] MEDS: ALVIMOPAN 12 MG CAPSULE PO SCH ×2 (08:44→20:56)
[2018-03-13] MEDS: METOPROLOL SUCCINATE (ER) 50 MG TAB.ER.24H PO SCH (08:45)
[2018-03-13] MEDS: IPRATROPIUM-ALBUTEROL 3 ML NEB INHALATION SCH ×3 (08:50→19:55)
[2018-03-13] MEDS: INSULIN ASPART 100 UNIT/ML 1 ML 10 ML VIAL SQ SCH ×4 (09:17→22:41)
--- NOTE | 2018-03-13 09:21 | P.PN ---
Subjective Progress Note Date: 03/13/18 Principal diagnosis: Right hepatic flexure colonic mass, status post right hemicolectomy, postop day 6 This is a 82-year-old female patient was being seen in the intensive care unit following her colectomy. The patient was having issues with GI bleed and low hemoglobin. She has had [id number] hospitalization and initially she declined to have further workup. Subsequently, based on ongoing episodes of GI bleed and anemia, the patient a colonoscopy and she was found to have a colonic mass. She was evaluated by general surgery and the patient was taken to the operating room on 03/07/2018 and the patient had a right colectomy for a right hepatic flexure colon mass. The estimated blood loss was only 50 mL an hour. The patient was extubated and the patient was moved to the intensive care unit for further monitoring. 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 Overnight the patient was kept on IV fluids at 150 mL an hour. Nevertheless she continued to have a low urine output within urine output of 15-20 mL an hour. The patient was given a total of 3 L of IV fluids. This was in the form of normal saline. Subsequent hemoglobin count showed that there was a drop and the patient was given a unit of packed RBC and this combination improved urine output. She did not require any pressors. Surgical wound site is clean. The skin is closed with brady and there is a wound VAC applied to the skin surface on top of the staple line. The patient has no NG tube. No cough or sputum production. No nausea vomiting. No abdominal distention. The patient is receiving morphine for pain control. The patient is also on her routine oral medication. No chest pain. No cough or sputum production. No altered mentation. No bowel movements yet. She has not passed any flatus. Resting comfortably in bed. No altered mentation. On 03/09/2018 the patient is being seen for a follow-up. The patient is resting comfortably in bed. Abdominal wound is dry clean and intact. Bowel sounds are hypoactive. The patient was given some clear liquid diets. No nausea. No vomiting. No emesis. The hemoglobin is stable at 7.8 after being given a transfusion with a unit of packed RBC earlier this morning for a hemoglobin of 6.8. The patient is afebrile. The neck fluid balance on this patient for the past 24 hours is +2.3 L for today and 4.3 L for yesterday. Urine output is adequate for now. No nausea. No vomiting. No headaches. No altered mentation. No other significant events overnight. On 03/10/2018 and seeing this patient for a follow-up. The patient is looking well. She has no specific complaints. She did have a loose bowel movement earlier. She has hypoactive bowel sounds. The incision is dry clean and intact. She is on room air oxygen. No cough. No sputum production. No chest tightness. No wheezing. No significant drop in hemoglobin and her hemoglobin is stable. No nausea. No vomiting. No emesis. No altered mentation. No other significant events overnight. The patient will be moved out to a surgical floor for now. On 03/11/2018 the patient is out of the intensive care unit on a surgical floor. No respiratory difficulties. Hemodynamically stable. Nevertheless the patient has been placed nothing by mouth as the patient has been having several episodes of emesis since this morning. The patient has no abdominal distention. Bowel sounds are hypoactive. She was having a bowel movement earlier. Gen. surgery evaluated the patient The patient nothing by mouth for now. No fever or chills. She is taking Reglan and Zofran in that regard. On 03/12/2018, patient is doing well, she has no active pulmonary symptoms, no cough no wheezing no shortness of breath, doing excellent with her incentive spirometry. On room air. On 03/13/2018 patient seen in follow-up on surgical floor. Resting in bed, comfortably in no acute distress. Plan with her incentive spirometer, to achieve 1000 mL on the today. Lung sounds are clear to auscultation, no rhonchi , no wheezes or rales noted. Room air pulse ox is 96%, she is afebrile, vital signs are stable. diarrhea has subsided, C. diff was negative. Abdomen is soft , nontender, mid abdominal incision is packed with the black foam, and wound VAC is on to continuous suction. Patient remains on clear liquid diet. Has not been up out of bed yet, and the plan is to get the patient up in the chair today. IV LR normal saline infusing at 75 ML per hour. Remains on nebulized treatments. Objective - Vital Signs Vital signs: Vital Signs Temp 98 F 03/13/18 08:40 Pulse 74 03/13/18 08:40 Resp 16 03/13/18 08:40 BP 124/51 03/13/18 08:40 Pulse Ox 96 03/13/18 08:40 Intake & Output 03/12/18 03/13/18 03/13/18 18:59 06:59 18:59 Intake Total 600 600 Output Total 100 Balance 600 500 Weight 115 kg Intake: Intake, IV Titration 600 600 Amount Lactated Ringers 1,000 ml 600 600 @ 75 mls/hr IV .[id number] [facility] Rx#:[id number] Output: Stool 100 Other: Voiding Method Diaper Diaper # Voids 3 # Bowel Movements 1 ABP, PAP, CO, CI - Last Documented Arterial Blood Pressure 128/64 - Exam Physical exam revealed an 82-year-old female, very pleasant, in no distress. Head exam was generally normal. There was no scleral icterus or corneal arcus. Mucous membranes were moist. Neck was supple and without jugular venous distension, thyromegaly, or carotid bruits. Carotids were easily palpable bilaterally. There was no adenopathy. Lungs were clear to auscultation and percussion, and with normal diaphragmatic excursion. No wheezes or rales were noted. Cardiac exam revealed the PMI to be normally situated and sized. The rhythm was regular and no extrasystoles were noted during several minutes of auscultation. The first and second heart sounds were normal and physiologic splitting of the second heart sound was noted. There were murmurs, rubs, no clicks, or gallops. There is a systolic ejection murmur grade 3/6 heard throughout the precordium Abdomen is soft. The mid incision over the abdomen is dry clean and intact. Wound VAC is noted. Bowel sounds are hypoactive. No direct tenderness or rebound tensile guarding. No abdominal distention. Examination of the extremities revealed easily palpable radial, femoral and pedal pulses. There was no cyanosis, clubbing or edema. Examination of the skin revealed no evidence of significant rashes, suspicious appearing nevi or other concerning lesions. Neurologically awake and alert and is no focal neurological deficit - Labs CBC & Chem 7: 03/12/18 08:02 03/12/18 08:02 Labs: Abnormal Lab Results - Last 24 Hours (Table) 03/12/18 Range/Units 11:39 POC Glucose (mg/dL) 131 H (75-99) mg/dL Assessment and Plan Plan: Assessment: 1 right hemicolectomy for a right hepatic flexure colonic mass. The patient is postop day #6. Improving, she will start on liquid diet today. 2 postoperative low urine output, recovered 3 postoperative anemia, and expected outcome of bowel surgery stable with a hemoglobin of 8.9 4 valvular heart disease with severe aortic stenosis and moderate degree of mitral stenosis 5 MRSA sputum colonizer 6 obesity 7 diabetes mellitus 8 hypothyroidism 9 urinary incontinence Plan Increase activity as tolerated, up out of bed in the chair, encourage incentive spirometry, continue nebulized bronchodilators. Continue to follow I performed a history & physical examination of the patient and discussed their management with my nurse practitioner, Daily Dee. I reviewed the nurse practitioner's note and agree with the documented findings and plan of care. Lung sounds are clear. The findings and the impression was discussed with the patient. I attest to the documentation by the nurse practitioner. Time with Patient: Less than 30
--- NOTE | 2018-03-13 11:04 | CDI ---
Last Revision, September 2017 Documentation Clarification Form Date: 03/13/2018 11:02:00 AM From: Rizwana SalcidoGutiérrezYEISON, CCDS Admit Date: 03/07/2018 9:05:00 AM Patient Name: Emili Bonilla Visit Number: [id number] Discharge Date: ATTENTION: The Clinical Documentation Specialists (CDI) and [facility] Coding Staff appreciate your assistance in clarifying documentation. Please respond to the clarification below the line at the bottom and electronically sign. The CDI & [facility] Coding staff will review the response and follow-up if needed. Please note: Queries are made part of the Legal Health Record. If you have any questions, please contact the author of this message via ITS. Dr. Phil Aguirre: Per the 03/12 progress note: Status post extended right colectomy. Patient's postop ileus resolving. 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 Post-Operative Diagnosis: Same Procedure performed: Right colectomy, Repair of incisional hernia. History/Risk Factors: Previous GI bleed, Hypertension, Anemia. Clinical Indicators: Presented w/bleeding, hepatic flexure tumor. Treatment: Surgery as above, IV Ms, IV Flagyl, IV Reglan, IV Kefzol, Heparin sq , IV fluids, IV Mag Sulf. In order to accurately reflect this patients severity of illness, please clarify if the post-operative diagnosis is: An expected post-procedural or post-surgical condition; Integral to the procedure; Inherent to the procedure; An unexpected post-procedural or post-surgical condition related to surgical care; Other, please specify Unable to determine Please continue to document in your progress notes and discharge summary in order to capture severity of illness and risk of mortality. Include clinical findings that support your diagnosis. MTDD
[2018-03-13 11:33] LABS: Glucose,Whole Blood 129 mg/dL (75-99)
[2018-03-13] MEDS: HYDROcodone/APAP 7.5-325MG 1 EACH TAB PO PRN (11:56)
[2018-03-13] MEDS: DICLOFENAC SODIUM GEL 100 GM TUBE TOPICAL SCH ×3 (12:16→20:56)
--- NOTE | 2018-03-13 12:48 | P.PN ---
Subjective Progress Note Date: 03/13/18 Mrs. Bonilla is a pleasant 82-year-old female past medical history significant for severe aortic stenosis, moderate mitral stenosis, hypertension, dyslipidemia and diabetes mellitus. She was recently found to have an abdominal mass and underwent colectomy. Blood pressure 11/22/1951 heart rate 74 afebrile maintaining oxygen saturation on room air. She is seen sitting up in the chair tolerating breakfast. She denies symptoms of chest pain, palpitations, shortness of breath, dizziness, nausea or vomiting. Telemetry tracings have been unremarkable with no further symptoms of ventricular tachycardia. She is denying any further symptoms of chest discomfort. Laboratory data reviewed, WBC 17.6 hemoglobin 8.7, platelets 182, sodium 132, potassium 3.9, creatinine 0.57. Objective - Vital Signs Vital signs: Vital Signs Temp 98 F 03/13/18 08:40 Pulse 76 03/13/18 12:36 Resp 16 03/13/18 08:40 BP 124/51 03/13/18 08:40 Pulse Ox 96 03/13/18 08:40 Intake & Output 03/12/18 03/13/18 03/13/18 18:59 06:59 18:59 Intake Total 600 600 Output Total 100 Balance 600 500 Weight 115 kg Intake: Intake, IV Titration 600 600 Amount Lactated Ringers 1,000 ml 600 600 @ 75 mls/hr IV .[id number] [facility] Rx#:[id number] Output: Stool 100 Other: Voiding Method Diaper Diaper # Voids 3 # Bowel Movements 1 ABP, PAP, CO, CI - Last Documented Arterial Blood Pressure 128/64 - Exam GENERAL: Well-appearing, well-nourished and in no acute distress. NECK: Supple without JVD or thyromegaly. LUNGS: Breath sounds clear to auscultation bilaterally. Respiration equal and unlabored. No wheezes, rales or rhonchi. HEART: Regular rate and rhythm with systolic ejection murmur at the base, no rubs or gallops. S1 and S2 heard. EXTREMITIES: Normal range of motion, no edema. No clubbing or cyanosis. Peripheral pulses intact and strong. - Labs CBC & Chem 7: 03/12/18 08:02 03/12/18 08:02 Labs: Abnormal Lab Results - Last 24 Hours (Table) 05/15/18 Range/Units 11:24 POC Glucose (mg/dL) 129 H (75-99) mg/dL Assessment and Plan Assessment: ASSESSMENT 1. Right hemicolectomy for a hepatic flexure mass. 2. Severe aortic stenosis 3. Moderate mitral stenosis 4. Diabetes mellitus 5. Anemia PLAN From cardiology's perspective we recommend continuing ongoing medical therapy. Continue with imdur, toprol, aspirin, lasix and atorvastatin. Stable from a cardiac perspective for discharge when stable per surgery. Follow up with Dr. Frazier upon discharge. Nurse Practitioner note has been reviewed, I agree with a documented findings and plan of care. Patient was seen and examined.
[2018-03-13] MEDS ORDERED: MORPHINE ORAL SOLN 10 MG/5 ML CUP PO PRN ×2 (13:09→13:10)
--- NOTE | 2018-03-13 16:14 | P.PN ---
Progress Note - Text Progress Note Date: 03/13/18 the patient is resting comfortably in her bed. She denies any significant bowel pain. She's had some flatus. On exam her abdomen is soft. Her incision site is clean dry and intact. There is no significant tenderness. Fascial be placed on full liquid diet. Her postoperative ileus has appeared to resolve.
[2018-03-13 16:48] LABS: Glucose,Whole Blood 89 mg/dL (75-99)
[2018-03-13] MEDS: ASPIRIN 81 MG PO SCH (20:57)
[2018-03-13] MEDS: ATORVASTATIN 20 MG TAB PO SCH (20:57)
[2018-03-13 20:58] LABS: Glucose,Whole Blood 115 mg/dL (75-99)
[2018-03-13] MEDS: PANTOPRAZOLE 40 MG TABLET PO SCH (22:41)
[2018-03-14] MEDS: METOCLOPRAMIDE 5 MG/ML 2 ML VIAL IVP SCH ×5 (00:08→23:27)
[2018-03-14] MEDS: HEPARIN SODIUM,PORCINE 5,000 UNIT/ML 1 ML VIAL SQ SCH ×4 (00:08→23:27)
--- NOTE | 2018-03-14 00:37 | PN ---
PROGRESS NOTE DATE OF SERVICE: March 13, 2018 PRESENT COMPLAINT: Ileus. INTERVAL HISTORY: This patient was seen by me yesterday morning. Patient is status post right colectomy with a wound VAC in place. The patient is doing better. Abdominal pain is better, put on a liquid diet, had a further bowel movement. Abdominal pain is much better. REVIEW OF SYSTEMS: Done for constitutional, cardiovascular, GI, pulmonary; relevant findings as above. CURRENT MEDICATIONS: Reviewed and include lactated Ringer's. PHYSICAL EXAMINATION: Temperature 98, pulse 74, respiration 16, blood pressure 120/51, pulse ox 96% on room air. General appearance: Lying in bed comfortable. Eyes pupils are equal. Conjunctivae normal. HEENT: External appearance of nose and ears normal. Oral cavity normal. Neck JVD not raised. Mass not palpable. Respiratory effort normal. Lungs decreased breath sounds. Cardiovascular 1st and 2nd sounds no edema. ABDOMEN: Soft. Mild tenderness. Bowel sounds are present. Wound VAC in place. Psychiatry: Alert and oriented x3. Mood and affect normal. INVESTIGATIONS: Accu-Cheks are noted. ASSESSMENT: 1. Right hemicolectomy for moderately differentiated carcinoma with some mucinous component from the colon cancer with a wound VAC in place. 2. Postoperative ileus, improved. 3. Moderate aortic stenosis, nonrheumatic. 4. Moderate mitral stenosis, nonrheumatic. 5. Chronic congestive heart failure from diastolic dysfunction. Ejection fraction 55- 60% stable. 6. Diabetes mellitus type 2 on oral hypoglycemics. 7. Hypothyroid. 8. Essential hypertension. 9. Primary osteoarthritis. 10.Obesity; BMI 39.9. PLAN: Patient overall doing much better. Continue medication and treatment plan. Encouraged to be out of bed. The patient has been advanced to full liquid diet. MMODL / IJN: [id number] /
[2018-03-14] MEDS: LACTATED RINGERS 1,000 ML IV SCH ×2 (03:39→17:09)
[2018-03-14 06:59] LABS: Glucose,Whole Blood 103 mg/dL (75-99)
[2018-03-14] MEDS: IPRATROPIUM-ALBUTEROL 3 ML NEB INHALATION SCH ×3 (07:29→20:35)
[2018-03-14 08:36] VITALS: RESP 16
[2018-03-14] MEDS: DICLOFENAC SODIUM GEL 100 GM TUBE TOPICAL SCH ×4 (08:40→20:53)
[2018-03-14] MEDS: POTASSIUM BICARBONATE/CIT AC 20 MEQ TABLET.EFF PO SCH (08:40)
[2018-03-14] MEDS: METOPROLOL SUCCINATE (ER) 50 MG TAB.ER.24H PO SCH (08:41)
[2018-03-14] MEDS: PANTOPRAZOLE 40 MG TABLET PO SCH ×2 (08:41→17:08)
[2018-03-14] MEDS: LEVOTHYROXINE 75 MCG TAB PO SCH (08:42)
[2018-03-14] MEDS: FUROSEMIDE 40 MG TAB PO SCH (08:42)
[2018-03-14] MEDS: INSULIN ASPART 100 UNIT/ML 1 ML 10 ML VIAL SQ SCH ×3 (08:42→20:53)
[2018-03-14] MEDS: ISOSORBIDE MONONITRATE ER 15 MG TAB PO SCH (08:43)
[2018-03-14] MEDS: ALVIMOPAN 12 MG CAPSULE PO SCH (08:43)
--- NOTE | 2018-03-14 11:10 | P.PN ---
<Meka Verma M - Last Filed: 03/14/18 10:32> Subjective Progress Note Date: 03/14/18 82-year-old female seen and examined at bedside sitting up in bed taking a clear liquid diet. No reports of nausea vomiting Awake alert oriented to self and place. Nursing reports patient with physical therapy is able to ambulate from the bed to the doorway. Incontinent a small amount of stool. Afebrile. Abdomen is soft not distended surgical dressing sites dry. Hemoglobin 8.7 and February 10 Postop february right colectomy, repair of incisional hernia for hepatic flexure colon cancer Objective - Vital Signs Vital signs: Vital Signs Temp 97.5 F L 03/14/18 08:34 Pulse 74 03/14/18 08:34 Resp 16 03/14/18 08:34 BP 130/69 03/14/18 08:34 Pulse Ox 96 03/14/18 08:34 Intake & Output 03/13/18 03/14/18 03/14/18 18:59 06:59 18:59 Intake Total 600 262.5 Balance 600 262.5 Intake: Intake, IV Titration 600 262.5 Amount Lactated Ringers 1,000 ml 600 262.5 @ 75 mls/hr IV .[id number] [facility] Rx#:[id number] Other: Voiding Method Diaper Diaper Diaper # Voids 2 1 # Bowel Movements 3 ABP, PAP, CO, CI - Last Documented Arterial Blood Pressure 128/64 - Exam Physical exam 82-year-old female sitting up in bed taking clear liquid diet Lungs diminished at the bases otherwise adequate air movement no wheezing rales or rhonchi Heart S1-S2 audible regular denying chest pain Abdomen soft surgical tenderness appropriate not distended bowel tones present incontinent urine and stool no nausea no vomiting Provera wound system in place Extremities a trace pedal edema noted bilaterally - Labs CBC & Chem 7: 03/12/18 08:02 03/12/18 08:02 Labs: Abnormal Lab Results - Last 24 Hours (Table) 03/13/18 03/13/18 03/14/18 Range/Units 11:24 20:57 06:55 POC Glucose (mg/dL) 129 H 115 H 103 H (75-99) mg/dL Assessment and Plan Assessment: Impression Right hemicolectomy done March 07 for a right hepatic flexure colonic mass Postop anemia expected outcome of bowel surgery with hemoglobin stable of 8.9 Morbid obesity BMI 43 Debilitated Valvular heart disease with severe aortic stenosis with a moderate degree of mitral stenosis MRSA in the sputum colonizer A expected postsurgical condition ileus resolved Chronic diastolic congestive heart failure stable Morbid obesity BMI 43 Plan Continue postop surgical care Full Liquid diet to be initiated monitor response PT OT Attempt to increase activity Follow-up on pending labs DVT and GI prophylaxis To return to the [facility] facility when medically stable Dictated progress note for dr rios rounding on behalf of Dr. brownlee The above impression and plan of care have been discussed and directed by signing physician. Meka Verma nurse practitioner acting as scribe for signing physician. <Juan Rios - Last Filed: 03/14/18 18:16> Objective - Vital Signs Vital signs: Vital Signs Temp 97.5 F L 03/14/18 08:34 Pulse 74 03/14/18 14:21 Resp 16 03/14/18 14:21 BP 129/74 03/14/18 14:21 Pulse Ox 93 L 03/14/18 14:21 Intake & Output 03/13/18 03/14/18 03/14/18 18:59 06:59 18:59 Intake Total 600 262.5 Balance 600 262.5 Weight 115 kg Intake: Intake, IV Titration 600 262.5 Amount Lactated Ringers 1,000 ml 600 262.5 @ 75 mls/hr IV .[id number] [facility] Rx#:[id number] Other: Voiding Method Diaper Diaper Diaper # Voids 2 1 # Bowel Movements 3 ABP, PAP, CO, CI - Last Documented Arterial Blood Pressure 128/64 - Labs CBC & Chem 7: 03/14/18 10:28 03/14/18 10:28 Labs: Abnormal Lab Results - Last 24 Hours (Table) 03/13/18 03/14/18 03/14/18 Range/Units 20:57 06:55 10:28 RBC 3.17 L (3.80-5.40) m/uL Hgb 8.4 L (11.4-16.0) gm/dL Hct 26.9 L (34.0-46.0) % RDW 16.6 H (11.5-15.5) % Sodium (137-145) mmol/L Chloride (98-107) mmol/L BUN (7-17) mg/dL Creatinine (0.52-1.04) mg/dL Glucose (74-99) mg/dL POC Glucose (mg/dL) 115 H 103 H (75-99) mg/dL Calcium (8.4-10.2) mg/dL AST (14-36) U/L Total Protein (6.3-8.2) g/dL Albumin (3.5-5.0) g/dL 03/14/18 03/14/18 03/14/18 Range/Units 10:28 11:24 17:09 RBC (3.80-5.40) m/uL Hgb (11.4-16.0) gm/dL Hct (34.0-46.0) % RDW (11.5-15.5) % Sodium 133 L (137-145) mmol/L Chloride 96 L (98-107) mmol/L BUN 4 L (7-17) mg/dL Creatinine 0.48 L (0.52-1.04) mg/dL Glucose 100 H (74-99) mg/dL POC Glucose (mg/dL) 114 H 119 H (75-99) mg/dL Calcium 8.2 L (8.4-10.2) mg/dL AST 54 H (14-36) U/L Total Protein 5.2 L (6.3-8.2) g/dL Albumin 2.6 L (3.5-5.0) g/dL Assessment and Plan Assessment: As above. Patient seems to be doing better. She did have bowel activity. Asking for more to eat. Denies nausea or vomiting currently. Minimal abdominal discomforts. Still feels weak. We'll advance diet. Continue PT OT. (1) Rectal bleeding Current Visit: No Status: Acute Code(s): K62.5 - HEMORRHAGE OF ANUS AND RECTUM SNOMED Code(s): 75148243
[2018-03-14 11:27] LABS: Glucose,Whole Blood 114 mg/dL (75-99)
[2018-03-14 11:37] LABS: Anisocytosis Slight; Basophils % (A) 0 %; Eosinophils # (A) 0.1 k/uL (0-0.7); Eosinophils % (A) 2 %; HCT 26.9 % (34.0-46.0); HGB 8.4 gm/dL (11.4-16.0); Hypochromasia Marked; Lymphocytes # (A) 1.1 k/uL (1.0-4.8); Lymphocytes % (A) 17 %; MCH 26.5 pg (25.0-35.0); MCHC 31.2 g/dL (31.0-37.0); MCV 84.9 fL (80.0-100.0); Mean Platelet Volume 7.9; Monocytes # (A) 0.5 k/uL (0-1.0); Monocytes % (A) 8 %; Neutrophils # (A) 4.8 k/uL (1.3-7.7); Neutrophils % (A) 70 %; Platelet Count 202 k/uL (150-450); Poikilocytosis Moderate; RBC 3.17 m/uL (3.80-5.40); RDW 16.6 % (11.5-15.5); WBC 6.8 k/uL (3.8-10.6)
[2018-03-14 11:42] LABS: Anion Gap 10 mmol/L; Blood Urea Nitrogen 4 mg/dL (7-17); Carbon Dioxide 27 mmol/L (22-30); Chloride 96 mmol/L (98-107); Glucose 100 mg/dL (74-99); Potassium 3.6 mmol/L (3.5-5.1); Sodium 133 mmol/L (137-145)
[2018-03-14 11:43] LABS: ALT 47 U/L (9-52); AST 54 U/L (14-36); Albumin 2.6 g/dL (3.5-5.0); Alkaline Phosphatase 59 U/L (38-126); Calcium 8.2 mg/dL (8.4-10.2); Total Bilirubin 0.8 mg/dL (0.2-1.3); Total Protein 5.2 g/dL (6.3-8.2)
[2018-03-14] MEDS: SODIUM FERRIC GLUCONAT-SUCROSE 125 MG in SODIUM CHLORIDE 0.9% 100 ML IVPB SCH (11:44)
[2018-03-14 17:14] LABS: Glucose,Whole Blood 119 mg/dL (75-99)
--- NOTE | 2018-03-14 18:59 | P.CONS ---
History of Present Illness - Reason for Consult Consult date: 03/14/18 Colon Mass Requesting physician: Phil Aguirre - Chief Complaint Colon Mass - History of Present Illness This is a pleasant 82-year old female who originally presented with concern for GI bleed, evidenced by a low hemoglobin. She underwent a colonoscopy and a mass in her colon was identified. She was seen by general surgery on 03/07/18 and underwent a right hemicolectomy for a right hepatic flexure mass. She has multiple co- morbidities including severe aortic stenosis and mitral stenosis. Pathology resulted identifying Invasive adenocarcinoma with focal mucinous features, with at minimum 12 positive lymph nodes. She is recovering well after surgery, denies nausea, vomiting. She has an appetite, pain is controlled. Review of Systems A 14 point review of systems assessed and completed and all negative except HPI 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, previous packed RBC transfusion last one being on 02/27/2018 History of Any Multi-Drug Resistant Organisms: MRSA Year Discovered:: 02-11-18 MDRO Source:: SPUTUM Past Surgical History: Cholecystectomy, Hysterectomy, Orthopedic Surgery, Tonsillectomy Additional Past Surgical History / Comment(s): knee replacement; 03/07 - right hemicolectomy Past Anesthesia/Blood Transfusion Reactions: No Reported Reaction Additional Past Anesthesia/Blood Transfusion Reaction / Comm: blood transfusion - no reaction Past Psychological History: No Psychological Hx Reported Additional Psychological History / Comment(s): currently at [facility], up with assist and walker Smoking Status: Never smoker Past Alcohol Use History: None Reported Past Drug Use History: None Reported - Past Family History Mother Family Medical History: Cancer Additional Family Medical History / Comment(s): breast cancer Father Additional Family Medical History / Comment(s): djd, hip replacment, heart problems Medications and Allergies Home Medications Medication Instructions Recorded Confirmed Type Cyanocobalamin [Vitamin B-12] 1,000 mcg PO QAM 04/10/15 03/07/18 History Metoprolol Succinate [Toprol XL] 50 mg PO QAM 04/10/15 03/07/18 History Multivit with Calcium,Iron,Min 1 tab PO DAILY@1600 04/10/15 03/05/18 History [Women's Daily Multivitamin] Nateglinide [Starlix] 120 mg PO QAM 04/10/15 03/07/18 History Sennosides [Senokot] 17.2 tab PO HS 04/10/15 03/07/18 History Vits A,C,E/Lutein/Minerals 1 tab PO HS@1800 04/10/15 03/07/18 History [Ocuvite with Lutein Tablet] sitaGLIPtin PHOS/metFORMIN HCL 1 tab PO QAM 04/10/15 03/05/18 History [Janumet Xr 100-1,000 mg Tablet] Atorvastatin [Lipitor] 20 mg PO HS 02/10/18 03/07/18 History Levothyroxine Sodium [Synthroid] 150 mcg PO QAM 02/10/18 03/07/18 History Acetaminophen Tab [Tylenol] 650 mg PO Q6HR PRN tab 02/16/18 03/05/18 Rx Diclofenac Sodium Gel [Voltaren 2 gm TOPICAL QID tube 02/16/18 03/07/18 Rx Gel] Diclofenac Sodium Gel [Voltaren 4 gm TOPICAL QID tube 02/16/18 03/07/18 Rx Gel] Furosemide [Lasix] 40 mg PO BID@0900,1600 tab 02/16/18 03/05/18 Rx Potassium Chloride [Klor-Con 20 meq PO DAILY #1 packet 02/16/18 03/05/18 Rx Packets] Ipratropium-Albuterol Nebulize 3 ml INHALATION RT-Q6H 03/05/18 03/05/18 History [Duoneb 0.5 mg-3 mg/3 ml Soln] Aspirin [Adult Low Dose Aspirin EC] 81 mg PO HS 03/07/18 03/07/18 History Allergies Allergy/AdvReac Type Severity Reaction Status Date / Time Sulfa (Sulfonamide Allergy Anaphylaxis Verified 03/07/18 19:21 Antibiotics) Physical Exam Vitals: Vital Signs Temp Pulse Pulse Resp BP Pulse Ox 03/14/18 08:34 97.5 F L 74 16 130/69 96 03/14/18 07:41 68 03/14/18 07:31 66 03/13/18 20:00 99.1 F 69 18 105/52 96 03/13/18 14:23 98.4 F 75 16 127/74 97 03/13/18 12:51 80 03/13/18 12:36 76 Intake and Output 03/13/18 03/14/18 03/14/18 22:59 06:59 14:59 Intake Total 262.5 Balance 262.5 Intake: Intake, IV Titration 262.5 Amount Lactated Ringers 1,000 ml 262.5 @ 75 mls/hr IV .[id number] [facility] Rx#:[id number] Other: Voiding Method Diaper Diaper # Voids 1 # Bowel Movements 3 - Constitutional General appearance: cooperative, no acute distress - EENT Eyes: EOMI, PERRLA, dentition normal ENT: hard of hearing, NA/AT, normal oropharynx - Neck Supple, trachea midline Neck: normal ROM - Respiratory Respiratory: bilateral: CTA (No increased effort) - Cardiovascular Rhythm: irregularly irregular - Gastrointestinal Evidence of Surgery, Incision CDI General gastrointestinal: decreased bowel sounds, soft - Neurologic Neurologic: CNII-XII intact - Musculoskeletal Musculoskeletal: generalized weakness, strength equal bilaterally - Psychiatric Psychiatric: A&O x's 3, appropriate affect, intact judgment & insight Results CBC & Chem 7: 03/14/18 10:28 03/14/18 10:28 Labs: Abnormal Lab Results - Last 24 Hours (Table) 03/13/18 03/13/18 03/14/18 Range/Units 11:24 20:57 06:55 POC Glucose (mg/dL) 129 H 115 H 103 H (75-99) mg/dL Chest x-ray: report reviewed Abdominal x-ray: report reviewed Assessment and Plan (1) Adenocarcinoma, colon Current Visit: Yes Status: Acute Code(s): C18.9 - MALIGNANT NEOPLASM OF COLON, UNSPECIFIED SNOMED Code(s): 310736682 (2) Aortic stenosis Current Visit: Yes Status: Acute Code(s): I35.0 - NONRHEUMATIC AORTIC (VALVE ) STENOSIS SNOMED Code(s): 49416722 (3) Mitral stenosis Current Visit: Yes Status: Acute Code(s): I05.0 - RHEUMATIC MITRAL STENOSIS SNOMED Code(s): 51068133 (4) Acute blood loss anemia Current Visit: No Status: Acute Code(s): D62 - ACUTE POSTHEMORRHAGIC ANEMIA SNOMED Code(s): 144554900 (5) GI bleed Current Visit: No Status: Acute Code(s): K92.2 - GASTROINTESTINAL HEMORRHAGE , UNSPECIFIED SNOMED Code(s): 36051264 Plan: Assessment and Recommendations: 1. Right Hepatic Flexure Colonic Mass - Status POst Right Hemicolectomy - Pathology resulted with Invasive Adenocarcinoma - Minimum 12 positive Lymph Nodes - Will need full staging Scans, Scheduling PET scan after discharge as out patient and then follow-up with Dr. Harper as systemic therapy will likely be resonable (Taken into consideration her other co-morbidities), adjuvant treatment plan to be determined after discharge 2. Acute Blood Loss Anemia - Hgb 8.4 today - IV Iron x3 days - Monitor CBC 3. Other Co-Morbidities including Aortic stenosis and mitral stenosis - Cardiology and pulmonology following Physician Attestation: I have completed the full History and physical of this patient and discussed with Paris Yusuf NP, Agree with above dictation, dictated as a scribe Time with Patient: Greater than 30
[2018-03-14 20:44] LABS: Glucose,Whole Blood 125 mg/dL (75-99)
[2018-03-14] MEDS: HYDROcodone/APAP 7.5-325MG 1 EACH TAB PO PRN (20:52)
[2018-03-14] MEDS: ASPIRIN 81 MG PO SCH (20:53)
[2018-03-14] MEDS: ATORVASTATIN 20 MG TAB PO SCH (20:53)
--- NOTE | 2018-03-14 21:59 | PN ---
PROGRESS NOTE DATE OF SERVICE: 03/14/2018 PRESENTING COMPLAINT: Abdominal surgery. INTERVAL HISTORY: Patient is status post right colectomy with a wound VAC in place. Continues to do better. Tolerating a full liquid diet. Pain is controlled. No new issues. REVIEW OF SYSTEMS: Done for constitutional, cardiovascular, GI, pulmonary; relevant findings as above. CURRENT MEDICATIONS: Reviewed. EXAMINATION: Temperature 97.5, pulse 74, respirations 16, blood pressure 130/69, pulse ox 96% on room air. GENERAL APPEARANCE: Lying in bed, awake. EYES: Pupils equal. Conjunctivae normal. HEENT: External appearance of nose and ears normal. Oral cavity normal. NECK: JVD not raised. Mass not palpable. RESPIRATORY: Effort normal. LUNGS: Decreased breath sounds. CARDIOVASCULAR: First and second sounds normal. No edema. ABDOMEN: Soft, minimal tenderness. Bowel sounds present. Wound VAC in place. PSYCHIATRY: Alert and oriented x3. Mood and affect normal. INVESTIGATION: White count 6.8, hemoglobin 8.4. Potassium 3.6, BUN 4, creatinine 0.4. Accu-Cheks are noted. ASSESSMENT: 1. Right hemicolectomy for moderately differentiated carcinoma with some mucinous component from colon cancer with a wound VAC in place. 2. Postoperative ileus, improved. 3. Moderate aortic stenosis, nonrheumatic. 4. Moderate mitral stenosis, nonrheumatic. 5. Chronic congestive heart failure from diastolic dysfunction. Ejection fraction 55%- 60%. 6. Diabetes mellitus type 2 on oral hypoglycemics. 7. Hypothyroid. 8. Essential hypertension. 9. Primary osteoarthritis. 10.Obesity; BMI 39.9. PLAN: Patient overall doing better. The patient did tolerate a full liquid diet. Diet will be advanced per Surgery. Care was discussed with the patient. Overall doing better. MMODL / IJN: [id number] /
[2018-03-15] MEDS: METOCLOPRAMIDE 5 MG/ML 2 ML VIAL IVP SCH ×2 (04:59→12:18)
[2018-03-15] MEDS: LACTATED RINGERS 1,000 ML IV SCH (04:59)
[2018-03-15 07:04] LABS: Glucose,Whole Blood 106 mg/dL (75-99)
[2018-03-15 07:18] VITALS: BP 144/70; PULSE 72; TEMP 98
[2018-03-15] MEDS: HEPARIN SODIUM,PORCINE 5,000 UNIT/ML 1 ML VIAL SQ SCH (07:19)
[2018-03-15] MEDS: PANTOPRAZOLE 40 MG TABLET PO SCH (07:19)
[2018-03-15] MEDS: FUROSEMIDE 40 MG TAB PO SCH (07:20)
[2018-03-15] MEDS: METOPROLOL SUCCINATE (ER) 50 MG TAB.ER.24H PO SCH (07:20)
[2018-03-15] MEDS: ISOSORBIDE MONONITRATE ER 15 MG TAB PO SCH (07:20)
[2018-03-15] MEDS: LEVOTHYROXINE 75 MCG TAB PO SCH (07:20)
[2018-03-15] MEDS: DICLOFENAC SODIUM GEL 100 GM TUBE TOPICAL SCH ×2 (07:21→12:47)
[2018-03-15] MEDS: POTASSIUM BICARBONATE/CIT AC 20 MEQ TABLET.EFF PO SCH (07:21)
[2018-03-15] MEDS: INSULIN ASPART 100 UNIT/ML 1 ML 10 ML VIAL SQ SCH ×2 (07:21→12:47)
[2018-03-15] MEDS: IPRATROPIUM-ALBUTEROL 3 ML NEB INHALATION SCH ×2 (07:35→13:00)
[2018-03-15] MEDS: SODIUM FERRIC GLUCONAT-SUCROSE 125 MG in SODIUM CHLORIDE 0.9% 100 ML IVPB SCH (07:44)
[2018-03-15 11:33] LABS: Glucose,Whole Blood 203 mg/dL (75-99)
--- NOTE | 2018-03-15 11:34 | P.DS ---
Providers Date of admission: 03/07/18 09:05 Expected date of discharge: 03/15/18 Attending physician: Phil Aguirre Consults: 03/07/18 14:56 Consult Physician Routine Consulting Provider: Layla Peace Consult Reason/Comments: ICU management Do you want consulting provider notified?: Yes 03/07/18 14:58 Consult Physician Routine Consulting Provider: Satish Lanier Consult Reason/Comments: Medical management Do you want consulting provider notified?: Yes 03/07/18 14:59 Consult Physician Routine Consulting Provider: Marciano Frazier Consult Reason/Comments: Aortic stenosis Do you want consulting provider notified?: Yes 03/13/18 16:19 Consult Physician Routine Consulting Provider: Jelani Harper Consult Reason/Comments: colon cancer Do you want consulting provider notified?: Yes Primary care physician: Handy Sewell [facility] Course: 82-year-old female admitted on the day of admission had undergone workup for anemia the week prior the workup included a colonoscopy which showed a large friable bleeding tumor at the hepatic flexure. Pathology report showed evidence of an ulcerated friable adenocarcinoma. A cardiology consultation was requested Echocardiogram showed evidence of severe aortic stenosis. Patient had no evidence of any heart failure. Patient elected to undergo a right colectomy with repair of incisional hernia for hepatic flexure colon cancer done on March 07 postprocedure patient was transferred to the intensive care unit monitored closely. Postop did develop acute blood loss anemia did necessitate 1 unit of packed red blood cells to be infused patient was monitored closely in the ICU was able to be transferred to the surgical unit when appropriate postop surgical care activity was advanced PT OT participated in the care. Diet was advanced as tolerated. The Provera wound VAC was removed on the day of transfer additionally patient was seen by oncology service. Did receive 2 doses of IV iron replacement started on oral iron supplement. Oncology Dr. Harper recommended. Scans. Would need to be scheduled for a PET scan after being discharged from the [facility] facility and then would have a follow-up appointment with Dr. Harper. 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 Meka Verma nurse practitioner acting as scribe for signing physician. Plan - Discharge Summary Discharge Rx Participant: No New Discharge Prescriptions: New Heparin Sodium,Porcine [Heparin Sodium] 5,000 unit SQ Q8HR vial Ipratropium-Albuterol Nebulize [Duoneb 0.5 mg-3 mg/3 ml Soln] 3 ml INHALATION RT-TID ampul.neb Isosorbide Mononitrate ER [Imdur] 15 mg PO DAILY #30 dose HYDROcodone/APAP 7.5-325MG [Havana 7.5-325] 1 each PO Q6H PRN #15 tab PRN Reason: Pain Furosemide [Lasix] 40 mg PO DAILY #30 tab Pantoprazole [Protonix] 40 mg PO AC-BID #60 tablet.dr Aspirin 81 mg PO HS chew Ferrous Gluconate 324 mg PO DAILY #30 tablet Continue Cyanocobalamin [Vitamin B-12] 1,000 mcg PO QAM Sennosides [Senokot] 17.2 tab PO HS sitaGLIPtin PHOS/metFORMIN HCL [Janumet Xr 100-1,000 mg Tablet] 1 tab PO QAM Nateglinide [Starlix] 120 mg PO QAM Multivit with Calcium,Iron,Min [Women's Daily Multivitamin] 1 tab PO DAILY@ 1600 Metoprolol Succinate [Toprol XL] 50 mg PO QAM Vits A,C,E/Lutein/Minerals [Ocuvite with Lutein Tablet] 1 tab PO HS@1800 Atorvastatin [Lipitor] 20 mg PO HS Levothyroxine Sodium [Synthroid] 150 mcg PO QAM Acetaminophen Tab [Tylenol] 650 mg PO Q6HR PRN tab PRN Reason: ELEVATED TEMP Diclofenac Sodium Gel [Voltaren Gel] 4 gm TOPICAL QID tube Potassium Chloride [Klor-Con Packets] 20 meq PO DAILY #1 packet Ipratropium-Albuterol Nebulize [Duoneb 0.5 mg-3 mg/3 ml Soln] 3 ml INHALATION RT-Q6H Aspirin [Adult Low Dose Aspirin EC] 81 mg PO HS Discontinued Diclofenac Sodium Gel [Voltaren Gel] 2 gm TOPICAL QID tube Furosemide [Lasix] 40 mg PO BID@0900,1600 tab Discharge Medication List Cyanocobalamin [Vitamin B-12] 1,000 mcg PO QAM 04/10/15 [History] Metoprolol Succinate [Toprol XL] 50 mg PO QAM 04/10/15 [History] Multivit with Calcium,Iron,Min [Women's Daily Multivitamin] 1 tab PO DAILY@1600 04/10/15 [History] Nateglinide [Starlix] 120 mg PO QAM 04/10/15 [History] Sennosides [Senokot] 17.2 tab PO HS 04/10/15 [History] Vits A,C,E/Lutein/Minerals [Ocuvite with Lutein Tablet] 1 tab PO HS@1800 [History] sitaGLIPtin PHOS/metFORMIN HCL [Janumet Xr 100-1,000 mg Tablet] 1 tab PO QAM 10/13 [History] Atorvastatin [Lipitor] 20 mg PO HS 02/10/18 [History] Levothyroxine Sodium [Synthroid] 150 mcg PO QAM 02/10/18 [History] Acetaminophen Tab [Tylenol] 650 mg PO Q6HR PRN tab 02/16/18 [Rx] Diclofenac Sodium Gel [Voltaren Gel] 4 gm TOPICAL QID tube 02/16/18 [Rx] Potassium Chloride [Klor-Con Packets] 20 meq PO DAILY #1 packet 02/16/18 [Rx] Ipratropium-Albuterol Nebulize [Duoneb 0.5 mg-3 mg/3 ml Soln] 3 ml INHALATION RT -Q6H 03/05/18 [History] Aspirin [Adult Low Dose Aspirin EC] 81 mg PO HS 03/07/18 [History] Aspirin 81 mg PO HS chew 03/15/18 [Rx] Ferrous Gluconate 324 mg PO DAILY #30 tablet 03/15/18 [Rx] Furosemide [Lasix] 40 mg PO DAILY #30 tab 03/15/18 [Rx] HYDROcodone/APAP 7.5-325MG [Havana 7.5-325] 1 each PO Q6H PRN #15 tab 03/15/18 [ Rx] Heparin Sodium,Porcine [Heparin Sodium] 5,000 unit SQ Q8HR vial 05/17/18 [Rx] Ipratropium-Albuterol Nebulize [Duoneb 0.5 mg-3 mg/3 ml Soln] 3 ml INHALATION RT -TID ampul.neb 03/15/18 [Rx] Isosorbide Mononitrate ER [Imdur] 15 mg PO DAILY #30 dose 03/15/18 [Rx] Pantoprazole [Protonix] 40 mg PO AC-BID #60 tablet. 03/15/18 [Rx] Follow up Appointment(s)/Referral(s): Marciano Frazier MD [STAFF PHYSICIAN] - 3 Weeks Phil Aguirre MD [STAFF PHYSICIAN] - 1 Week Jelani Harper MD [STAFF PHYSICIAN] - 3 Weeks Activity/Diet/Wound Care/Special Instructions: No tub bath for six weeks. Shower daily. No lifting over 10 pounds for the next 6 weeks. PT OT May use ice packs to surgical site. No driving while taking narcotic for pain. Do not remove surgical dressing Optiform until seen follow-up visit with the surgeon Low fiber diet consistent carbohydrate Arrangements need to be made to schedule PET scan for staging for the colon cancer. PET scan to be done outpatient once patient is discharged from ECF facility once the PET scan is done patient needs to make an appointment with Dr. Harper oncology Discharge Disposition: TRANSFER TO SNF/ECF
--- NOTE | 2018-03-16 00:26 | PN ---
PROGRESS NOTE DATE OF SERVICE: 03/15/18. PRESENTING COMPLAINT: Abdominal surgery. INTERVAL HISTORY: This patient was seen by me yesterday morning. Doing well, sitting up in a chair. Had a bowel movement. Tolerating a soft diet. Pain is controlled. Breathing is stable. REVIEW OF SYSTEMS: Done for constitutional, cardiovascular, GI, pulmonary; relevant findings as above. CURRENT MEDICATIONS: Reviewed. EXAMINATION: Temperature 98, pulse 72, respiration 16, blood pressure 140/70, pulse ox 97% on room air. General appearance: Sitting up in a chair, awake, comfortable. Eyes pupils equal. Conjunctivae normal. HEENT external appearance of nose and ears normal. Oral cavity normal. Neck JVD not raised. Mass not palpable. Respiratory effort lungs decreased breath sounds. Cardiovascular 1st and 2nd sounds normal. No edema. ABDOMEN: Soft, minimal tenderness. Bowel sounds present. Wound VAC in place. Psychiatry: Alert and oriented x3. Mood and affect normal. INVESTIGATIONS: Accu-Cheks are noted. ASSESSMENT: 1. Right hemicolectomy for moderately differentiated carcinoma with some mucinous component from colon cancer, now with a wound VAC in place. 2. Postop ileus resolved. 3. Moderate aortic and mitral stenosis, nonrheumatic. 4. Chronic congestive heart failure from diastolic dysfunction. Ejection fraction 55- 60%. 5. Diabetes mellitus type 2 on oral hypoglycemic. 6. Hypothyroid. 7. Essential hypertension. 8. Primary osteoarthritis. 9. Obesity; BMI 39.9. PLAN: Patient is stable, doing much better. If discharged, should follow up with her family doctor. MMODL / IJN: [id number] /
== END 2018-03-15 13:50 | DRG 330 ==
LOC: 2ORMAIN 09:05 → 6ICU 17:15 → 3SUR 03-10 14:43
PROVIDERS: ADMIT Surgery; ATTEND Surgery
PROC: 0WQF0ZZ Repair Abdominal Wall, Open Approach (ICD-10-PCS; 2018-03-07)
PROC: 0DTF0ZZ Resection of Right Large Intestine, Open Approach (ICD-10-PCS; principal; 2018-03-07 11:45)
DX: C18.3 Malignant neoplasm of hepatic flexure (principal); I50.32 Chronic diastolic (congestive) heart failure; C77.2 Secondary and unspecified malignant neoplasm of intra-abdominal lymph nodes; D62 Acute posthemorrhagic anemia; I47.2 Ventricular tachycardia; K56.7 Ileus, unspecified; Z68.41 Body mass index [BMI] 40.0-44.9, adult; R32 Unspecified urinary incontinence; E83.39 Other disorders of phosphorus metabolism; I11.0 Hypertensive heart disease with heart failure; J44.9 Chronic obstructive pulmonary disease, unspecified; E03.9 Hypothyroidism, unspecified; I08.0 Rheumatic disorders of both mitral and aortic valves; E78.5 Hyperlipidemia, unspecified; E11.9 Type 2 diabetes mellitus without complications; K43.2 Incisional hernia without obstruction or gangrene; E66.01 Morbid (severe) obesity due to excess calories; M19.91 Primary osteoarthritis, unspecified site; F17.210 Nicotine dependence, cigarettes, uncomplicated; Z22.322 Carrier or suspected carrier of Methicillin resistant Staphylococcus aureus; Z86.14 Personal history of Methicillin resistant Staphylococcus aureus infection
CPT/HCPCS: 71045; 74019; 80048; 80051; 80053; 83036; 83735; 84100; 84132; 85025; 85027; 86850; 86900; 86901; 86920; 87324; 88309; 88341; 88342; 94640; 94760

== ENCOUNTER 2018-03-20 00:51 | Observation (INO) | payer MEDICARE, BC ==
[2018-03-20] MEDS ORDERED: PANTOPRAZOLE 40 MG/10 ML VIAL IVP STA (02:24)
[2018-03-20] MEDS ORDERED: SODIUM CHLORIDE 0.9% 500 ML IV STA (02:24)
--- NOTE | 2018-03-20 02:28 | ED ---
GI Bleed HPI - General Chief complaint: GI Bleed Stated complaint: coughing up blood Time Seen by Provider: 03/20/18 00:58 Source: EMS Mode of arrival: EMS Limitations: no limitations - History of Present Illness Initial comments: 82-year-old female patient presents to the emergency department today for evaluation of GI bleed. Patient states since 10:30 PM she has been bringing up bright red blood in her mouth. Patient denies any nausea or vomiting. She denies any bleeding from the nose. Denies any chest pain, shortness of breath, constipation, or diarrhea. Denies any hematochezia or melena. Patient does receive heparin injections and is currently a patient at [facility]. Patient was recently admitted for GI bleed and treated by Dr. Aguirre. Patient denies any recent rash, fever, chills, back pain, numbness, tingling, dizziness, weakness, hematuria, dysuria, urinary urgency, urinary frequency, headache, visual changes, or any other complaints. - Related Data Home Medications Medication Instructions Recorded Confirmed Cyanocobalamin [Vitamin B-12] 1,000 mcg PO QAM 04/10/15 03/07/18 Metoprolol Succinate [Toprol XL] 50 mg PO QAM 04/10/15 03/07/18 Multivit with Calcium,Iron,Min 1 tab PO DAILY@1600 04/10/15 03/05/18 [Women's Daily Multivitamin] Nateglinide [Starlix] 120 mg PO QAM 04/10/15 03/07/18 Sennosides [Senokot] 17.2 tab PO HS 04/10/15 03/07/18 Vits A,C,E/Lutein/Minerals 1 tab PO HS@1800 04/10/15 03/07/18 [Ocuvite with Lutein Tablet] sitaGLIPtin PHOS/metFORMIN HCL 1 tab PO QAM 04/10/15 03/05/18 [Janumet Xr 100-1,000 mg Tablet] Atorvastatin [Lipitor] 20 mg PO HS 02/10/18 03/07/18 Levothyroxine Sodium [Synthroid] 150 mcg PO QAM 02/10/18 03/07/18 Ipratropium-Albuterol Nebulize 3 ml INHALATION RT-Q6H 03/05/18 03/05/18 [Duoneb 0.5 mg-3 mg/3 ml Soln] Aspirin [Adult Low Dose Aspirin EC] 81 mg PO HS 03/07/18 03/07/18 Previous Rx's Medication Instructions Recorded Acetaminophen Tab [Tylenol] 650 mg PO Q6HR PRN tab 02/16/18 Diclofenac Sodium Gel [Voltaren 4 gm TOPICAL QID tube 02/16/18 Gel] Potassium Chloride [Klor-Con 20 meq PO DAILY #1 packet 02/16/18 Packets] Aspirin 81 mg PO HS chew 03/15/18 Ferrous Gluconate 324 mg PO DAILY #30 tablet 03/15/18 Furosemide [Lasix] 40 mg PO DAILY #30 tab 03/15/18 HYDROcodone/APAP 7.5-325MG [[place] 1 each PO Q6H PRN #15 tab 03/15/18 7.5-325] Heparin Sodium,Porcine [Heparin 5,000 unit SQ Q8HR vial 03/15/18 Sodium] Ipratropium-Albuterol Nebulize 3 ml INHALATION RT-TID ampul.neb 03/15/18 [Duoneb 0.5 mg-3 mg/3 ml Soln] Isosorbide Mononitrate ER [Imdur] 15 mg PO DAILY #30 dose 03/15/18 Pantoprazole [Protonix] 40 mg PO AC-BID #60 tablet. 03/15/18 Allergies Allergy/AdvReac Type Severity Reaction Status Date / Time Sulfa (Sulfonamide Allergy Anaphylaxis Verified 03/20/18 00:58 Antibiotics) Review of Systems ROS Statement: Those systems with pertinent positive or pertinent negative responses have been documented in the HPI. ROS Other: All systems not noted in ROS Statement are negative. 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, previous packed RBC transfusion last one being on 02/27/2018 History of Any Multi-Drug Resistant Organisms: MRSA Date of last positivie culture/infection: 02-11-18 MDRO Source:: SPUTUM Past Surgical History: Cholecystectomy, Hysterectomy, Orthopedic Surgery, Tonsillectomy Additional Past Surgical History / Comment(s): knee replacement; 5/9 - right hemicolectomy Past Anesthesia/Blood Transfusion Reactions: No Reported Reaction Additional Past Anesthesia/Blood Transfusion Reaction / Comment(s): blood transfusion- no reaction Past Psychological History: No Psychological Hx Reported Smoking Status: Never smoker Past Alcohol Use History: None Reported Past Drug Use History: None Reported - Past Family History Mother Family Medical History: Cancer Additional Family Medical History / Comment(s): breast cancer Father Additional Family Medical History / Comment(s): djd, hip replacment, heart problems General Exam Limitations: no limitations General appearance: alert, in no apparent distress, other (This is a well- developed, well-nourished elderly female patient in no acute distress. Vital signs upon presentation are temperature 97.1F, pulse 65, respirations 18, blood pressure 127/60, pulse ox 97% on room air.) Eye exam: Present: normal appearance, PERRL, EOMI. Absent: scleral icterus, conjunctival injection, periorbital swelling ENT exam: Present: normal exam, normal oropharynx, mucous membranes moist, other (Thorough examination of the mouth was performed. No evidence of intraoral lesion or bleeding. Did have patient removed dentures, there is a small ulcer on the upper gum but there is no bleeding at this site. Bleeding appears to be coming from the pharynx.) Respiratory exam: Present: normal lung sounds bilaterally. Absent: respiratory distress, wheezes, rales, rhonchi, stridor Cardiovascular Exam: Present: regular rate, normal rhythm, normal heart sounds. Absent: systolic murmur, diastolic murmur, rubs, gallop, clicks GI/Abdominal exam: Present: soft, normal bowel sounds. Absent: distended, tenderness, guarding, rebound, rigid Neurological exam: Present: alert, oriented X3, CN II-XII intact Psychiatric exam: Present: normal affect, normal mood Skin exam: Present: warm, dry, intact, normal color. Absent: rash Course Vital Signs 03/20/18 03/20/18 03/20/18 00:54 01:58 02:55 Temperature 97.1 F L Pulse Rate 65 68 Respiratory 18 68 H 16 Rate Blood Pressure 127/60 135/61 145/67 O2 Sat by Pulse 97 97 97 Oximetry 03/20/18 03:00 Temperature Pulse Rate 68 Respiratory 15 Rate Blood Pressure 120/58 O2 Sat by Pulse 98 Oximetry Medical Decision Making - Medical Decision Making 82-year-old female patient presents to the emergency department today for evaluation of bleeding from the mouth. Physical examination does reveal bright red bleeding coming from the oropharyngeal region. There is no evidence of epistaxis. Patient has no mouth injury. Labs reviewed and showed a hemoglobin of 9.8, sodium 132, chloride 93. Patient's hemoglobin is actually improved from previous readings. Patient was given IV fluids. I did have my physician Dr. Johnson evaluate the patient. Patient will be admitted with upper GI bleed and Dr. Aguirre will be consulted. - Lab Data Result diagrams: 03/20/18 01:16 03/20/18 01:16 Lab Results 03/20/18 03/20/18 03/20/18 Range/Units 01:16 01:16 01:16 WBC 7.9 (3.8-10.6) k/uL RBC 3.66 L (3.80-5.40) m/uL Hgb 9.8 L (11.4-16.0) gm/dL Hct 31.4 L (34.0-46.0) % MCV 85.8 (80.0-100.0) fL MCH 26.7 (25.0-35.0) pg MCHC 31.1 (31.0-37.0) g/dL RDW 18.4 H (11.5-15.5) % Plt Count 276 (150-450) k/uL PT (9.0-12.0) sec INR (<1.2) APTT (22.0-30.0) sec Sodium 132 L (137-145) mmol/L Potassium 3.7 (3.5-5.1) mmol/L Chloride 93 L (98-107) mmol/L Carbon Dioxide 28 (22-30) mmol/L Anion Gap 11 mmol/L BUN 8 (7-17) mg/dL Creatinine 0.60 (0.52-1.04) mg/dL Est GFR (CKD-EPI)AfAm >90 (>60 ml/min/1.73 sqM) Est GFR (CKD-EPI)NonAf 85 (>60 ml/min/1.73 sqM) Glucose 105 H (74-99) mg/dL Calcium 8.9 (8.4-10.2) mg/dL Total Bilirubin 0.6 (0.2-1.3) mg/dL AST 50 H (14-36) U/L ALT 41 (9-52) U/L Alkaline Phosphatase 81 (38-126) U/L Total Creatine Kinase 23 L (30-135) U/L CK-MB (CK-2) 0.5 (0.0-2.4) ng/mL CK-MB (CK-2) Rel Index 2.2 Troponin I <0.012 (0.000-0.034) ng/mL Total Protein 6.3 (6.3-8.2) g/dL Albumin 3.3 L (3.5-5.0) g/dL 03/20/18 Range/Units 01:16 WBC (3.8-10.6) k/uL RBC (3.80-5.40) m/uL Hgb (11.4-16.0) gm/dL Hct (34.0-46.0) % MCV (80.0-100.0) fL MCH (25.0-35.0) pg MCHC (31.0-37.0) g/dL RDW (11.5-15.5) % Plt Count (150-450) k/uL PT 10.6 (9.0-12.0) sec INR 1.1 (<1.2) APTT 28.0 (22.0-30.0) sec Sodium (137-145) mmol/L Potassium (3.5-5.1) mmol/L Chloride (98-107) mmol/L Carbon Dioxide (22-30) mmol/L Anion Gap mmol/L BUN (7-17) mg/dL Creatinine (0.52-1.04) mg/dL Est GFR (CKD-EPI)AfAm (>60 ml/min/1.73 sqM) Est GFR (CKD-EPI)NonAf (>60 ml/min/1.73 sqM) Glucose (74-99) mg/dL Calcium (8.4-10.2) mg/dL Total Bilirubin (0.2-1.3) mg/dL AST (14-36) U/L ALT (9-52) U/L Alkaline Phosphatase (38-126) U/L Total Creatine Kinase (30-135) U/L CK-MB (CK-2) (0.0-2.4) ng/mL CK-MB (CK-2) Rel Index Troponin I (0.000-0.034) ng/mL Total Protein (6.3-8.2) g/dL Albumin (3.5-5.0) g/dL - EKG Data -: EKG Interpreted by Me EKG Comments: EKG obtained at 02 41 shows sinus rhythm with a first-degree AV block. Ventricular rate is 65, MT interval 210, QR spiritism 110, QT 470, QTC 488. No evidence of ST elevation or depression. Disposition Clinical Impression: Upper GI bleed Disposition: ADMITTED IP TO THIS [facility] Condition: Serious Decision to Admit Reason: Admit from EC Decision Date: 03/20/18 Decision Time: 02:55
[2018-03-20] MEDS ORDERED: NALOXONE 0.4 MG/ML 1 ML VIAL IV PRN (02:29)
[2018-03-20 02:59] LABS: INR 1.1 (<1.2); Prothrombin Time 10.6 sec (9.0-12.0)
[2018-03-20 03:01] LABS: ALT 41 U/L (9-52); AST 50 U/L (14-36); Albumin 3.3 g/dL (3.5-5.0); Alkaline Phosphatase 81 U/L (38-126); Anion Gap 11 mmol/L; Blood Urea Nitrogen 8 mg/dL (7-17); Calcium 8.9 mg/dL (8.4-10.2); Carbon Dioxide 28 mmol/L (22-30); Chloride 93 mmol/L (98-107); Glucose 105 mg/dL (74-99); Potassium 3.7 mmol/L (3.5-5.1); Sodium 132 mmol/L (137-145); Total Bilirubin 0.6 mg/dL (0.2-1.3); Total Protein 6.3 g/dL (6.3-8.2)
[2018-03-20 03:09] LABS: Anisocytosis Slight; HCT 31.4 % (34.0-46.0); HGB 9.8 gm/dL (11.4-16.0); Hypochromasia Marked; MCH 26.7 pg (25.0-35.0); MCHC 31.1 g/dL (31.0-37.0); MCV 85.8 fL (80.0-100.0); Mean Platelet Volume 8.4; Platelet Count 276 k/uL (150-450); Poikilocytosis Moderate; RBC 3.66 m/uL (3.80-5.40); RDW 18.4 % (11.5-15.5); WBC 7.9 k/uL (3.8-10.6)
[2018-03-20 03:13] LABS: Creatine Kinase 23 U/L (30-135)
[2018-03-20 03:26] LABS: Creatine Kinase MB 0.5 ng/mL (0.0-2.4); Troponin I <0.012 ng/mL (0.000-0.034)
[2018-03-20] MEDS: SODIUM CHLORIDE 0.9% 1,000 ML IV SCH (04:03)
[2018-03-20 04:12] LABS: Band Neutrophils % 3 %; Eosinophils # (M) 0.24 k/uL (0-0.7); Lymphocytes # (M) 2.37 k/uL (1.0-4.8); Metamyelocytes # (M) 0.16 k/uL (0); Metamyelocytes % 2 %; Monocytes # (M) 0.87 k/uL (0-1.0); Myelocytes # (M) 0.16 k/uL (0); Myelocytes % 2 %; Neutrophils % (M) 50 %; Nucleated Red Blood Cells 0 /100 WBC (0-0); Total Cells Counted 200
[2018-03-20 04:13] LABS: Large Platelets Present; Polychromasia Present
[2018-03-20 08:03] LABS: Glucose,Whole Blood 120 mg/dL (75-99)
[2018-03-20] MEDS: PANTOPRAZOLE 40 MG/10 ML VIAL IV SCH (08:52)
[2018-03-20] MEDS ORDERED: PROPOFOL 10 MG/ML 20 ML VIAL IV ONE (09:04)
[2018-03-20] MEDS ORDERED: LIDOCAINE 1% INJ 10MG/ML (20 ML MDV) ONE (09:04)
[2018-03-20] MEDS ORDERED: IV FLUID CONTINUATION 1,000 ML IV ONE (09:05)
--- NOTE | 2018-03-20 09:08 | P.GSCN ---
History of Present Illness Consult date: 03/20/18 Reason for Consult: Upper GI bleed History of present illness: This 82-year-old female who is well-known to myself. Patient underwent previous right colectomy for hepatic flexure tumor. The patient was admitted through the emergency room with complaints of upper GI bleed. She resents today for EGD. 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, previous packed RBC transfusion last one being on 02/27/2018 History of Any Multi-Drug Resistant Organisms: MRSA Year Discovered:: 02-11-18 MDRO Source:: SPUTUM Past Surgical History: Cholecystectomy, Hysterectomy, Orthopedic Surgery, Tonsillectomy Additional Past Surgical History / Comment(s): knee replacement; 03/07 - right hemicolectomy Past Anesthesia/Blood Transfusion Reactions: No Reported Reaction Additional Past Anesthesia/Blood Transfusion Reaction / Comm: blood transfusion - no reaction Past Psychological History: No Psychological Hx Reported Additional Psychological History / Comment(s): currently at [facility], up with assist and walker Smoking Status: Never smoker Past Alcohol Use History: None Reported Past Drug Use History: None Reported - Past Family History Mother Family Medical History: Cancer Additional Family Medical History / Comment(s): breast cancer Father Additional Family Medical History / Comment(s): djd, hip replacment, heart problems Medications and Allergies Home Medications Medication Instructions Recorded Confirmed Type Cyanocobalamin [Vitamin B-12] 1,000 mcg PO QAM 04/10/15 03/20/18 History Metoprolol Succinate [Toprol XL] 50 mg PO QAM 04/10/15 03/20/18 History Multivit with Calcium,Iron,Min 1 tab PO HS 04/10/15 03/20/18 History [Women's Daily Multivitamin] Nateglinide [Starlix] 120 mg PO DAILY 04/10/15 03/20/18 History Sennosides [Senokot] 17.2 tab PO HS 04/10/15 03/20/18 History Vits A,C,E/Lutein/Minerals 1 tab PO HS 04/10/15 03/20/18 History [Ocuvite with Lutein Tablet] sitaGLIPtin PHOS/metFORMIN HCL 1 tab PO QAM 04/10/15 03/20/18 History [Janumet Xr 100-1,000 mg Tablet] Atorvastatin [Lipitor] 20 mg PO HS 02/10/18 03/20/18 History Levothyroxine Sodium [Synthroid] 150 mcg PO QAM 02/10/18 03/20/18 History Acetaminophen Tab [Tylenol] 650 mg PO Q6HR PRN tab 02/16/18 03/20/18 Rx Diclofenac Sodium Gel [Voltaren 4 gm TOPICAL QID tube 02/16/18 03/20/18 Rx Gel] Potassium Chloride [Klor-Con 20 meq PO DAILY #1 packet 02/16/18 03/20/18 Rx Packets] Ipratropium-Albuterol Nebulize 3 ml INHALATION RT-Q6H PRN 03/05/18 03/20/18 History [Duoneb 0.5 mg-3 mg/3 ml Soln] Aspirin 81 mg PO HS chew 03/15/18 03/20/18 Rx Ferrous Gluconate 324 mg PO DAILY #30 tablet 03/15/18 03/20/18 Rx Furosemide [Lasix] 40 mg PO DAILY #30 tab 03/15/18 03/20/18 Rx Heparin Sodium,Porcine [Heparin 5,000 unit SQ Q8HR vial 03/15/18 03/20/18 Rx Sodium] Isosorbide Mononitrate ER [Imdur] 15 mg PO DAILY #30 dose 03/15/18 03/20/18 Rx HYDROcodone/APAP 7.5-325MG [[place] 1 tab PO Q6H PRN 03/20/18 03/20/18 History 7.5-325] Ipratropium-Albuterol Nebulize 3 ml INHALATION RT-TID@05,13,21 03/20/18 History [Duoneb 0.5 mg-3 mg/3 ml Soln] Pantoprazole [Protonix] 40 mg PO BID@07,1700 03/20/18 03/20/18 History Allergies Allergy/AdvReac Type Severity Reaction Status Date / Time Sulfa (Sulfonamide Allergy Anaphylaxis Verified 03/20/18 07:53 Antibiotics) Surgical - Exam Vital Signs Temp Pulse Resp BP Pulse Ox 97.1 F L 65 18 127/60 97 03/20/18 00:54 03/20/18 00:54 03/20/18 00:54 03/20/18 00:54 03/20/18 00:54 - General well developed, no distress - Eyes PERRL - ENT normal pinna - Neck no masses - Respiratory normal expansion - Cardiovascular Rhythm: regular - Abdomen Abdomen: soft, non tender Results - Labs 03/20/18 01:16 03/20/18 01:16 Abnormal Lab Results - Last 24 Hours (Table) 03/20/18 03/20/18 03/20/18 Range/Units 01:16 01:16 01:16 RBC 3.66 L (3.80-5.40) m/uL Hgb 9.8 L (11.4-16.0) gm/dL Hct 31.4 L (34.0-46.0) % RDW 18.4 H (11.5-15.5) % Metamyelocytes # (Man) 0.16 H (0) k/uL Myelocytes # (Manual) 0.16 H (0) k/uL Sodium 132 L (137-145) mmol/L Chloride 93 L (98-107) mmol/L Glucose 105 H (74-99) mg/dL POC Glucose (mg/dL) (75-99) mg/dL AST 50 H (14-36) U/L Total Creatine Kinase 23 L (30-135) U/L Albumin 3.3 L (3.5-5.0) g/dL 03/20/18 Range/Units 07:59 RBC (3.80-5.40) m/uL Hgb (11.4-16.0) gm/dL Hct (34.0-46.0) % RDW (11.5-15.5) % Metamyelocytes # (Man) (0) k/uL Myelocytes # (Manual) (0) k/uL Sodium (137-145) mmol/L Chloride (98-107) mmol/L Glucose (74-99) mg/dL POC Glucose (mg/dL) 120 H (75-99) mg/dL AST (14-36) U/L Total Creatine Kinase (30-135) U/L Albumin (3.5-5.0) g/dL Diabetes panel 03/20/18 Range/Units 01:16 Sodium 132 L (137-145) mmol/L Potassium 3.7 (3.5-5.1) mmol/L Chloride 93 L (98-107) mmol/L Carbon Dioxide 28 (22-30) mmol/L BUN 8 (7-17) mg/dL Creatinine 0.60 (0.52-1.04) mg/dL Glucose 105 H (74-99) mg/dL Calcium 8.9 (8.4-10.2) mg/dL AST 50 H (14-36) U/L ALT 41 (9-52) U/L Alkaline Phosphatase 81 (38-126) U/L Total Protein 6.3 (6.3-8.2) g/dL Albumin 3.3 L (3.5-5.0) g/dL Calcium panel 03/20/18 Range/Units 01:16 Calcium 8.9 (8.4-10.2) mg/dL Albumin 3.3 L (3.5-5.0) g/dL Pituitary panel 03/20/18 Range/Units 01:16 Sodium 132 L (137-145) mmol/L Potassium 3.7 (3.5-5.1) mmol/L Chloride 93 L (98-107) mmol/L Carbon Dioxide 28 (22-30) mmol/L BUN 8 (7-17) mg/dL Creatinine 0.60 (0.52-1.04) mg/dL Glucose 105 H (74-99) mg/dL Calcium 8.9 (8.4-10.2) mg/dL Adrenal panel 03/20/18 Range/Units 01:16 Sodium 132 L (137-145) mmol/L Potassium 3.7 (3.5-5.1) mmol/L Chloride 93 L (98-107) mmol/L Carbon Dioxide 28 (22-30) mmol/L BUN 8 (7-17) mg/dL Creatinine 0.60 (0.52-1.04) mg/dL Glucose 105 H (74-99) mg/dL Calcium 8.9 (8.4-10.2) mg/dL Total Bilirubin 0.6 (0.2-1.3) mg/dL AST 50 H (14-36) U/L ALT 41 (9-52) U/L Alkaline Phosphatase 81 (38-126) U/L Total Protein 6.3 (6.3-8.2) g/dL Albumin 3.3 L (3.5-5.0) g/dL Assessment and Plan Assessment: Upper GI bleed. We'll perform EGD.
--- NOTE | 2018-03-20 09:20 | P.OP ---
Date of Procedure: 03/20/18 Preoperative Diagnosis: Upper GI bleed Postoperative Diagnosis: Upper GI bleed Procedure(s) Performed: EGD Anesthesia: MAC Surgeon: Phil Aguirre Pathology: none sent Condition: stable Disposition: PACU Description of Procedure: The patient's placed on the endoscopy table lateral position. He received IV sedation. The gastroscope placed oropharynx and passed into the esophagus the scope was then placed in the stomach and in the stomach there was a large amount of melanotic fluid and food. The scope was positioned through the pylorus and into the first second portion of duodenum there was no evidence of any active GI bleed. There was some mild duodenitis. Scope was then brought back the stomach there was no obvious bleeding the stomach. The stomach was poorly visualized secondary to a large amount of black fluid within the stomach. Scope was withdrawn the GE junction was at 40 cm. The distal esophagus appeared normal. The proximal esophagus appeared normal. Scope withdrawn for patient.
[2018-03-20 11:25] LABS: Anisocytosis Slight; HCT 30.9 % (34.0-46.0); HGB 9.6 gm/dL (11.4-16.0); Hypochromasia Marked; MCH 27.2 pg (25.0-35.0); MCV 87.5 fL (80.0-100.0); Mean Platelet Volume 7.6; Platelet Count 254 k/uL (150-450); Poikilocytosis Moderate; RBC 3.54 m/uL (3.80-5.40); WBC 6.8 k/uL (3.8-10.6)
[2018-03-20 11:37] LABS: Anion Gap 11 mmol/L; Blood Urea Nitrogen 8 mg/dL (7-17); Calcium 8.5 mg/dL (8.4-10.2); Carbon Dioxide 27 mmol/L (22-30); Chloride 97 mmol/L (98-107); Glucose 108 mg/dL (74-99); Potassium 3.7 mmol/L (3.5-5.1); Sodium 135 mmol/L (137-145)
[2018-03-20 12:14] LABS: Glucose,Whole Blood 118 mg/dL (75-99)
[2018-03-20] MEDS ORDERED: SENNOSIDES 8.6 MG TAB PO PRN (15:20)
[2018-03-20] MEDS ORDERED: HYDROcodone/APAP 7.5-325MG 1 EACH TAB PO PRN (15:20)
[2018-03-20] MEDS ORDERED: ACETAMINOPHEN TAB 325 MG TAB PO PRN (15:20)
[2018-03-20] MEDS ORDERED: metFORMIN 500 MG TAB PO SCH (17:30)
[2018-03-20 17:34] LABS: Glucose,Whole Blood 102 mg/dL (75-99)
[2018-03-20] MEDS: DICLOFENAC SODIUM GEL 100 GM TUBE TOPICAL SCH ×2 (17:38→20:47)
[2018-03-20 18:27] LABS: Hemoglobin A1C 5.1 % (4.0-6.0)
[2018-03-20 18:35] LABS: Anisocytosis Slight; Basophils # (A) 0.1 k/uL (0-0.2); Basophils % (A) 1 %; Eosinophils # (A) 0.2 k/uL (0-0.7); Eosinophils % (A) 3 %; HCT 28.2 % (34.0-46.0); HGB 8.7 gm/dL (11.4-16.0); Hypochromasia Marked; Lymphocytes # (A) 1.6 k/uL (1.0-4.8); Lymphocytes % (A) 28 %; MCH 26.6 pg (25.0-35.0); MCV 85.7 fL (80.0-100.0); Mean Platelet Volume 8.9; Monocytes # (A) 0.4 k/uL (0-1.0); Monocytes % (A) 7 %; Neutrophils # (A) 3.2 k/uL (1.3-7.7); Neutrophils % (A) 58 %; Platelet Count 241 k/uL (150-450); Poikilocytosis Slight; RBC 3.29 m/uL (3.80-5.40); RDW 18.9 % (11.5-15.5); WBC 5.6 k/uL (3.8-10.6)
--- NOTE | 2018-03-20 20:23 | HP ---
HISTORY AND PHYSICAL DATE OF ADMISSION: 03/20/2018 DATE OF SERVICE: 03/20/2018. HISTORY OF PRESENTING COMPLAINT: This is a pleasant 82-year-old patient of Dr. Mccoy whose chronic stable medical conditions include moderate mitral stenosis, moderate aortic stenosis, congestive heart failure from diastolic dysfunction, diabetes, hypothyroid, hypertension, osteoarthritis. 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 Patient underwent right hemicolectomy by Dr. Aguirre on 03/07/2018. Patient was doing well and was discharged on 03/15/2018 to the [facility]. Patient had had a postoperative ileus that resolved. Patient otherwise was tolerating her diet and doing well. Patient had started to use a walker at [facility]. Patient presented with what appeared to be vomiting clots of blood. There was no abdominal pain. The patient did feel weak and tired. Earlier she underwent EGD by Dr. Aguirre. It was felt to be unremarkable. Patient did state she was having dark stools at the [facility] and also had a large dark stool here. Does feel a bit weak and tired. REVIEW OF SYSTEMS: CONSTITUTIONAL: Tired. HEENT: Decreased hearing. RESPIRATORY: None. CARDIOVASCULAR: None. GASTROINTESTINAL: As above. GENITOURINARY: None. MUSCULOSKELETAL: Pain in the joints. DERMATOLOGICAL: None. HEMATOLOGICAL: None. LYMPHATICS: None. PSYCHIATRY: None. NEUROLOGICAL: None. PAST MEDICAL HISTORY: 1. Moderate aortic stenosis. 2. Moderate mitral stenosis. 3. Congestive heart failure from diastolic dysfunction. 4. Diabetes. 5. Hypothyroid. 6. Hypertension. 7. Osteoarthritis. 8. Colon cancer. PAST SURGICAL HISTORY: 1. Right hemicolectomy for colon cancer. 2. Cholecystectomy. 3. Hysterectomy. 4. Orthopedic surgery. 5. Tonsillectomy. 6. Knee replacement. SOCIAL HISTORY: No smoking. No alcohol. Currently a resident of [facility]. FAMILY HISTORY: Breast cancer. HOME MEDICATIONS: 1. Janumet XR 100/1000 one tablet p.o. daily. 2. Ocuvite 1 tablet p.o. at bedtime. 3. Senokot 17.2 p.o. at bedtime. 4. Klor-Con 20 mEq p.o. daily. 5. Protonix 40 mg p.o. b.i.d. 6. Starlix 120 mg p.o. daily. 7. Women's Multivitamin 1 tablet p.o. at bedtime. 8. Toprol XL 150 mg p.o. daily. 9. Synthroid 150 mcg p.o. daily. 10.Imdur ER 15 mg p.o. daily. 11.DuoNeb t.i.d. and q.6 p.r.n. 12.Heparin 5000 units subcutaneously q.8. 13.[place] 7.5 one tablet q.6 p.r.n. 14.Lasix 40 mg p.o. daily. 15.Iron. 16.Voltaren Gel 4 grams topically q.i.d. 17.Vitamin B12 1000 mcg p.o. daily. 18.Lipitor 20 mg p.o. at bedtime. 19.Aspirin 81 mg at bedtime. ALLERGIES: SULFA. PHYSICAL EXAMINATION: VITAL SIGNS ON PRESENTATION: Temperature 97.1, pulse 65, respiration 18, blood pressure 127/60, pulse ox 97% on room air. GENERAL APPEARANCE: Well built; BMI 39. Lying in bed, tired-appearing, awake. EYES: Pupils equal. Conjunctivae pale. HEENT: External appearance of nose and ears normal. Oral cavity normal. NECK: JVD not raised. Mass not palpable. RESPIRATORY: Effort normal. LUNGS: Decreased breath sounds. CARDIOVASCULAR: Systolic murmur. Other sounds are normal. No edema. ABDOMEN: Soft, nontender. Dressing in place. Liver and spleen not palpable. LYMPHATIC: No lymph node palpable in neck or axillae. PSYCHIATRY: Alert and oriented x3. Mood and affect normal. NEUROLOGICAL: Pupils equal. Cranial nerves grossly intact. Power and sensation grossly intact. MUSCULOSKELETAL: Evidence of osteoarthritis, especially in the hands. INVESTIGATIONS: White count 6.8. Hemoglobin 9.6, repeat 8.7. Potassium 3.7. Patient's hemoglobin when she left the hospital was 8.4. ASSESSMENT: 1. Acute gastrointestinal bleed in a patient who recently had right hemicolectomy, had blood clots she had brought up. She did undergo EGD by Dr. Aguirre earlier today. He only discussed some mild duodenitis. There was a large amount of black fluid within the stomach. This acute gastrointestinal bleed is likely gastric in origin, given that there was a lot of dark fluid in the stomach, but no obvious source could be discovered. 2. Recent right hemicolectomy for moderately differentiated carcinoma with some mucinous component for colon cancer. 3. Moderate aortic and moderate mitral stenosis, non-rheumatic. 4. Chronic congestive heart failure from diastolic dysfunction, ejection fraction 55% to 60%. 5. Diabetes mellitus, type 2, on oral hypoglycemic. 6. Hypothyroid. 7. Essential hypertension. 8. Primary osteoarthritis. 9. Obesity; body mass index 39.9. PLAN: Home medications are to be resumed. Patient is on a clear liquid diet. Keep a close eye on the hemoglobin. If patient bleeds any further or drops hemoglobin, may need further endoscopy. Care was discussed with the patient. Will hold off patient's Glucophage for now. Follow Accu-Cheks closely. MMODL / IJN: [id number] /
[2018-03-20 20:28] LABS: Anisocytosis Slight; Basophils % (A) 1 %; Eosinophils # (A) 0.1 k/uL (0-0.7); Eosinophils % (A) 2 %; HCT 27.8 % (34.0-46.0); HGB 8.8 gm/dL (11.4-16.0); Hypochromasia Marked; Lymphocytes # (A) 1.8 k/uL (1.0-4.8); Lymphocytes % (A) 31 %; MCH 27.2 pg (25.0-35.0); MCHC 31.6 g/dL (31.0-37.0); MCV 86.2 fL (80.0-100.0); Monocytes # (A) 0.5 k/uL (0-1.0); Monocytes % (A) 9 %; Neutrophils # (A) 3.2 k/uL (1.3-7.7); Neutrophils % (A) 55 %; Platelet Count 237 k/uL (150-450); Poikilocytosis Slight; RBC 3.22 m/uL (3.80-5.40); RDW 18.9 % (11.5-15.5); WBC 5.8 k/uL (3.8-10.6)
[2018-03-20] MEDS: VIT A,C & E-LUTEIN-MINERALS 1 EACH TAB PO SCH (20:46)
[2018-03-20] MEDS: ATORVASTATIN 20 MG TAB PO SCH (20:46)
[2018-03-20] MEDS: MELATONIN 5 MG TABLET PO SCH (20:47)
[2018-03-20] MEDS: MULTIVITAMINS, THERA 1 EACH TAB PO SCH (20:47)
[2018-03-20 20:58] LABS: Glucose,Whole Blood 92 mg/dL (75-99)
[2018-03-20] MEDS: IPRATROPIUM-ALBUTEROL 3 ML NEB INHALATION SCH (21:23)
[2018-03-21] MEDS: SODIUM CHLORIDE 0.9% 1,000 ML IV SCH ×2 (00:12→16:26)
[2018-03-21] MEDS: LEVOTHYROXINE 75 MCG TAB PO SCH (05:39)
[2018-03-21 07:15] LABS: Glucose,Whole Blood 114 mg/dL (75-99)
[2018-03-21] MEDS: IPRATROPIUM-ALBUTEROL 3 ML NEB INHALATION SCH ×3 (08:59→21:52)
[2018-03-21] MEDS ORDERED: NON-FORMULARY DRUG (Ferrous Gluconate [Ferrous Gluconate] 324 MG) PO SCH (09:00)
[2018-03-21] MEDS: CYANOCOBALAMIN 500 MCG TAB PO SCH (09:03)
[2018-03-21] MEDS: DICLOFENAC SODIUM GEL 100 GM TUBE TOPICAL SCH ×4 (09:03→22:57)
[2018-03-21] MEDS: NON-FORMULARY DRUG (Nateglinide 120 MG) PO SCH (09:04)
[2018-03-21] MEDS: METOPROLOL SUCCINATE (ER) 50 MG TAB.ER.24H PO SCH (09:04)
[2018-03-21] MEDS: ISOSORBIDE MONONITRATE ER 15 MG TAB PO SCH (09:04)
[2018-03-21] MEDS: PANTOPRAZOLE 40 MG/10 ML VIAL IV SCH (09:04)
[2018-03-21] MEDS: LINAGLIPTIN 5 MG TABLET PO SCH (09:04)
[2018-03-21] MEDS: FUROSEMIDE 40 MG TAB PO SCH (09:04)
[2018-03-21] MEDS: POTASSIUM CHLORIDE ER 20 MEQ TAB.ER PO SCH ×5 (09:05→22:57)
[2018-03-21 09:39] LABS: Anisocytosis Slight; Basophils # (A) 0.1 k/uL (0-0.2); Basophils % (A) 1 %; Eosinophils # (A) 0.1 k/uL (0-0.7); Eosinophils % (A) 2 %; HCT 28.8 % (34.0-46.0); HGB 9.2 gm/dL (11.4-16.0); Hypochromasia Marked; Lymphocytes # (A) 1.2 k/uL (1.0-4.8); Lymphocytes % (A) 24 %; MCH 27.4 pg (25.0-35.0); MCHC 31.8 g/dL (31.0-37.0); MCV 86.1 fL (80.0-100.0); Mean Platelet Volume 8.5; Monocytes # (A) 0.4 k/uL (0-1.0); Monocytes % (A) 8 %; Neutrophils # (A) 3.2 k/uL (1.3-7.7); Neutrophils % (A) 62 %; Platelet Count 232 k/uL (150-450); Poikilocytosis Slight; RBC 3.35 m/uL (3.80-5.40); RDW 19.3 % (11.5-15.5); WBC 5.2 k/uL (3.8-10.6)
--- NOTE | 2018-03-21 09:50 | P.PN ---
Subjective Progress Note Date: 03/21/18 82-year-old female resting in bed. Patient reports has had several loose stools last night. Nursing reports the stools were dark maroon. Patient denies any nausea vomiting. Current labs are pending. Patient is status post EGD on the 20 of March the esophagus appeared normal noted in the stomach was a large amount melancholic fluid and food patient has a history of hepatic flexure tumor did undergo a right colectomy March 07 Surgical dressing to surgical site dry abdomen soft nontender Objective - Vital Signs Vital signs: Vital Signs Temp 98.0 F 03/21/18 05:54 Pulse 82 03/21/18 05:54 Resp 14 03/21/18 05:54 BP 143/65 03/21/18 05:54 Pulse Ox 97 03/21/18 05:54 Intake & Output 03/20/18 03/21/18 03/21/18 18:59 06:59 18:59 Intake Total 50 Balance 50 Intake: IV 50 Other: Voiding Method Diaper Diaper Incontinent Incontinent # Voids 3 2 # Bowel Movements 1 2 1 - Exam Physical exam 52-year-old female resting in bed sitting upright appears in no acute distress Lungs adequate air movement bilaterally on room air Heart S1-S2 audible regular Abdomen soft mild tenderness surgical dressing to the surgical site dry few hypoactive bowel tones reportedly had been having dark maroon stools during the night nondistended Extremities Venodyne's on to the bilateral lower extremities - Labs CBC & Chem 7: 03/20/18 20:11 03/20/18 10:48 Labs: Abnormal Lab Results - Last 24 Hours (Table) 03/20/18 03/20/18 03/20/18 Range/Units 10:48 10:48 11:51 RBC 3.54 L (3.80-5.40) m/uL Hgb 9.6 L (11.4-16.0) gm/dL Hct 30.9 L (34.0-46.0) % RDW 19.0 H (11.5-15.5) % Sodium 135 L (137-145) mmol/L Chloride 97 L (98-107) mmol/L Glucose 108 H (74-99) mg/dL POC Glucose (mg/dL) 118 H (75-99) mg/dL Stool Occult Blood (Negative) 0503/20/18 03/20/18 Range/Units 17:16 17:35 18:19 RBC 3.29 L (3.80-5.40) m/uL Hgb 8.7 L (11.4-16.0) gm/dL Hct 28.2 L (34.0-46.0) % RDW 18.9 H (11.5-15.5) % Sodium (137-145) mmol/L Chloride (98-107) mmol/L Glucose (74-99) mg/dL POC Glucose (mg/dL) 102 H (75-99) mg/dL Stool Occult Blood Positive H (Negative) 03/20/18 03/21/18 Range/Units 20:11 07:03 RBC 3.22 L (3.80-5.40) m/uL Hgb 8.8 L (11.4-16.0) gm/dL Hct 27.8 L (34.0-46.0) % RDW 18.9 H (11.5-15.5) % Sodium (137-145) mmol/L Chloride (98-107) mmol/L Glucose (74-99) mg/dL POC Glucose (mg/dL) 114 H (75-99) mg/dL Stool Occult Blood (Negative) Assessment and Plan Assessment: Impression Recent right colectomy for hepatic flexure tumor done March 07 Present on admission hematemesis acute blood loss anemia suspect upper GI bleed Status post EGD March 20 showed evidence of large amount of melanotic fluid and food Severe aortic stenosis Debilitated chronic Frequent loose maroon-colored stools Plan remove the brady from the surgical incision site today IV fluid as ordered Follow-up on pending labs Further surgical recommendations pending possible colonoscopy Will follow with you DVT and GI prophylaxis The above impression and plan of care have been discussed and directed by signing physician. Meka Verma nurse practitioner acting as scribe for signing physician.
[2018-03-21 09:52] LABS: Anion Gap 12 mmol/L; Blood Urea Nitrogen 4 mg/dL (7-17); Calcium 8.3 mg/dL (8.4-10.2); Carbon Dioxide 24 mmol/L (22-30); Chloride 99 mmol/L (98-107); Glucose 109 mg/dL (74-99); Potassium 3.3 mmol/L (3.5-5.1); Sodium 135 mmol/L (137-145)
[2018-03-21] MEDS ORDERED: Potassium Replacement Protocol 1 EACH MISC MISCELLANE PRN ×2 (10:21→19:04)
[2018-03-21 12:06] LABS: Glucose,Whole Blood 113 mg/dL (75-99)
[2018-03-21 15:51] VITALS: RESP 16
[2018-03-21 17:31] LABS: Glucose,Whole Blood 101 mg/dL (75-99)
--- NOTE | 2018-03-21 20:04 | PN ---
PROGRESS NOTE DATE OF SERVICE: March 21, 2018. PRESENTING COMPLAINT: This is a patient who just underwent a right hemicolectomy for malignancy, presented with vomiting blood. Did undergo EGD that showed dark blood. Overnight the patient had some dark stools but no obvious judy blood. The patient did sit up. Started on clear liquids. No abdominal pain. REVIEW OF SYSTEMS: Done for constitutional, cardiovascular, GI, pulmonary, relevant findings as above. MEDICATIONS: Current medications are reviewed. PHYSICAL EXAMINATION: VITAL SIGNS: Temperature 98, pulse 82, respiratory rate 14, blood pressure 143/65, pulse ox 97% on room air. GENERAL APPEARANCE: Lying in bed, tired-appearing. EYES: Pupils equal, conjunctivae pale. HEENT: External appearance of nose and ears normal. Oral cavity normal. NECK: JVD not raised. Mass not palpable. RESPIRATORY: Effort normal. LUNGS: Decreased breath sounds. CARDIOVASCULAR: Systolic murmur. No edema. ABDOMEN: Soft, nontender. Dressing in place. Liver and spleen not palpable. PSYCHIATRY: Alert and oriented times three. Mood and affect normal. INVESTIGATIONS: Hemoglobin 9.2, Potassium 3.3. ASSESSMENT: 1. Acute upper gastrointestinal bleed, likely gastric in origin. 2. 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 3. Moderate and moderate mitral stenosis nonrheumatic. 4. Chronic congestive heart failure from diastolic dysfunction, ejection fraction 55 to 60%. 5. Diabetes mellitus Type 2 on oral hypoglycemics. 6. Hypothyroidism. 7. Essential hypertension. 8. Primary osteoarthritis. 9. Obesity, BMI 39.9. PLAN: Keep a close eye on patient's hemoglobin. The patient being started on clear liquids. If the patient bleeds again, patient may need a repeat upper GI endoscopy or a small capsule endoscopy. MMODL / IJN: [id number] /
[2018-03-21] MEDS: MELATONIN 5 MG TABLET PO SCH (20:21)
[2018-03-21] MEDS: MULTIVITAMINS, THERA 1 EACH TAB PO SCH (20:21)
[2018-03-21] MEDS: ATORVASTATIN 20 MG TAB PO SCH (20:21)
[2018-03-21] MEDS: VIT A,C & E-LUTEIN-MINERALS 1 EACH TAB PO SCH (20:21)
[2018-03-21 21:06] LABS: Glucose,Whole Blood 106 mg/dL (75-99)
[2018-03-22] MEDS: METOPROLOL SUCCINATE (ER) 50 MG TAB.ER.24H PO SCH (06:38)
[2018-03-22] MEDS: LEVOTHYROXINE 75 MCG TAB PO SCH (06:38)
[2018-03-22 06:45] VITALS: BP 174/78; TEMP 97.9
[2018-03-22 07:36] LABS: Glucose,Whole Blood 110 mg/dL (75-99)
[2018-03-22] MEDS: IPRATROPIUM-ALBUTEROL 3 ML NEB INHALATION SCH ×2 (07:38→13:29)
[2018-03-22 07:55] VITALS: PULSE 72
[2018-03-22] MEDS: NON-FORMULARY DRUG (Nateglinide 120 MG) PO SCH (08:28)
[2018-03-22] MEDS: CYANOCOBALAMIN 500 MCG TAB PO SCH (08:29)
[2018-03-22] MEDS: FUROSEMIDE 40 MG TAB PO SCH (08:30)
[2018-03-22] MEDS: POTASSIUM CHLORIDE ER 20 MEQ TAB.ER PO SCH (08:30)
[2018-03-22] MEDS: PANTOPRAZOLE 40 MG/10 ML VIAL IV SCH (08:30)
[2018-03-22] MEDS: ISOSORBIDE MONONITRATE ER 15 MG TAB PO SCH (08:30)
[2018-03-22] MEDS: LINAGLIPTIN 5 MG TABLET PO SCH (08:30)
[2018-03-22] MEDS: DICLOFENAC SODIUM GEL 100 GM TUBE TOPICAL SCH ×2 (08:38→13:12)
[2018-03-22 08:55] LABS: Anisocytosis Slight; Basophils # (A) 0.1 k/uL (0-0.2); Basophils % (A) 1 %; Eosinophils # (A) 0.2 k/uL (0-0.7); Eosinophils % (A) 3 %; HCT 29.3 % (34.0-46.0); Hypochromasia Marked; Lymphocytes # (A) 1.8 k/uL (1.0-4.8); Lymphocytes % (A) 29 %; MCH 26.8 pg (25.0-35.0); MCHC 30.8 g/dL (31.0-37.0); MCV 86.9 fL (80.0-100.0); Mean Platelet Volume 7.8; Monocytes # (A) 0.5 k/uL (0-1.0); Monocytes % (A) 9 %; Neutrophils # (A) 3.3 k/uL (1.3-7.7); Neutrophils % (A) 55 %; Platelet Count 247 k/uL (150-450); Poikilocytosis Slight; RBC 3.37 m/uL (3.80-5.40); RDW 19.8 % (11.5-15.5)
[2018-03-22 09:12] LABS: Anion Gap 12 mmol/L; Blood Urea Nitrogen 3 mg/dL (7-17); Calcium 8.9 mg/dL (8.4-10.2); Carbon Dioxide 26 mmol/L (22-30); Chloride 100 mmol/L (98-107); Glucose 120 mg/dL (74-99); Sodium 138 mmol/L (137-145)
[2018-03-22 12:02] LABS: Glucose,Whole Blood 132 mg/dL (75-99)
--- NOTE | 2018-03-22 12:53 | P.PN ---
Subjective Progress Note Date: 03/22/18 82-year-old female seen this morning awake. Nursing reports patient had 1 small bowel movement this morning no blood noted in the stool. Physical therapy has been working with the patient is able to sit on the edge of the bed. Patient reportedly tolerating a diet no nausea no vomiting. Patient did have an EGD done on March 20 reviewing the report showed no acute findings distal esophagus was normal proximal esophagus normal there was a large amount of melanotic fluid and food noted in the stomach Patient is status post right colectomy for a hepatic flexure tumor done on March 07 Objective - Vital Signs Vital signs: Vital Signs Temp 97.9 F 03/22/18 06:44 Pulse 72 03/22/18 07:48 Resp 16 03/22/18 07:48 BP 174/78 03/22/18 06:44 Pulse Ox 98 03/22/18 06:44 Intake & Output 03/21/18 03/22/18 03/22/18 18:59 06:59 18:59 Intake Total 480 Balance 480 Intake: Oral 480 Other: Voiding Method Diaper Incontinent # Voids 4 2 # Bowel Movements 2 0 - Exam Physical exam 82-year-old female resting in bed sitting upright appears in no acute distress taking a diet Lungs adequate air movement bilaterally on room air Heart S1-S2 audible regular Abdomen soft mild tenderness Steri-Strips to surgical incision site in place well approximated no redness no drainage not distended bowel tones present episodes of incontinent urine states had 2 stools yesterday evening 1 this morning no blood noted per nursing report Extremities Venodyne's on to the bilateral lower extremities - Labs CBC & Chem 7: 03/22/18 08:29 03/22/18 08:29 Labs: Abnormal Lab Results - Last 24 Hours (Table) 03/21/18 03/21/18 03/21/18 Range/Units 17:29 17:59 21:00 RBC (3.80-5.40) m/uL Hgb (11.4-16.0) gm/dL Hct (34.0-46.0) % MCHC (31.0-37.0) g/dL RDW (11.5-15.5) % Potassium 3.4 L (3.5-5.1) mmol/L BUN (7-17) mg/dL Glucose (74-99) mg/dL POC Glucose (mg/dL) 101 H 106 H (75-99) mg/dL 03/22/18 03/22/18 03/22/18 Range/Units 07:31 08:29 08:29 RBC 3.37 L (3.80-5.40) m/uL Hgb 9.0 L (11.4-16.0) gm/dL Hct 29.3 L (34.0-46.0) % MCHC 30.8 L (31.0-37.0) g/dL RDW 19.8 H (11.5-15.5) % Potassium (3.5-5.1) mmol/L BUN 3 L (7-17) mg/dL Glucose 120 H (74-99) mg/dL POC Glucose (mg/dL) 110 H (75-99) mg/dL 03/22/18 Range/Units 11:59 RBC (3.80-5.40) m/uL Hgb (11.4-16.0) gm/dL Hct (34.0-46.0) % MCHC (31.0-37.0) g/dL RDW (11.5-15.5) % Potassium (3.5-5.1) mmol/L BUN (7-17) mg/dL Glucose (74-99) mg/dL POC Glucose (mg/dL) 132 H (75-99) mg/dL Assessment and Plan Assessment: Impression Recent right colectomy for hepatic flexure tumor done March 07 Present on admission hematemesis acute blood loss anemia suspect upper GI bleed Status post EGD March 20 showed evidence of large amount of melanotic fluid and food Severe aortic stenosis Debilitated chronic Frequent loose maroon-colored stools resolved Plan From a surgical perspective patient is felt to be hemodynamically stable and appropriate to proceed with a discharge to the ECF facility defer to the timing of the discharge to the attending DVT and GI prophylaxis We'll sign off and re-eval as needed The above impression and plan of care have been discussed and directed by signing physician. Meka Verma nurse practitioner acting as scribe for signing physician.
--- NOTE | 2018-03-22 15:14 | DS ---
DISCHARGE SUMMARY DATE OF ADMISSION: 03/20/2018 DATE OF DISCHARGE: 03/22/2018 FINAL DIAGNOSES: 1. Acute upper gastrointestinal bleed, likely gastric in origin. 2. 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 3. Chronic congestive heart failure from diastolic dysfunction. Ejection fraction 55%- 60%. 4. Diabetes mellitus type 2 on oral hypoglycemic. 5. Hypothyroidism. 6. Essential hypertension. 7. Primary osteoarthritis. 8. Obesity; body mass index of 39.9. 9. Moderate aortic and moderate mitral stenosis, nonrheumatic. HOSPITAL COURSE: This is a pleasant 82-year-old patient who just underwent a right hemicolectomy for the above name malignancy and was discharged to the [facility] on 03/15/[address] Aguirre. Patient presented with vomiting some blood and dark stools. EGD showed some dark blood in the stomach. Patient has had no further episodes, now tolerating a diet. She is expressing that she does not want any further workup for malignancy at this point, but she and her had discussion about the same. At this point, patient tolerating a diet. Abdomen is soft, nontender. Incision has got a dressing in place. Care was discussed with the patient and in detail. Also with Kay. Patient okay to be discharged. Care was discussed with the patient and . PHYSICAL EXAMINATION: LUNGS: Decreased breath sounds. ABDOMEN: Soft, nontender. PSYCH: Alert and oriented x3. Hemoglobin is 9. BUN and creatinine are normal. DISCHARGE MEDICATIONS: 1. Vitamin B12 one thousand mcg p.o. daily. 2. Toprol-XL 50 mg daily. 3. Women's multivitamin 1 tablet p.o. q.h.s. 4. Starlix 120 mg p.o. daily. 5. Senokot 17.2 q.h.s. 6. Ocuvite with lutein 1 tablet p.o. q.h.s. 7. Janumet XR 100/1000 one tablet p.o. daily. 8. Lipitor 20 mg q.h.s. 9. Synthroid 150 mcg p.o. daily. 10.Tylenol 650 mg q.6 p.r.n. 11.Voltaren Gel 4 grams topical q.i.d. 12.Potassium 20 mEq p.o. daily. 13.DuoNeb q.6 p.r.n. 14.Iron 324 mg p.o. daily. 15.Lasix 40 mg p.o. daily. 16.Imdur ER 50 mg p.o. daily. 17.[place] 7.5 one tablet q.6 p.r.n. 18.DuoNeb t.i.d. 19.Protonix 40 mg b.i.d. DISPOSITION: [facility]. Follow up with Dr. Saab at the [facility]. Follow up with Dr. Mccoy after discharge from [facility]. Follow up with Dr. Aguirre in 1 week. Follow up with Dr. Harper in 1 week. Labs, CBC, BMP in 3 days. Discharge planning more than 35 minutes. MMODL / IJN: [id number] /
[2018-03-22] MEDS: SODIUM CHLORIDE 0.9% 1,000 ML IV SCH (15:23)
== END 2018-03-22 16:38 ==
LOC: EC 00:51 → 4MS4W 03:47
PROVIDERS: ADMIT Hospitalist; ATTEND Hospitalist
DX: K92.2 Gastrointestinal hemorrhage, unspecified (principal); Z85.038 Personal history of other malignant neoplasm of large intestine; I11.0 Hypertensive heart disease with heart failure; I50.32 Chronic diastolic (congestive) heart failure; E11.9 Type 2 diabetes mellitus without complications; Z79.84 Long term (current) use of oral hypoglycemic drugs; E03.9 Hypothyroidism, unspecified; M19.91 Primary osteoarthritis, unspecified site; E66.9 Obesity, unspecified; Z68.39 Body mass index [BMI] 39.0-39.9, adult; I34.2 Nonrheumatic mitral (valve) stenosis; I35.0 Nonrheumatic aortic (valve) stenosis; R19.5 Other fecal abnormalities; K92.0 Hematemesis; E78.5 Hyperlipidemia, unspecified; D62 Acute posthemorrhagic anemia; R32 Unspecified urinary incontinence; Z79.899 Other long term (current) drug therapy; Z79.82 Long term (current) use of aspirin; Z79.01 Long term (current) use of anticoagulants; Z79.890 Hormone replacement therapy; Z88.2 Allergy status to sulfonamides; Z80.3 Family history of malignant neoplasm of breast; Z90.49 Acquired absence of other specified parts of digestive tract; Z87.01 Personal history of pneumonia (recurrent); Z86.14 Personal history of Methicillin resistant Staphylococcus aureus infection
CPT/HCPCS: 99285; 96374 ×2; 96376 ×3; 36415; 94640 ×3; 93005; 97116; 97110; 97162; 97166; 80053; 80048 ×3; 82550; 82553; 84132; 84484; 85025 ×3; 85027; 85610; 85730; 82272; 83036; 43235; G0378 ×3; J2001; J2704; C9113 ×3

== ENCOUNTER → 2018-07-31 | Outpatient (CLI) | payer MEDICARE, BC ==
--- NOTE | 2018-07-31 13:39 | USB ---
Reason for exam: clinical finding. History: Patient is postmenopausal. Family history of breast cancer in mother. Physical Findings: Nurse Summary: bloody nipple, hard tissue (nurse rm). US Breast RT Right complete breast ultrasound includes all four quadrants, the retroareolar region and axilla. Finding demonstrates three irregular, spiculated, solid, hypoechoic, vascular lesions measuring 1.9 x 1.2 x 1.1cm at 9 o'clock, 1.1 x 1.1 x 0.7cm at 9 o'clock and 2.5 x 2.6cm at the posterior nipple. These results were verbally communicated with the patient and result sheet given to the patient on 07/31/18. ASSESSMENT: Highly suggestive of malignancy, BI-RAD 5 RECOMMENDATION: Ultrasound core biopsy of the right breast. Patient does not want any interventions at this time. Called Dr. Mccoy with mammographic findings. PRELIMINARY REPORT CALLED AND FAXED TO DR. MCCOY ON 07/31/18.
--- NOTE | 2018-07-31 13:43 | MM ---
Reason for exam: clinical finding. Last mammogram was performed 19 years and 8 months ago. History: Patient is postmenopausal. Family history of breast cancer in mother. MG Diagnostic Mammo w CAD RUBEN Bilateral CC and MLO view(s) were taken. Prior study comparison: November 27, 1998, bilateral screening mammogram. June 09, 1998, right breast special view mammogram. There are scattered fibroglandular densities. Benign calcifications bilaterally. Bilateral multiple spiculated masses. Bilateral skin thickening. These results were verbally communicated with the patient and result sheet given to the patient on 07/31/18. ASSESSMENT: Highly suggestive of malignancy, BI-RAD 5 RECOMMENDATION: Ultrasound of the left breast. Ultrasound core biopsy of the right breast. Left breast ultrasound not performed. Patient declined to have left breast ultrasound done. Patient does not want any interventions at this time. Called Dr. Mccoy with mammographic findings. PRELIMINARY REPORT CALLED AND FAXED TO DR. MCCOY ON 07/31/18.
== END | disposition home or self-care (01) ==
LOC: RADUSWWP 10:16
PROVIDERS: ATTEND Family Medicine
DX: N61.0 Mastitis without abscess (principal)
CPT/HCPCS: 77066

== ENCOUNTER → 2018-09-06 | Outpatient (CLI) | payer MEDICARE, BC ==
[2018-09-06 14:31] VITALS: BP 162/70; PULSE 100; RESP 20; TEMP 96.9; BMI 38.2
--- NOTE | 2018-09-06 15:32 | P.GSHP ---
History of Present Illness H&P Date: 09/06/18 Chief Complaint: Abnormal mammogram The patient is an 82-year-old white female who presents with a mammographic abnormality. She had not had a mammogram for approximately 10 years and one was performed on . On that mammogram she was noted to have bilateral spiculated masses in bilateral skin thickening. The patient subsequently had a right breast ultrasound which revealed 3 irregular spiculated solid lesions measuring 1.9 cm at 9:00 1.1 cm at 9:00 and 2.5 cm at the posterior nipple. She opted not to have a left breast ultrasound at that time. The patient also states that she has had for approximately a month and a half bloodiness nipple discharge from the right nipple. This is intermittent in nature and red. She did have an inverted nipple on that side for approximately 60 years. She does not have any recent infection in the breast nor does she have any recent trauma to the breast. Family history: 1. Mother breast cancer in her 80s Hormonal history: Menarche: Approximately 11 years old Pregnancies: 2, 2 children, did not breast-feed, her first was born at the age of approximately 22 control pills: Negative Hormones: Approximately 2 years Menopause: Surgical: Hysterectomy at 33 Past surgical history: 1. Tonsils and adenoids 2. Cholecystectomy 3. Hysterectomy total 4. right knee total replacement (4 procedures) 5. bladder suspension 6. colon resection cancer ( no chemptherapy or radiation therapy) Medical History: 1. urinary incontinence 2. Kidney stone 3. diabetic 4. arthritis Social history: smoke:none alcohol: none drugs: none - Constitutional Constitutional: Reports sweats, Denies chills, Denies fever - EENT Eyes: denies blurred vision, denies pain Ears: left: decreased hearing, bilateral: tinnitus Ears, nose, mouth and throat: Denies headache, Denies sore throat - Breasts Breasts: bilateral: as per HPI - Cardiovascular Comment: heart murmur - Respiratory Respiratory: Denies cough, Denies 7 - Gastrointestinal Gastrointestinal: Reports constipation, Denies abdominal pain, Denies diarrhea, Denies nausea, Denies vomiting - Genitourinary (Female) Comment: kidney stones, bladder suspension - Menstruation Menstruation: Reports post hysterectomy - Musculoskeletal Comment: arthritis frozen shoulder - Integumentary Comment: basal cell cancer Integumentary: Denies pruritus, Denies rash - Neurological Neurological: Reports numbness, Reports weakness - Psychiatric Psychiatric: Denies anxiety, Denies depression - Endocrine Comment: diabetes hypothyroid Endocrine: Reports weight change, Denies fatigue - Hematologic/Lymphatic Comment: none - Allergic/Immunologic Comment: sulfa 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, previous packed RBC transfusion last one being on 02/27/2018 History of Any Multi-Drug Resistant Organisms: MRSA Date of last positivie culture/infection: 02-11-18 MDRO Source:: SPUTUM Past Surgical History: Cholecystectomy, Hysterectomy, Orthopedic Surgery, Tonsillectomy Additional Past Surgical History / Comment(s): knee replacement; 03/07 - right hemicolectomy Past Anesthesia/Blood Transfusion Reactions: No Reported Reaction Additional Past Anesthesia/Blood Transfusion Reaction / Comment(s): blood transfusion- no reaction Past Psychological History: No Psychological Hx Reported Additional Psychological History / Comment(s): currently at [facility], up with [facility] Smoking Status: Never smoker Past Alcohol Use History: None Reported Past Drug Use History: None Reported - Past Family History Mother Family Medical History: Cancer Additional Family Medical History / Comment(s): breast cancer Father Additional Family Medical History / Comment(s): djd, hip replacment, heart problems Medications and Allergies Home Medications Medication Instructions Recorded Confirmed Type Cyanocobalamin [Vitamin B-12] 1,000 mcg PO QAM 04/10/15 09/06/18 History Metoprolol Succinate [Toprol XL] 50 mg PO QAM 04/10/15 09/06/18 History Multivit with Calcium,Iron,Min 1 tab PO HS 04/10/15 09/06/18 History [Women's Daily Multivitamin] Nateglinide [Starlix] 120 mg PO DAILY 04/10/15 09/06/18 History Sennosides [Senokot] 17.2 tab PO HS 04/10/15 09/06/18 History Vits A,C,E/Lutein/Minerals 1 tab PO HS 04/10/15 09/06/18 History [Ocuvite with Lutein Tablet] sitaGLIPtin PHOS/metFORMIN HCL 1 tab PO QAM 04/10/15 09/06/18 History [Janumet Xr 100-1,000 mg Tablet] Atorvastatin [Lipitor] 20 mg PO HS 02/10/18 09/06/18 History Levothyroxine Sodium [Synthroid] 150 mcg PO QAM 02/10/18 09/06/18 History Acetaminophen Tab [Tylenol] 650 mg PO Q6HR PRN tab 02/16/18 09/06/18 Rx Diclofenac Sodium Gel [Voltaren 4 gm TOPICAL QID tube 02/16/18 09/06/18 Rx Gel] Potassium Chloride [Klor-Con 20 meq PO DAILY #1 packet 02/16/18 09/06/18 Rx Packets] Ipratropium-Albuterol Nebulize 3 ml INHALATION RT-Q6H PRN 03/05/18 09/06/18 History [Duoneb 0.5 mg-3 mg/3 ml Soln] Ferrous Gluconate 324 mg PO DAILY #30 tablet 03/15/18 09/06/18 Rx Furosemide [Lasix] 40 mg PO DAILY #30 tab 03/15/18 09/06/18 Rx Isosorbide Mononitrate ER [Imdur] 15 mg PO DAILY #30 dose 03/15/18 09/06/18 Rx Ipratropium-Albuterol Nebulize 3 ml INHALATION RT-TID@05,13,21 03/20/18 History [Duoneb 0.5 mg-3 mg/3 ml Soln] Pantoprazole [Protonix] 40 mg PO BID@07,1700 03/20/18 09/06/18 History HYDROcodone/APAP 7.5-325MG [[place] 1 tab PO Q6H PRN #10 tab 03/22/18 09/06/18 Rx 7.5-325] Allergies Allergy/AdvReac Type Severity Reaction Status Date / Time Sulfa (Sulfonamide Allergy Anaphylaxis Verified 03/20/18 07:53 Antibiotics) Surgical - Exam Vital Signs Temp Pulse Resp BP Pulse Ox 96.9 F L 100 20 162/70 98 09/06/18 14:21 09/06/18 14:21 09/06/18 14:21 09/06/18 14:21 11/08/18 14:21 BMI 38.3 - General obese - Eyes normal ocular movement - ENT no congestion - Neck no masses, trachea midline - Respiratory normal respiratory effort, clear to auscultation - Cardiovascular heart murmur Heart Sounds: normal: S1, S2 - Abdomen Abdomen: soft - Neurologic no disoriented, no combative - Musculoskeletal normal gait - Psychiatric oriented to time, oriented to person, oriented to place, speech is normal, memory intact breast exam: Right breast exam: Patient has a large mass posterior to the right nipple areolar complex with excoriation and the right nipple areolar complex being somewhat disfigured and eaten away In the right upper outer quadrant there is increased density most likely consistent with a mass is well Right axilla: The right axillary area is difficult to examine as the patient has a frozen right shoulder but no definite right axillary adenopathy was identified Left breast: Multi-positional exam no dominant masses or nodules of concern left axilla: No adenopathy of concern Results Mammogram and ultrasound reviewed Assessment and Plan Assessment: Impression: 1. Large mass right breast with the nipple area were complex largely displaced by tumor 2. Left breast dense tissue 3. Valvular heart disease 4. Diabetes 5. Hypothyroidism 6. Prior colon cancer Plan: 1. Ultrasound core biopsy of the right breast 2. Ultrasound of the left breast with core biopsy 3. Medical management of medical conditions CC: Dr. Zev Christian in [place]
== END ==
LOC: WWCWWP 14:13
PROVIDERS: ATTEND Surgery
DX: Z53.9 Procedure and treatment not carried out, unspecified reason (principal)

== ENCOUNTER → 2018-09-19 | Day surgery (SDC) | payer MEDICARE, BC ==
[2018-09-19 12:30] VITALS: RESP 16; TEMP 98.1; BMI 33.9
[2018-09-19 15:32] VITALS: BP 150/77; PULSE 79
--- NOTE | 2018-09-24 09:31 | USB ---
Reason for exam: additional evaluation requested from prior study. History: Patient is postmenopausal. Family history of breast cancer in mother. US Breast LT Left complete breast ultrasound includes all four quadrants, the retroareolar region and axilla. Finding demonstrates a 1.2 x 1.1 x 1.2cm irregular, shadowing mass at 9 o'clock 3cm from nipple and a 0.9 x 1.0 x 0.7cm irregular mass at 10 o'clock 4cm from nipple. Both suspicious. Multiple benign appearing fatty lymph nodes in axilla. These results were verbally communicated with the patient and result sheet given to the patient on 09/19/18. ASSESSMENT: Highly suggestive of malignancy, BI-RAD 5 RECOMMENDATION: Surgical consultation of the left breast. Ultrasound core biopsy of both breasts.
== END ==
LOC: RADUSWWP 11:34
PROVIDERS: ATTEND Surgery
DX: C50.411 Malignant neoplasm of upper-outer quadrant of right female breast (principal); C50.412 Malignant neoplasm of upper-outer quadrant of left female breast; Z17.0 Estrogen receptor positive status [ER+]
CPT/HCPCS: 76641; 88305; 88342; 88341; J2001; 19084

== ENCOUNTER → 2018-09-19 | Outpatient (CLI) | payer MEDICARE, BC ==
--- NOTE | 2018-09-24 09:12 | USB ---
EXAMINATION TYPE: US biopsy breast VAD RT, 2 sites, US biopsy breast VAD LT, 1 site, Postbiopsy MG diagnostic mammo BI wo CAD DATE OF EXAM: 09/19/2018 CLINICAL HISTORY: 82-year-old female with bloody right nipple discharge R92.8 ABN MAMMO. TECHNIQUE: Ultrasound guided core biopsy of the bilateral breasts. COMPARISON: 07/31/2018 FINDINGS: The procedure of ultrasound guided core biopsy was explained to the patient. Benefits, alternatives, and risks were discussed. An informed consent was then obtained. The patient's exams are views: On the right, there are 4 lesions, all suspicious including subareolar lesion, two adjacent 9 and 10:00 lesions close to the nipple, and a more peripheral 10: 00 lesion. The subareolar lesion and the peripheral 10:00 lesion were sampled and will be marked by coil clips. Wing clips were deposited at the other 2 suspicious, unbiopsied sites. On the left, there are 2 suspicious lesions at 9 and 10:00. A 9:00 lesion was sampled and marked by a coil clip. Wing clip was deposited at the other suspicious, unbiopsied site. The patient was placed in supine positioning for imaging and for the procedure. The overlying skin was prepped and draped in usual sterile fashion. Lidocaine buffered with bicarbonate was used as anesthetic into the skin and subcutaneous tissue up to area of concern in each breast in turn. A total of 16 mL 1% lidocaine was utilized. - RIGHT: Peripheral 10:00 -- Under ultrasound guidance, a 13-gauge vacuum assisted mammotome Elite biopsy gun device was used to obtain 3 core samples. Following this, a coil clip was left in the biopsied lesion. - RIGHT: Subareolar -- Under ultrasound guidance, a 13-gauge vacuum assisted mammotome Elite biopsy gun device was used to obtain 3 core samples. Following this, a coil clip was left in the biopsied lesion. - RIGHT: Adjacent 9 and 10:00 -- Under ultrasound guidance, a wing clip was deployed into each of these two lesions to jarod these two unbiopsied sites on mammogram. - LEFT: 9:00 -- Under ultrasound guidance, a 13-gauge vacuum assisted mammotome Elite biopsy gun device was used to obtain 4 core samples. Following this, a coil clip was left in the biopsied lesion. - LEFT: Adjacent 10:00 -- Under ultrasound guidance, a wing clip was deployed into the lesion to jarod this unbiopsied site on mammogram. The patient tolerated the procedure well without any immediate complication. The patient was kept in the radiology department for short stay after the procedure and then discharged home in stable condition. On postprocedure mammogram, the patient refused a right lateral view. Note that coil clips jarod the biopsied sites, 2 on the right and one on the left. Wing clips jarod the other unbiopsied, BI-RADS 5 sites, 2 on the right and one on the left. The peripheral 10:00 o'clock coil clip is outside the field of view on the right CC view. IMPRESSION: Successful, uncomplicated ultrasound guided core biopsy of multiple BI-RADS 5 lesions, 2 on the right and one on the left, all marked with coil clips. 2 additional BI-RADS 5 lesions are present on the right and one on the left. These were not biopsied but marked with wing clips. Note that the peripheral 10: 00 coil clip in the right CC projection is outside the field of view. The patient refused a right lateral view. Full pathology results to follow. Pathology Results: Malignant A. 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 See Surgical Pathology Cancer Case Summary. B. RIGHT BREAST, POSTERIOR NIPPLE, ULTRASOUND GUIDED CORE BIOPSY: Benign breast with prominent adipose tissue and fibrocystic changes. C. 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 See Surgical Pathology Cancer Case Summary and comment. Recommendation Surgical consult of bilateral breasts. FRANKY
--- NOTE | 2018-09-24 09:32 | MM ---
Reason for exam: additional evaluation requested from abnormal screening. Last mammogram was performed 2 months ago. History: Patient is postmenopausal. Family history of breast cancer in mother. MG Diagnostic [facility] BI Wo CAD Bilateral CC view(s) were taken. LM view(s) were taken of the left breast. Prior study comparison: July 31, 2018, bilateral MG diagnostic mammo w CAD [facility]EN. ASSESSMENT: Post procedure mammogram for marker placement RECOMMENDATION: Surgical consult of both breasts. FRANKY
== END | disposition home or self-care (01) ==
LOC: RADUSWWP 11:32
PROVIDERS: ATTEND Surgery
DX: C50.512 Malignant neoplasm of lower-outer quadrant of left female breast (principal); C50.111 Malignant neoplasm of central portion of right female breast
CPT/HCPCS: 77066; 19083; 19084 ×2; A4648

== ENCOUNTER → 2018-09-27 | Outpatient (CLI) | payer MEDICARE, BC ==
[2018-09-27 12:28] VITALS: BP 131/63; PULSE 78; RESP 18; TEMP 99.3; BMI 34.4
--- NOTE | 2018-09-27 13:11 | P.PN ---
Subjective Progress Note Date: 09/27/18 Emili is an 82-year-old white female who is status post bilateral ultrasound core biopsies of the breast. She is noted to have invasive ductal carcinoma of both breasts. The patient approximately a year ago underwent a colon resection for an 8 cm invasive carcinoma with metastatic disease and 12 lymph nodes. At that time she refused any further workup or intervention. The patient at this time has a chronic bleeding right nipple. This is believed to be related to malignancy. The patient is wheelchair-bound and wants minimal intervention to be performed. At this time I have had a discussion with the patient and her son and regarding metastatic workup and the possibility of hormonal treatment. ER/IN status is not yet available. Objective - Vital Signs Vital signs: Vital Signs Temp 99.3 F 09/27/18 12:19 Pulse 78 09/27/18 12:19 Resp 18 09/27/18 12:19 BP 131/63 09/27/18 12:19 Pulse Ox 98 09/27/18 12:19 Intake & Output 09/26/18 09/27/18 09/27/18 18:59 06:59 18:59 Weight 93.894 kg - Integumentary Integumentary Comment(s): Puncture sites clean Right breast and nipple area with bleeding, mass lesion posterior to nipple ( this area was benign on core biopsy) this is felt to be most likely discordant Assessment and Plan Assessment: Impression: 1. Bilateral invasive ductal breast cancer 2. Bleeding nipple with mass posterior the nipple on the right 3. 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 Wheelchair bound 5. Cardiac murmur Plan: 1. PET CT recommended 2. Appointment with medical oncology 3. Follow-up here after PET and oncology consult obtained 4. Medical management of medical conditions At this time the patient and her family are very hesitant for any surgical intervention. Whether surgery would be beneficial would depend on metastatic workup and status. This is been recommended at the present time I've called Shaunna Cloud nurse navigator and she is setting this up with the patient and her family at this time. We'll see the patient after PET CT and medical oncology evaluation. Cc: Dr. Mccoy
== END ==
LOC: WWCWWP 12:13
PROVIDERS: ATTEND Surgery
DX: Z53.9 Procedure and treatment not carried out, unspecified reason (principal)

== ENCOUNTER → 2018-09-29 | Outpatient (CLI) | payer MEDICARE, BC ==
--- NOTE | 2018-10-04 15:00 | PE ---
Nuclear medicine PET/CT HISTORY: Breast carcinoma bilateral, initial Patient received 11.7 mCi F-18 FDG intravenously in delayed scanning was performed from the skull bas e to the mid thighs. Localization and attenuation correction CT scan was also performed. Correlation to ultrasound breast 09/19/2018 Neck and chest: There is no evident cervical adenopathy, no mediastinal, axillary, or hilar adenopath y. Uptake within the right breast is noted at the level of the nipple and slightly lateral compatible with patient's history of breast carcinoma, SUV 4 at the nipple, only 2.7 smaller soft tissue lesion laterally. Only mild hypermetabolic uptake evident within the left breast corresponding to some mild increased soft tissue density. No evident lung mass. The heart is enlarged. Mitral annular calcifica tions, coronary artery calcifications are extensive. The pulmonary artery is prominent, there may be underlying pulmonary artery hypertension. Ascending portion of the aorta is borderline aneurysmal. Abdomen pelvis: There is a focus within the posterior aspect of the right lobe of the liver medially which shows associated hypermetabolic uptake, SUV is 22-33, no definite soft tissue mass is identifie d on the noncontrast exam. Focus of hypermetabolic uptake is present in the portal region likely lamont esponding to portal adenopathy immediately anterior to the inferior vena cava, SUV is 19. There is so me uptake associated with the bowel which is likely physiologic. Anterior abdominal wall hernia is pr esent containing loops of bowel. The left kidney shows a large cystic focus at the posterior aspect o f the upper pole with associated wall calcification. An additional cystic focus is present more media lly, these lesions measure approximately 4.5 and 3.8 cm. No retroperitoneal adenopathy. Postop change s are noted:. Patient is post cholecystectomy. Urine contamination is noted incidentally. Osseous structures: Uptake within the left shoulder is present, there is underlying arthropathy bilat erally, degenerative disc changes present visualized spine and sternoclavicular joints. Multilevel th oracic spondylosis is present. Degenerative disc disease and facet arthropathy noted in the lumbar sp ine, suspect spondylolysis at L5 with spondylolisthesis. IMPRESSION: Findings compatible with patient's history of breast carcinoma. Abnormal uptake within th e liver and [place] could be indicative of metastatic disease versus second primary with regional metas tasis. Additional findings above.
== END | disposition home or self-care (01) ==
LOC: RADPETMAIN 13:56
PROVIDERS: ATTEND Surgery
DX: C50.411 Malignant neoplasm of upper-outer quadrant of right female breast (principal); C50.212 Malignant neoplasm of upper-inner quadrant of left female breast; R93.2 Abnormal findings on diagnostic imaging of liver and biliary tract
CPT/HCPCS: 78815; A9552